=== PATIENT | female | born 1935 | race Caucasian/White ===

== ENCOUNTER 2022-02-20 15:36 | Inpatient (IN) ==
[2022-02-20 16:50] LABS: Basophils # (auto) 0.04 K/uL (0-0.2); Basophils % (auto) 0.3 %; Eosinophils # (auto) 0.01 K/uL (0-0.50); Eosinophils % (auto) 0.1 %; Hematocrit (blood only) 43.5 % (34.1-44.9); Hemoglobin 14.9 g/dl (12.0-16.0); Immature Granulocytes # (auto) 0.04 K/uL (0.00-0.02); Immature Granulocytes % (auto) 0.3 %; Lymphocytes # (auto) 1.48 K/uL (1.2-3.4); Lymphocytes % (auto) 11.4 %; Mean Corpuscular Hemoglobin 31.2 pg (25.0-34.0); Mean Corpuscular Hgb Conc 34.3 g/dL (32.0-36.0); Mean Corpuscular Volume 91.2 fL (80.0-100.0); Mean Platelet Volume 8.9 fL (9.4-12.3); Monocytes # (auto) 0.75 K/uL (0.24-0.82); Monocytes % (auto) 5.8 %; Neutrophils # (auto) 10.61 K/uL (1.4-6.5); Neutrophils % (auto) 82.1 %; Platelet Count 468 K/uL (130-400); RDW Coefficient of Variation 13.5 % (11.5-14.5); RDW Standard Deviation 45.8 fL (36.4-46.3); Red Blood Count 4.77 M/uL (3.93-5.22); White Blood Count 12.93 K/ul (4.8-10.8)
[2022-02-20] MEDS ORDERED: CEFEPIME 2,000 MG/20 ML VIAL IV STA (16:51)
[2022-02-20] MEDS ORDERED: VANCOMYCIN HCL 750 MG in SODIUM CHLORIDE 0.9% 500 ML IV ONE (16:51)
[2022-02-20] MEDS ORDERED: VANCOMYCIN CONSULT ACTIVE PRN (16:51)
--- NOTE | 2022-02-20 16:54 | XRay Report ---
XR chest 1V portable CLINICAL HISTORY: Dyspnea. COMPARISON STUDY: Chest radiograph February 18, 2018. FINDINGS: Patient is rotated. There is no pneumothorax. No evidence for pulmonary edema. A small left pleural effusion is present. Left basilar airspace opacity is noted with volume loss. Linear right b asilar opacity favors atelectasis. IMPRESSION: 1. Left lower lung airspace opacity with volume loss. This could reflect pneumonia or left lower lobe atelectasis. Radiographic follow-up is recommended. 2. Small left pleural effusion. ACT 112: Negative or not required by law. Electronically signed by: Peterson Davis M.D. 02/20/2022 4:52 PM
[2022-02-20 17:15] LABS: Troponin I High Sensitivity 23.2 pg/ml (0-14)
[2022-02-20 17:20] LABS: Albumin Globulin Ratio 1.1 (0.9-2); Albumin Level 4.2 gm/dl (3.4-5.0); BUN Creatinine Ratio 22.7 (10-20); Bilirubin,Total 0.6 mg/dl (0.2-1.0); Creatinine Clr Calc Pharmacy 37.1 ml/min; Est GFR (African American) 84.2 ml/min; Est GFR (Non-African American) 72.7 ml/min; Globulin 3.9 gm/dl (2.5-4.0); Magnesium 1.9 mg/dl (1.7-2.4); Potassium 3.7 mmol/L (3.5-5.1); Total Protein 8.1 gm/dl (6.0-8.3)
[2022-02-20] MEDS ORDERED: SODIUM CHLORIDE 0.9% 1000ML 500 ML IV ONE (17:27)
[2022-02-20] MEDS ORDERED: SODIUM CHLORIDE 0.9% 1000ML 1,000 ML IV STA (17:27)
--- NOTE | 2022-02-20 17:46 | History & Physical Report ---
Date of Service February 20, 2022 Assessment & Plan (1) Acute and chronic respiratory failure with hypoxia: Plan: - Patient has pneumonia with a left pleural effusion on CXR, given recent COVID infection, suspicion for possible PE contributing. Also likely component of COPD exacerbation. Patient says she has been tested twice for COPD and does not have it, last test several years ago, however has a longstanding tobacco history and presents like a COPD exacerbation, would presume she has some degree of it. Did have PFTs in 2018, with evidence of some mild obstruction. - Chest CTA ordered, pending. Also obtain ABG. - For now, treat empirically as community-acquired pneumonia with ceftriaxone and azithromycin. - Sputum, blood cultures ordered and pending. - DuoNebs scheduled every 6 hours and every 2 hours as needed. - Defer Mucinex as patient has an allergy to this. - We will hold off on steroids given this would inhibit healing from bacterial infection. - Continue home inhalers. - Lasix 20 IV twice daily for pleural effusion. - BMP up at 442, obtaining echo as below for elevated troponin. - Has an anion gap 15, normal lactate, suspect due to very poor p.o. intake over the past 2 weeks. Will look for ketones in urine when it is collected. (2) Elevated troponin: Plan: - Elevated at 23, EKG without any concerning ST segment or T wave changes. - Patient has complained of intermittent chest pressure over the past several days alleviated with rest, with oxygen in ED. - Suspect is elevated due to infection/hypoxia/pleural effusion, but will trend overnight and obtain echo. (3) Hypertension: Plan: - Continue amlodipine and losartan. (4) Hyperlipidemia: Plan: - Continue atorvastatin. (5) Osteoporosis: Plan: - Continue calcium and vitamin D supplementation. (6) Pneumonia: Plan: - See #1 (7) Pleural effusion: Plan: - See #1 Plan - admit to med w/ telemetry. - SCDs, Lovenox for VTE ppx. - Full Code. History of Present Illness Chief Complaint: Worsening shortness of breath and cough over 2 weeks Primary Care Provider: Rosalio York MD Emelia Sood is an 86 y/o female with past medical history significant for COVID infection 2 weeks ago, longstanding tobacco use disorder suspected COPD, hypertension, and hyperlipidemia is presenting today with acute worsening of her shortness of breath. 2 weeks ago she and her are not feeling well, therefore they tested for COVID-19 and were both positive for it. Patient's symptoms included shortness of breath, productive cough, and she is generalized weakness due to lack of appetite. Has been using her inhalers as prescribed without alleviation over the past 2 weeks that is gradually become worse until today when she felt like she could not catch her breath and presented to the ED for evaluation. She has had intermittent chest pressure that comes and goes at rest or with activity and notes that her being on oxygen here, it is completely subsided. She has not had any fever or chills, chest tightness, palpitations, abdominal pain, nausea, vomiting. Although she feels lightheaded, she has not passed out and denies any falls. She is a longtime smoker, smoking half pack to 1 pack/day for many years, however has not been smoking much the past 2 weeks as she has been too short of breath to do so. On presentation, patient was hypoxic on room air to the 80s, mildly hypertensive 146/62, tachypneic with RR of 27, tachycardic, HR 100 110. Labs significant for WBC 12 with left shift, on BMP she has an AG 15, otherwise renal function is at baseline, no transaminitis, no electrolyte abnormalities. Troponin mildly bumped at 23.2, BNP 442. COVID-negative today. Blood cultures pending. CXR shows left lower lung opacity and small left pleural effusion. Allergies Allergy/AdvReac Type Severity Reaction Status Date / Time guaifenesin [From Mucinex] Allergy Intermediate Hives Verified 02/20/22 17:42 amoxicillin Allergy Unknown Unknown Verified 02/20/22 17:42 prednisone AdvReac Severe swelling Verified 02/20/22 17:42 legs clindamycin AdvReac Intermediate Diarrhea Verified 02/20/22 17:42 lisinopril AdvReac Intermediate Cough Verified 02/20/22 17:42 Home Medications Medication Instructions Recorded Confirmed Type alendronate 70 mg tablet 70 mg PO WK 02/18/18 02/20/22 History amlodipine 10 mg tablet 10 mg PO DAILY 02/18/18 02/20/22 History aspirin 81 mg tablet,delayed 81 mg PO 3XWK 02/18/18 02/20/22 History release (Kaitlin Low Dose Aspirin) calcium carbonate 600 mg calcium 1,200 mg PO DAILY 02/18/18 02/20/22 History (1,500 mg) tablet (Calcium) cholecalciferol (vitamin D3) 50 2,000 unit PO DAILY 02/18/18 02/20/22 History mcg (2,000 unit) capsule (Vitamin D3) fexofenadine 180 mg tablet 180 mg PO DAILY 02/18/18 02/20/22 History triamcinolone acetonide 0.1 % 1 applic topical DAILY PRN Dry Skin 02/18/18 02/20/22 History topical ointment albuterol sulfate 90 mcg/actuation 2 puff inhalation Q6H PRN 02/19/18 02/20/22 History aerosol inhaler (ProAir HFA) SOB/Wheezing atorvastatin 40 mg tablet 40 mg PO DAILY 11/07/20 02/20/22 History losartan 100 mg tablet 100 mg PO DAILY 11/07/20 02/20/22 History oxycodone 5 mg tablet (Roxicodone) 2.5 mg PO Q8H PRN pain #5 tabs 11/07/20 02/20/22 Rx triamcinolone acetonide 55 mcg 2 spray intranasal DAILY 11/07/20 02/20/22 History nasal spray aerosol (Nasacort) sodium chloride 0.65 % nasal spray 2 spray intranasal BID 02/20/22 02/20/22 History aerosol (Saline Mist) Past Med/Surg History Medical History COVID-09 february 2022 Hyperlipidemia Hypertension Family History Other No significant family history Social History Smoking Status: Current every day smoker Tobacco Type: Cigarettes Cigarettes Per Day: 20; Hx Alcohol Use: No Hx Substance Use: No Preferred Language: Urdu Communication Ability: Effective Dough Catcher Required: No Beliefs That Will Affect Care: None Current Living Situation: Family Feels Safe at Home: Yes Assistive Devices: Walker Review of Systems Review of Systems: Constitutional: Progressive weakness, fatigue, myalgias, anorexia x2 weeks; no fever/chills, night sweats Eyes: No diplopia, no worsening or blurred vision ENT: normal hearing, no trouble swallowing Respiratory: Shortness of breath with minimal exertion associated with cough productive of green/yellow phlegm Cardiovascular: Chest pressure with activity, alleviated with oxygen in ED Abdomen: No pain, nausea, vomiting, diarrhea or constipation : Denies dysuria, hematuria, increased urgency/frequency, urinary retention Musculoskeletal: No joint pain, calf pain, swelling Neurologic: No weakness, numbness/tingling, or balance problems Psychiatric: No anxiety or depression Skin: No rash or itch Physical Exam Physical Exam: General: awake, alert, appears frail, patient on oxygen mask, visibly short of breath with conversation, with accessory respiratory muscle use Head: Normocephalic, atraumatic ENT: PERRL, EOMI, no pharyngeal exudate, mucous membranes moist Chest: Decreased breath sounds and posterior lung dee without wheezing appreciated Cardiac: Regular rate and rhythm, no murmur, no JVD, normal peripheral pulses, good capillary refill Abdominal: NABS x 4 quadrants, soft, nontender to palpation, no rebound, guarding or tenderness Extremities: Normal inspection, no peripheral edema or erythema, calfs nontender to palpation Psych: Normal mood and affect Neuro: AAO x 3, strength intact bilaterally and rated 5/5, no motor deficits, speech is clear, no peripheral sensory deficits Skin: no rash or erythema Results & Data Results & Data ([facility]) Vital Signs (Past 12 Hours) Vital Signs Temp Pulse Resp BP Pulse Ox O2 Del Method O2 Flow Rate 02/20/22 16:16 92 Nasal Cannula 3 02/20/22 15:45 91 Nasal Cannula 0 02/20/22 15:45 36.8 C 118 H 22 159/70 H 91 Room Air Laboratory Results Lab Results 02/20/22 02/20/22 02/20/22 Range/Units 16:30 16:30 16:30 WBC 12.93 H (4.8-10.8) K/ul RBC 4.77 (3.93-5.22) M/uL Hgb 14.9 (12.0-16.0) g/dl Hct 43.5 (34.1-44.9) % MCV 91.2 (80.0-100.0) fL MCH 31.2 (25.0-34.0) pg MCHC 34.3 (32.0-36.0) g/dL RDW Std Deviation 45.8 (36.4-46.3) fL RDW Coeff of Blas 13.5 (11.5-14.5) % Plt Count 468 H (130-400) K/uL MPV 8.9 L (9.4-12.3) fL Immature Gran % (Auto) 0.3 % Neut % (Auto) 82.1 % Lymph % (Auto) 11.4 % Aiken % (Auto) 5.8 % Eos % (Auto) 0.1 % Baso % (Auto) 0.3 % Neut # (Auto) 10.61 H (1.4-6.5) K/uL Lymph # (Auto) 1.48 (1.2-3.4) K/uL Aiken # (Auto) 0.75 (0.24-0.82) K/uL Eos # (Auto) 0.01 (0-0.50) K/uL Baso # (Auto) 0.04 (0-0.2) K/uL Immature Gran # (Auto) 0.04 H (0.00-0.02) K/uL Sodium 138 (136-145) mmol/L Potassium 3.7 (3.5-5.1) mmol/L Chloride 101 (98-107) mmol/L Carbon Dioxide 22 (21-32) mmol/L Anion Gap 15 H (3-11) BUN 17 (6-23) mg/dl Creatinine 0.75 (0.6-1.2) mg/dl Est Cr Clr Drug Dosing 37.1 ml/min Est GFR ( Amer) 84.2 ml/min Est GFR (Non-Af Amer) 72.7 ml/min BUN/Creatinine Ratio 22.7 H (10-20) Glucose 103 H (70-99(Fasting)) mg/dl Lactate (0.4-2.0) mmol/L Calcium 10.0 (8.5-10.1) mg/dl Magnesium 1.9 (1.7-2.4) mg/dl Total Bilirubin 0.6 (0.2-1.0) mg/dl AST 22 (13-39) U/L ALT 12 (7-52) U/L Alkaline Phosphatase 129 H (34-104) U/L Troponin I High Sens 23.2 H (0-14) pg/ml B-Natriuretic Peptide 442 H (0-100) pg/ml Total Protein 8.1 (6.0-8.3) gm/dl Albumin 4.2 (3.4-5.0) gm/dl Globulin 3.9 (2.5-4.0) gm/dl Albumin/Globulin Ratio 1.1 (0.9-2) SARS-CoV-2, RNA, NAAT (NEGATIVE) 02/20/22 02/20/22 Range/Units 16:30 16:35 WBC (4.8-10.8) K/ul RBC (3.93-5.22) M/uL Hgb (12.0-16.0) g/dl Hct (34.1-44.9) % MCV (80.0-100.0) fL MCH (25.0-34.0) pg MCHC (32.0-36.0) g/dL RDW Std Deviation (36.4-46.3) fL RDW Coeff of Blas (11.5-14.5) % Plt Count (130-400) K/uL MPV (9.4-12.3) fL Immature Gran % (Auto) % Neut % (Auto) % Lymph % (Auto) % Aiken % (Auto) % Eos % (Auto) % Baso % (Auto) % Neut # (Auto) (1.4-6.5) K/uL Lymph # (Auto) (1.2-3.4) K/uL Aiken # (Auto) (0.24-0.82) K/uL Eos # (Auto) (0-0.50) K/uL Baso # (Auto) (0-0.2) K/uL Immature Gran # (Auto) (0.00-0.02) K/uL Sodium (136-145) mmol/L Potassium (3.5-5.1) mmol/L Chloride (98-107) mmol/L Carbon Dioxide (21-32) mmol/L Anion Gap (3-11) BUN (6-23) mg/dl Creatinine (0.6-1.2) mg/dl Est Cr Clr Drug Dosing ml/min Est GFR ( Amer) ml/min Est GFR (Non-Af Amer) ml/min BUN/Creatinine Ratio (10-20) Glucose (70-99(Fasting)) mg/dl Lactate 1.1 (0.4-2.0) mmol/L Calcium (8.5-10.1) mg/dl Magnesium (1.7-2.4) mg/dl Total Bilirubin (0.2-1.0) mg/dl AST (13-39) U/L ALT (7-52) U/L Alkaline Phosphatase (34-104) U/L Troponin I High Sens (0-14) pg/ml B-Natriuretic Peptide (0-100) pg/ml Total Protein (6.0-8.3) gm/dl Albumin (3.4-5.0) gm/dl Globulin (2.5-4.0) gm/dl Albumin/Globulin Ratio (0.9-2) SARS-CoV-2, RNA, NAAT NEGATIVE (NEGATIVE) Diagnostic Findings Chest X-Ray 02/20/22 16:08 XR chest 1V portable CLINICAL HISTORY: Dyspnea. COMPARISON STUDY: Chest radiograph February 18, 2018. FINDINGS: Patient is rotated. There is no pneumothorax. No evidence for pulmonary edema. A small left pleural effusion is present. Left basilar airspace opacity is noted with volume loss. Linear right basilar opacity favors atelectasis. IMPRESSION: 1. Left lower lung airspace opacity with volume loss. This could reflect pneumonia or left lower lobe atelectasis. Radiographic follow-up is recommended. 2. Small left pleural effusion. ACT 112: Negative or not required by law. Electronically signed by: Peterson Davis M.D. 02/20/2022 4:52 PM ECG Additional Comments: Poor data quality, interpretation may be adversely affected Sinus tachycardia with occasional , and consecutive Premature ventricular complexes Left axis deviation Inferior infarct , age undetermined Anterolateral infarct , age undetermined Abnormal ECG When compared with ECG of 18-FEB-2018 17:06, Significant changes have occurred Supervising Physician Co-Signing Physician Notes Patient seen and examined, chart reviewed, case discussed with Radha Daily PA-C and I agree with the assessment and plan as above except as otherwise noted Labs and images reviewed Emelia is a 86-year-old female recently diagnosed with COVID who presents with worsening shortness of breath and breathing and purulent sputum production. She has a leukocytosis, left lower lung airspace opacity suspicious for pneumonia, and frankly purulent sputum production. At time of bedside visit she is not short of breath but is on supplemental oxygen and is having no chest pain. Lungs diminished in the left base, some expiratory wheezing. Heart rate is regular but slightly tachycardic at bedside. Agree with antibiotics for coverage of secondary pneumonia above, MRSA nares added for de-escalation, sputum culture is pending. Agree with management above. Troponin trended, repeat COVID is negative. PG Care Time/CCT Total # of Minutes Spent Total Time Spent with Patient: Total time spent is greater than 50% in coordination of care (as documented) at patient's floor/unit and/or counseling patient: Coding Level of Care Code 92205 Initial Inpt Care Lvl 3 Diagnoses Acute and chronic respiratory failure with hypoxia J96.21 Elevated troponin R77.8 Hypertension I10 Hyperlipidemia E78.5 Osteoporosis M81.0 Pneumonia J18.1 Laterality: right Lung location: lower lobe of lung Pneumonia type: due to unspecified organism Pleural effusion J90 (1) Pneumonia Laterality: right Lung location: lower lobe of lung Pneumonia type: due to unspecified organism Qualified Code(s): J18.1 - Lobar pneumonia, unspecified organism
[2022-02-20] MEDS ORDERED: VANCOMYCIN HCL 750 MG in SODIUM CHLORIDE 0.9% 250 ML IV STA (17:50)
--- NOTE | 2022-02-20 18:39 | Emergency Department Note ---
Impression & Plan Left lower lobe pneumonia, Elevated troponin, Hypoxia ED Provider Note INFORMANT: Patient and daughter ED PROVIDER(S): Erich Ortiz MD CHIEF COMPLAINT: Shortness of breath productive cough PLAN: Disposition: Admitted Condition: Guarded Outpatient prescription management: none Referral: None MEDICAL DECISION MAKING: Patient presented because of productive cough and shortness of breath. She was hypoxic. She had increased work of breathing. Chest x-ray was performed and revealed left lower lobe infiltrate. Her CBC showed a leukocytosis. Patient has a mild elevation of BNP and troponin. Chemistry panel was unremarkable. She was treated with broad-spectrum antibiotics after cultures. She was given cefepime and vancomycin. She was doing relatively well with a oxi mask. She will need further management in the hospital. Patient and daughter were in agreement. Consultation was made with the [facility]. Patient was evaluated in the ER for further management. Triage Nursing notes reviewed and agree them. Vital Signs: reviewed and remarkable for hypoxia Differential diagnosis: Reactive airway disease, pneumonia, pneumothorax, COPD, CHF, infections, cardiac ischemia, pulmonary embolism, musculoskeletal, gastrointestinal, as well as other pathologies. Diagnostics interpreted by me: ECG: Twelve-lead ECG reveals sinus tachycardia 125 bpm. There is left axis deviation. Inferior and anterolateral Q waves are present. No ST elevation. Cardiac Monitoring: Cardiac monitoring ordered by me: The patient was placed on continuous cardiac monitoring and observed. It revealed a sinus tachycardic rhythm at 106 Imaging studies: Chest x-ray as noted above. Left lower lobe infiltrate. HPI: The patient is a 86year old female who presents to the Emergency Room with complaints of shortness of breath. This started over the last week and is getting worse. The patient also notes the following associated symptoms, productive cough, weakness. The patient has found no relieving factors. Current pain is rated as 0/10. Patient states she was diagnosed with COVID 2 weeks ago. Over the last week she has progressively gotten worse. Pt denies LOC, headache, fevers, chills, diaphoresis, visual changes, neck pain, chest pain, nausea, vomiting, abdominal pain, back pain, melena, hematochezia, urinary symptoms, numbness, lymphadenopathy, rash, or other complaints. ROS: See above HPI for pertinent positives & negatives. A total of 10 systems reviewed and were otherwise negative. PAST MEDICAL HISTORY:See Below , hypertension PAST SURGICAL HISTORY:See Below, FAMILY HISTORY:See Below SOCIAL HISTORY:See Below, HOME MEDICATIONS:See Below ALLERGIES:See Below VITALS:See Below PHYSICAL EXAMINATION: GENERAL: Awake, alert, dyspneic-appearing, in no distress HENT: Normocephalic, atraumatic. Oropharynx unremarkable. EYES: Normal conjunctiva. Sclera non-icteric. NECK: Inspection normal. Non-tender. Supple. No nuchal rigidity. FROM. No masses. RESPIRATORY: Rhonchi noted in the left based. No wheezes. No rales. Increased respiratory effort. CARDIAC: Borderline tachycardic rate. Normal rhythm. No murmurs. No rubs. Extremities warm and well perfused. Pulses equal. No JVD. GI: Soft, non-distended. No tenderness to palpation. No rebound or guarding. No masses. RECTAL: Deferred. MUSCULOSKELETAL: Atraumatic. Chest examination reveals no tenderness. The back is symmetrical on inspection without obvious abnormality. There is no CVA tenderness to palpation. No joint edema. LOWER EXTREMITIES: Calves are equal size bilaterally and non-tender. No edema. No discoloration. NEURO: Normal sensorium. No sensory or motor deficits noted. SKIN: No rash or jaundice noted. CRITICAL CARE: I have personally spent greater than 33 minutes of critical care time in the direct management of this patient. This includes bedside care, interpretation of diagnostic studies, and testing, discussion with consultants, patient, and family members, and other required patient management activities. These minutes are in excess of all separately billable procedures. 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 Required: No Beliefs That Will Affect Care: None Current Living Situation: Family Feels Safe at Home: Yes Assistive Devices: Walker Allergies Allergies Allergy/AdvReac Type Severity Reaction Status Date / Time guaifenesin [From Mucinex] Allergy Intermediate Hives Verified 02/20/22 17:42 amoxicillin Allergy Unknown Unknown Verified 02/20/22 17:42 prednisone AdvReac Severe swelling Verified 02/20/22 17:42 legs clindamycin AdvReac Intermediate Diarrhea Verified 02/20/22 17:42 lisinopril AdvReac Intermediate Cough Verified 02/20/22 17:42 Home Meds Home Medications Medication Instructions Recorded Confirmed alendronate 70 mg tablet 70 mg PO WK 02/18/18 02/20/22 amlodipine 10 mg tablet 10 mg PO DAILY 02/18/18 02/20/22 aspirin 81 mg tablet,delayed 81 mg PO 3XWK 02/18/18 02/20/22 release (Kaitlin Low Dose Aspirin) calcium carbonate 600 mg calcium 1,200 mg PO DAILY 02/18/18 02/20/22 (1,500 mg) tablet (Calcium) cholecalciferol (vitamin D3) 50 2,000 unit PO DAILY 02/18/18 02/20/22 mcg (2,000 unit) capsule (Vitamin D3) fexofenadine 180 mg tablet 180 mg PO DAILY 02/18/18 02/20/22 triamcinolone acetonide 0.1 % 1 applic topical DAILY PRN Dry Skin 02/18/18 02/20/22 topical ointment albuterol sulfate 90 mcg/actuation 2 puff inhalation Q6H PRN 02/19/18 02/20/22 aerosol inhaler (ProAir HFA) SOB/Wheezing atorvastatin 40 mg tablet 40 mg PO DAILY 11/07/20 02/20/22 losartan 100 mg tablet 100 mg PO DAILY 11/07/20 02/20/22 triamcinolone acetonide 55 mcg 2 spray intranasal DAILY 11/07/20 02/20/22 nasal spray aerosol (Nasacort) sodium chloride 0.65 % nasal spray 2 spray intranasal BID 02/20/22 02/20/22 aerosol (Saline Mist) Previous Rx's Medication Instructions Recorded oxycodone 5 mg tablet (Roxicodone) 2.5 mg PO Q8H PRN pain #5 tabs 11/07/20 Results & Data (ED) Vital Signs Vital Signs - 24 hr 02/20/22 15:45 02/20/22 15:45 02/20/22 16:16 Temperature 36.8 C Temperature Source Oral Pulse Rate 118 H Pulse Rate [Apical] Respiratory Rate 22 Blood Pressure 159/70 H Blood Pressure [Left Arm] Blood Pressure Mean 99 Blood Pressure Mean [Left Arm] Pulse Oximetry 91 91 92 Oxygen Delivery Method Room Air Nasal Cannula Nasal Cannula Oxygen Flow Rate 0 3 Sepsis Recent Fever Within 48 Hours No Sepsis New/Unexplained Change in Mental Status No Sepsis Action Taken by Nursing No Action Required Oxygen Flow Rate - Titration 3 Pulse Oximetry Post Tiitration 93 02/20/22 17:45 Temperature Temperature Source Pulse Rate Pulse Rate [Apical] 102 H Respiratory Rate 18 Blood Pressure Blood Pressure [Left Arm] 143/85 H Blood Pressure Mean Blood Pressure Mean [Left Arm] 104 Pulse Oximetry 93 Oxygen Delivery Method Oxymask Oxygen Flow Rate 6 Sepsis Recent Fever Within 48 Hours Sepsis New/Unexplained Change in Mental Status Sepsis Action Taken by Nursing Oxygen Flow Rate - Titration Pulse Oximetry Post Tiitration Laboratory Data Result diagrams: 02/20/22 16:30 02/20/22 16:30 Lab Results 02/20/22 02/20/22 02/20/22 Range/Units 16:30 16:30 16:30 WBC 12.93 H (4.8-10.8) K/ul RBC 4.77 (3.93-5.22) M/uL Hgb 14.9 (12.0-16.0) g/dl Hct 43.5 (34.1-44.9) % MCV 91.2 (80.0-100.0) fL MCH 31.2 (25.0-34.0) pg MCHC 34.3 (32.0-36.0) g/dL RDW Std Deviation 45.8 (36.4-46.3) fL RDW Coeff of Blas 13.5 (11.5-14.5) % Plt Count 468 H (130-400) K/uL MPV 8.9 L (9.4-12.3) fL Immature Gran % (Auto) 0.3 % Neut % (Auto) 82.1 % Lymph % (Auto) 11.4 % Beckham % (Auto) 5.8 % Eos % (Auto) 0.1 % Baso % (Auto) 0.3 % Neut # (Auto) 10.61 H (1.4-6.5) K/uL Lymph # (Auto) 1.48 (1.2-3.4) K/uL Beckham # (Auto) 0.75 (0.24-0.82) K/uL Eos # (Auto) 0.01 (0-0.50) K/uL Baso # (Auto) 0.04 (0-0.2) K/uL Immature Gran # (Auto) 0.04 H (0.00-0.02) K/uL Sodium 138 (136-145) mmol/L Potassium 3.7 (3.5-5.1) mmol/L Chloride 101 (98-107) mmol/L Carbon Dioxide 22 (21-32) mmol/L Anion Gap 15 H (3-11) BUN 17 (6-23) mg/dl Creatinine 0.75 (0.6-1.2) mg/dl Est Cr Clr Drug Dosing 37.1 ml/min Est GFR ( Amer) 84.2 ml/min Est GFR (Non-Af Amer) 72.7 ml/min BUN/Creatinine Ratio 22.7 H (10-20) Glucose 103 H (70-99(Fasting)) mg/dl Lactate (0.4-2.0) mmol/L Calcium 10.0 (8.5-10.1) mg/dl Magnesium 1.9 (1.7-2.4) mg/dl Total Bilirubin 0.6 (0.2-1.0) mg/dl AST 22 (13-39) U/L ALT 12 (7-52) U/L Alkaline Phosphatase 129 H (34-104) U/L Troponin I High Sens 23.2 H (0-14) pg/ml B-Natriuretic Peptide 442 H (0-100) pg/ml Total Protein 8.1 (6.0-8.3) gm/dl Albumin 4.2 (3.4-5.0) gm/dl Globulin 3.9 (2.5-4.0) gm/dl Albumin/Globulin Ratio 1.1 (0.9-2) SARS-CoV-2, RNA, NAAT (NEGATIVE) 02/20/22 02/20/22 Range/Units 16:30 16:35 WBC (4.8-10.8) K/ul RBC (3.93-5.22) M/uL Hgb (12.0-16.0) g/dl Hct (34.1-44.9) % MCV (80.0-100.0) fL MCH (25.0-34.0) pg MCHC (32.0-36.0) g/dL RDW Std Deviation (36.4-46.3) fL RDW Coeff of Blas (11.5-14.5) % Plt Count (130-400) K/uL MPV (9.4-12.3) fL Immature Gran % (Auto) % Neut % (Auto) % Lymph % (Auto) % Beckham % (Auto) % Eos % (Auto) % Baso % (Auto) % Neut # (Auto) (1.4-6.5) K/uL Lymph # (Auto) (1.2-3.4) K/uL Beckham # (Auto) (0.24-0.82) K/uL Eos # (Auto) (0-0.50) K/uL Baso # (Auto) (0-0.2) K/uL Immature Gran # (Auto) (0.00-0.02) K/uL Sodium (136-145) mmol/L Potassium (3.5-5.1) mmol/L Chloride (98-107) mmol/L Carbon Dioxide (21-32) mmol/L Anion Gap (3-11) BUN (6-23) mg/dl Creatinine (0.6-1.2) mg/dl Est Cr Clr Drug Dosing ml/min Est GFR ( Amer) ml/min Est GFR (Non-Af Amer) ml/min BUN/Creatinine Ratio (10-20) Glucose (70-99(Fasting)) mg/dl Lactate 1.1 (0.4-2.0) mmol/L Calcium (8.5-10.1) mg/dl Magnesium (1.7-2.4) mg/dl Total Bilirubin (0.2-1.0) mg/dl AST (13-39) U/L ALT (7-52) U/L Alkaline Phosphatase (34-104) U/L Troponin I High Sens (0-14) pg/ml B-Natriuretic Peptide (0-100) pg/ml Total Protein (6.0-8.3) gm/dl Albumin (3.4-5.0) gm/dl Globulin (2.5-4.0) gm/dl Albumin/Globulin Ratio (0.9-2) SARS-CoV-2, RNA, NAAT NEGATIVE (NEGATIVE) Administered Medications Albuterol (Albut/Ipratrop 3mg/0.5mg Neb 3 Ml Vial) 3 ml INH Q6R JARROD Stop: 03/22/22 20:49 Last Admin: 02/20/22 21:52 Dose: 3 ml Documented By: STS Enoxaparin Sodium (Enoxaparin Inj 40 Mg/0.4 Ml Syr) 40 mg SQ HS JARROD Stop: 03/22/22 21:59 Last Admin: 02/20/22 21:57 Dose: 40 mg Documented By: CLARITA Azithromycin 500 mg/ Dextrose 255 mls @ 125 mls/hr IV Q24H JARROD; Protocol Stop: 02/25/22 21:59 Last Admin: 02/20/22 22:00 Dose: 125 mls/hr Documented By: CLARITA Ceftriaxone Sodium 2,000 mg/ (Dextrose) 70 mls @ 100 mls/hr IV Q24H JARROD; Protocol Stop: 02/26/22 22:11 Last Admin: 02/20/22 21:57 Dose: 100 mls/hr Documented By: CLARITA Discontinued Medications Furosemide (Furosemide Inj 20 Mg/2 Ml Vial) 20 mg IV ONE ONE Stop: 02/20/22 18:46 Last Admin: 02/20/22 20:19 Dose: 20 mg Documented By: CLARITA Cefepime HCl (Maxipime) 2,000 mg in 20 mls @ 5 mls/min IV NOW STA; Protocol Stop: 02/20/22 16:54 Last Admin: 02/20/22 16:57 Dose: 5 mls/min Documented By: OL Sodium Chloride (Nss 1000ml) 500 mls @ 999 mls/hr IV .Q31M ONE Stop: 02/20/22 17:57 Last Admin: 02/20/22 18:22 Dose: 999 mls/hr Documented By: OL Sodium Chloride (Nss 1000ml) 1,000 mls @ 125 mls/hr IV .Q8H STA Stop: 02/21/22 01:26 Last Admin: 02/20/22 18:31 Dose: Not Given Documented By: OL Vancomycin HCl 750 mg/ Sodium (Chloride) 265 mls @ 200 mls/hr IV NOW STA; Protocol Stop: 02/20/22 19:09 Last Admin: 02/20/22 18:22 Dose: 200 mls/hr Documented By: OL Imaging Data Radiologist's Impression: Chest X-Ray 02/20/22 16:08 XR chest 1V portable CLINICAL HISTORY: Dyspnea. COMPARISON STUDY: Chest radiograph February 18, 2018. FINDINGS: Patient is rotated. There is no pneumothorax. No evidence for pulmonary edema. A small left pleural effusion is present. Left basilar airspace opacity is noted with volume loss. Linear right basilar opacity favors atelectasis. IMPRESSION: 1. Left lower lung airspace opacity with volume loss. This could reflect pneumonia or left lower lobe atelectasis. Radiographic follow-up is recommended. 2. Small left pleural effusion. ACT 112: Negative or not required by law. Electronically signed by: Peterson Davis M.D. 02/20/2022 4:52 PM Discharge Plan Visit Data Chief Complaint: Shortness of Breath/Dyspnea Stated Complaint: SOB ED Provider: Erich Ortiz Discharge Problem: Left lower lobe pneumonia, Elevated troponin, Hypoxia Discharge Instructions Interventions: ED Discharge Assessment Last Done: 02/20/22 20:51
[2022-02-20] MEDS ORDERED: FUROSEMIDE INJ 20 MG/2 ML VIAL IV ONE (18:45)
[2022-02-20 19:07] LABS: Allen Test Pos (Pos); Base Excess ABG 0.4 mEq/L (-9-1.8); HCO3 ABG 22 mmol/L (19-24); Oxygen Saturation ABG 95.3 % (90-95); PCO2 ABG 28 mmHg (35-46); PO2 ABG 63 mmHg (80-95)
[2022-02-20 19:09] LABS: pH ABG 7.51 (7.35-7.45)
[2022-02-20] MEDS ORDERED: POLYETHYLENE (MIRALAX) 17 GM PACK PO PRN (20:50)
[2022-02-20] MEDS ORDERED: ALBUT/IPRATROP 3MG/0.5MG NEB 3 ML VIAL NEB PRN (20:50)
[2022-02-20] MEDS ORDERED: TRIAMCINOLONE ACET 0.1% OINT 15 GM TUBE TOP PRN (20:50)
[2022-02-20] MEDS ORDERED: ALUMINUM/MAGNESIUM SUSP 30 ML UDC PO PRN (20:50)
[2022-02-20] MEDS ORDERED: ONDANSETRON INJ 2 MG/ML 2 ML VIAL IV PRN (20:50)
[2022-02-20] MEDS ORDERED: oxyCODONE HCL IR 5 MG TAB (IMMEDIATE RELEASE) PO PRN (20:50)
[2022-02-20] MEDS ORDERED: ALBUTEROL HFA 8 GM INHALER INH PRN (20:50)
[2022-02-20] MEDS ORDERED: ACETAMINOPHEN 325 MG TAB PO PRN (20:50)
[2022-02-20] MEDS ORDERED: cefTRIAXone SODIUM 2,000 MG in DEXTROSE 5% 50 ML IV SCH (21:30)
[2022-02-20] MEDS: ALBUT/IPRATROP 3MG/0.5MG NEB 3 ML VIAL INH SCH (21:52)
[2022-02-20] MEDS ORDERED: ENOXAPARIN INJ 40 MG/0.4 ML SYR SQ SCH (22:00)
[2022-02-20] MEDS: AZITHROMYCIN 500 MG in DEXTROSE 5% 250 ML IV SCH (22:00)
[2022-02-20 22:34] LABS: Appearance Urine Cloudy (Clear); Bacteria Urine Automated Negative (Negative); Bilirubin Urine Negative (Negative); Blood Urine Negative (Negative); Color Urine Yellow; Epithelial Cell Urine Auto >30 /lpf (0-5); Glucose Urine UA Negative (Negative); Ketones Urine 1+ (Negative); Leukocyte Esterase Urine 3+ (Negative); Nitrite Urine Negative (Negative); Protein Urine 1+ (Negative); Specific Gravity Urine 1.013 (1.000-1.030); Urobilinogen Urine Negative (Negative); WBC Urine Automated >30 /hpf (0-5); pH Urine 6.5 (4.5-7.5)
[2022-02-21] MEDS: ALBUT/IPRATROP 3MG/0.5MG NEB 3 ML VIAL INH SCH ×2 (01:42→09:32)
[2022-02-21] MEDS: SODIUM CHLORIDE 0.65% NA SOLN 45 ML (OCEAN) NAE SCH ×3 (05:32→20:59)
[2022-02-21 08:14] LABS: Basophils # (auto) 0.03 K/uL (0-0.2); Basophils % (auto) 0.2 %; Hematocrit (blood only) 38.1 % (34.1-44.9); Hemoglobin 13.4 g/dl (12.0-16.0); Immature Granulocytes # (auto) 0.09 K/uL (0.00-0.02); Immature Granulocytes % (auto) 0.6 %; Lymphocytes # (auto) 1.23 K/uL (1.2-3.4); Lymphocytes % (auto) 7.9 %; Mean Corpuscular Hemoglobin 31.6 pg (25.0-34.0); Mean Corpuscular Hgb Conc 35.2 g/dL (32.0-36.0); Mean Corpuscular Volume 89.9 fL (80.0-100.0); Mean Platelet Volume 9.1 fL (9.4-12.3); Monocytes # (auto) 1.17 K/uL (0.24-0.82); Monocytes % (auto) 7.5 %; Neutrophils # (auto) 13.03 K/uL (1.4-6.5); Neutrophils % (auto) 83.8 %; Platelet Count 428 K/uL (130-400); RDW Coefficient of Variation 13.4 % (11.5-14.5); RDW Standard Deviation 44.2 fL (36.4-46.3); Red Blood Count 4.24 M/uL (3.93-5.22); White Blood Count 15.55 K/ul (4.8-10.8)
[2022-02-21 08:41] LABS: Troponin I High Sensitivity 24.8 pg/ml (0-14)
[2022-02-21 08:45] LABS: BUN Creatinine Ratio 22.9 (10-20); Calcium 8.8 mg/dl (8.5-10.1); Creatinine Clr Calc Pharmacy 33.8 ml/min; Est GFR (African American) 74.5 ml/min; Est GFR (Non-African American) 64.3 ml/min; Magnesium 1.6 mg/dl (1.7-2.4); Potassium 3.4 mmol/L (3.5-5.1)
[2022-02-21] MEDS ORDERED: FUROSEMIDE INJ 20 MG/2 ML VIAL IV SCH (09:00)
[2022-02-21] MEDS ORDERED: LOSARTAN POTASSIUM 50 MG TAB PO SCH (09:00)
[2022-02-21] MEDS ORDERED: amLODIPine BESYLATE 5 MG TAB PO SCH (09:00)
[2022-02-21] MEDS: CHOLECALCIFEROL 1,000 UNITS 25 MCG TAB PO SCH (09:53)
[2022-02-21] MEDS: CALCIUM 600MG + VIT D 400 IU TAB PO SCH (09:53)
[2022-02-21] MEDS: FEXOFENADINE HCL 180 MG TAB PO SCH (09:53)
[2022-02-21] MEDS: ATORVASTATIN 40 MG TAB PO SCH (09:53)
[2022-02-21] MEDS: ASPIRIN 81 MG ECTAB PO SCH (09:53)
[2022-02-21] MEDS: TRIAMCINOLONE ACET NASAL SPRAY 10.8ML BTL SCH (09:54)
[2022-02-21] MEDS ORDERED: dilTIAZem HCL 30 MG TAB PO ONE (10:45)
--- NOTE | 2022-02-21 10:47 | Electrocardiogram Report ---
Test Reason : Blood Pressure : / mmHG Vent. Rate : 125 BPM Atrial Rate : 138 BPM P-R Int : 136 ms QRS Dur : 070 ms QT Int : 298 ms P-R-T Axes : 000 -31 103 degrees QTc Int : 430 ms Poor data quality, interpretation may be adversely affected Sinus tachycardia with occasional , and consecutive PACs, some conducted aberrantly Left axis deviation possible Inferior infarct , age undetermined Anterolateral infarct , age undetermined Nonspecific ST abnormality Abnormal ECG Confirmed by Jesus Cohn ([id number]) on 02/21/2022 10:47:02 AM Referred By: REFERRED SELF Confirmed By:Everardo Cohn
--- NOTE | 2022-02-21 11:02 | Electrocardiogram Report ---
Test Reason : Blood Pressure : / mmHG Vent. Rate : 111 BPM Atrial Rate : 086 BPM P-R Int : 000 ms QRS Dur : 072 ms QT Int : 324 ms P-R-T Axes : 000 -28 072 degrees QTc Int : 440 ms Multifocal atrial tachycardia Poor R wave progression, consider anterior WA vs. lead placement vs. LVH Abnormal ECG Confirmed by Jesus Cohn ([id number]) on 02/21/2022 11:02:18 AM Referred By: REFERRED SELF Confirmed By:Everardo Cohn
[2022-02-21] MEDS ORDERED: POTASSIUM CHLORIDE CRTAB 20 MEQ TABCR PO STA ×2 (11:21→17:15)
--- NOTE | 2022-02-21 11:22 | Hospitalist Progress Note ---
Date of Service February 21, 2022 Assessment & Plan (1) Pneumonia due to COVID-19 virus: Plan: Patient with a diagnosis of COVID-19 infection sometime within the last 2-3 weeks based on home testing as well as the fact that her was hospitalized with COVID-19. She tested negative here upon admission but [id number] has been struggling with COVID. The infiltrates seen on cxr could be due to COVID itself or bacterial superinfection. She has significant hypoxia (some of which could be due to obstructive lung disease or pulmonary HTN itself) - thus will add dexamethasone 6mg IV daily. She is out of the window for use of Remdesivir. For possible bacterial component - rocephin 1gm IV daily; change zithromax to IV doxy 100mg q12h. Sputum culture has been sent. Cont pulmonary toilet, O2 to keep sats ~90-92%, other supportive care. I am very concerned about her overall clinical picture, her advanced age, fraility, likely advanced COPD, and failure to thrive. Strongly consider palliative care consultation to address goals of care. Check a baseline CRP now. Procal noted. (2) Acute respiratory failure with hypoxia: Plan: 2nd to COVID-19 infection, possible bacterial superinfection, and likely advanced underlying COPD (has had PFTs in the past showing obstruction and she continues to smoke). Also with severe pulmonary HTN contributing to hypoxia. Cont O2 support - keep sats 90-92%. Avoid over-oxygenating. Pulmonary toilet. (3) Multifocal atrial tachycardia: Plan: Innumerable runs of MAT and other atrial arrhythmia seen throughout the day. Poor response to low-dose cardizem. Hold amlodipine and losartan to allow more room with blood pressure in the event we need additional titration of AV brenda agents. (4) Atrial arrhythmia: Plan: In addition to MAT and sinus tach she has frequent ectopy and ?runs of a.fib/flutter. Her rates have ranged 100-180 throughout the day. Fortunately she doesn't seem symptomatic at rest from this. I discussed her case with on-call [facility] Cardiology. Rate-control with AV brenda agents likely to be very difficult. Will institute amiodarone infusion and re-eval in am. Formal cardiology consult requested. Echo findings noted. Will defer on any systemic anticoagulation at this time as I am uncertain if she is having a.fib/flutter or simply MAT/PAT with copious ectopy. Finally, will stop duonebs as the albuterol could theoretically be making some of her tachycardia worse. Replace low K. Replace low mag. Check TSH/FT4 in am. (5) Hypokalemia: Plan: replace repeat level in am replete low mag (6) Hypomagnesemia: Plan: replete with IV mag sulfate repeat level in am (7) Failure to thrive: Plan: 2nd to recent COVID-19 infection. Suspected COPD also could be playing a role. Cannot exclude other underlying pathology. Liberalize diet to regular. Dexamethasone for #1 may help appetite some. (8) Tobacco dependence: Plan: allow nicoderm patch 21mg/24 hrs (smokes up to 1ppd) (9) Obstructive lung disease: Plan: Prior PFTs years ago showed obstruction. She most likely now has advanced COPD. She would benefit from daily maintenance inhalers and evidence-based therapy but I am uncertain if she would take them. Due to severe tachycardia will stop duonebs. Change to xopenex HFA - 2 puffs q6h scheduled. (10) DVT prophylaxis: Plan: given her very low body weight change lovenox to 30mg SC daily (11) Pulmonary HTN: Plan: severe based on today's echo likely due to severe obstructive lung disease cannot rule out thromboembolic disease (she is refusing both CTA chest and LE dopplers) (12) Hypertension: Plan: Hold amlodipine Hold losartan see above (13) Hyperlipidemia: Plan: Cont statin for now Plan stop lasix patient does not examine volume overloaded; if anything she is volume contracted due to very little intake last few weeks with her COVID illness called and spoke with pt's daughter by phone daughter states that Mr Sood was hospitalized at [facility] with a fall and COVID ultimately went to [facility] and now he is on hospice at home I discussed all of the issues her mother is experiencing relayed my concerns that it could be a lengthy hospital stay and that she is quite sick and not doing well discussed the atrial dysrhythmia, oxygen requirement for pneumonia, treatment plan total care time activities today 80 minutes - patient very ill with complex medical problems; multiple discussions with cardiology, updating daughter, etc Admission and Anticipated Discharge Date Admission Date: February 20, 2022 Subjective events of overnight, chart reviewed tele - innumerable amount of runs of MAT/PAT, ectopy, ?a.fib/flutter, sinus tach during the visit patient was resting comfortably in bed she was requiring 4-6 l NC O2 she did not have palpitations from the tachycardia she states she has been sick for well over 2 weeks both she & tested + for COVID at home and he was hospitalized with COVID recently her main complaint is dyspnea - both here and when she was at home she has no energy no appetite she refused CTA Chest overnight stating she could not lay on the CT table she ultimately refused dopplers of the legs that I had ordered, telling staff she "had enough tests" for the day when I asked her what her goal was she stated she wanted to get well enough to return home with her family Review of Systems Review of Systems: gen - fatigue, very little oral intake/appetite cv - no chest pain; no orthopnea pulm - dyspnea, cough, wheezing GI - no abd pain, nausea/emesis social - patient states she continues to use tobacco at home Physical Exam Physical Exam: gen - very thin, cachectic, kyphotic, tachypneic but able to answer questions/speak in sentences neck - JVD present mouth - MM dry heart - tachy, irregular, s1 s2, 2/6 systolic murmur LSB lungs - fine crackles bases, mild end-exp wheezes, tachypnea, no retractions abd - soft NT ND BS+ ext - no edema, pulses 2+ b/l psych - awake/alert Results & Data Results & Data ([facility]) Vital Signs (Past 12 Hours) Vital Signs Temp Pulse Pulse Pulse Resp BP BP 02/21/22 08:49 36.5 C 134 H 24 145/67 H 02/21/22 07:56 101 H 02/21/22 07:52 02/21/22 02:00 100 H 02/21/22 02:00 02/21/22 02:00 02/21/22 02:34 37.0 C 161 H 18 110/71 02/21/22 01:23 37.0 C 101 H 20 133/60 02/21/22 01:42 101 H 24 02/21/22 00:00 100 H 34 H 133/56 L Pulse Ox O2 Del Method O2 Flow Rate 02/21/22 08:49 92 Oxymask 6 02/21/22 07:56 02/21/22 07:52 Oxymask 6 02/21/22 02:00 02/21/22 02:00 Oxymask 6 02/21/22 02:00 Oxymask 6 02/21/22 02:34 87 L Oxymask 6 02/21/22 01:23 89 L Oxymask 6 02/21/22 01:42 93 Oxymask 6 02/21/22 00:00 89 L Oxymask 6 Laboratory Results Laboratory Results - last 24 hr 02/20/22 02/20/22 02/20/22 16:30 16:30 16:30 WBC 12.93 H RBC 4.77 Hgb 14.9 Hct 43.5 MCV 91.2 MCH 31.2 MCHC 34.3 RDW Std Deviation 45.8 RDW Coeff of Blas 13.5 Plt Count 468 H MPV 8.9 L Immature Gran % (Auto) 0.3 Neut % (Auto) 82.1 Lymph % (Auto) 11.4 [place] % (Auto) 5.8 Eos % (Auto) 0.1 Baso % (Auto) 0.3 Neut # (Auto) 10.61 H Lymph # (Auto) 1.48 [place] # (Auto) 0.75 Eos # (Auto) 0.01 Baso # (Auto) 0.04 Immature Gran # (Auto) 0.04 H ABG pH ABG pCO2 ABG pO2 ABG HCO3 ABG O2 Saturation ABG Base Excess Josafat Test Oxygen Given Sodium 138 Potassium 3.7 Chloride 101 Carbon Dioxide 22 Anion Gap 15 H BUN 17 Creatinine 0.75 Est Cr Clr Drug Dosing 37.1 Est GFR ( Amer) 84.2 Est GFR (Non-Af Amer) 72.7 BUN/Creatinine Ratio 22.7 H Glucose 103 H Lactate Calcium 10.0 Magnesium 1.9 Total Bilirubin 0.6 AST 22 ALT 12 Alkaline Phosphatase 129 H Troponin I High Sens 23.2 H B-Natriuretic Peptide 442 H Total Protein 8.1 Albumin 4.2 Globulin 3.9 Albumin/Globulin Ratio 1.1 Procalcitonin Urine Color Urine Appearance Urine pH Ur Specific [place] Urine Protein Urine Glucose (UA) Urine Ketones Urine Blood Urine Nitrite Urine Bilirubin Urine Urobilinogen Ur Leukocyte Esterase Urine WBC (Auto) Urine RBC (Auto) U Hyaline Cast (Auto) U Epithel Cells (Auto) Urine Bacteria (Auto) Nasal Screen MRSA (PCR) SARS-CoV-2, RNA, NAAT 02/20/22 02/20/22 02/20/22 16:30 16:35 18:00 WBC RBC Hgb Hct MCV MCH MCHC RDW Std Deviation RDW Coeff of Blas Plt Count MPV Immature Gran % (Auto) Neut % (Auto) Lymph % (Auto) [place] % (Auto) Eos % (Auto) Baso % (Auto) Neut # (Auto) Lymph # (Auto) [place] # (Auto) Eos # (Auto) Baso # (Auto) Immature Gran # (Auto) ABG pH ABG pCO2 ABG pO2 ABG HCO3 ABG O2 Saturation ABG Base Excess Josafat Test Oxygen Given Sodium Potassium Chloride Carbon Dioxide Anion Gap BUN Creatinine Est Cr Clr Drug Dosing Est GFR ( Amer) Est GFR (Non-Af Amer) BUN/Creatinine Ratio Glucose Lactate 1.1 Calcium Magnesium Total Bilirubin AST ALT Alkaline Phosphatase Troponin I High Sens B-Natriuretic Peptide Total Protein Albumin Globulin Albumin/Globulin Ratio Procalcitonin Urine Color Urine Appearance Urine pH Ur Specific [place] Urine Protein Urine Glucose (UA) Urine Ketones Urine Blood Urine Nitrite Urine Bilirubin Urine Urobilinogen Ur Leukocyte Esterase Urine WBC (Auto) Urine RBC (Auto) U Hyaline Cast (Auto) U Epithel Cells (Auto) Urine Bacteria (Auto) Nasal Screen MRSA (PCR) Negative SARS-CoV-2, RNA, NAAT NEGATIVE 02/20/22 02/20/22 02/20/22 18:55 18:55 18:55 WBC RBC Hgb Hct MCV MCH MCHC RDW Std Deviation RDW Coeff of Blas Plt Count MPV Immature Gran % (Auto) Neut % (Auto) Lymph % (Auto) [place] % (Auto) Eos % (Auto) Baso % (Auto) Neut # (Auto) Lymph # (Auto) [place] # (Auto) Eos # (Auto) Baso # (Auto) Immature Gran # (Auto) ABG pH 7.51 H* ABG pCO2 28 L ABG pO2 63 L ABG HCO3 22 ABG O2 Saturation 95.3 H ABG Base Excess 0.4 Jos[place]at Test Pos Oxygen Given 6L Sodium Potassium Chloride Carbon Dioxide Anion Gap BUN Creatinine Est Cr Clr Drug Dosing Est GFR ( Amer) Est GFR (Non-Af Amer) BUN/Creatinine Ratio Glucose Lactate Calcium Magnesium Total Bilirubin AST ALT Alkaline Phosphatase Troponin I High Sens 19.4 H B-Natriuretic Peptide Total Protein Albumin Globulin Albumin/Globulin Ratio Procalcitonin 0.07 Urine Color Urine Appearance Urine pH Ur Specific [place] Urine Protein Urine Glucose (UA) Urine Ketones Urine Blood Urine Nitrite Urine Bilirubin Urine Urobilinogen Ur Leukocyte Esterase Urine WBC (Auto) Urine RBC (Auto) U Hyaline Cast (Auto) U Epithel Cells (Auto) Urine Bacteria (Auto) Nasal Screen MRSA (PCR) SARS-CoV-2, RNA, NAAT 02/20/22 02/21/22 02/21/22 22:20 07:43 07:43 WBC 15.55 H RBC 4.24 Hgb 13.4 Hct 38.1 MCV 89.9 MCH 31.6 MCHC 35.2 RDW Std Deviation 44.2 RDW Coeff of Blas 13.4 Plt Count 428 H MPV 9.1 L Immature Gran % (Auto) 0.6 Neut % (Auto) 83.8 Lymph % (Auto) 7.9 [place] % (Auto) 7.5 Eos % (Auto) 0.0 Baso % (Auto) 0.2 Neut # (Auto) 13.03 H Lymph # (Auto) 1.23 [place] # (Auto) 1.17 H Eos # (Auto) 0.00 Baso # (Auto) 0.03 Immature Gran # (Auto) 0.09 H ABG pH ABG pCO2 ABG pO2 ABG HCO3 ABG O2 Saturation ABG Base Excess Josafat Test Oxygen Given Sodium 137 Potassium 3.4 L Chloride 102 Carbon Dioxide 24 Anion Gap 11 BUN 19 Creatinine 0.83 Est Cr Clr Drug Dosing 33.8 Est GFR ( Amer) 74.5 Est GFR (Non-Af Amer) 64.3 BUN/Creatinine Ratio 22.9 H Glucose 131 H Lactate Calcium 8.8 Magnesium 1.6 L Total Bilirubin AST ALT Alkaline Phosphatase Troponin I High Sens 24.8 H B-Natriuretic Peptide Total Protein Albumin Globulin Albumin/Globulin Ratio Procalcitonin Urine Color Yellow Urine Appearance Cloudy A Urine pH 6.5 Ur Specific [place] 1.013 Urine Protein 1+ H Urine Glucose (UA) Negative Urine Ketones 1+ H Urine Blood Negative Urine Nitrite Negative Urine Bilirubin Negative Urine Urobilinogen Negative Ur Leukocyte Esterase 3+ H Urine WBC (Auto) >30 H Urine RBC (Auto) 5-10 H U Hyaline Cast (Auto) 1-5 U Epithel Cells (Auto) >30 H Urine Bacteria (Auto) Negative Nasal Screen MRSA (PCR) SARS-CoV-2, RNA, NAAT 02/21/22 07:43 WBC RBC Hgb Hct MCV MCH MCHC RDW Std Deviation RDW Coeff of Blas Plt Count MPV Immature Gran % (Auto) Neut % (Auto) Lymph % (Auto) [place] % (Auto) Eos % (Auto) Baso % (Auto) Neut # (Auto) Lymph # (Auto) [place] # (Auto) Eos # (Auto) Baso # (Auto) Immature Gran # (Auto) ABG pH ABG pCO2 ABG pO2 ABG HCO3 ABG O2 Saturation ABG Base Excess Jos[place]at Test Oxygen Given Sodium Potassium Chloride Carbon Dioxide Anion Gap BUN Creatinine Est Cr Clr Drug Dosing Est GFR ( Amer) Est GFR (Non-Af Amer) BUN/Creatinine Ratio Glucose Lactate Calcium Magnesium Total Bilirubin AST ALT Alkaline Phosphatase Troponin I High Sens B-Natriuretic Peptide Total Protein Albumin Globulin Albumin/Globulin Ratio Procalcitonin 0.12 Urine Color Urine Appearance Urine pH Ur Specific [place] Urine Protein Urine Glucose (UA) Urine Ketones Urine Blood Urine Nitrite Urine Bilirubin Urine Urobilinogen Ur Leukocyte Esterase Urine WBC (Auto) Urine RBC (Auto) U Hyaline Cast (Auto) U Epithel Cells (Auto) Urine Bacteria (Auto) Nasal Screen MRSA (PCR) SARS-CoV-2, RNA, NAAT PG Care Time/CCT Total # of Minutes Spent Total Time Spent with Patient: Total time spent is greater than 50% in coordination of care (as documented) at patient's floor/unit and/or counseling patient: Prolonged Care Time Prolonged Care Time: Yes Total Prolonged Care Time: 80 Coding Level of Care Code 55444 Subseq Hosp Care Lvl 3 (25 - SIGNIFICANT, SEPARATELY IDENTIFIABLE ) Diagnoses Pneumonia due to COVID-19 virus U07.1; J12.82 Acute respiratory failure with hypoxia J96.01 Multifocal atrial tachycardia I47.1 Atrial arrhythmia I49.8 Hypokalemia E87.6 Hypomagnesemia E83.42 Failure to thrive Tobacco dependence F17.200 Obstructive lung disease J44.9 DVT prophylaxis Z29.9 Pulmonary HTN I27.20 Hypertension I10 Hyperlipidemia E78.5 Additional Codes Prolonged Care Time - Prolonged Care Time: Yes ([id number])
[2022-02-21] MEDS ORDERED: MAGNESIUM SULFATE / D5W 1 GM/100 ML BAG IV ONE (11:30)
[2022-02-21] MEDS: dexAMETHasone 6 MG in SYRINGE 0 ML IV SCH (11:55)
--- NOTE | 2022-02-21 12:49 | XCELERA ---
[id number] \\[id number]
[2022-02-21] MEDS ORDERED: LEVALBUTEROL TARTRATE 15 GM HFA.AER.AD INH SCH (13:00)
[2022-02-21] MEDS: dilTIAZem HCL 30 MG TAB PO SCH ×2 (16:05→22:25)
[2022-02-21] MEDS: LEVALBUTEROL TARTRATE 15 GM HFA.AER.AD INH SCH (19:31)
--- NOTE | 2022-02-21 21:08 | Communication Note ---
Date of Service: February 21, 2022 Per dayshift signout, patient is 86y/o F w/ failure to thrive, recent covid 2 wks ago, here for dyspnea 2/2 pneumonia (bacterial vs residual covid). Comp licated by multiple runs of atrial tachycardia, rates up to 140s-150s, intermittently sinus 90s. Messaged by nursing that patient wants to be treated, but does not want transfer to PCU nor IV amiodarone drip. She is flustered by the amount of workup/treatment (e.b. venous doppler) that she has had today. She wants to be treated well enough to go home and be given what she needs at home (rate con trol, abx, supplemental O2). She hopes to go home . Patient reiterates that she still wants full code. She does not want deescalation of care. I told patient that I will defer disposition plans to dayshift. I told patient that w/ her current medical needs, she still requires medical management in the hospital and she is agreeable. I will be ordering PO amiodarone instead of amio drip. Stay on med tele. Continue abx. Replete electrolyses. Discussed w/ pharmacy; lowest dosing recommended for atrial arrhythmia 200mg PO BID x 15 days followed by 100mg daily. Given patients low body weight of 43kg, I will be ordering a one-time dose of 200mg PO and deferring to cardiology regarding what dose to continue.
[2022-02-21] MEDS: ENOXAPARIN INJ 30 MG/0.3 ML SYR SQ SCH (21:22)
[2022-02-21] MEDS: cefTRIAXone SODIUM 1,000 MG in DEXTROSE 5% 50 ML IV SCH (21:28)
[2022-02-21] MEDS ORDERED: AMIODARONE 200 MG TAB PO ONE (22:08)
[2022-02-21] MEDS: AZITHROMYCIN 500 MG in DEXTROSE 5% 250 ML IV SCH (22:24)
[2022-02-21] MEDS: MAGNESIUM SULFATE / D5W 1 GM/100 ML BAG IV SCH (22:24)
[2022-02-21] MEDS: DOXYCYCLINE HYCLATE 100 MG CAP PO SCH (22:25)
[2022-02-22] MEDS: MAGNESIUM SULFATE / D5W 1 GM/100 ML BAG IV SCH (00:24)
[2022-02-22] MEDS: dilTIAZem HCL 30 MG TAB PO SCH ×2 (04:16→10:19)
[2022-02-22] MEDS ORDERED: ALENDRONATE SODIUM 70 MG TAB PO SCH (06:00)
[2022-02-22] MEDS: LEVALBUTEROL TARTRATE 15 GM HFA.AER.AD INH SCH ×4 (07:27→19:22)
[2022-02-22] MEDS: NICOTINE 21 MG/24 HR TDSY TD SCH (07:58)
[2022-02-22] MEDS: CALCIUM 600MG + VIT D 400 IU TAB PO SCH (07:59)
[2022-02-22] MEDS: CHOLECALCIFEROL 1,000 UNITS 25 MCG TAB PO SCH (07:59)
[2022-02-22] MEDS: SODIUM CHLORIDE 0.65% NA SOLN 45 ML (OCEAN) NAE SCH ×2 (08:00→19:34)
[2022-02-22] MEDS: TRIAMCINOLONE ACET NASAL SPRAY 10.8ML BTL SCH (08:00)
[2022-02-22] MEDS: ATORVASTATIN 40 MG TAB PO SCH (08:00)
[2022-02-22] MEDS: FEXOFENADINE HCL 180 MG TAB PO SCH (08:00)
[2022-02-22 08:44] LABS: Basophils # (auto) 0.01 K/uL (0-0.2); Basophils % (auto) 0.1 %; Hematocrit (blood only) 35.4 % (34.1-44.9); Hemoglobin 12.2 g/dl (12.0-16.0); Immature Granulocytes # (auto) 0.06 K/uL (0.00-0.02); Immature Granulocytes % (auto) 0.6 %; Mean Corpuscular Hemoglobin 31.2 pg (25.0-34.0); Mean Corpuscular Hgb Conc 34.5 g/dL (32.0-36.0); Mean Corpuscular Volume 90.5 fL (80.0-100.0); Mean Platelet Volume 9.3 fL (9.4-12.3); Monocytes # (auto) 0.86 K/uL (0.24-0.82); Neutrophils # (auto) 8.26 K/uL (1.4-6.5); Neutrophils % (auto) 77.3 %; Platelet Count 423 K/uL (130-400); RDW Coefficient of Variation 13.6 % (11.5-14.5); RDW Standard Deviation 44.4 fL (36.4-46.3); Red Blood Count 3.91 M/uL (3.93-5.22); White Blood Count 10.69 K/ul (4.8-10.8)
[2022-02-22 10:01] LABS: BUN Creatinine Ratio 24.7 (10-20); Calcium 8.4 mg/dl (8.5-10.1); Creatinine Clr Calc Pharmacy 34.5 ml/min; Est GFR (African American) 76.8 ml/min; Est GFR (Non-African American) 66.2 ml/min; Magnesium 2.4 mg/dl (1.7-2.4)
[2022-02-22] MEDS: DOXYCYCLINE HYCLATE 100 MG CAP PO SCH ×2 (10:19→19:19)
[2022-02-22] MEDS: dexAMETHasone 6 MG in SYRINGE 0 ML IV SCH (10:26)
--- NOTE | 2022-02-22 14:54 | Cardiology Consultation ---
Date of Consultation February 22, 2022 Assessment & Plan (1) Atrial arrhythmia: Plan 1. Atrial tachycardia: I do believe multifocal atrial tachycardia is a correct diagnosis for her arrhythmia. She is not appear to have symptoms associated with the elevated heart rates or arrhythmia. Is of unclear duration. Certainly could be associated with intrinsic lung disease or her current pulmonary process. Telemetry would suggest that this is an adrenergically- mediated process as during sleeping hours or inactivity she has very little atrial arrhythmia. She has preserved LV systolic function. Attempts at rate control diltiazem were not very effective. It did seem reasonable to initiate amiodarone will see if this controls her arrhythmia. Given her advanced age and other comorbidities it seems like a reasonable strategy at least in the short term. Hopefully as her clinical condition improves will see less of the arrhythmia. This does not represent a condition which requires anticoagulation. History of Present Illness Reason for Consultation: Atrial arrhythmia Requesting Physician: Carol Attending Physician: Carole Patel MD History of Present Illness The patient is an 86-year-old woman without a known history of cardiac disease who was brought to the hospital with symptoms of worsening dyspnea. Patient apparently tested positive for COVID-19 recently. She began to experience worsening symptoms of breathing difficulty and presented to the hospital for evaluation. She is felt to have a pneumonia as well as some failure to thrive. During her hospitalization she was noted to have elevated heart rates and an EKG suggested atrial arrhythmia. Attempts at rate control with diltiazem or ineffectual. Patient was started on amiodarone infusion last evening. The patient states she has been unaware of any elevated heart rates. She is generally not aware of palpitations. Into recently she has had a perform her usual home activities such as house cleaning house work without significant limitation. She denies any exertional chest discomfort. She has not been aware of any palpitations at home. She denies significant dizziness or lightheadedness and did not report any recent episodes of syncope. Currently she claims to be feeling better. She states she still has an element of dyspnea but is frustrated that she has not been very ambulatory are active. She is interested in going home on . Allergies Allergy/AdvReac Type Severity Reaction Status Date / Time guaifenesin [From Mucinex] Allergy Intermediate Hives Verified 02/20/22 17:42 amoxicillin Allergy Unknown Unknown Verified 02/20/22 17:42 prednisone AdvReac Severe swelling Verified 02/20/22 17:42 legs clindamycin AdvReac Intermediate Diarrhea Verified 02/20/22 17:42 lisinopril AdvReac Intermediate Cough Verified 02/20/22 17:42 Home Medications Medication Instructions Recorded Confirmed Type alendronate 70 mg tablet 70 mg PO WK 02/18/18 02/20/22 History calcium carbonate 600 mg calcium 1,200 mg PO DAILY 02/18/18 02/20/22 History (1,500 mg) tablet (Calcium) cholecalciferol (vitamin D3) 50 2,000 unit PO DAILY 02/18/18 02/20/22 History mcg (2,000 unit) capsule (Vitamin D3) fexofenadine 180 mg tablet 180 mg PO DAILY 02/18/18 02/20/22 History triamcinolone acetonide 0.1 % 1 applic topical DAILY PRN Dry Skin 02/18/18 02/20/22 History topical ointment albuterol sulfate 90 mcg/actuation 2 puff inhalation Q6H PRN 02/19/18 02/20/22 History aerosol inhaler (ProAir HFA) SOB/Wheezing atorvastatin 40 mg tablet 40 mg PO DAILY 11/07/20 02/20/22 History losartan 100 mg tablet 100 mg PO DAILY 11/07/20 02/20/22 History oxycodone 5 mg tablet (Roxicodone) 2.5 mg PO Q8H PRN pain #5 tabs 11/07/20 02/20/22 Rx triamcinolone acetonide 55 mcg 2 spray intranasal DAILY 11/07/20 02/20/22 History nasal spray aerosol (Nasacort) sodium chloride 0.65 % nasal spray 2 spray intranasal BID 02/20/22 02/20/22 History aerosol (Saline Mist) amiodarone 200 mg tablet 400 mg PO BIDM #49 tabs 02/24/22 Rx apixaban 2.5 mg tablet (Eliquis) 2.5 mg PO BID #60 tabs 02/24/22 Rx cefdinir 300 mg capsule 300 mg PO BID #4 caps 02/24/22 Rx dexamethasone 6 mg tablet 6 mg PO DAILY #5 tabs 02/24/22 Rx diltiazem HCl 120 mg 120 mg PO DAILY #30 caps 02/24/22 Rx capsule,extended release 24 hr doxycycline hyclate 100 mg capsule 100 mg PO BID@1000,2200 #4 caps 02/24/22 Rx Patient History Medical History COVID-09 february 2022 Hyperlipidemia Hypertension Family History Other No significant family history Social History Smoking Status: Current every day smoker Tobacco Type: Cigarettes Cigarettes Per Day: 20; Second Hand Exposure: Yes; Hx Alcohol Use: No Hx Substance Use: No Preferred Language: Italian Communication Ability: Effective Hose Sprayer Required: No Beliefs That Will Affect Care: Oriental Orthodox Oriental Orthodox Beliefs: quaker marital status: Current Living Situation: Family Feels Safe at Home: Yes Assistive Devices: Walker Review of Systems Review of Systems: Per HPI. Poor appetite recently. Physical Exam Physical Exam: She is alert and oriented x3. Mood affect appear normal. She answered all questions appropriately. HEENT: Sclerae are anicteric. Pupils are equal and reactive to light and accommodation. Extraocular movements were intact. Neuro: Cranial nerves intact Lungs: Reduced breath sounds primarily in the left mid lung.. There are no rales wheezes or rhonchi. She has normal respiratory effort without use of accessory muscles. There is normal pulmonary excursion. Cardiac: The rhythm was regular. S1 and S2 were normal. There are no murmurs on examination. The PMI was not markedly displaced on palpation. Extremities: Patient has bilateral radial pulses that are equal in intensity. There is no evidence cyanosis or clubbing. There was no evidence of significant peripheral edema bilaterally. Skin: There are no rashes noted on examination today. Results & Data ([facility]) Vital Signs (Past 12 Hours) Vital Signs Temp Pulse Pulse Resp BP BP Pulse Ox 02/22/22 12:02 36.8 C 83 18 123/49 L 91 02/22/22 11:01 85 20 92 02/22/22 07:30 69 02/22/22 07:29 36.5 C 80 20 134/73 92 02/22/22 07:29 81 18 92 02/22/22 07:19 02/22/22 04:01 36.6 C 86 20 120/78 93 O2 Del Method O2 Flow Rate 02/22/22 12:02 Nasal Cannula 5 02/22/22 11:01 Nasal Cannula 5 02/22/22 07:30 02/22/22 07:29 Oxymask 5 02/22/22 07:29 Oxymask 5 02/22/22 07:19 Oxymask 5 02/22/22 04:01 Oxymask 11 Laboratory Results Abnormal Lab Results 02/21/22 02/22/22 02/22/22 19:52 07:51 07:51 WBC 10.69 RBC 3.91 L Hgb 12.2 Hct 35.4 MCV 90.5 MCH 31.2 MCHC 34.5 RDW Std Deviation 44.4 RDW Coeff of Blas 13.6 Plt Count 423 H MPV 9.3 L Immature Gran % (Auto) 0.6 Neut % (Auto) 77.3 Lymph % (Auto) 14.0 [place] % (Auto) 8.0 Eos % (Auto) 0.0 Baso % (Auto) 0.1 Neut # (Auto) 8.26 H Lymph # (Auto) 1.50 [place] # (Auto) 0.86 H Eos # (Auto) 0.00 Baso # (Auto) 0.01 Immature Gran # (Auto) 0.06 H Sodium Cancelled 132 L Potassium Cancelled 5.0 D Chloride Cancelled 101 Carbon Dioxide Cancelled 24 Anion Gap Cancelled 7 BUN Cancelled 20 Creatinine Cancelled 0.81 Est Cr Clr Drug Dosing Cancelled 34.5 Est GFR ( Amer) Cancelled 76.8 Est GFR (Non-Af Amer) Cancelled 66.2 BUN/Creatinine Ratio Cancelled 24.7 H Glucose Cancelled 102 H Calcium Cancelled 8.4 L Magnesium Cancelled 2.4 TSH 02/22/22 07:51 WBC RBC Hgb Hct MCV MCH MCHC RDW Std Deviation RDW Coeff of Blas Plt Count MPV Immature Gran % (Auto) Neut % (Auto) Lymph % (Auto) [place] % (Auto) Eos % (Auto) Baso % (Auto) Neut # (Auto) Lymph # (Auto) [place] # (Auto) Eos # (Auto) Baso # (Auto) Immature Gran # (Auto) Sodium Potassium Chloride Carbon Dioxide Anion Gap BUN Creatinine Est Cr Clr Drug Dosing Est GFR ( Amer) Est GFR (Non-Af Amer) BUN/Creatinine Ratio Glucose Calcium Magnesium TSH 0.411 Diagnostic Findings Echocardiogram performed 02/21/2022: Normal left ventricular systolic function with a hyperdynamic ventricle. Ejection fraction greater than 70%. Mild left atrial dilation. Mild to moderate mitral annular calcification. Elevated pulmonary pressures estimated greater than 60 mm of mercury. PG Care Time/CCT Total # of Minutes Spent Total Time Spent with Patient: Total time spent is greater than 50% in coordination of care (as documented) at patient's floor/unit and/or counseling patient: Coding Level of Care Code 03512 Initial Inpt Care Lvl 3 Diagnoses Atrial arrhythmia I49.8
[2022-02-22] MEDS: AMIODARONE 200 MG TAB PO SCH (16:50)
--- NOTE | 2022-02-22 18:49 | Hospitalist Progress Note ---
Date of Service February 22, 2022 Assessment & Plan (1) Pneumonia due to COVID-19 virus: Plan: Patient with a diagnosis of COVID-19 infection sometime within the last 2-3 weeks based on home testing as well as the fact that her was hospitalized with COVID-19. She tested negative here upon admission but gggi-[id number]-[id number] has been struggling with COVID. The infiltrates seen on cxr could be due to COVID itself or bacterial superinfection. She has significant hypoxia (some of which could be due to obstructive lung disease or pulmonary HTN itself) - thus added dexamethasone 6mg IV daily. She is out of the window for use of Remdesivir. For possible bacterial component - continue rocephin 1gm IV daily, IV doxy 100mg q12h. Sputum culture has been sent and growing Haemophilus influenzae . Cont pulmonary toilet, flutter valve, O2 to keep sats ~90-92%, other supportive care. Weaning down from 11L O2 mask to 5L today (2) Acute respiratory failure with hypoxia: Plan: 2nd to COVID-19 infection, possible bacterial superinfection, and likely advanced underlying COPD (has had PFTs in the past showing obstruction and she continues to smoke). Also with severe pulmonary HTN contributing to hypoxia. Cont O2 support - keep sats 90-92%. Avoid over-oxygenating. Pulmonary toilet. (3) Multifocal atrial tachycardia: Plan: Innumerable runs of MAT and other atrial arrhythmia seen throughout the day. Poor response to low-dose cardizem-discontinue now as per my d/w Cardiology Hold amlodipine and losartan to allow more room with blood pressure -started po amiodarone as pt refused IV -appreciate Cardiology consult (4) Atrial arrhythmia: Plan: as above, this is NOT Afib as per Cardio Finally, stopped duonebs as the albuterol could theoretically be making some of her tachycardia worse. TSH normal follow on tele -started amiodarone (5) Hypokalemia: Plan: replaced and normal (6) Hypomagnesemia: Plan: replaced and better/normal (7) Failure to thrive: Plan: 2nd to recent COVID-19 infection. Suspected COPD also could be playing a role. Cannot exclude other underlying pathology. Liberalize diet to regular. Dexamethasone for #1 may help appetite some. (8) Tobacco dependence: Plan: allow nicoderm patch 21mg/24 hrs (smokes up to 1ppd) (9) Obstructive lung disease: Plan: Prior PFTs years ago showed obstruction. She most likely now has advanced COPD. She would benefit from daily maintenance inhalers and evidence-based therapy but I am uncertain if she would take them. Due to severe tachycardia -stopped duonebs. Change to xopenex HFA - 2 puffs q6h scheduled. (10) DVT prophylaxis: Plan: Lovenox SQ (11) Pulmonary HTN: Plan: severe based on echo likely due to severe obstructive lung disease cannot rule out thromboembolic disease (she is refusing both CTA chest and LE dopplers) (12) Hypertension: Plan: Hold amlodipine Hold losartan see above (13) Hyperlipidemia: Plan: Cont statin for now Plan Dispo- pt adamant about returning to home on . Explained her O2 requirement ideally should be 6LNC or less. Unfortunately, her on hospice at home on 02/22 and she is grieving. Support given Admission and Anticipated Discharge Date Admission Date: February 20, 2022 Subjective Pt found out her today and is very upset. Was down to 5L O2 and now back up to 7L. Still coughing up a lot of mucus and is using flutter valve. Is adamant about getting home on of this week. Refusing Doppler LEs earlier and this test was cancelled Tele with NSR, MAT rates 60s-140 Discussed her care with Cardiology Review of Systems Review of Systems: All systems reviewed & are unremarkable except as noted in HPI & below Physical Exam Constitutional: + thin Eyes: + anicteric sclerae Neck: trachea midline, no thyromegaly Respiratory: + cough; no labored breathing and not tachypneic Auscultation: + rhonchi (bilateral) and + wheezes (diffuse); no rales Cardiovascular: RRR, no murmur, no edema Chest (Breasts): Chest: normal inspection of chest Gastrointestinal (Abdomen): normal bowel sounds, soft, nontender, no hepat osplenomegaly Musculoskeletal: Extremities: extremities normal to inspection; no cyanosis and no clubbing Skin: no rashes, warm and dry Neurologic: moves all extremities and awake; no focal motor deficits Psychiatric: A+Ox3, euthymic affect Lymphatic: no lymphedema Results & Data Results & Data ([facility]) Vital Signs (Past 12 Hours) Vital Signs Temp Pulse Pulse Resp BP Pulse Ox O2 Del Method 02/22/22 16:58 114 H 02/22/22 16:14 36.8 C 104 H 20 156/74 H 91 Oxymask 02/22/22 15:33 94 H 18 91 Oxymask 02/22/22 12:02 36.8 C 83 18 123/49 L 91 Nasal Cannula 02/22/22 11:01 85 20 92 Nasal Cannula 02/22/22 07:30 69 02/22/22 07:29 36.5 C 80 20 134/73 92 Oxymask 02/22/22 07:29 81 18 92 Oxymask 02/22/22 07:19 Oxymask O2 Flow Rate 02/22/22 16:58 02/22/22 16:14 7 02/22/22 15:33 7 02/22/22 12:02 5 02/22/22 11:01 5 02/22/22 07:30 02/22/22 07:29 5 02/22/22 07:29 5 02/22/22 07:19 5 Laboratory Results 02/22/22 02/22/22 02/22/22 Range/Units 07:51 07:51 07:51 WBC 10.69 (4.8-10.8) K/ul RBC 3.91 L (3.93-5.22) M/uL Hgb 12.2 (12.0-16.0) g/dl Hct 35.4 (34.1-44.9) % MCV 90.5 (80.0-100.0) fL MCH 31.2 (25.0-34.0) pg MCHC 34.5 (32.0-36.0) g/dL RDW Std Deviation 44.4 (36.4-46.3) fL RDW Coeff of Blas 13.6 (11.5-14.5) % Plt Count 423 H (130-400) K/uL MPV 9.3 L (9.4-12.3) fL Immature Gran % (Auto) 0.6 % Neut % (Auto) 77.3 % Lymph % (Auto) 14.0 % [place] % (Auto) 8.0 % Eos % (Auto) 0.0 % Baso % (Auto) 0.1 % Neut # (Auto) 8.26 H (1.4-6.5) K/uL Lymph # (Auto) 1.50 (1.2-3.4) K/uL [place] # (Auto) 0.86 H (0.24-0.82) K/uL Eos # (Auto) 0.00 (0-0.50) K/uL Baso # (Auto) 0.01 (0-0.2) K/uL Immature Gran # (Auto) 0.06 H (0.00-0.02) K/uL Sodium 132 L Potassium 5.0 D Chloride 101 Carbon Dioxide 24 Anion Gap 7 BUN 20 Creatinine 0.81 Est Cr Clr Drug Dosing 34.5 Est GFR ( Amer) 76.8 Est GFR (Non-Af Amer) 66.2 BUN/Creatinine Ratio 24.7 H Glucose 102 H Calcium 8.4 L Magnesium 2.4 TSH 0.411 (0.300-4.500) uIu/ml 02/21/22 Range/Units 19:52 WBC (4.8-10.8) K/ul RBC (3.93-5.22) M/uL Hgb (12.0-16.0) g/dl Hct (34.1-44.9) % MCV (80.0-100.0) fL MCH (25.0-34.0) pg MCHC (32.0-36.0) g/dL RDW Std Deviation (36.4-46.3) fL RDW Coeff of Blas (11.5-14.5) % Plt Count (130-400) K/uL MPV (9.4-12.3) fL Immature Gran % (Auto) % Neut % (Auto) % Lymph % (Auto) % [place] % (Auto) % Eos % (Auto) % Baso % (Auto) % Neut # (Auto) (1.4-6.5) K/uL Lymph # (Auto) (1.2-3.4) K/uL [place] # (Auto) (0.24-0.82) K/uL Eos # (Auto) (0-0.50) K/uL Baso # (Auto) (0-0.2) K/uL Immature Gran # (Auto) (0.00-0.02) K/uL Sodium Cancelled Potassium Cancelled Chloride Cancelled Carbon Dioxide Cancelled Anion Gap Cancelled BUN Cancelled Creatinine Cancelled Est Cr Clr Drug Dosing Cancelled Est GFR ( Amer) Cancelled Est GFR (Non-Af Amer) Cancelled BUN/Creatinine Ratio Cancelled Glucose Cancelled Calcium Cancelled Magnesium Cancelled TSH (0.300-4.500) uIu/ml PG Care Time/CCT Total # of Minutes Spent Total Time Spent with Patient: Total time spent is greater than 50% in coordination of care (as documented) at patient's floor/unit and/or counseling patient: Coding Level of Care Code 66781 Subseq Hosp Care Lvl 2 Diagnoses Pneumonia due to COVID-19 virus U07.1; J12.82 Acute respiratory failure with hypoxia J96.01 Multifocal atrial tachycardia I47.1 Atrial arrhythmia I49.8 Hypokalemia E87.6 Hypomagnesemia E83.42 Failure to thrive Tobacco dependence F17.200 Obstructive lung disease J44.9 DVT prophylaxis Z29.9 Pulmonary HTN I27.20 Hypertension I10 Hyperlipidemia E78.5
[2022-02-22] MEDS: ENOXAPARIN INJ 30 MG/0.3 ML SYR SQ SCH (19:20)
[2022-02-22] MEDS: cefTRIAXone SODIUM 1,000 MG in DEXTROSE 5% 50 ML IV SCH (19:20)
[2022-02-23] MEDS ORDERED: METOPROLOL TARTRATE 1 MG/ML VIAL IV STA ×2 (05:06→11:57)
--- NOTE | 2022-02-23 05:08 | Communication Note ---
Date of Service: February 23, 2022 upon getting up to use bathroom, HR 150s-160s atrial tachycardia. on PO amio 200 BID. PO dilt was discontinued checking electrolytes and ecg. Lopressor 2.5mg IV x1. possible aflutter? deferring to dayshift
[2022-02-23] MEDS ORDERED: METOPROLOL TARTRATE 1 MG/ML VIAL IV ONE ×2 (05:13→12:09)
[2022-02-23 06:08] LABS: Basophils # (auto) 0.01 K/uL (0-0.2); Basophils % (auto) 0.1 %; Hematocrit (blood only) 36.3 % (34.1-44.9); Hemoglobin 12.7 g/dl (12.0-16.0); Immature Granulocytes # (auto) 0.06 K/uL (0.00-0.02); Immature Granulocytes % (auto) 0.5 %; Lymphocytes # (auto) 1.41 K/uL (1.2-3.4); Lymphocytes % (auto) 12.8 %; Mean Corpuscular Hemoglobin 31.7 pg (25.0-34.0); Mean Corpuscular Volume 90.5 fL (80.0-100.0); Monocytes % (auto) 7.3 %; Neutrophils # (auto) 8.75 K/uL (1.4-6.5); Neutrophils % (auto) 79.3 %; Platelet Count 432 K/uL (130-400); RDW Coefficient of Variation 13.4 % (11.5-14.5); RDW Standard Deviation 44.3 fL (36.4-46.3); Red Blood Count 4.01 M/uL (3.93-5.22); White Blood Count 11.03 K/ul (4.8-10.8)
[2022-02-23 07:14] LABS: BUN Creatinine Ratio 34.1 (10-20); Calcium 8.3 mg/dl (8.5-10.1); Creatinine Clr Calc Pharmacy 31.3 ml/min; Est GFR (African American) 69.4 ml/min; Est GFR (Non-African American) 59.9 ml/min; Potassium 4.7 mmol/L (3.5-5.1)
[2022-02-23] MEDS: FEXOFENADINE HCL 180 MG TAB PO SCH (07:34)
[2022-02-23] MEDS: CHOLECALCIFEROL 1,000 UNITS 25 MCG TAB PO SCH (07:34)
[2022-02-23] MEDS: AMIODARONE 200 MG TAB PO SCH ×2 (07:35→18:34)
[2022-02-23] MEDS: ASPIRIN 81 MG ECTAB PO SCH (07:35)
[2022-02-23] MEDS: ATORVASTATIN 40 MG TAB PO SCH (07:35)
[2022-02-23] MEDS: CALCIUM 600MG + VIT D 400 IU TAB PO SCH (07:35)
[2022-02-23] MEDS: SODIUM CHLORIDE 0.65% NA SOLN 45 ML (OCEAN) NAE SCH ×2 (07:36→21:40)
[2022-02-23] MEDS: TRIAMCINOLONE ACET NASAL SPRAY 10.8ML BTL SCH (07:36)
[2022-02-23] MEDS: NICOTINE 21 MG/24 HR TDSY TD SCH (07:38)
[2022-02-23] MEDS: LEVALBUTEROL TARTRATE 15 GM HFA.AER.AD INH SCH ×5 (07:43→19:39)
[2022-02-23] MEDS: DOXYCYCLINE HYCLATE 100 MG CAP PO SCH ×2 (11:05→21:40)
[2022-02-23] MEDS: dexAMETHasone 6 MG in SYRINGE 0 ML IV SCH (12:45)
--- NOTE | 2022-02-23 13:50 | Cardiology Progress Note ---
Date of Service February 23, 2022 Assessment & Plan (1) Atrial arrhythmia: Plan 1. Atrial tachycardia: She continues to have episodes of high heart rates associated with her atrial arrhythmia. Not atrial fibrillation. Curiously, when she is not active for sleeping she has very little atrial ectopy. With agitation and activity she has frequent atrial arrhythmia. I think we can increase her dose of amiodarone at least temporarily. She was on amlodipine previously and we could add diltiazem again in the hopes of reducing high ventricular rates. I think her blood pressure will tolerate more medication. Admission and Anticipated Discharge Date Admission Date: February 20, 2022 Subjective This afternoon the patient reported continued breathing difficulty improved with supplemental oxygen. She reported being ambulatory to the bathroom and back with minimal dizziness but some dyspnea. No chest pain or sense of palpitation. Anxious for discharge. Review of Systems Review of Systems: Per HPI Physical Exam Physical Exam: She is alert and oriented x3. Mood affect appear normal. She answered all questions appropriately. Using supplemental oxygen HEENT: Sclerae are anicteric. Pupils are equal and reactive to light and accommodation. Extraocular movements were intact. Neuro: Cranial nerves intact Lungs: Reduced breath sounds primarily in the left mid lung. There are no rales wheezes or rhonchi. She has normal respiratory effort without use of accessory muscles. There is normal pulmonary excursion. Cardiac: The rhythm was irregular. S1 and S2 were normal. There are no murmurs on examination. The PMI was not markedly displaced on palpation. Extremities: Patient has bilateral radial pulses that are equal in intensity. There is no evidence cyanosis or clubbing. There was no evidence of significant peripheral edema bilaterally. Skin: There are no rashes noted on examination today. Results & Data ([facility]) Vital Signs (Past 12 Hours) Vital Signs Temp Pulse Pulse Resp BP BP Pulse Ox 02/23/22 11:17 89 20 92 02/23/22 11:06 34.8 C L 147 H 147/74 H 90 02/23/22 12:12 167 H 147/74 H 02/23/22 07:45 02/23/22 09:02 34.8 C L 141 H 91 02/23/22 07:15 76 02/23/22 07:43 86 18 92 02/23/22 07:21 34.6 C L 110 H 16 147/74 H 91 02/23/22 05:37 116 H 20 147/82 H 100 02/23/22 03:08 36.7 C 83 20 149/68 H 99 O2 Del Method O2 Flow Rate 02/23/22 11:17 Oxymask 10 02/23/22 11:06 Nasal Cannula, Oxymask 5 02/23/22 12:12 02/23/22 07:45 Oxymask 5 02/23/22 09:02 Nasal Cannula 02/23/22 07:15 02/23/22 07:43 Oxymask 5 02/23/22 07:21 Oxymask 6 02/23/22 05:37 Oxymask 5 02/23/22 03:08 Oxymask 5 Laboratory Results Abnormal Lab Results 02/23/22 02/23/22 05:35 05:35 WBC 11.03 H RBC 4.01 Hgb 12.7 Hct 36.3 MCV 90.5 MCH 31.7 MCHC 35.0 RDW Std Deviation 44.3 RDW Coeff of Blas 13.4 Plt Count 432 H MPV 9.0 L Immature Gran % (Auto) 0.5 Neut % (Auto) 79.3 Lymph % (Auto) 12.8 [place] % (Auto) 7.3 Eos % (Auto) 0.0 Baso % (Auto) 0.1 Neut # (Auto) 8.75 H Lymph # (Auto) 1.41 [place] # (Auto) 0.80 Eos # (Auto) 0.00 Baso # (Auto) 0.01 Immature Gran # (Auto) 0.06 H Sodium 130 L Potassium 4.7 Chloride 100 Carbon Dioxide 20 L Anion Gap 10 BUN 30 H Creatinine 0.88 Est Cr Clr Drug Dosing 31.3 Est GFR ( Amer) 69.4 Est GFR (Non-Af Amer) 59.9 BUN/Creatinine Ratio 34.1 H Glucose 91 Calcium 8.3 L Magnesium 2.0 PG Care Time/CCT Total # of Minutes Spent Total Time Spent with Patient: Total time spent is greater than 50% in coordination of care (as documented) at patient's floor/unit and/or counseling patient: Coding Level of Care Code 17727 Subseq Hosp Care Lvl 2 Diagnoses Atrial arrhythmia I49.8
[2022-02-23] MEDS: dilTIAZem HCL 30 MG TAB PO SCH ×2 (14:58→21:39)
--- NOTE | 2022-02-23 16:41 | Hospitalist Progress Note ---
Date of Service February 23, 2022 Assessment & Plan (1) Pneumonia due to COVID-19 virus: Plan: Patient with a diagnosis of COVID-19 infection sometime within the last 2-3 weeks based on home testing as well as the fact that her was hospitalized with COVID-19. She tested negative here upon admission but [id number] has been struggling with COVID. The infiltrates seen on cxr could be due to COVID itself or bacterial superinfection. She has significant hypoxia (some of which could be due to obstructive lung disease or pulmonary HTN itself) - thus added dexamethasone 6mg IV daily. She is out of the window for use of Remdesivir. For bacterial PNA - continue rocephin 1gm IV daily, IV doxy 100mg q12h. Sputum culture has been sent and growing Haemophilus influenzae . Cont pulmonary toilet, flutter valve, O2 to keep sats ~90-92%, other supportive care. Weaning down from 11L O2 mask to 5L today but still requiring 11 L with exertion (2) Acute respiratory failure with hypoxia: Plan: 2nd to COVID-19 infection, possible bacterial superinfection, and likely advanced underlying COPD (has had PFTs in the past showing obstruction and she continues to smoke). Also with severe pulmonary HTN contributing to hypoxia. Cont O2 support - keep sats 88-90%. Avoid over-oxygenating. Pulmonary toilet. -two step walk test in the AM. Pt adamant that she wants to go home tomorrow. May be able to get her a 10 L concentrator for home O2 if needed (3) Multifocal atrial tachycardia: Plan: Innumerable runs of MAT and other atrial arrhythmia seen throughout the day. Possible atrial flutter as well rates worse today with stopping the diltiazem -increase amiodarone to 400mg po bid -add cardizem 30mg po q6h -will discuss possibility of starting Eliquis 2.5mg po bid for stroke prevention Hold amlodipine and losartan to allow more room with blood pressure -appreciate Cardiology consult (4) Atrial arrhythmia: Plan: as above -stopped duonebs as the albuterol could theoretically be making some of her tachycardia worse. Is now on Xopenex TSH normal follow on tele -started amiodarone (5) Failure to thrive: Plan: 2nd to recent COVID-19 infection. Suspected COPD also could be playing a role. Cannot exclude other underlying pathology. Liberalize diet to regular. Improving Dexamethasone for #1 may help appetite some. (6) Tobacco dependence: Plan: allow nicoderm patch 21mg/24 hrs but she declines (smokes up to 1ppd) counseled on cessation and avoidance of lighting cigarettes with oxygen in place (7) Obstructive lung disease: Plan: Prior PFTs years ago showed obstruction. She most likely now has advanced COPD. She would benefit from daily maintenance inhalers and evidence-based therapy but I am uncertain if she would take them. Due to severe tachycardia -stopped duonebs. Changed to xopenex HFA - 2 puffs q6h scheduled. (8) Pulmonary HTN: Plan: severe based on echo likely due to severe obstructive lung disease cannot rule out thromboembolic disease (she is refusing both CTA chest and LE dopplers) (9) Hypertension: Plan: Hold amlodipine Hold losartan see above (10) Hyperlipidemia: Plan: Cont statin (11) DVT prophylaxis: Plan: Lovenox SQ but may add ELiquis if agreeable Plan Dispo- pt adamant about returning to home on . Explained her O2 requirement ideally should be 6LNC or less, but may be able to get her 10L concentrator Unfortunately, her on hospice at home on 02/22 and she is grieving. Support given Admission and Anticipated Discharge Date Admission Date: February 20, 2022 Subjective Continues to be adamant that she will leave the hospital tomorrow and feels fine. Declines nicotine patch. Continues to have runs of MAT and possibly A flutter on tele with rates as high as 160s Discussed her care with Cardiology Review of Systems Review of Systems: All systems reviewed & are unremarkable except as noted in HPI & below Physical Exam Constitutional: + thin Eyes: + anicteric sclerae Neck: trachea midline, no thyromegaly Respiratory: + cough; no labored breathing and not tachypneic Auscultation: + rhonchi (bilateral) and + wheezes (diffuse); no rales Cardiovascular: RRR, no murmur, no edema Chest (Breasts): Chest: normal inspection of chest Gastrointestinal (Abdomen): normal bowel sounds, soft, nontender, no hepatosplenomegaly Musculoskeletal: Extremities: extremities normal to inspection; no cyanosis and no clubbing Skin: no rashes, warm and dry Neurologic: moves all extremities and awake; no focal motor deficits Psychiatric: Orientation: alert and oriented x 3 Affect: + anxious affect Lymphatic: no lymphedema Results & Data Results & Data ([facility]) Vital Signs (Past 12 Hours) Vital Signs Temp Pulse Pulse Resp BP BP Pulse Ox 02/23/22 15:13 80 02/23/22 15:05 82 20 93 02/23/22 14:52 36.6 C 86 26 H 146/62 H 92 02/23/22 11:17 89 20 92 02/23/22 11:06 34.8 C L 147 H 147/74 H 90 02/23/22 12:12 167 H 147/74 H 02/23/22 07:45 02/23/22 09:02 34.8 C L 141 H 91 02/23/22 07:15 76 02/23/22 07:43 86 18 92 02/23/22 07:21 34.6 C L 110 H 16 147/74 H 91 02/23/22 05:37 116 H 20 147/82 H 100 O2 Del Method O2 Flow Rate 02/23/22 15:13 02/23/22 15:05 Oxymask 10 02/23/22 14:52 Oxymask 11 02/23/22 11:17 Oxymask 10 02/23/22 11:06 Nasal Cannula, Oxymask 5 02/23/22 12:12 02/23/22 07:45 Oxymask 5 02/23/22 09:02 Nasal Cannula 02/23/22 07:15 02/23/22 07:43 Oxymask 5 02/23/22 07:21 Oxymask 6 02/23/22 05:37 Oxymask 5 Laboratory Results 02/23/22 05:35 02/23/22 05:35 PG Care Time/CCT Total # of Minutes Spent Total Time Spent with Patient: Total time spent is greater than 50% in coordination of care (as documented) at patient's floor/unit and/or counseling patient: Coding Level of Care Code 39584 Subseq Hosp Care Lvl 3 Diagnoses Pneumonia due to COVID-19 virus U07.1; J12.82 Acute respiratory failure with hypoxia J96.01 Multifocal atrial tachycardia I47.1 Atrial arrhythmia I49.8 Failure to thrive Tobacco dependence F17.200 Obstructive lung disease J44.9 Pulmonary HTN I27.20 Hypertension I10 Hyperlipidemia E78.5 DVT prophylaxis Z29.9
--- NOTE | 2022-02-23 17:24 | Electrocardiogram Report ---
Test Reason : Blood Pressure : / mmHG Vent. Rate : 139 BPM Atrial Rate : 322 BPM P-R Int : 000 ms QRS Dur : 072 ms QT Int : 306 ms P-R-T Axes : 000 -27 077 degrees QTc Int : 465 ms Atrial fibrillation Poor R wave progression, consider anterior [place] vs. lead placement vs. LVH Confirmed by Jesus Cohn ([id number]) on 02/23/2022 5:24:06 PM Referred By: REFERRED SELF Confirmed By:Everardo Cohn
[2022-02-23] MEDS: cefTRIAXone SODIUM 1,000 MG in DEXTROSE 5% 50 ML IV SCH (21:38)
[2022-02-23] MEDS: ENOXAPARIN INJ 30 MG/0.3 ML SYR SQ SCH (21:39)
[2022-02-24] MEDS: dilTIAZem HCL 30 MG TAB PO SCH ×3 (01:20→13:49)
[2022-02-24 07:31] LABS: BUN Creatinine Ratio 32.9 (10-20); Calcium 8.2 mg/dl (8.5-10.1); Creatinine Clr Calc Pharmacy 34.7 ml/min; Est GFR (African American) 82.9 ml/min; Est GFR (Non-African American) 71.5 ml/min; Magnesium 1.8 mg/dl (1.7-2.4); Potassium 4.3 mmol/L (3.5-5.1)
[2022-02-24] MEDS: AMIODARONE 200 MG TAB PO SCH ×2 (07:33→16:48)
[2022-02-24] MEDS: ATORVASTATIN 40 MG TAB PO SCH (07:34)
[2022-02-24] MEDS: CHOLECALCIFEROL 1,000 UNITS 25 MCG TAB PO SCH (07:34)
[2022-02-24] MEDS: CALCIUM 600MG + VIT D 400 IU TAB PO SCH (07:35)
[2022-02-24] MEDS: FEXOFENADINE HCL 180 MG TAB PO SCH (07:35)
[2022-02-24] MEDS: NICOTINE 21 MG/24 HR TDSY TD SCH (07:35)
[2022-02-24] MEDS: TRIAMCINOLONE ACET NASAL SPRAY 10.8ML BTL SCH (07:35)
[2022-02-24] MEDS: SODIUM CHLORIDE 0.65% NA SOLN 45 ML (OCEAN) NAE SCH (07:35)
[2022-02-24] MEDS: DOXYCYCLINE HYCLATE 100 MG CAP PO SCH (09:03)
[2022-02-24] MEDS: LEVALBUTEROL TARTRATE 15 GM HFA.AER.AD INH SCH ×3 (09:47→15:01)
[2022-02-24] MEDS: dexAMETHasone 6 MG in SYRINGE 0 ML IV SCH (12:02)
--- NOTE | 2022-02-24 14:26 | Cardiology Progress Note ---
Date of Service February 24, 2022 Assessment & Plan (1) Atrial arrhythmia: Plan 1. Atrial tachycardia: In addition to what appears to be multifocal atrial tachycardia, she did have an EKG yesterday documenting atrial fibrillation. As result she was started on reduced dose Eliquis based primarily on her age and weight. I explained her the importance of this medication. I explained we will also discharge her on amiodarone and diltiazem. I do not believe her rhythm problems are likely to cause any acute decompensation or represent any life-threatening condition. However, her response so far has been suboptimal. My hope is that with time and increased levels of these medications will see some improvement and less tachycardia. Hopefully as her pulmonary process improves we may see less arrhythmia as well. For clinical condition seems tenuous, but she is very adamant about being discharged today in seems to recognize the risks of leaving the hospital in her current condition. Admission and Anticipated Discharge Date Admission Date: February 20, 2022 Subjective This afternoon the patient complained of some dyspnea although this appears to be improved. She was happy simply because she is being discharged at her request. She has done some ambulation with notable dyspnea. No sense of palpitation. Review of Systems Review of Systems: Per HPI Physical Exam Physical Exam: She is alert and oriented x3. Mood affect appear normal. She answered all questions appropriately. Using supplemental oxygen HEENT: Sclerae are anicteric. Pupils are equal and reactive to light and accommodation. Extraocular movements were intact. Neuro: Cranial nerves intact Lungs: Some increased work of breathing. Cardiac: The rhythm was irregular. Results & Data ([facility]) Vital Signs (Past 12 Hours) Vital Signs Temp Pulse Pulse Pulse Pulse Pulse Pulse 02/24/22 12:06 36.9 C 95 H 02/24/22 07:33 02/24/22 09:48 84 91 H 90 90 02/24/22 09:47 90 02/24/22 07:05 36.7 C 71 02/24/22 07:22 76 02/24/22 03:05 36.6 C 71 Pulse Pulse Resp Resp Resp Resp Resp 02/24/22 12:06 22 02/24/22 07:33 02/24/22 09:48 85 80 18 23 20 22 02/24/22 09:47 20 02/24/22 07:05 18 02/24/22 07:22 02/24/22 03:05 16 Resp Resp BP BP Pulse Ox Pulse Ox Pulse Ox 02/24/22 12:06 162/71 H 87 L 02/24/22 07:33 02/24/22 09:48 18 18 91 86 L 02/24/22 09:47 93 02/24/22 07:05 161/67 H 95 02/24/22 07:22 02/24/22 03:05 134/65 96 Pulse Ox Pulse Ox Pulse Ox Pulse Ox O2 Del Method O2 Flow Rate O2 Flow Rate 02/24/22 12:06 Nasal Cannula 2 02/24/22 07:33 Oxymask 2 02/24/22 09:48 90 85 L 93 86 L 2 02/24/22 09:47 Nasal Cannula 2 02/24/22 07:05 Oxymask 5 02/24/22 07:22 02/24/22 03:05 Oxymask 5 O2 Flow Rate O2 Flow Rate O2 Flow Rate O2 Flow Rate 02/24/22 12:06 02/24/22 07:33 02/24/22 09:48 3 4 2 2 02/24/22 09:47 02/24/22 07:05 02/24/22 07:22 02/24/22 03:05 Laboratory Results Abnormal Lab Results 02/24/22 05:52 Sodium 132 L Potassium 4.3 Chloride 102 Carbon Dioxide 25 Anion Gap 5 BUN 25 H Creatinine 0.76 Est Cr Clr Drug Dosing 34.7 Est GFR ( Amer) 82.9 Est GFR (Non-Af Amer) 71.5 BUN/Creatinine Ratio 32.9 H Glucose 86 Calcium 8.2 L Magnesium 1.8 PG Care Time/CCT Total # of Minutes Spent Total Time Spent with Patient: Total time spent is greater than 50% in coordination of care (as documented) at patient's floor/unit and/or counseling patient: Coding Level of Care Code 50726 Subseq Hosp Care Lvl 2 Diagnoses Atrial arrhythmia I49.8
--- NOTE | 2022-02-24 14:34 | Discharge Summary ---
Date of Service February 24, 2022 Admission HPI Per Admitting Provider Emelia Sood is an 86 y/o female with past medical history significant for COVID infection 2 weeks ago, longstanding tobacco use disorder suspected COPD, hypertension, and hyperlipidemia is presenting today with acute worsening of her shortness of breath. 2 weeks ago she and her are not feeling well, therefore they tested for COVID-19 and were both positive for it. Patient's symptoms included shortness of breath, productive cough, and she is generalized weakness due to lack of appetite. Has been using her inhalers as prescribed without alleviation over the past 2 weeks that is gradually become worse until today when she felt like she could not catch her breath and presented to the ED for evaluation. She has had intermittent chest pressure that comes and goes at rest or with activity and notes that her being on oxygen here, it is completely subsided. She has not had any fever or chills, chest tightness, palpitations, abdominal pain, nausea, vomiting. Although she feels lightheaded, she has not passed out and denies any falls. She is a longtime smoker, smoking half pack to 1 pack/day for many years, however has not been smoking much the past 2 weeks as she has been too short of breath to do so. On presentation, patient was hypoxic on room air to the 80s, mildly hypertensive 146/62, tachypneic with RR of 27, tachycardic, HR 100 110. Labs significant for WBC 12 with left shift, on BMP she has an AG 15, otherwise renal function is at baseline, no transaminitis, no electrolyte abnormalities. Troponin mildly bumped at 23.2, BNP 442. COVID-negative today. Blood cultures pending. CXR shows left lower lung opacity and small left pleural effusion. Principal Diagnosis COVID-19, Bacterial pneumonia, acute respiratory failure with hypoxia, atrial fibrillation and MAT Discharge Exam Constitutional + thin Eyes + anicteric sclerae Neck trachea midline, no thyromegaly Respiratory no labored breathing and not tachypneic Auscultation: lungs clear to auscultation bilaterally Cardiovascular RRR, no murmur, no edema Chest (Breasts) Chest: normal inspection of chest Gastrointestinal (Abdomen) normal bowel sounds, soft, nontender, no hepatosplenomegaly Musculoskeletal Extremities: extremities normal to inspection; no cyanosis and no clubbing Skin no rashes, warm and dry Neurologic moves all extremities and awake; no focal motor deficits Psychiatric A+Ox3, euthymic affect Lymphatic no lymphedema Discharge Data Allergies Allergy/AdvReac Type Severity Reaction Status Date / Time guaifenesin [From Mucinex] Allergy Intermediate Hives Verified 02/20/22 17:42 amoxicillin Allergy Unknown Unknown Verified 02/20/22 17:42 prednisone AdvReac Severe swelling Verified 02/20/22 17:42 legs clindamycin AdvReac Intermediate Diarrhea Verified 02/20/22 17:42 lisinopril AdvReac Intermediate Cough Verified 02/20/22 17:42 Consultations 02/20/22 17:43 ED Decision to Admit Stat 02/21/22 18:19 Consult Cardiology Routine Ordered Studies ECHO Hospital Course (1) Pneumonia due to COVID-19 virus: Patient with a diagnosis of COVID-19 infection sometime within the last 2-3 weeks based on home testing as well as the fact that her was hospitalized with COVID-19. She tested negative here upon admission but [id number] has been struggling with COVID. The infiltrates seen on cxr could be due to COVID itself or bacterial superinfection. She has significant hypoxia (some of which could be due to obstructive lung disease or pulmonary HTN itself) - thus added dexamethasone 6mg IV daily. She is out of the window for use of Remdesivir. For bacterial PNA -received rocephin 1gm IV daily, IV doxy 100mg q12h. Convert to po cefdinir and doxy to complete 7 day course after discharge -finsih out 10 day course of dexamethasone 6mg po after discharge Sputum culture has been sent and growing Haemophilus influenzae . Cont pulmonary toilet, flutter valve, O2 at 2L at rest and 4L with exertion (2) Acute respiratory failure with hypoxia: 2nd to COVID-19 infection, possible bacterial superinfection, and likely advanced underlying COPD (has had PFTs in the past showing obstruction and she continues to smoke). Also with severe pulmonary HTN contributing to hypoxia. was requiring 11L O2 at one point, weaned to 2L/4L aas above on discharge continue flutter valve, albuterol (3) Multifocal atrial tachycardia: Innumerable runs of MAT and other atrial arrhythmia seen throughout the day. then developed atrial fibrillation with rates 170s but only a few minutes at a time -increased amiodarone to 400mg po bid x 1 week then go to 200mg po daily -started cardizem 120mg po daily and stop home amlodipine -start Eliquis 2.5mg po bid for stroke prevention-discussed with pt and advised of bleeding risk -appreciate Cardiology consult-f/u in 2 weeks (4) Failure to thrive: 2nd to recent COVID-19 infection. Suspected COPD also could be playing a role. Cannot exclude other underlying pathology. Liberalize diet to regular. Improving Dexamethasone for #1 may help appetite some. Improving (5) Tobacco dependence: allow nicoderm patch 21mg/24 hrs but she declines (smokes up to 1ppd) counseled on cessation and avoidance of lighting cigarettes with oxygen in place (6) Obstructive lung disease: Prior PFTs years ago showed obstruction. She most likely now has advanced COPD. She would benefit from daily maintenance inhalers and evidence-based therapy but I am uncertain if she would take them. continue albuteorl prn (7) Pulmonary HTN: severe based on echo likely due to severe obstructive lung disease cannot rule out thromboembolic disease (she is refusing both CTA chest and LE dopplers) (8) Hypertension: dc amlodipine and started diltiazem as above continue losartan (9) Hyperlipidemia: Cont statin (10) DVT prophylaxis: Lovenox used and then will start Elqiuis on day of discharge Plan Dispo- dc to home Unfortunately, her on hospice at home on 02/22 and she is grieving. Support given Total Time Total Time Spent Total Time Spent (In Minutes): 35 min Discharge Plan Discharge Items Patient Disposition: Home - Home Health Services Reason For Visit: PNEUMONIA Discharge Diagnosis: Acute respiratory failure with hypoxia, COVID-19, Pneumonia Rapid atrial fibrillation Condition on Discharge: Fair Activity: As commented below Bathing: No limitations Exercise/Sports: As tolerated Non-emergency contact: Primary Care Provider and [facility] Call non-emergency contact if: you have any medication questions and your symp toms worsen Follow-up/Referrals: Jesus Cohn MD [Physician] - (Follow up within 2 weeks) Rosalio York MD [Primary Care Provider] - (Follow up within 1-2 weeks) Diet: Regular Addtl Attending Provider Instructions: Please continue using oxygen at 2L at rest and turn it up to 4L with exertion. Continue the steroid called dexamethasone for 5 more days. You will need to take two different antibiotics for your pneumonia for 2 more days-cefdinir and doxycycline. For your rapid irregular heart rhythm, you were started on amiodarone, diltiaz em, and a blood thinner called Eliquis to prevent strokes. Follow up with the [facility] within 2 weeks. Pending Studies at Discharge: No Stand-Alone Forms: [facility], Smoking Cessation Medications and DC Order Prescriptions: New doxycycline hyclate 100 mg Capsule 100 mg PO BID@1000,2200 Qty: 4 0RF amiodarone 200 mg Tablet 400 mg PO BIDM Qty: 49 0RF Rx Instructions: x 1 week, then decrease to 200mg po once daily diltiazem HCl 120 mg capsule,extended release 24hr 120 mg PO DAILY Qty: 30 0RF cefdinir 300 mg capsule 300 mg PO BID Qty: 4 0RF dexamethasone 6 mg tablet 6 mg PO DAILY Qty: 5 0RF Eliquis 2.5 mg tablet 2.5 mg PO BID Qty: 60 0RF Continued alendronate 70 mg Tablet 70 mg PO WK Rx Instructions: TAKES ON MONDAY fexofenadine 180 mg Tablet 180 mg PO DAILY calcium carbonate [Calcium 600] 600 mg calcium (1,500 mg) Tablet 1,200 mg PO DAILY triamcinolone acetonide 0.1 % Ointment 1 applic TOPICAL DAILY PRN (Reason: Dry Skin) cholecalciferol (vitamin D3) [Vitamin D3] 2,000 unit Capsule 2,000 unit PO DAILY albuterol sulfate [ProAir HFA] 90 mcg/actuation Hfa Aerosol Inhaler 2 puff INHALATION Q6H PRN (Reason: SOB/Wheezing) Saline Mist 0.65 % Aerosol,[place] 2 spray INTRANASAL BID atorvastatin 40 mg tablet 40 mg PO DAILY triamcinolone acetonide [Nasacort] 55 mcg Aerosol,[place] 2 spray INTRANASAL DAILY losartan 100 mg tablet 100 mg PO DAILY oxycodone [Roxicodone] 5 mg tablet 2.5 mg PO Q8H PRN (Reason: pain) Qty: 5 0RF Discontinued aspirin [Kaitlin Low Dose Aspirin] 81 mg Tablet,Delayed Release (Dr/Ec) 81 mg PO 3XWK Rx Instructions: TAKES MON, WED, & MON. amlodipine 10 mg Tablet 10 mg PO DAILY Discharge Orders: Discharge Order (Routine); Ordered 02/24/22 Ordered By: Carole Patel Admission Data Admit Date/Time: 02/20/22 17:53 Attending Provider: Carole Patel Admit Provider: Timo Serrano Primary Care Provider: Rosalio York Other Providers: Timo Serrano ; Jesus Cohn Coding Level of Care Code D/C DAY MANAGEMENT >30 MINS Diagnoses Pneumonia due to COVID-19 virus U07.1; J12.82 Acute respiratory failure with hypoxia J96.01 Multifocal atrial tachycardia I47.1 Failure to thrive Tobacco dependence F17.200 Obstructive lung disease J44.9 Pulmonary HTN I27.20 Hypertension I10 Hyperlipidemia E78.5 DVT prophylaxis Z29.9
== END 2022-02-24 17:40 | disposition home health service (06) | DRG 177 ==
LOC: ED 15:36 → SUATTDRO 17:53 → EDINP 17:53 → 2W 02-21 01:37
DX: M81.0 Age-related osteoporosis without current pathological fracture; Z68.1 Body mass index [BMI] 19.9 or less, adult; J44.1 Chronic obstructive pulmonary disease with (acute) exacerbation; E78.5 Hyperlipidemia, unspecified; Z87.891 Personal history of nicotine dependence; J12.82 Pneumonia due to coronavirus disease 2019; Z88.0 Allergy status to penicillin; E87.6 Hypokalemia; J96.21 Acute and chronic respiratory failure with hypoxia; U07.1 COVID-19; J15.9 Unspecified bacterial pneumonia; I49.8 Other specified cardiac arrhythmias; J90 Pleural effusion, not elsewhere classified; F17.210 Nicotine dependence, cigarettes, uncomplicated; E83.42 Hypomagnesemia; I47.1 Supraventricular tachycardia; Z29.9 Encounter for prophylactic measures, unspecified; Z88.1 Allergy status to other antibiotic agents; I10 Essential (primary) hypertension; R64 Cachexia; I27.20 Pulmonary hypertension, unspecified; Z88.8 Allergy status to other drugs, medicaments and biological substances

== ENCOUNTER 2022-11-07 18:36 | Inpatient (IN) ==
--- NOTE | 2022-11-07 18:41 | ED Triage Note ---
Date of Service November 07, 2022 History of Present Illness This patient was briefly evaluated while in triage. An abbreviated physical exam was performed. This patient is a 86-year-old Female who presents to the ED for evaluation of back pain making it hard for her to walk. Family concerned for mini-stroke on left side. TIA symptoms started Julio Cesar, at least 3 days ago. Back pain is new today. Physical Exam Limited Triage Exam: VITALS: Vitals are noted on the nurse's note and reviewed by myself. Vital signs stable. GENERAL: White female in a wheelchair HEART: Regular rate and rhythm LUNGS: Clear to auscultation bilaterally without wheezes, rales or rhonchi. NEURO: Patient was alert Initial orders for labs and / or imaging were placed and patient was placed in the waiting area until a bed is available. Please see further documentation for the full ED course. MDM / Impression Impression Impression: TIA (transient ischemic attack), Back pain
[2022-11-07] MEDS ORDERED: fentaNYL citrate PF 100 MCG/2 ML VIAL IV STA (19:13)
--- NOTE | 2022-11-07 19:17 | Emergency Department Note ---
History of Present Illness General Chief complaint: TIA Symptoms Stated complaint: BACK PAIN,TROUBLE WALKING,MINI STROKE,SLURRY SPEEC Time Seen by Provider: 11/07/22 19:06 History of Present Illness Maximum Pain Intensity: 10 86-year-old female presents emergency department with family at bedside reportedly has a history of compression fractures and chronic back pain was unable to get prescription for oxycodone has been taking Tylenol and Motrin as well as heating pads and patches to her back. Since Monday however she has had slurred speech left-sided facial droop weakness in the left upper extremity and left lower extremity. It actually resolved and then came back according to family at bedside. They were concerned about a stroke or mini stroke. Patient denies headache she states that her speech is slightly off she states that her left face is slightly droopy and she does have some weakness in the left upper extremity. Patient complains of constant chronic midline back pain that extends from her thoracic to her lumbar spine. There are no other mitigating or alleviating factors Home Medications Medication Instructions Recorded Confirmed Type alendronate 70 mg tablet 70 mg PO WK 02/18/18 11/07/22 History calcium carbonate 600 mg calcium 1,200 mg PO DAILY 02/18/18 11/07/22 History (1,500 mg) tablet (Calcium) cholecalciferol (vitamin D3) 50 2,000 unit PO DAILY 02/18/18 11/07/22 History mcg (2,000 unit) capsule (Vitamin D3) fexofenadine 180 mg tablet 180 mg PO DAILY PRN Allergy 02/18/18 11/07/22 History Symptoms triamcinolone acetonide 0.1 % 1 applic topical DAILY PRN Dry Skin 02/18/18 11/07/22 History topical ointment albuterol sulfate 90 mcg/actuation 2 puff inhalation Q6H PRN 02/19/18 11/07/22 History aerosol inhaler (ProAir HFA) SOB/Wheezing atorvastatin 40 mg tablet 40 mg PO DAILY 11/07/20 11/07/22 History losartan 100 mg tablet 100 mg PO DAILY 11/07/20 11/07/22 History triamcinolone acetonide 55 mcg 2 spray intranasal DAILY PRN 11/07/20 11/07/22 History nasal spray aerosol (Nasacort) Allergy Symptoms sodium chloride 0.65 % nasal spray 2 spray intranasal BID PRN DRYNESS 02/20/22 11/07/22 History aerosol (Saline Mist) amiodarone 200 mg tablet 200 mg PO DAILY #90 tabs 03/28/22 11/07/22 Rx apixaban 2.5 mg tablet (Eliquis) 2.5 mg PO BID #180 tabs 03/28/22 11/07/22 Rx acetaminophen 500 mg tablet 500 mg PO Q6H PRN PAIN OR FEVER 11/07/22 11/07/22 History ibuprofen 200 mg tablet (Advil) 200 mg PO Q6H PRN Pain (Scale 11/07/22 11/07/22 History Score 1-3) Allergies Allergy/AdvReac Type Severity Reaction Status Date / Time guaifenesin [From Mucinex] Allergy Intermediate Hives Verified 11/07/22 19:34 amoxicillin Allergy Unknown Unknown Verified 11/07/22 19:34 prednisone AdvReac Severe swelling Verified 11/07/22 19:34 legs clindamycin AdvReac Intermediate Diarrhea Verified 11/07/22 19:34 lisinopril AdvReac Intermediate Cough Verified 11/07/22 19:34 Past Med/Surg History Medical History COVID-09 february 2022 Hyperlipidemia Hypertension Family History Other No significant family history Social History Smoking Status: Never smoker Tobacco Type: Cigarettes Cigarettes Per Day: 20; Second Hand Exposure: Yes; Do You Dip or Chew Tobacco: No; Hx Alcohol Use: No Hx Substance Use: No Preferred Language: Swedish Communication Ability: Effective Cut Off Saw Grader Required: No Beliefs That Will Affect Care: Synagogue Synagogue Beliefs: rastafari marital status: Current Living Situation: Family Feels Safe at Home: Yes Assistive Devices: Walker Review of Systems A total of 10 systems reviewed and were otherwise negative Cardiovascular: no chest pain Gastrointestinal: no abdominal pain Musculoskeletal: + back pain Neurologic: + abnormal speech; no headache(s) Physical Exam Vital Signs Vital Signs - 24 hr 11/07/22 18:40 11/07/22 19:03 11/07/22 19:03 Temperature 36.2 C L Temperature Source Temporal Artery Scan Pulse Rate 88 92 H 91 H Pulse Rate from SpO2 Sensor 89 Respiratory Rate 16 15 Blood Pressure 187/80 H Blood Pressure Mean 115 Pulse Oximetry 95 98 Sepsis Recent Fever Within 48 Hours No Sepsis New/Unexplained Change in Mental Status N/A Sepsis Action Taken by Nursing No Action Required 11/07/22 19:10 11/07/22 19:20 11/07/22 19:30 Temperature Temperature Source Pulse Rate 99 H 88 83 Pulse Rate from SpO2 Sensor 88 87 84 Respiratory Rate 15 28 H 30 H Blood Pressure Blood Pressure Mean Pulse Oximetry 96 96 96 Sepsis Recent Fever Within 48 Hours Sepsis New/Unexplained Change in Mental Status Sepsis Action Taken by Nursing 11/07/22 19:40 11/07/22 19:50 11/07/22 20:00 Temperature Temperature Source Pulse Rate 86 104 H 96 H Pulse Rate from SpO2 Sensor 87 88 Respiratory Rate 24 18 23 Blood Pressure Blood Pressure Mean Pulse Oximetry 97 96 Sepsis Recent Fever Within 48 Hours Sepsis New/Unexplained Change in Mental Status Sepsis Action Taken by Nursing 11/07/22 20:10 11/07/22 20:20 11/07/22 20:30 Temperature Temperature Source Pulse Rate 92 H 84 Pulse Rate from SpO2 Sensor 91 H 87 89 Respiratory Rate 26 H 21 Blood Pressure Blood Pressure Mean Pulse Oximetry 97 97 95 Sepsis Recent Fever Within 48 Hours Sepsis New/Unexplained Change in Mental Status Sepsis Action Taken by Nursing 11/07/22 20:47 11/07/22 20:50 11/07/22 21:00 Temperature Temperature Source Pulse Rate 89 87 88 Pulse Rate from SpO2 Sensor Respiratory Rate 24 26 H 25 H Blood Pressure Blood Pressure Mean Pulse Oximetry Sepsis Recent Fever Within 48 Hours Sepsis New/Unexplained Change in Mental Status Sepsis Action Taken by Nursing 11/07/22 21:10 11/07/22 21:29 11/07/22 21:30 Temperature Temperature Source Pulse Rate 84 75 Pulse Rate from SpO2 Sensor Respiratory Rate 27 H 73 H Blood Pressure 204/97 H Blood Pressure Mean 158 Pulse Oximetry Sepsis Recent Fever Within 48 Hours Sepsis New/Unexplained Change in Mental Status Sepsis Action Taken by Nursing 11/07/22 21:30 11/07/22 21:40 11/07/22 21:50 Temperature Temperature Source Pulse Rate 90 Pulse Rate from SpO2 Sensor 88 95 H 94 H Respiratory Rate 13 Blood Pressure Blood Pressure Mean Pulse Oximetry 96 100 96 Sepsis Recent Fever Within 48 Hours Sepsis New/Unexplained Change in Mental Status Sepsis Action Taken by Nursing 11/07/22 22:00 11/07/22 22:00 11/07/22 22:10 Temperature Temperature Source Pulse Rate 109 H Pulse Rate from SpO2 Sensor 89 Respiratory Rate 13 Blood Pressure 196/87 H Blood Pressure Mean 140 Pulse Oximetry 97 Sepsis Recent Fever Within 48 Hours Sepsis New/Unexplained Change in Mental Status Sepsis Action Taken by Nursing 11/07/22 22:20 11/07/22 22:30 11/07/22 22:30 Temperature Temperature Source Pulse Rate 87 93 H Pulse Rate from SpO2 Sensor Respiratory Rate 20 30 H Blood Pressure 212/82 H Blood Pressure Mean 161 Pulse Oximetry Sepsis Recent Fever Within 48 Hours Sepsis New/Unexplained Change in Mental Status Sepsis Action Taken by Nursing 11/07/22 22:40 11/07/22 22:50 11/07/22 22:51 Temperature Temperature Source Pulse Rate 91 H 97 H Pulse Rate from SpO2 Sensor Respiratory Rate 26 H 26 H Blood Pressure 199/82 H Blood Pressure Mean 121 Pulse Oximetry Sepsis Recent Fever Within 48 Hours Sepsis New/Unexplained Change in Mental Status Sepsis Action Taken by Nursing 11/07/22 22:51 11/07/22 23:00 11/07/22 23:00 Temperature Temperature Source Pulse Rate 91 H 91 H Pulse Rate from SpO2 Sensor Respiratory Rate 27 H 29 H Blood Pressure 208/94 H Blood Pressure Mean 164 Pulse Oximetry Sepsis Recent Fever Within 48 Hours Sepsis New/Unexplained Change in Mental Status Sepsis Action Taken by Nursing 11/07/22 23:10 Temperature Temperature Source Pulse Rate 92 H Pulse Rate from SpO2 Sensor Respiratory Rate 22 Blood Pressure Blood Pressure Mean Pulse Oximetry Sepsis Recent Fever Within 48 Hours Sepsis New/Unexplained Change in Mental Status Sepsis Action Taken by Nursing GENERAL: Patient is awake alert in no acute distress patient is resting comfortably and showing no signs of anxiety EYES: The conjunctivae are clear. The pupils are round and reactive. EARS, NOSE, MOUTH AND THROAT: The nose is without any evidence of any deformity. Mucous membranes are moist. Tongue is midline. NECK: The neck is nontender and supple. RESPIRATORY: Normal respiratory effort is noted there is no evidence of wheezing rhonchi or rales CARDIOVASCULAR: Regular rate and rhythm noted there no murmurs rubs or gallops normal S1 normal S2. GASTROINTESTINAL: The abdomen is soft. Abdomen is nontender. BACK: Patient has midline tenderness the entire thoracic and lumbar spine; there are no step-offs MUSCULOSKELETAL/EXTREMITIES: There is no evidence of gross deformity full range of motion is noted in the hips and shoulders. SKIN: There is no obvious evidence of any rash. There are no petechiae, pallor or cyanosis noted. NEUROLOGIC: Patient is awake alert and oriented x3; patient has a left-sided facial droop she has 4 out of 5 upper extremity strength she has 4 out of 5 bilateral lower extremity strength she has mild dysarthria Course Reevaluation(s) Reevaluation #1: Patient continued to complain of back pain. Was given IV fentanyl and Tylenol Time: 23:39 Consultations Consultation #1: Case was discussed with the [facility] for admission Time: 23:39 Administered Medications Discontinued Medications Acetaminophen (Acetaminophen 500 Mg Tab) 1,000 mg PO NOW STA Stop: 11/07/22 22:04 Last Admin: 11/07/22 22:28 Dose: Not Given Documented By: LOPPER Fentanyl Citrate (Fentanyl Citrate Pf 100 Mcg/2 Ml Vial) 50 mcg IV NOW STA Stop: 11/07/22 19:14 Last Admin: 11/07/22 19:46 Dose: 50 mcg Documented By: LOPPER Acetaminophen (Ofirmev) 1,000 mg in 100 mls @ 400 mls/hr IV NOW STA Stop: 11/07/22 22:43 Last Infusion: 11/07/22 23:00 Dose: 0 mls/hr Documented By: Admin: 11/07/22 22:39 Dose: 400 mls/hr Documented By: LOPPER Potassium Chloride (Potassium Chloride Pwd 20 Meq Pack) 40 meq PO ONE ONE Stop: 11/07/22 20:16 Last Admin: 11/07/22 21:04 Dose: 40 meq Documented By: LOPPER Medical Decision Making Medical Records Attestation: I reviewed the patient's medical records. Home Medications Current Medication List: was personally reviewed by dc Laboratory Data Attestation: I reviewed the patient's lab results. Patient has an elevated white blood cell count as interpreted by me 11/07/22 19:00 11/07/22 19:00 Lab Results 11/07/22 11/07/22 11/07/22 Range/Units 19:00 19:00 19:00 WBC 12.67 H (4.8-10.8) K/ul RBC 3.61 L (4.20-5.40) M/uL Hgb 11.0 L (12.0-16.0) g/dl Hct 32.1 L (37.0-47.0) % MCV 88.9 (80.0-100.0) fL MCH 30.5 (25.0-34.0) pg MCHC 34.3 (32.0-36.0) g/dL RDW Std Deviation 43.6 (36.4-46.3) fL RDW Coeff of Blas 13.4 (11.5-14.5) % Plt Count 467 H (130-400) K/uL MPV 9.0 L (9.4-12.4) fL Immature Gran % (Auto) 0.4 % Neut % (Auto) 79.4 % Lymph % (Auto) 10.3 % [place] % (Auto) 7.0 % Eos % (Auto) 2.6 % Baso % (Auto) 0.3 % Neut # (Auto) 10.05 H (1.40-6.50) K/uL Lymph # (Auto) 1.31 (1.2-3.4) K/uL [place] # (Auto) 0.89 H (0.11-0.59) K/uL Eos # (Auto) 0.33 (0-0.50) K/uL Baso # (Auto) 0.04 (0-0.2) K/uL Immature Gran # (Auto) 0.05 (0.01-0.20) K/uL PT 10.1 (9.0-12.0) Seconds INR 0.9 (0.9-1.1) APTT 26.3 (21.0-31.0) Seconds PTT Ratio 0.9 Sodium 133 L (136-145) mmol/L Potassium 2.8 L (3.5-5.1) mmol/L Chloride 96 L (98-107) mmol/L Carbon Dioxide 25 (21-32) mmol/L Anion Gap 12 H (3-11) BUN 20 (6-23) mg/dl Creatinine 0.88 (0.6-1.2) mg/dl Est Cr Clr Drug Dosing Not Reportable Est GFR ( Amer) 69.4 ml/min Est GFR (Non-Af Amer) 59.9 ml/min BUN/Creatinine Ratio 22.7 H (10-20) Glucose 119 H (70-99(Fasting)) mg/dl Calcium 8.7 (8.6-10.3) mg/dl Magnesium 1.9 (1.7-2.4) mg/dl Total Bilirubin 0.4 (0.2-1.0) mg/dl AST 29 (13-39) U/L ALT 19 (7-52) U/L Alkaline Phosphatase 155 H (34-104) U/L Troponin I High Sens 31.1 H (0-14) pg/ml Total Protein 7.3 (6.0-8.3) gm/dl Albumin 3.8 (3.4-5.0) gm/dl Globulin 3.5 (2.5-4.0) gm/dl Albumin/Globulin Ratio 1.1 (0.9-2) Urine Color Urine Appearance (Clear) Urine pH (4.5-7.5) Ur Specific [place] (1.000-1.030) Urine Protein (Negative) Urine Glucose (UA) (Negative) Urine Ketones (Negative) Urine Blood (Negative) Urine Nitrite (Negative) Urine Bilirubin (Negative) Urine Urobilinogen (Negative) Ur Leukocyte Esterase (Negative) Urine WBC (Auto) (0-5) /hpf Urine RBC (Auto) (0-4) /hpf U Hyaline Cast (Auto) (0-5) /lpf U Epithel Cells (Auto) (0-5) /lpf Urine Bacteria (Auto) (Negative) 11/07/22 Range/Units Unknown WBC (4.8-10.8) K/ul RBC (4.20-5.40) M/uL Hgb (12.0-16.0) g/dl Hct (37.0-47.0) % MCV (80.0-100.0) fL MCH (25.0-34.0) pg MCHC (32.0-36.0) g/dL RDW Std Deviation (36.4-46.3) fL RDW Coeff of Blas (11.5-14.5) % Plt Count (130-400) K/uL MPV (9.4-12.4) fL Immature Gran % (Auto) % Neut % (Auto) % Lymph % (Auto) % [place] % (Auto) % Eos % (Auto) % Baso % (Auto) % Neut # (Auto) (1.40-6.50) K/uL Lymph # (Auto) (1.2-3.4) K/uL [place] # (Auto) (0.11-0.59) K/uL Eos # (Auto) (0-0.50) K/uL Baso # (Auto) (0-0.2) K/uL Immature Gran # (Auto) (0.01-0.20) K/uL PT (9.0-12.0) Seconds INR (0.9-1.1) APTT (21.0-31.0) Seconds PTT Ratio Sodium (136-145) mmol/L Potassium (3.5-5.1) mmol/L Chloride (98-107) mmol/L Carbon Dioxide (21-32) mmol/L Anion Gap (3-11) BUN (6-23) mg/dl Creatinine (0.6-1.2) mg/dl Est Cr Clr Drug Dosing Est GFR ( Amer) ml/min Est GFR (Non-Af Amer) ml/min BUN/Creatinine Ratio (10-20) Glucose (70-99(Fasting)) mg/dl Calcium (8.6-10.3) mg/dl Magnesium (1.7-2.4) mg/dl Total Bilirubin (0.2-1.0) mg/dl AST (13-39) U/L ALT (7-52) U/L Alkaline Phosphatase (34-104) U/L Troponin I High Sens (0-14) pg/ml Total Protein (6.0-8.3) gm/dl Albumin (3.4-5.0) gm/dl Globulin (2.5-4.0) gm/dl Albumin/Globulin Ratio (0.9-2) Urine Color Yellow Urine Appearance Cloudy A (Clear) Urine pH 6.0 (4.5-7.5) Ur Specific [place] 1.013 (1.000-1.030) Urine Protein 1+ H (Negative) Urine Glucose (UA) Negative (Negative) Urine Ketones Trace H (Negative) Urine Blood Negative (Negative) Urine Nitrite Negative (Negative) Urine Bilirubin Negative (Negative) Urine Urobilinogen Negative (Negative) Ur Leukocyte Esterase 2+ H (Negative) Urine WBC (Auto) >30 H (0-5) /hpf Urine RBC (Auto) 0-4 (0-4) /hpf U Hyaline Cast (Auto) 1-5 (0-5) /lpf U Epithel Cells (Auto) >30 H (0-5) /lpf Urine Bacteria (Auto) Negative (Negative) Imaging Data Attestation: I personally reviewed and interpreted this imaging study as follows: My Impression: CT of the brain interpreted by me negative for intracranial hemorrhage Radiologist's Impression: Head CT 11/07/22 18:42 Exam(s): CT HEAD Without Contrast EXAM: CT Head Without Intravenous Contrast CLINICAL HISTORY: Reason for exam: TIA symptoms x3 days. TECHNIQUE: Axial computed tomography images of the head/brain without intravenous contrast. Automated exposure control was utilized for the study. A dose lowering technique was utilized adhering to the principles of ALARA. COMPARISON: 07/31/2018. FINDINGS: Brain: Mild generalized brain atrophy. No hemorrhage. No significant white matter disease. Ventricles: Unremarkable. No ventriculomegaly. Bones/joints: There is post right anterior craniotomy. No acute fracture. Soft tissues: Unremarkable. Vasculature: Mid hardening artifact related to sutures or surgical clips along the midline along the anterior frontal lobes consistent with nonspecific postoperative changes or aneurysmal repair. Nonspecific calcified scar disease of the bilateral vertebral and basilar artery. Sinuses: Unremarkable as visualized. No acute sinusitis. Mastoid air cells: Unremarkable as visualized. No mastoid effusion. IMPRESSION: Subacute and chronic changes as described. No acute intracranial hemorrhage or space-occupying lesion. Electronically signed by: Pebbles Wells MD 11/07/22 23:02 PM ECG Data Attestation: I personally reviewed and interpreted this ECG as follows: Additional Comments: EKG interpreted by me normal sinus rhythm, left axis deviation, left ventricular hypertrophy, no obvious ST segment elevation or depression rate of 88 Telemetry was ordered by me, interpreted as normal sinus rhythm rate of 88 MDM Narrative Medical decision making differential diagnosis includes TIA, CVA, electrolyte abnormality, brain tumor, chronic back pain, compression fractures,, electrolyte abnormality Plan is to check stroke protocol External medical records were reviewed by me Patient's symptoms are greater than 24 hours, patient will be admitted for TIA, intractable back pain Independent history was provided to me by the patient's family at bedside Impression & Plan TIA (transient ischemic attack), Back pain Discharge Plan Visit Data Chief Complaint: TIA Symptoms Stated Complaint: BACK PAIN,TROUBLE WALKING,MINI STROKE,SLURRY SPEEC ED Provider: Kingsley Arenas Discharge Problem: TIA (transient ischemic attack), Back pain Patient Disposition: Admitted As Inpatient Forms Stand Alone Forms: My [facility] Prescriptions Prescriptions: No Action amiodarone 200 mg tablet 200 mg PO DAILY Qty: 90 3RF Eliquis 2.5 mg tablet 2.5 mg PO BID Qty: 180 3RF alendronate 70 mg Tablet 70 mg PO WK Rx Instructions: TAKES ON MONDAY fexofenadine 180 mg Tablet 180 mg PO DAILY PRN (Reason: Allergy Symptoms) calcium carbonate [Calcium 600] 600 mg calcium (1,500 mg) Tablet 1,200 mg PO DAILY triamcinolone acetonide 0.1 % Ointment 1 applic TOPICAL DAILY PRN (Reason: Dry Skin) cholecalciferol (vitamin D3) [Vitamin D3] 2,000 unit Capsule 2,000 unit PO DAILY albuterol sulfate [ProAir HFA] 90 mcg/actuation Hfa Aerosol Inhaler 2 puff INHALATION Q6H PRN (Reason: SOB/Wheezing) Saline Mist 0.65 % Aerosol,[place] 2 spray INTRANASAL BID PRN (Reason: DRYNESS) atorvastatin 40 mg tablet 40 mg PO DAILY triamcinolone acetonide [Nasacort] 55 mcg Aerosol,[place] 2 spray INTRANASAL DAILY PRN (Reason: Allergy Symptoms) losartan 100 mg tablet 100 mg PO DAILY acetaminophen [Tylenol Ex Str Rapid Release] 500 mg Tablet 500 mg PO Q6H PRN (Reason: PAIN OR FEVER) ibuprofen [Advil] 200 mg Tablet 200 mg PO Q6H PRN (Reason: Pain (Scale Score 1-3)) Referrals Referrals: Rosalio York MD [Primary Care Provider] -
[2022-11-07 19:29] LABS: Basophils # (auto) 0.04 K/uL (0-0.2); Basophils % (auto) 0.3 %; Eosinophils # (auto) 0.33 K/uL (0-0.50); Eosinophils % (auto) 2.6 %; Hematocrit (blood only) 32.1 % (37.0-47.0); Immature Granulocytes # (auto) 0.05 K/uL (0.01-0.20); Immature Granulocytes % (auto) 0.4 %; Lymphocytes # (auto) 1.31 K/uL (1.2-3.4); Lymphocytes % (auto) 10.3 %; Mean Corpuscular Hemoglobin 30.5 pg (25.0-34.0); Mean Corpuscular Hgb Conc 34.3 g/dL (32.0-36.0); Mean Corpuscular Volume 88.9 fL (80.0-100.0); Monocytes # (auto) 0.89 K/uL (0.11-0.59); Neutrophils # (auto) 10.05 K/uL (1.40-6.50); Neutrophils % (auto) 79.4 %; Platelet Count 467 K/uL (130-400); RDW Coefficient of Variation 13.4 % (11.5-14.5); RDW Standard Deviation 43.6 fL (36.4-46.3); Red Blood Count 3.61 M/uL (4.20-5.40); White Blood Count 12.67 K/ul (4.8-10.8)
[2022-11-07 19:43] LABS: Alanine Aminotransferase 19 U/L (7-52); Albumin Globulin Ratio 1.1 (0.9-2); Albumin Level 3.8 gm/dl (3.4-5.0); Alkaline Phosphatase 155 U/L (34-104); Anion Gap 12 (3-11); Aspartate Aminotransferase 29 U/L (13-39); BUN Creatinine Ratio 22.7 (10-20); Bilirubin,Total 0.4 mg/dl (0.2-1.0); Blood Urea Nitrogen 20 mg/dl (6-23); Calcium 8.7 mg/dl (8.6-10.3); Carbon Dioxide 25 mmol/L (21-32); Chloride 96 mmol/L (98-107); Est GFR (African American) 69.4 ml/min; Est GFR (Non-African American) 59.9 ml/min; Globulin 3.5 gm/dl (2.5-4.0); Glucose 119 mg/dl (70-99(Fasting)); Magnesium 1.9 mg/dl (1.7-2.4); Potassium 2.8 mmol/L (3.5-5.1); Sodium 133 mmol/L (136-145); Total Protein 7.3 gm/dl (6.0-8.3)
[2022-11-07] MEDS ORDERED: POTASSIUM CHLORIDE 10 MEQ TABCR PO STA (19:45)
[2022-11-07 19:46] LABS: Troponin I High Sensitivity 31.1 pg/ml (0-14)
[2022-11-07 19:52] LABS: INR 0.9 (0.9-1.1); Partial Thromboplastin Ratio 0.9; Partial Thromboplastin Time 26.3 Seconds (21.0-31.0); Prothrombin Time 10.1 Seconds (9.0-12.0)
[2022-11-07] MEDS ORDERED: POTASSIUM CHLORIDE PWD 20 MEQ PACK PO ONE (20:15)
[2022-11-07 20:48] LABS: Appearance Urine Cloudy (Clear); Bacteria Urine Automated Negative (Negative); Bilirubin Urine Negative (Negative); Blood Urine Negative (Negative); Color Urine Yellow; Epithelial Cell Urine Auto >30 /lpf (0-5); Glucose Urine UA Negative (Negative); Ketones Urine Trace (Negative); Leukocyte Esterase Urine 2+ (Negative); Nitrite Urine Negative (Negative); Protein Urine 1+ (Negative); RBC Urine Automated 0-4 /hpf (0-4); Specific Gravity Urine 1.013 (1.000-1.030); Urobilinogen Urine Negative (Negative); WBC Urine Automated >30 /hpf (0-5)
[2022-11-07] MEDS ORDERED: ACETAMINOPHEN 500 MG TAB PO STA (22:03)
[2022-11-07] MEDS ORDERED: ACETAMINOPHEN 1,000 MG/100 ML VIAL IV STA (22:29)
--- NOTE | 2022-11-07 23:04 | CT Scan Report ---
Exam(s): CT HEAD Without Contrast EXAM: CT Head Without Intravenous Contrast CLINICAL HISTORY: Reason for exam: TIA symptoms x3 days. TECHNIQUE: Axial computed tomography images of the head/brain without intravenous contrast. Automated exposure control was utilized for the study. A dose lowering technique was utilized adhering to the principles of ALARA. COMPARISON: 07/31/2018. FINDINGS: Brain: Mild generalized brain atrophy. No hemorrhage. No significant white matter disease. Ventricles: Unremarkable. No ventriculomegaly. Bones/joints: There is post right anterior craniotomy. No acute fracture. Soft tissues: Unremarkable. Vasculature: Mid hardening artifact related to sutures or surgical clips along the midline along the anterior frontal lobes consistent with nonspecific postoperative changes or aneurysmal repair. Nonspecific calcified scar disease of the bilateral vertebral and basilar artery. Sinuses: Unremarkable as visualized. No acute sinusitis. Mastoid air cells: Unremarkable as visualized. No mastoid effusion. IMPRESSION: Subacute and chronic changes as described. No acute intracranial hemorrhage or space-occupying lesion. Electronically signed by: Pebbles Wells MD 11/07/22 23:02 PM
[2022-11-08] MEDS ORDERED: ALBUT/IPRATROP 3MG/0.5MG NEB 3 ML VIAL NEB STA (01:33)
--- NOTE | 2022-11-08 01:57 | History & Physical Report ---
Date of Service November 08, 2022 Assessment & Plan (1) Back pain: Plan: Patient is an 86-year-old female with past medical history of longstanding tobacco use with a current pack per day smoking history, COPD, hypertension, hyperlipidemia, multifocal atrial tachycardia, pulmonary hypertension, and failure to thrive who presented to the ED for the chief complaint of unretractable back pain. Additionally, when family was in the ED, they brought up the fact that the patient has ongoing left sided facial droop and weakness in the upper or lower extremities that has been going on since Monday. -Admit to [facility] with telemetry -Patient is a poor surgical candidate so do not feel orthospine needs to be consulted at this time. -Review of lumbar CT and 2020 shows multiple compression fractures of the lumbar spine. -No new imaging of the lumbar spine done in ED, will order lumbar x-ray for in morning. -Given history of osteoporosis as well as compression fractures, will add intranasal calcitonin for additional pain relief -Tylenol and 0.25 mg of Dilaudid as needed for pain control. Fentanyl given in ED. -PT and OT ordered, appreciate recommendations -Pain management consultation ordered to see if nerve ablation or spinal injection would be beneficial. Appreciate recommendations -Patient lives with daughter who takes care of her. If pain is under control, patient may return back home under supervision. (2) TIA (transient ischemic attack): Plan: - Described symptoms are in line with transient ischemic attack that has been intermittent since Monday -Patient does have a history of carotid stenosis as previously mentioned and given her smoking history and hyperlipidemia, it has likely gotten worse. -Typically would evaluate further with CTA of the head and neck, however, patient has no interest in receiving invasive treatment for TIA -Continue optimal med management. Consider increasing atorvastatin to 80 mg daily. 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 When asked about this she has poor recollection of why she needed to have this procedure done but she does states she has had an MRI of the brain in the past. Proceed with additional imaging with caution and may want to clarify with family prior to moving forward with additional work-up if needed. (3) Hypokalemia: Plan: - Likely secondary to failure to thrive -Received 40 mEq of p.o. supplementation in the ED -BMP in the morning, mag level in the morning -Supplement as needed (4) Obstructive lung disease: Plan: - Patient with longstanding smoking history and what appears to be severe COPD -Patient only on albuterol inhaler at home and would likely benefit from maintenance inhalers -Patient has refused these in the past. -DuoNeb every 4 hours as needed for shortness of breath or wheezing (5) Tobacco dependence: Plan: - Pack per day smoker -Patient refused nicotine patch (6) Failure to thrive: Plan: - Boost supplementation ordered (7) Multifocal atrial tachycardia: Plan: - Finding at previous admission, however, normal sinus rhythm during my examination and on EKG -Continue Eliquis 2.5 mg twice daily for VTE prophylaxis -Apparently during last admission part of the arrhythmia patient was experiencing was paroxysmal atrial fibrillation (8) Hypertension: Plan: - Continue losartan (9) Hyperlipidemia: Plan: - Continue statin (10) Osteoporosis: Plan: - Continue alendronate, last taken on 11/06/2022 -Added salmon calcitonin as above Plan Disposition: Admit to [facility] with telemetry for electrolyte supplementation and pain management Diet: N.p.o. until bedside dysphagia screening, LR at 80 cc/h for maintenance DVT prophylaxis: Eliquis CODE STATUS: DNR/DNI as discussed with the patient History of Present Illness Chief Complaint: Back Pain Primary Care Provider: Rosalio York MD Patient is an 86-year-old female with past medical history of longstanding tobacco use with a current pack per day smoking history, COPD, hypertension, hyperlipidemia, multifocal atrial tachycardia, pulmonary hypertension, and failure to thrive who presented to the ED for the chief complaint of unretractable back pain. Additionally, when family was in the ED, they brought up the fact that the patient has ongoing left sided facial droop and weakness in the upper or lower extremities that has been going on since Monday. Back pain: Patient reports that she has a history of compression fractures and chronic back pain and was recently unable to get a prescription for oxycodone. Because of this, she has been taking Tylenol and Motrin as well as utilization of heating pads and patches on her back but this seems to be insufficient. When she first came to the ED, she reports that her pain was a 10 out of 10 and now she is status post fentanyl and Tylenol, she is still reporting 8.5 out of 10 midline low back pain. Denies any incontinence either fecal or urinary. No numbness in her lower extremities. The only thing that seems to make the pain better is if she lays on her left or right side. If she lays on her back, she has worsening pain. She has never seen a spine surgeon before. No new trauma. Strokelike symptoms: It seems over the past week or so, patient has been having on and off symptoms of left-sided facial droop and left-sided weakness worse in the right. Patient is alone in the room and she states that she has had intermittent left-sided weakness but has not had a today. She does have a history of carotid stenosis as noted in her [facility] health chart. Her right internal carotid was stenosed at 60% back in 2019. She has not had an evaluation since. Patient continues to smoke a pack of cigarettes per day and has done so since she was a teenager giving her a [id number] smoker history. She has never had a heart attack or stroke. Denies any vision changes. No headache at this time. Patient does not feel that she is more weak on one side compared to the other currently. No other complaints this time Allergies Allergy/AdvReac Type Severity Reaction Status Date / Time guaifenesin [From Mucinex] Allergy Intermediate Hives Verified 11/07/22 19:34 lidocaine Allergy Mild Hives Verified 11/08/22 17:37 amoxicillin Allergy Unknown Unknown Verified 11/07/22 19:34 prednisone AdvReac Severe swelling Verified 11/07/22 19:34 legs clindamycin AdvReac Intermediate Diarrhea Verified 11/07/22 19:34 lisinopril AdvReac Intermediate Cough Verified 11/07/22 19:34 Home Medications Medication Instructions Recorded Confirmed Type alendronate 70 mg tablet 70 mg PO WK 02/18/18 11/07/22 History calcium carbonate 600 mg calcium 1,200 mg PO DAILY 02/18/18 11/07/22 History (1,500 mg) tablet (Calcium) cholecalciferol (vitamin D3) 50 2,000 unit PO DAILY 02/18/18 11/07/22 History mcg (2,000 unit) capsule (Vitamin D3) fexofenadine 180 mg tablet 180 mg PO DAILY PRN Allergy 02/18/18 11/07/22 History Symptoms triamcinolone acetonide 0.1 % 1 applic topical DAILY PRN Dry Skin 02/18/18 11/07/22 History topical ointment albuterol sulfate 90 mcg/actuation 2 puff inhalation Q6H PRN 02/19/18 11/07/22 History aerosol inhaler (ProAir HFA) SOB/Wheezing atorvastatin 40 mg tablet 40 mg PO DAILY 11/07/20 11/07/22 History losartan 100 mg tablet 100 mg PO DAILY 11/07/20 11/07/22 History triamcinolone acetonide 55 mcg 2 spray intranasal DAILY PRN 11/07/20 11/07/22 History nasal spray aerosol (Nasacort) Allergy Symptoms sodium chloride 0.65 % nasal spray 2 spray intranasal BID PRN DRYNESS 02/20/22 11/07/22 History aerosol (Saline Mist) amiodarone 200 mg tablet 200 mg PO DAILY #90 tabs 03/28/22 11/07/22 Rx apixaban 2.5 mg tablet (Eliquis) 2.5 mg PO BID #180 tabs 03/28/22 11/07/22 Rx acetaminophen 500 mg tablet 500 mg PO Q6H PRN PAIN OR FEVER 11/07/22 11/07/22 History ibuprofen 200 mg tablet (Advil) 200 mg PO Q6H PRN Pain (Scale 11/07/22 11/07/22 History Score 1-3) Past Med/Surg History Medical History (Updated 11/08/22 @ 15:56 by Tan Lucio PA-C) Compression deformity of vertebra Compression fracture of T12 vertebra COVID-09 february 2022 Hyperlipidemia Hypertension Spondylosis of thoracolumbar spine Thoracic kyphosis Family History Other No significant family history Social History Smoking Status: Current every day smoker Tobacco Type: Cigarettes Cigarettes Per Day: 1/2 pack; Second Hand Exposure: Yes; Do You Dip or Chew Tobacco: No; Hx Alcohol Use: No Hx Substance Use: Yes Preferred Language: Bahraini Communication Ability: Effective Electronic Test Technician Required: No Beliefs That Will Affect Care: Spiritual marital status: Current Living Situation: Family Current Living Situation Comment: lives with daughter Other Information That Helps Us Care for You: No Feels Safe at Home: Yes Safety Concerns: Feels Safe At This Time Assistive Devices: Lift Chair and Walker Review of Systems Review of Systems: All systems reviewed & are unremarkable except as noted in HPI & below Physical Exam Constitutional: WD/WN, vitals as above Eyes: + anicteric sclerae Neck: normal visual inspection Respiratory: + cough, + tachypneic and symmetric chest movement Auscultation: + wheezes and + bronchial breath sounds Cardiovascular: Rate/Rhythm: regular rate and regular rhythm Heart Sounds: + murmur Gastrointestinal (Abdomen): normal bowel sounds, soft, nontender, no hepatosplenomegaly Musculoskeletal: 4/5 strength in all extremities Skin: no rashes Neurologic: moves all extremities and awake; no focal motor deficits Cranial Nerves: PERRL, EOM intact bilaterally, tongue midline and normal hearing Psychiatric: Orientation: alert and oriented x 3 Results & Data Results & Data Vital Signs (Past 12 Hours) Vital Signs Temp Pulse Resp BP Pulse Ox O2 Del Method 11/08/22 01:00 87 25 H 183/74 H 96 Room Air 11/08/22 00:30 87 25 H 184/71 H 96 Room Air 11/08/22 00:00 90 20 161/82 H 96 Room Air 11/07/22 23:58 92 H 11/07/22 23:30 91 H 25 H 11/07/22 23:30 192/75 H 11/07/22 23:20 91 H 21 11/07/22 23:10 92 H 22 11/07/22 23:00 91 H 29 H 11/07/22 23:00 208/94 H 11/07/22 22:51 91 H 27 H 11/07/22 22:51 199/82 H 11/07/22 22:50 97 H 26 H 11/07/22 22:40 91 H 26 H 11/07/22 22:30 93 H 30 H 11/07/22 22:30 212/82 H 11/07/22 22:20 87 20 11/07/22 22:10 109 H 13 11/07/22 22:00 97 11/07/22 22:00 196/87 H 11/07/22 21:50 96 11/07/22 21:40 100 11/07/22 21:30 90 13 96 11/07/22 21:30 204/97 H 11/07/22 21:29 75 73 H 11/07/22 21:10 84 27 H 11/07/22 21:00 88 25 H 11/07/22 20:50 87 26 H 11/07/22 20:47 89 24 11/07/22 20:30 95 11/07/22 20:20 84 21 97 11/07/22 20:10 92 H 26 H 97 11/07/22 20:00 96 H 23 11/07/22 19:50 104 H 18 96 11/07/22 19:40 86 24 97 11/07/22 19:30 83 30 H 96 11/07/22 19:20 88 28 H 96 11/07/22 19:10 99 H 15 96 11/07/22 19:03 91 H 15 98 11/07/22 19:03 92 H 11/07/22 18:40 36.2 C L 88 16 187/80 H 95 Supervising Physician Co-Signing Physician Notes Attending addendum: I have physically seen this patient, have supervised the medical residents activities, and agree with the H&P unless as otherwise noted. Assessment and Plan: TIA/strokelike symptoms- Patient with resolved episode of slurred speech, left facial droop, left upper e xtremity and left lower extremity weakness with intermittent symptoms since Monday CT of head with no acute problems Patient has no desire to have any intervention performed, will therefore not pursue angiographic studies, CTA head and neck, as patient would not want intervention performed Hold on additional studies such as MRI at this time as well Chronic back pain- Multiple compression fractures in lumbar spine noted on CT of 2020 Intranasal calcitonin added as noted Acetaminophen 650 mg by mouth every 6 hours as needed for mild pain or fever Dilaudid 0.25 mg IV every 3 hours as needed moderate to severe pain Consider consult with pain management Consult PT/OT MAT/hypertension- Continue amiodarone, apixaban, losartan Hypokalemia- Potassium 2.8 on admission Received 40 mEq p.o. from the ED reassess with labs in a.m. Remaining orders and notations as noted
[2022-11-08] MEDS ORDERED: ALBUTEROL HFA 8 GM INHALER INH PRN (02:25)
[2022-11-08] MEDS ORDERED: ACETAMINOPHEN 325 MG TAB PO PRN (02:25)
[2022-11-08] MEDS ORDERED: LACTATED RINGER'S 1,000 ML IV SCH (02:45)
[2022-11-08] MEDS: HYDROmorphone INJ 0.5 MG/0.5 ML SYR IV PRN ×4 (02:56→22:35)
[2022-11-08 06:02] LABS: Hematocrit (blood only) 28.2 % (37.0-47.0); Hemoglobin 9.6 g/dl (12.0-16.0); Mean Corpuscular Hemoglobin 30.2 pg (25.0-34.0); Mean Corpuscular Volume 88.7 fL (80.0-100.0); Mean Platelet Volume 8.8 fL (9.4-12.4); Platelet Count 386 K/uL (130-400); RDW Coefficient of Variation 13.4 % (11.5-14.5); RDW Standard Deviation 43.4 fL (36.4-46.3); Red Blood Count 3.18 M/uL (4.20-5.40); White Blood Count 10.43 K/ul (4.8-10.8)
[2022-11-08 06:23] LABS: Calcium 7.9 mg/dl (8.6-10.3); Creatinine Clr Calc Pharmacy 34.9 ml/min; Est GFR (Non-African American) 75.1 ml/min; Magnesium 1.8 mg/dl (1.7-2.4); Potassium 3.1 mmol/L (3.5-5.1)
[2022-11-08] MEDS: LOSARTAN POTASSIUM 50 MG TAB PO SCH (07:41)
--- NOTE | 2022-11-08 08:12 | Hospitalist Progress Note ---
Date of Service November 08, 2022 Assessment & Plan (1) Back pain: (2) TIA (transient ischemic attack): (3) Hypokalemia: (4) Obstructive lung disease: (5) Tobacco dependence: (6) Failure to thrive: (7) Multifocal atrial tachycardia: (8) Hypertension: (9) Hyperlipidemia: (10) Osteoporosis: Plan #Back pain Poor surgical candidate Multiple compression fractures demonstrated on CT in 2020 Lumbar XR shows new compression fractures Will transition tylenol and oxycodone around the clock for pain control Dilaudid 0.5mg for breakthrough pain Pain management recs appreciated PT/OT #TIA Hx carotid stenosis Does not desire invasive intervention Repeated hypertensive urgency events today, responded well to lopressor Will trial metoprolol tartrate 50mg BID beginning this evening Add [id number] qD, increase atorvastatin to 80mg #Hypokalemia replete as needed repete bmp tomorrow #Obstructive Lung Dx severe COPD optimize management with LAMA/LABA/ICS currently on albuterol only #Tobacco dependence PPD smoker nicotine patch refused #Multifocal atrial tachycardia NSR EKG Eliquis 2.5 BID VTE ppx #HTN BPs intermittently 190s-210s systolic lopressor 5mg q5min for systolic >180 losartan #HLD statin #Osteoporosis salmon calcitonin Disposition: Admit to [facility] with telemetry for electrolyte supplementation and pain management Diet: N.p.o. until bedside dysphagia screening, LR at 80 cc/h for maintenance DVT prophylaxis: Eliquis CODE STATUS: DNR/DNI as discussed with the patient Admission and Anticipated Discharge Date Admission Date: November 08, 2022 Supervising Physician Co-Signing Physician Notes I personally examined the patient and verified all couch points of history and exam, discussed case, and agree with decision making with Dr Grey back pain better but after IV dilauded. doesn't really want anything done for stroke/cerebrovascular disease vitals noted nad heent nc at mmm breathing unlabored no accessory muscles good effort skin no rashes no pallor or icterus osteoporotic compression fractures and intractable back pain - build regimen more compatible w home, see how she does w PT/OT once pain under better control stroke like illness - discussed secondary risk reduction - she has zero interest in any interventional approach, and after discussion of medical secondary risk reduction really only loosely even wants tighter BP control - discussed BP meds, asa, possible increase in atorvastatin - she weighed them and only wants maybe BP med if it's easy to take. Subjective 86 yo PMHx tobacco use (current 1PPD), COPD, HTN, HLD, multifocal atrial tachycardia, pulmonary HTN, failure to thrive admitted for unretractable back pain. When pt was in the ED it pts family disclosed that the patient has had intermittent L facial droop and upper and lower extremity weakness present since 11/04/22. Pt has a history of carotid artery stenosis. Does not desire any invasive management. Pt lives with daughter. Pt admits to back pain. Denies headache, chest pain, OSB, N/V/D, difficulty with urination. Review of Systems Review of Systems: reviewed, see HPI Physical Exam Physical Exam: General: patient resting comfortably, NAD, frail, AA&O x 4, answers questions appropriately and follows commands. Skin: warm, dry, intact, no rashes or lesions HEENT: NC/AT, anicteric sclera, conjunctiva without injection, external ear normal to inspection, nares patent, moist mucus membranes, dentition intact, neck supple, trachea midline, no thyromegaly, no JVD Heart: +S1/S2, regular, no m/r/g Lungs: equal air entry bilaterally, no rales/rhonchi/wheezes Abd: +BS, soft, NT/ND, no masses/organomegaly/ascites MSK: TTP along lumbar region of the spine. Ext: warm, no clubbing/cyanosis or edema Neuro: nonfocal, patient AA&O x 4, intermittent facial droop and slurred speech, moving all extremities on command. Results & Data Results & Data Vital Signs (Past 12 Hours) Vital Signs Temp Pulse Pulse Resp BP BP Pulse Ox 11/08/22 07:53 36.7 C 86 20 211/74 H 92 11/08/22 07:22 84 11/08/22 02:24 89 11/08/22 02:25 11/08/22 02:25 36.6 C 91 H 16 208/81 H 94 11/08/22 01:00 87 25 H 183/74 H 96 11/08/22 00:30 87 25 H 184/71 H 96 11/08/22 00:00 90 20 161/82 H 96 11/07/22 23:58 92 H 11/07/22 23:30 91 H 25 H 11/07/22 23:30 192/75 H 11/07/22 23:20 91 H 21 11/07/22 23:10 92 H 22 11/07/22 23:00 91 H 29 H 11/07/22 23:00 208/94 H 11/07/22 22:51 91 H 27 H 11/07/22 22:51 199/82 H 11/07/22 22:50 97 H 26 H 11/07/22 22:40 91 H 26 H 11/07/22 22:30 93 H 30 H 11/07/22 22:30 212/82 H 11/07/22 22:20 87 20 11/07/22 22:10 109 H 13 11/07/22 22:00 97 11/07/22 22:00 196/87 H 11/07/22 21:50 96 11/07/22 21:40 100 11/07/22 21:30 90 13 96 11/07/22 21:30 204/97 H 11/07/22 21:29 75 73 H 11/07/22 21:10 84 27 H 11/07/22 21:00 88 25 H 11/07/22 20:50 87 26 H 11/07/22 20:47 89 24 11/07/22 20:30 95 11/07/22 20:20 84 21 97 11/07/22 20:10 92 H 26 H 97 O2 Del Method 11/08/22 07:53 Room Air 11/08/22 07:22 11/08/22 02:24 11/08/22 02:25 Room Air 11/08/22 02:25 Room Air 11/08/22 01:00 Room Air 11/08/22 00:30 Room Air 11/08/22 00:00 Room Air 11/07/22 23:58 11/07/22 23:30 11/07/22 23:30 11/07/22 23:20 11/07/22 23:10 11/07/22 23:00 11/07/22 23:00 11/07/22 22:51 11/07/22 22:51 11/07/22 22:50 11/07/22 22:40 11/07/22 22:30 11/07/22 22:30 11/07/22 22:20 11/07/22 22:10 11/07/22 22:00 11/07/22 22:00 11/07/22 21:50 11/07/22 21:40 11/07/22 21:30 11/07/22 21:30 11/07/22 21:29 11/07/22 21:10 11/07/22 21:00 11/07/22 20:50 11/07/22 20:47 11/07/22 20:30 11/07/22 20:20 11/07/22 20:10 Laboratory Results Abnormal lab results 11/07/22 11/07/22 11/07/22 Range/Units 19:00 19:00 Unknown WBC 12.67 H (4.8-10.8) K/ul RBC 3.61 L (4.20-5.40) M/uL Hgb 11.0 L (12.0-16.0) g/dl Hct 32.1 L (37.0-47.0) % Plt Count 467 H (130-400) K/uL MPV 9.0 L (9.4-12.4) fL Neut # (Auto) 10.05 H (1.40-6.50) K/uL Miller # (Auto) 0.89 H (0.11-0.59) K/uL Sodium 133 L (136-145) mmol/L Potassium 2.8 L (3.5-5.1) mmol/L Chloride 96 L (98-107) mmol/L Anion Gap 12 H (3-11) BUN/Creatinine Ratio 22.7 H (10-20) Glucose 119 H (70-99(Fasting)) mg/dl Fasting Glucose (70-99) mg/dl Calcium (8.6-10.3) mg/dl Alkaline Phosphatase 155 H (34-104) U/L Troponin I High Sens 31.1 H (0-14) pg/ml Urine Appearance Cloudy A (Clear) Urine Protein 1+ H (Negative) Urine Ketones Trace H (Negative) Ur Leukocyte Esterase 2+ H (Negative) Urine WBC (Auto) >30 H (0-5) /hpf U Epithel Cells (Auto) >30 H (0-5) /lpf 11/08/22 11/08/22 Range/Units 05:26 05:26 WBC (4.8-10.8) K/ul RBC 3.18 L (4.20-5.40) M/uL Hgb 9.6 L (12.0-16.0) g/dl Hct 28.2 L (37.0-47.0) % Plt Count (130-400) K/uL MPV 8.8 L (9.4-12.4) fL Neut # (Auto) (1.40-6.50) K/uL Miller # (Auto) (0.11-0.59) K/uL Sodium 135 L (136-145) mmol/L Potassium 3.1 L (3.5-5.1) mmol/L Chloride (98-107) mmol/L Anion Gap (3-11) BUN/Creatinine Ratio (10-20) Glucose (70-99(Fasting)) mg/dl Fasting Glucose 105 H (70-99) mg/dl Calcium 7.9 L (8.6-10.3) mg/dl Alkaline Phosphatase (34-104) U/L Troponin I High Sens (0-14) pg/ml Urine Appearance (Clear) Urine Protein (Negative) Urine Ketones (Negative) Ur Leukocyte Esterase (Negative) Urine WBC (Auto) (0-5) /hpf U Epithel Cells (Auto) (0-5) /lpf Resident Activity Tracking Resident Involvement: Resident Care Provided Care Provided: Adult Hospital Medicine
[2022-11-08] MEDS ORDERED: POTASSIUM CHLORIDE CRTAB 20 MEQ TABCR PO STA (08:19)
[2022-11-08] MEDS: APIXABAN 2.5 MG TAB PO SCH ×2 (08:21→20:48)
[2022-11-08] MEDS: AMIODARONE 200 MG TAB PO SCH (08:21)
[2022-11-08] MEDS: CALCIUM CARBONATE 1250MG TAB PO SCH (08:22)
[2022-11-08] MEDS: CALCITONIN SALMON NA 200 IU/AC 3.7 ML BTL SCH ×2 (08:24→08:34)
[2022-11-08] MEDS: CHOLECALCIFEROL 1,000 UNITS 25 MCG TAB PO SCH (08:25)
[2022-11-08] MEDS ORDERED: ATORVASTATIN 40 MG TAB PO SCH (09:00)
[2022-11-08] MEDS ORDERED: HYDROmorphone INJ 0.5 MG/0.5 ML SYR IV PRN ×3 (10:36→10:41)
[2022-11-08] MEDS: METOPROLOL TARTRATE 1 MG/ML VIAL IV PRN ×2 (12:01→16:08)
--- NOTE | 2022-11-08 12:40 | Pain Management Consultation ---
Date of Consultation November 08, 2022 Assessment & Plan (1) Spondylosis of thoracolumbar spine: (2) Thoracic kyphosis: (3) Compression deformity of vertebra: (4) Compression fracture of T12 vertebra: Plan 1. No recommendations for changes to current inpatient pain medication regimen. 2. Consideration can be given for a thoracolumbar epidural steroid injection as an outpatient at the pain clinic, but there is nothing to offer for procedural intervention as an inpatient. 3. Agree with PT/OT for conditioning and mobilization. 4. Could consider TLSO brace to attempt to prevent further compression fracture deformities. Thank you for this consultation. Pain management service will sign off at this time. Please reconsult if needed. History of Present Illness Reason for Consultation: low back pain Attending Physician: Tan Erickson DO History of Present Illness Patient is an 86-year-old female that presented to the emergency department last night with her family. She has a history of compression fractures and chronic back pain. Apparently she was unable to get prescription for oxycodone, so has been taking Tylenol and Motrin, as well as using heating pads and applying topical patches to her back. Since last Monday, however, she has had slurred speech and left-sided facial droop. She reports weakness in the left upper extremity and left lower extremity. The facial changes actually resolved and then came back according to the family. They were concerned about a stroke or mini stroke. Patient denied headache at that time and she stated that her speech was slightly off. Patient complains of constant chronic midline back pain that extends from her thoracic to her lumbar spine. She says that the pain is "all the way up". Patient denies any pain in the legs. When asked about any lower extremity symptoms, she first says that she has numbness, but then corrects that and says no it is weakness when she is walking. She says she is able to shuffle her legs along when she walks. Case discussed with Dr. Tg Howe. Allergies Allergy/AdvReac Type Severity Reaction Status Date / Time guaifenesin [From Mucinex] Allergy Intermediate Hives Verified 11/07/22 19:34 amoxicillin Allergy Unknown Unknown Verified 11/07/22 19:34 prednisone AdvReac Severe swelling Verified 11/07/22 19:34 legs clindamycin AdvReac Intermediate Diarrhea Verified 07/17/23 19:34 lisinopril AdvReac Intermediate Cough Verified 11/07/22 19:34 Home Medications Medication Instructions Recorded Confirmed Type alendronate 70 mg tablet 70 mg PO WK 02/18/18 11/07/22 History calcium carbonate 600 mg calcium 1,200 mg PO DAILY 02/18/18 11/07/22 History (1,500 mg) tablet (Calcium) cholecalciferol (vitamin D3) 50 2,000 unit PO DAILY 02/18/18 11/07/22 History mcg (2,000 unit) capsule (Vitamin D3) fexofenadine 180 mg tablet 180 mg PO DAILY PRN Allergy 02/18/18 11/07/22 History Symptoms triamcinolone acetonide 0.1 % 1 applic topical DAILY PRN Dry Skin 02/18/18 11/07/22 History topical ointment albuterol sulfate 90 mcg/actuation 2 puff inhalation Q6H PRN 02/19/18 11/07/22 History aerosol inhaler (ProAir HFA) SOB/Wheezing atorvastatin 40 mg tablet 40 mg PO DAILY 11/07/20 11/07/22 History losartan 100 mg tablet 100 mg PO DAILY 11/07/20 11/07/22 History triamcinolone acetonide 55 mcg 2 spray intranasal DAILY PRN 11/07/20 11/07/22 History nasal spray aerosol (Nasacort) Allergy Symptoms sodium chloride 0.65 % nasal spray 2 spray intranasal BID PRN DRYNESS 02/20/22 11/07/22 History aerosol (Saline Mist) amiodarone 200 mg tablet 200 mg PO DAILY #90 tabs 03/28/22 11/07/22 Rx apixaban 2.5 mg tablet (Eliquis) 2.5 mg PO BID #180 tabs 03/28/22 11/07/22 Rx acetaminophen 500 mg tablet 500 mg PO Q6H PRN PAIN OR FEVER 11/07/22 11/07/22 History ibuprofen 200 mg tablet (Advil) 200 mg PO Q6H PRN Pain (Scale 11/07/22 11/07/22 History Score 1-3) Patient History Medical History (Updated 11/08/22 @ 15:56 by Tan Lucio PA-C) Compression deformity of vertebra Compression fracture of T12 vertebra COVID-09 february 2022 Hyperlipidemia Hypertension Spondylosis of thoracolumbar spine Thoracic kyphosis Family History Other No significant family history Social History Smoking Status: Current every day smoker Tobacco Type: Cigarettes Cigarettes Per Day: 1/2 pack; Second Hand Exposure: Yes; Do You Dip or Chew Tobacco: No; Hx Alcohol Use: No Hx Substance Use: Yes Preferred Language: Salvadorean Communication Ability: Effective Olericulturist Required: No Beliefs That Will Affect Care: None marital status: Current Living Situation: Family Current Living Situation Comment: lives with daughter Other Information That Helps Us Care for You: No Feels Safe at Home: Yes Safety Concerns: Feels Safe At This Time Assistive Devices: Lift Chair and Walker Physical Exam Physical Exam: GENERAL: Speech and cognition is intact. Mood and affect is appropriate. Does not appear in acute distress. HEAD: Normocephalic; atraumatic. Left-sided facial droop that improves with the patient conversing. NECK: Full ROM; trachea is midline. CHEST: Regular chest respiration. EXTREMITIES: No TTP. Distal sensation and pulses intact bilaterally. BACK: Diminished ROM. Thoracic kyphosis noted. + midline tenderness over the low thoracic and upper lumbar regions. NEURO: Awake, alert, and oriented x 3. Distal sensation of lower legs intact and equal bilaterally. SKIN: No lesions, erythema, or rashes noted. LOWER EXTREMITIES: Negative straight leg raise bilaterally. R Hip flexion 5/5; knee extension 5/5; knee flexion 5/5; ankle dorsiflexion 5/5; ankle plantar flexion 5/5; EHL 5/5 L Hip flexion 5/5; knee extension 5/5; knee flexion 5/5; ankle dorsiflexion 5/5; ankle plantar flexion 5/5; EHL 5/5
--- NOTE | 2022-11-08 12:58 | XRay Report ---
XR lumbar spine 2-3V CLINICAL HISTORY: Acute on chronic low back pain. COMPARISON STUDY: Lumbar spine CT November 07, 2020. FINDINGS: Exaggerated kyphosis at the thoracolumbar junction is noted. Severe L1 compression fracture is unchanged since CT of November 07, 2020. There has been increase in vertebral body height loss of T12 since that examination. Mild concavity of the inferior endplate of L3 is unchanged. Moderate loss of height of the superior endplate of L4 has developed since CT of November 07, 2020. A mild L5 compression fracture is unchanged since that examination. L2 vertebral body height is maintained. Moderate multi level facet arthrosis is present. IMPRESSION: 1. Moderate L4 compression fracture. This is new since CT of November 07, 2020. This fracture is likely s ubacute to chronic. 2. Interval increase in T12 vertebral body height loss since CT of November 07, 2020. 3. No change in L1, L3 and L5 compression fractures. ACT 112: Negative or not required by law. Electronically signed by: Peterson Davis M.D. 11/08/2022 12:57 PM
[2022-11-08] MEDS ORDERED: oxyCODONE HCL IR 5 MG TAB (IMMEDIATE RELEASE) PO PRN (14:24)
[2022-11-08] MEDS ORDERED: ACETAMINOPHEN 325 MG TAB PO ONE (14:45)
--- NOTE | 2022-11-08 15:09 | Electrocardiogram Report ---
Test Reason : Blood Pressure : / mmHG Vent. Rate : 088 BPM Atrial Rate : 088 BPM P-R Int : 172 ms QRS Dur : 084 ms QT Int : 356 ms P-R-T Axes : 019 -37 095 degrees QTc Int : 430 ms Normal sinus rhythm Left axis deviation Left ventricular hypertrophy with repolarization abnormality ( R in aVL ) Possible Lateral infarct , age undetermined Abnormal ECG When compared with ECG of 23-FEB-2022 05:16, Significant changes have occurred Confirmed by Edouard Núñez ([id number]) on 11/08/2022 3:08:27 PM Referred By: REFERRED SELF Confirmed By:Edouard Núñez
[2022-11-08] MEDS: LIDOCAINE 5% 1 PATCH TD SCH ×2 (16:29→16:42)
--- NOTE | 2022-11-08 18:57 | Billing Data ---
Date of Service November 08, 2022 Coding Level of Care Code 03926 SUB INP/OBS CARE MIN
[2022-11-08] MEDS: ACETAMINOPHEN 325 MG TAB PO SCH (20:47)
[2022-11-08] MEDS: METOPROLOL TARTRATE 50 MG TAB PO SCH (20:48)
[2022-11-09] MEDS: HYDROmorphone INJ 0.5 MG/0.5 ML SYR IV PRN ×2 (05:45→10:58)
[2022-11-09 07:32] LABS: Albumin Globulin Ratio 0.9 (0.9-2); BUN Creatinine Ratio 25.9 (10-20); Bilirubin,Total 0.3 mg/dl (0.2-1.0); Calcium 8.3 mg/dl (8.6-10.3); Creatinine Clr Calc Pharmacy 31.4 ml/min; Est GFR (African American) 76.8 ml/min; Est GFR (Non-African American) 66.2 ml/min; Globulin 3.2 gm/dl (2.5-4.0); Potassium 4.4 mmol/L (3.5-5.1); Total Protein 6.2 gm/dl (6.0-8.3)
[2022-11-09] MEDS: ATORVASTATIN 40 MG TAB PO SCH (08:49)
[2022-11-09] MEDS: ASPIRIN 81 MG CHEW PO SCH (08:49)
[2022-11-09] MEDS: METOPROLOL TARTRATE 50 MG TAB PO SCH ×2 (08:49→22:30)
[2022-11-09] MEDS: CALCIUM CARBONATE 1250MG TAB PO SCH (08:49)
[2022-11-09] MEDS: LOSARTAN POTASSIUM 50 MG TAB PO SCH (08:49)
[2022-11-09] MEDS: AMIODARONE 200 MG TAB PO SCH (08:49)
[2022-11-09] MEDS: CHOLECALCIFEROL 1,000 UNITS 25 MCG TAB PO SCH (08:49)
[2022-11-09] MEDS: APIXABAN 2.5 MG TAB PO SCH ×2 (08:49→22:30)
[2022-11-09] MEDS: CALCITONIN SALMON NA 200 IU/AC 3.7 ML BTL SCH (08:50)
[2022-11-09] MEDS: ACETAMINOPHEN 325 MG TAB PO SCH ×4 (08:50→22:29)
[2022-11-09] MEDS ORDERED: oxyCODONE HCL IR 5 MG TAB (IMMEDIATE RELEASE) PO SCH (12:00)
[2022-11-09] MEDS: NYSTATIN POWDER 15GM BTL EXT PRN (14:51)
--- NOTE | 2022-11-09 16:20 | Hospitalist Progress Note ---
Date of Service November 09, 2022 Assessment & Plan (1) Back pain: (2) TIA (transient ischemic attack): (3) Hypokalemia: (4) Obstructive lung disease: (5) Tobacco dependence: (6) Failure to thrive: (7) Multifocal atrial tachycardia: (8) Hypertension: (9) Hyperlipidemia: (10) Osteoporosis: Plan #Back pain Poor surgical candidate Multiple compression fractures demonstrated on CT in 2020 Lumbar XR shows new compression fractures Will transition tylenol and oxycodone around the clock for pain control Dilaudid 0.5mg for breakthrough pain Pain management recs appreciated PT/OT #TIA Hx carotid stenosis Does not desire invasive intervention Repeated hypertensive urgency events today, responded well to lopressor Will trial metoprolol tartrate 50mg BID beginning this evening Add [id number] qD, increase atorvastatin to 80mg #Hypokalemia replete as needed repete bmp tomorrow #Obstructive Lung Dx severe COPD optimize management with LAMA/LABA/ICS currently on albuterol only #Tobacco dependence PPD smoker nicotine patch refused #Multifocal atrial tachycardia NSR EKG Eliquis 2.5 BID VTE ppx #HTN BPs intermittently 190s-210s systolic lopressor 5mg q5min for systolic >180 losartan #HLD statin #Osteoporosis salmon calcitonin Disposition: Admit to [facility] with telemetry for electrolyte supplementation and pain management Diet: N.p.o. until bedside dysphagia screening, LR at 80 cc/h for maintenance DVT prophylaxis: Eliquis CODE STATUS: DNR/DNI as discussed with the patient Admission and Anticipated Discharge Date Admission Date: November 09, 2022 Supervising Physician Co-Signing Physician Notes I personally examined the patient and verified all couch points of history and exam, discussed case, and agree with decision making with Dr Grey sleeping comfortably, pain seems to be better controlled. d/w resident physician vitals noted resting comfortably nad heent nc at mmm breathing unlabored no accessory muscles good effort skin no rashes no pallor or icterus osteoporotic compression fractures and intractable back pain - trial regimen more compatible w home, see how she does w PT/OT once pain under better control stroke like illness - on 11/08 discussed secondary risk reduction - she has zero interest in any interventional approach, and after discussion of medical secondary risk reduction really only loosely even wants tighter BP control - discussed BP meds, asa, possible increase in atorvastatin - she weighed them and only wants maybe BP med if it's easy to take. Subjective 86 yo PMHx tobacco use (current 1PPD), COPD, HTN, HLD, multifocal atrial tachycardia, pulmonary HTN, failure to thrive admitted for unretractable back pain. When pt was in the ED it pts family disclosed that the patient has had intermittent L facial droop and upper and lower extremity weakness present since 11/04/22. Pt has a history of carotid artery stenosis. Does not desire any invasive management. Pt lives with daughter. Pt admits to back pain. Pain reasonably well controlled on current regimen. Denies headache, chest pain, SOB, N/V/D, difficulty with urination. Review of Systems Review of Systems: reviewed, see hpi Physical Exam Physical Exam: General: patient resting comfortably, NAD, frail, AA&O x 4, answers questions appropriately and follows commands. Skin: warm, dry, intact, no rashes or lesions HEENT: NC/AT, anicteric sclera, conjunctiva without injection, external ear normal to inspection, nares patent, moist mucus membranes, dentition intact, neck supple, trachea midline, no thyromegaly, no JVD Heart: +S1/S2, regular, no m/r/g Lungs: equal air entry bilaterally, no rales/rhonchi/wheezes Abd: +BS, soft, NT/ND, no masses/organomegaly/ascites MSK: TTP along lumbar region of the spine. Ext: warm, no clubbing/cyanosis or edema Neuro: nonfocal, patient AA&O x 4, intermittent facial droop and slurred speech, moving all extremities on command. Results & Data Results & Data Vital Signs (Past 12 Hours) Vital Signs Temp Pulse Pulse Resp BP BP Pulse Ox 11/09/22 14:05 68 11/09/22 14:45 36.7 C 68 22 124/68 96 11/09/22 11:34 36.8 C 59 L 20 96 11/09/22 08:45 68 170/68 H 11/09/22 08:08 36.7 C 80 20 201/66 H 97 11/09/22 06:02 78 11/09/22 07:48 11/09/22 05:44 37.1 C 87 18 180/84 H 92 O2 Del Method O2 Flow Rate 11/09/22 14:05 11/09/22 14:45 Nasal Cannula 3 11/09/22 11:34 Nasal Cannula 3 11/09/22 08:45 11/09/22 08:08 Nasal Cannula 3 11/09/22 06:02 11/09/22 07:48 Nasal Cannula 3 11/09/22 05:44 Nasal Cannula 3 Resident Activity Tracking Resident Involvement: Resident Care Provided Care Provided: Adult Hospital Medicine
--- NOTE | 2022-11-09 19:11 | Billing Data ---
Date of Service November 09, 2022 Coding Level of Care Code 92172 SUB INP/OBS CARE
[2022-11-09] MEDS: ALBUT/IPRATROP 3MG/0.5MG NEB 3 ML VIAL NEB PRN (22:21)
[2022-11-09] MEDS: oxyCODONE HCL IR 5 MG TAB (IMMEDIATE RELEASE) PO PRN (22:28)
[2022-11-10] MEDS: oxyCODONE HCL IR 5 MG TAB (IMMEDIATE RELEASE) PO PRN ×4 (05:03→21:37)
--- NOTE | 2022-11-10 05:26 | Billing Data ---
Date of Service November 10, 2022 Coding Level of Care Code 71324 INT INP/OBS CARE
--- NOTE | 2022-11-10 06:56 | Hospitalist Progress Note ---
Date of Service November 10, 2022 Assessment & Plan (1) Back pain: (2) TIA (transient ischemic attack): (3) Hypokalemia: (4) Obstructive lung disease: (5) Tobacco dependence: (6) Failure to thrive: (7) Multifocal atrial tachycardia: (8) Hypertension: (9) Hyperlipidemia: (10) Osteoporosis: Plan #Back pain Poor surgical candidate Multiple compression fractures demonstrated on CT in 2020 Lumbar XR shows new compression fractures Will transition tylenol and oxycodone around the clock for pain control Dilaudid 0.5mg for breakthrough pain Pain management recs appreciated PT/OT #TIA Hx carotid stenosis Does not desire invasive intervention Repeated hypertensive urgency events today, responded well to lopressor Will trial metoprolol tartrate 50mg BID beginning this evening Add [id number] qD, increase atorvastatin to 80mg #Hypokalemia replete as needed repete bmp tomorrow #Obstructive Lung Dx severe COPD optimize management with LAMA/LABA/ICS currently on albuterol only #Tobacco dependence PPD smoker nicotine patch refused #Multifocal atrial tachycardia NSR EKG Eliquis 2.5 BID VTE ppx #HTN BPs intermittently 190s-210s systolic lopressor 5mg q5min for systolic >180 losartan #HLD statin #Osteoporosis salmon calcitonin Disposition: Admit to [facility] with telemetry for electrolyte supplementation and pain management Diet: N.p.o. until bedside dysphagia screening, LR at 80 cc/h for maintenance DVT prophylaxis: Eliquis CODE STATUS: DNR/DNI as discussed with the patient Admission and Anticipated Discharge Date Admission Date: November 09, 2022 Supervising Physician Co-Signing Physician Notes I personally examined the patient and verified all couch points of history and exam, discussed case, and agree with decision making with Dr Grey wantzhao to go home, later had to cancel due to hypoxia - seems that she's probably supposed to be on chronic O2 at home. vitals noted resting comfortably nad heent nc at mmm breathing unlabored no accessory muscles good effort skin no rashes no pallor or icterus osteoporotic compression fractures and intractable back pain - pain controlled for home stroke like illness - on 11/08 discussed secondary risk reduction - she has zero interest in any interventional approach, and after discussion of medical secondary risk reduction really only loosely even wants tighter BP control - discussed BP meds, asa, possible increase in atorvastatin - she weighed them and only wants maybe BP med if it's easy to take. hpyoxia - most c/w COPD - relates that she's supposed to have O2 for home. apparently does not. will have to set up Subjective 86 yo PMHx tobacco use (current 1PPD), COPD, HTN, HLD, multifocal atrial tachycardia, pulmonary HTN, failure to thrive admitted for unretractable back pain. When pt was in the ED it pts family disclosed that the patient has had intermittent L facial droop and upper and lower extremity weakness present since 11/04/22. Pt has a history of carotid artery stenosis. Does not desire any invasive management. Pt lives with daughter. Pt admits to back pain. Pain reasonably well controlled on current regimen. Plan is for discharge to home today. Denies headache, chest pain, SOB, N/V/D, difficulty with urination. Review of Systems Review of Systems: reviewed, see hpi Physical Exam Physical Exam: General: patient resting comfortably, NAD, frail, AA&O x 4, answers questions appropriately and follows commands. Skin: warm, dry, intact, no rashes or lesions HEENT: NC/AT, anicteric sclera, conjunctiva without injection, external ear normal to inspection, nares patent, moist mucus membranes, dentition intact, neck supple, trachea midline, no thyromegaly, no JVD Heart: +S1/S2, regular, no m/r/g Lungs: equal air entry bilaterally, no rales/rhonchi/wheezes Abd: +BS, soft, NT/ND, no masses/organomegaly/ascites MSK: TTP along lumbar region of the spine. Ext: warm, no clubbing/cyanosis or edema Neuro: nonfocal, patient AA&O x 4, intermittent facial droop and slurred speech, moving all extremities on command. Results & Data Results & Data Vital Signs (Past 12 Hours) Vital Signs Temp Pulse Pulse Resp BP BP Pulse Ox 11/10/22 00:00 63 11/09/22 20:00 11/10/22 02:48 36.9 C 70 18 158/60 H 97 11/09/22 22:39 36.8 C 84 18 171/76 H 96 11/09/22 22:21 86 20 94 11/09/22 19:09 36.8 C 77 18 161/78 H 94 O2 Del Method O2 Flow Rate 11/10/22 00:00 11/09/22 20:00 Nasal Cannula 3 11/10/22 02:48 Nasal Cannula 3 11/09/22 22:39 Nasal Cannula 3 11/09/22 22:21 Nasal Cannula 3 11/09/22 19:09 Nasal Cannula 3 Resident Activity Tracking Resident Involvement: Resident Care Provided Care Provided: Adult Hospital Medicine
[2022-11-10] MEDS: ASPIRIN 81 MG CHEW PO SCH (08:13)
[2022-11-10] MEDS: APIXABAN 2.5 MG TAB PO SCH ×2 (08:13→21:38)
[2022-11-10] MEDS: LOSARTAN POTASSIUM 50 MG TAB PO SCH (08:13)
[2022-11-10] MEDS: ATORVASTATIN 40 MG TAB PO SCH (08:13)
[2022-11-10] MEDS: CALCITONIN SALMON NA 200 IU/AC 3.7 ML BTL SCH (08:13)
[2022-11-10] MEDS: CHOLECALCIFEROL 1,000 UNITS 25 MCG TAB PO SCH (08:13)
[2022-11-10] MEDS: AMIODARONE 200 MG TAB PO SCH (08:14)
[2022-11-10] MEDS: CALCIUM CARBONATE 1250MG TAB PO SCH (08:14)
[2022-11-10] MEDS: ACETAMINOPHEN 325 MG TAB PO SCH ×4 (08:14→21:37)
[2022-11-10] MEDS: METOPROLOL TARTRATE 50 MG TAB PO SCH ×2 (08:14→21:38)
[2022-11-10] MEDS: NYSTATIN POWDER 15GM BTL EXT PRN (09:12)
--- NOTE | 2022-11-10 18:00 | Discharge Summary ---
Date of Service November 10, 2022 Admission HPI Per Admitting Provider Patient is an 86-year-old female with past medical history of longstanding tobacco use with a current pack per day smoking history, COPD, hypertension, hyperlipidemia, multifocal atrial tachycardia, pulmonary hypertension, and failure to thrive who presented to the ED for the chief complaint of unretractable back pain. Additionally, when family was in the ED, they brought up the fact that the patient has ongoing left sided facial droop and weakness in the upper or lower extremities that has been going on since Monday. Back pain: Patient reports that she has a history of compression fractures and chronic back pain and was recently unable to get a prescription for oxycodone. Because of this, she has been taking Tylenol and Motrin as well as utilization of heating pads and patches on her back but this seems to be insufficient. When she first came to the ED, she reports that her pain was a 10 out of 10 and now she is status post fentanyl and Tylenol, she is still reporting 8.5 out of 10 midline low back pain. Denies any incontinence either fecal or urinary. No numbness in her lower extremities. The only thing that seems to make the pain better is if she lays on her left or right side. If she lays on her back, she has worsening pain. She has never seen a spine surgeon before. No new trauma. Strokelike symptoms: It seems over the past week or so, patient has been having on and off symptoms of left-sided facial droop and left-sided weakness worse in the right. Patient is alone in the room and she states that she has had intermittent left-sided weakness but has not had a today. She does have a history of carotid stenosis as noted in her [facility] health chart. Her right internal carotid was stenosed at 60% back in 2019. She has not had an evaluation since. Patient continues to smoke a pack of cigarettes per day and has done so since she was a teenager giving her a [id number] smoker history. She has never had a heart attack or stroke. Denies any vision changes. No headache at this time. Patient does not feel that she is more weak on one side compared to the other currently. No other complaints this time Admission Exam Per Admitting Provider Constitutional: WD/WN, vitals as above Eyes: + anicteric sclerae Neck: normal visual inspection Respiratory: + cough, + tachypneic and symmetric chest movement Auscultation: + wheezes and + bronchial breath sounds Cardiovascular: Rate/Rhythm: regular rate and regular rhythm Heart Sounds: + murmur Gastrointestinal (Abdomen): normal bowel sounds, soft, nontender, no hepatosplenomegaly Musculoskeletal: 4/5 strength in all extremities Skin: no rashes Neurologic: moves all extremities and awake; no focal motor deficits Cranial Nerves: PERRL, EOM intact bilaterally, tongue midline and normal hearing Psychiatric: Orientation: alert and oriented x 3 Principal Diagnosis Back pain, stroke-like symptoms Discharge Exam General: patient resting comfortably, NAD, frail, AA&O x 4, answers questions appropriately and follows commands. Skin: warm, dry, intact, no rashes or lesions HEENT: NC/AT, anicteric sclera, conjunctiva without injection, external ear normal to inspection, nares patent, moist mucus membranes, dentition intact, neck supple, trachea midline, no thyromegaly, no JVD Heart: +S1/S2, regular, no m/r/g Lungs: equal air entry bilaterally, no rales/rhonchi/wheezes Abd: +BS, soft, NT/ND, no masses/organomegaly/ascites MSK: TTP along lumbar region of the spine. Ext: warm, no clubbing/cyanosis or edema Neuro: nonfocal, patient AA&O x 4, intermittent facial droop and slurred speech, moving all extremities on command. Discharge Data Allergies Allergy/AdvReac Type Severity Reaction Status Date / Time guaifenesin [From Mucinex] Allergy Intermediate Hives Verified 11/07/22 19:34 lidocaine Allergy Mild Hives Verified 11/08/22 17:37 amoxicillin Allergy Unknown Unknown Verified 11/07/22 19:34 prednisone AdvReac Severe swelling Verified 11/07/22 19:34 legs clindamycin AdvReac Intermediate Diarrhea Verified 11/07/22 19:34 lisinopril AdvReac Intermediate Cough Verified 11/07/22 19:34 Consultations 11/07/22 23:37 ED Decision to Admit Stat 11/08/22 01:05 Consult Pain Management Routine Ordered Studies 11/07/22 18:42 CT head/brain wo con Stat Hospital Course (1) Back pain: (2) TIA (transient ischemic attack): (3) Hypokalemia: (4) Obstructive lung disease: (5) Tobacco dependence: (6) Failure to thrive: (7) Multifocal atrial tachycardia: (8) Hypertension: (9) Hyperlipidemia: (10) Osteoporosis: Rose Sood was admitted on 11/08/22 for severy lumbar back pain and stroke like symptoms. Her back pain was demonstrated to be a result of new compression fractures at T12, L4, and L5. During her stay she was optimized on pain management with oxycodone and acetaminophen. She was discharged with reasonable control of her pain. She was also observed to have stroke-like symptoms in the setting of hypertensive urgency and known carotid artery disease. She does not desire any invasive intervention for her carotid artery disease or any potential stroke therefore imaging was not completed. She was optimized with blood pressure control. She responded well to metoprolol tartrate 50mg BID. She was also increased on atorvastatin to 80mg and started on aspirin 81mg daily. Of note, she is mildly hypoxic to the high 80s intermittently. Suspect this is in the setting of chronic hypoxic COPD. Decision was to send patient home with incentive spirometry, instructions to measure O2 with pulse ox, and to return to ED if O2 drops to low-mid 80s. #Back pain Poor surgical candidate Multiple compression fractures demonstrated on CT in 2020 Lumbar XR shows new compression fractures Will transition tylenol and oxycodone around the clock for pain control Dilaudid 0.5mg for breakthrough pain Pain management recs appreciated PT/OT #TIA Hx carotid stenosis Does not desire invasive intervention Repeated hypertensive urgency events today, responded well to lopressor Will trial metoprolol tartrate 50mg BID beginning this evening Add [id number] qD, increase atorvastatin to 80mg #Hypokalemia replete as needed repete bmp tomorrow #Obstructive Lung Dx severe COPD optimize management with LAMA/LABA/ICS currently on albuterol only #Tobacco dependence PPD smoker nicotine patch refused #Multifocal atrial tachycardia NSR EKG Eliquis 2.5 BID VTE ppx #HTN BPs intermittently 190s-210s systolic lopressor 5mg q5min for systolic >180 losartan #HLD statin #Osteoporosis salmon calcitonin Disposition: Admit to [facility] with telemetry for electrolyte supplementation and pain management Diet: N.p.o. until bedside dysphagia screening, LR at 80 cc/h for maintenance DVT prophylaxis: Eliquis CODE STATUS: DNR/DNI as discussed with the patient Total Time Total Time Spent Total Time Spent (In Minutes): <30 Discharge Plan Discharge Items Patient Disposition: Home - Self-Care Reason For Visit: BACK PAIN Discharge Diagnosis: Vertebral compression fractures Activity: As commented below Activity Comment: Resume activity as tolerated Lifting: Gradually increase as tolerated Non-emergency contact: Primary Care Provider Call non-emergency contact if: you have any medication questions, your symptoms worsen, your pain is not controlled and your pain is worsening Follow-up/Referrals: Rosalio York MD [Primary Care Provider] - Diet: Regular Addtl Attending Provider Instructions: You were admitted to the hospital for back pain. You were treated with oxycodone and tylenol. A discharge summary will be sent to your primary care physician to ensure continuity of care. Please bring this discharge summary with you to your next office appointment so that your provider can review it at that time. Medications: Your medication list has been reviewed and reconciled upon discharge to ensure accuracy and continuity of care. An updated list of all your medications is included with your hospital discharge paperwork. Please review this list closely and make note of any changes to your medications. For Pain: Oxycodone 5mg every 4 hours, as needed for pain. Tylenol 625mg every 6 hours. To reduce your risk of stroke: Atorvastatin increased to 80mg daily. Added: Aspirin 81mg daily, Metoprolol tartrate 50mg twice daily. At discharge your oxygen was mildly low. Use the incentive spirometer you were sent home with, measure your oxygen with a pulse oximeter at home, and return to the hospital if your oxygen drops below 85 for more than 20 minutes. Follow up appointments: - Make a follow up appointment with your PCP within the next week. It is very important that you follow up with them shortly after discharge from the hospital. - Keep all of your follow up appointments as already scheduled. If you cannot make an appointment, notify your provider. CONTACT YOUR PRIMARY CARE PROVIDER if you experience any of the following: Difficulty following your treatment plan - Difficulty taking any of your medications CALL 911 OR GO TO THE EMERGENCY DEPARTMENT if you experience any of the following: Dramatically increased back pain. Sudden, severe abdominal pain or nausea/vomiting - Severe chest pain or chest pain that radiates to your jaw or arm - Sudden, severe shortness of breath or difficulty breathing Pending Studies at Discharge: No Stand-Alone Forms: kwiry, Smoking Cessation Medications and DC Order Prescriptions: New acetaminophen 325 mg Tablet 650 mg PO QID Qty: 120 0RF metoprolol tartrate 50 mg Tablet 50 mg PO BID Qty: 60 0RF aspirin [Children's Aspirin] 81 mg Tablet,Chewable 81 mg PO QAM Qty: 30 0RF atorvastatin 40 mg Tablet 80 mg PO DAILY Qty: 30 0RF Continued amiodarone 200 mg tablet 200 mg PO DAILY Qty: 90 3RF Eliquis 2.5 mg tablet 2.5 mg PO BID Qty: 180 3RF alendronate 70 mg Tablet 70 mg PO WK Rx Instructions: TAKES ON MONDAY fexofenadine 180 mg Tablet 180 mg PO DAILY PRN (Reason: Allergy Symptoms) calcium carbonate [Calcium 600] 600 mg calcium (1,500 mg) Tablet 1,200 mg PO DAILY triamcinolone acetonide 0.1 % Ointment 1 applic TOPICAL DAILY PRN (Reason: Dry Skin) cholecalciferol (vitamin D3) [Vitamin D3] 2,000 unit Capsule 2,000 unit PO DAILY albuterol sulfate [ProAir HFA] 90 mcg/actuation Hfa Aerosol Inhaler 2 puff INHALATION Q6H PRN (Reason: SOB/Wheezing) Saline Mist 0.65 % Aerosol,[place] 2 spray INTRANASAL BID PRN (Reason: DRYNESS) triamcinolone acetonide [Nasacort] 55 mcg Aerosol,[place] 2 spray INTRANASAL DAILY PRN (Reason: Allergy Symptoms) losartan 100 mg tablet 100 mg PO DAILY acetaminophen 500 mg Tablet 500 mg PO Q6H PRN (Reason: PAIN OR FEVER) ibuprofen [Advil] 200 mg Tablet 200 mg PO Q6H PRN (Reason: Pain (Scale Score 1-3)) Discontinued atorvastatin 40 mg tablet 40 mg PO DAILY Krames/Other Patient Handouts: Compression Fx, How Bones Heal, Managing Chronic Pain Admission Data Admit Date/Time: 11/09/22 09:56 Attending Provider: Tan Erickson Admit Provider: Joseph Rushing Primary Care Provider: Rosalio York Other Providers: Tg Howe ; Bernard Campbell Other Interventions: Discharge Summary Assessment (RN) Last Done: 11/10/22 15:59
--- NOTE | 2022-11-10 19:09 | Billing Data ---
Date of Service November 10, 2022 Coding Level of Care Code 78652 SUB INP/OBS CARE
[2022-11-10] MEDS: SENNA 8.6 MG TAB PO SCH (21:32)
[2022-11-11] MEDS: oxyCODONE HCL IR 5 MG TAB (IMMEDIATE RELEASE) PO PRN ×2 (01:11→21:29)
[2022-11-11] MEDS: METOPROLOL TARTRATE 1 MG/ML VIAL IV PRN ×4 (01:11→16:56)
--- NOTE | 2022-11-11 07:22 | Hospitalist Progress Note ---
Date of Service November 11, 2022 Assessment & Plan (1) Back pain: (2) TIA (transient ischemic attack): (3) Hypokalemia: (4) Obstructive lung disease: (5) Tobacco dependence: (6) Failure to thrive: (7) Multifocal atrial tachycardia: (8) Hypertension: (9) Hyperlipidemia: (10) Osteoporosis: (11) Hypoxia: Plan #Hypoxia Hypoxic to low 80s on room air. Requiring 2-3L to maintain >88% CXR abnormal f/u CT Consider pulmonary consult #Back pain Poor surgical candidate Multiple compression fractures demonstrated on CT in 2020 Lumbar XR shows new compression fractures Will transition tylenol and oxycodone around the clock for pain control Dilaudid 0.5mg for breakthrough pain Pain management recs appreciated PT/OT #TIA Hx carotid stenosis Does not desire invasive intervention Repeated hypertensive urgency events today, responded well to lopressor Will trial metoprolol tartrate 50mg BID beginning this evening Add [id number] qD, increase atorvastatin to 80mg #Hypokalemia replete as needed repete bmp tomorrow #Obstructive Lung Dx severe COPD optimize management with LAMA/LABA/ICS currently on albuterol only #Tobacco dependence PPD smoker nicotine patch refused #Multifocal atrial tachycardia NSR EKG Eliquis 2.5 BID VTE ppx #HTN BPs intermittently 190s-210s systolic lopressor 5mg q5min for systolic >180 losartan #HLD statin #Osteoporosis salmon calcitonin Disposition: Admit to [facility] with telemetry for electrolyte supplementation and pain management Diet: N.p.o. until bedside dysphagia screening, LR at 80 cc/h for maintenance DVT prophylaxis: Eliquis CODE STATUS: DNR/DNI as discussed with the patient Admission and Anticipated Discharge Date Admission Date: November 09, 2022 Supervising Physician Co-Signing Physician Notes I personally examined the patient and verified all couch points of history and exam, discussed case, and agree with decision making with Dr Grey notes that her breathing feels better today than a normal day. That said, hypoxia persistschest x-ray was abnormal, CT done vitals noted resting comfortably nad heent nc at mmm breathing unlabored no accessory muscles good effort lungs are overall clear diminished air entry no rales rhonchi or wheezes skin no rashes no pallor or icterus osteoporotic compression fractures and intractable back pain - pain controlled for home stroke like illness - on 11/08 discussed secondary risk reduction - she has zero interest in any interventional approach, and after discussion of medical secondary risk reduction really only loosely even wants tighter BP control - discussed BP meds, asa, possible increase in atorvastatin - she weighed them and only wants maybe BP med if it's easy to take. 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 Await further follow-up on chest CT, none of this really seems to be acute Subjective 86 yo PMHx tobacco use (current 1PPD), COPD, HTN, HLD, multifocal atrial tachycardia, pulmonary HTN, failure to thrive admitted for unretractable back pain. When pt was in the ED it pts family disclosed that the patient has had intermittent L facial droop and upper and lower extremity weakness present since 11/04/22. Pt has a history of carotid artery stenosis. Does not desire any invasive management. Pt lives with daughter. Pt admits to back pain. Pain reasonably well controlled on current regimen. Plan was for discharge yesterday. Pt stated that she had home 02 when I saw her in the am. At discharge she informed the nurse that she did not have oxygen at home and, when taken off of 02 in her room, she developed hypoxia to the low 80s without dyspnea. Patient requiring more oxygen today to maintain appropriate saturation. Does not complain of shortness of breath but appears tachypneic and more tired today. Denies headache, chest pain, SOB, N/V/D, difficulty with urination. Review of Systems Review of Systems: reviewed, see hpi Physical Exam Physical Exam: General: patient resting comfortably, NAD, frail, AA&O x 4, answers questions appropriately and follows commands. Skin: warm, dry, intact, no rashes or lesions HEENT: NC/AT, anicteric sclera, conjunctiva without injection, external ear normal to inspection, nares patent, moist mucus membranes, dentition intact, neck supple, trachea midline, no thyromegaly, no JVD Heart: +S1/S2, regular, no m/r/g Lungs: equal air entry bilaterally, no rales/rhonchi/wheezes Abd: +BS, soft, NT/ND, no masses/organomegaly/ascites MSK: TTP along lumbar region of the spine. Ext: warm, no clubbing/cyanosis or edema Neuro: nonfocal, patient AA&O x 4, intermittent facial droop and slurred speech, moving all extremities on command. Results & Data Results & Data Vital Signs (Past 12 Hours) Vital Signs Temp Pulse Pulse Resp BP BP Pulse Ox 11/10/22 20:00 11/11/22 06:06 84 217/77 H 11/11/22 03:28 82 11/11/22 04:51 36.4 C L 84 22 217/77 H 91 11/11/22 03:30 80 221/77 H 11/11/22 02:42 80 221/77 H 11/11/22 02:00 77 203/76 H 11/11/22 01:59 77 203/76 H 11/11/22 01:54 36.5 C 77 22 203/76 H 90 11/11/22 01:11 86 214/71 H 11/10/22 23:46 36.7 C 73 20 202/72 H 88 L O2 Del Method O2 Flow Rate 11/10/22 20:00 Nasal Cannula 3 11/11/22 06:06 11/11/22 03:28 11/11/22 04:51 Nasal Cannula 3 11/11/22 03:30 11/11/22 02:42 11/11/22 02:00 11/11/22 01:59 11/11/22 01:54 Nasal Cannula 2 11/11/22 01:11 11/10/22 23:46 Nasal Cannula 2 Resident Activity Tracking Resident Involvement: Resident Care Provided Care Provided: Adult Hospital Medicine
[2022-11-11] MEDS: ASPIRIN 81 MG CHEW PO SCH (07:55)
[2022-11-11] MEDS: ACETAMINOPHEN 325 MG TAB PO SCH ×4 (07:58→21:20)
[2022-11-11] MEDS: APIXABAN 2.5 MG TAB PO SCH ×2 (07:58→21:20)
[2022-11-11] MEDS: METOPROLOL TARTRATE 50 MG TAB PO SCH ×2 (07:58→21:20)
[2022-11-11] MEDS: CALCITONIN SALMON NA 200 IU/AC 3.7 ML BTL SCH (07:59)
[2022-11-11] MEDS: CHOLECALCIFEROL 1,000 UNITS 25 MCG TAB PO SCH (07:59)
[2022-11-11] MEDS: ATORVASTATIN 40 MG TAB PO SCH (07:59)
[2022-11-11] MEDS: LOSARTAN POTASSIUM 50 MG TAB PO SCH (07:59)
[2022-11-11] MEDS: SENNA 8.6 MG TAB PO SCH (07:59)
[2022-11-11] MEDS: AMIODARONE 200 MG TAB PO SCH (07:59)
[2022-11-11] MEDS: CALCIUM CARBONATE 1250MG TAB PO SCH (07:59)
--- NOTE | 2022-11-11 11:40 | XRay Report ---
XR chest 1V portable CLINICAL HISTORY: cough TECHNIQUE: Single frontal radiograph of the chest was obtained. Comparison: Comparison is made to chest radiograph 02/20/2022 FINDINGS: No lines and tubes are seen. Calcified aortic knob is seen. Right-sided airspace opacity is seen. Sma ll bilateral pleural effusions are seen. IMPRESSION: 1. Right-sided airspace opacity may represent pneumonia and/or aspiration. 2. Bilateral pleural effusions. ACT 112: Negative or not required by law. Electronically signed by: Isaiah Marino M.D. 11/11/2022 11:38 AM
--- NOTE | 2022-11-11 19:27 | CT Scan Report ---
CT chest diagnostic wo con CLINICAL HISTORY: abnormal chest xray TECHNIQUE: Multidetector row helical CT of the chest was performed. Coronal and sagittal reformations were obtained. Automated dose lowering techniques and/or adjustment according to patient size were u tilized for this exam. CT DOSE: 327.92 mGy.cm Comparison: Comparison is made to chest radiograph 11/11/2022 FINDINGS: Lungs and pleura: Ill-defined interstitial and groundglass opacities in the right upper lobe. Bilater al lower lobe atelectasis is seen. There is a small right and trace left pleural effusion. Heart and pericardium: Cardiomegaly is seen with biatrial enlargement. Vessels: Severe atherosclerotic changes in the aorta and coronary arteries. Pulmonary trunk measures 34 mm in diameter. Mediastinum and jani: Subcentimeter lymph nodes are seen. Chest wall and lower neck: Small thyroid nodules are noted which do not require follow-up by ACR pati lebron. Abdomen: Atrophic left kidney is noted. Layering stones are in the right collecting system. Bones: Degenerative changes of the thoracic spine. Old healed rib fractures are seen. There is verteb ral plana of L1 and L3 and multilevel loss of height. IMPRESSION: Small right and trace left pleural effusions. Right upper lung airspace opacity may represent atelect asis, aspiration, and/or pneumonia. ACT 112: Negative or not required by law. Electronically signed by: Isaiah Marino M.D. 11/11/2022 7:25 PM
--- NOTE | 2022-11-11 19:48 | Billing Data ---
Date of Service November 11, 2022 Coding Level of Care Code 75297 SUB INP/OBS CARE MIN
[2022-11-11] MEDS ORDERED: AZITHROMYCIN 500 MG in DEXTROSE 5% 250 ML IV ONE (20:00)
[2022-11-11] MEDS: cefTRIAXone SODIUM 1,000 MG in DEXTROSE 5% AD-VAN 50 ML IV SCH (21:19)
[2022-11-12] MEDS: METOPROLOL TARTRATE 1 MG/ML VIAL IV PRN ×2 (03:14→21:38)
[2022-11-12] MEDS: POLYETHYLENE (MIRALAX) 17 GM PACK PO PRN (06:09)
[2022-11-12] MEDS: oxyCODONE HCL IR 5 MG TAB (IMMEDIATE RELEASE) PO PRN ×2 (06:09→21:39)
--- NOTE | 2022-11-12 06:45 | Hospitalist Progress Note ---
Date of Service November 12, 2022 Assessment & Plan (1) Back pain: (2) TIA (transient ischemic attack): (3) Hypokalemia: (4) Obstructive lung disease: (5) Tobacco dependence: (6) Failure to thrive: (7) Multifocal atrial tachycardia: (8) Hypertension: (9) Hyperlipidemia: (10) Osteoporosis: (11) Hypoxia: Plan Emelia is an 86 year old female with history of COPD, chronic tobacco use (active 1 PPD), pHTN, MAT, and protein-calorie malnutrition who presented for worsening back pain. While in the ED patient's family also reported intermittent episodes of L facial droop and extremity weakness which have been ongoing since 11/04/22, hx indicates that patient has known carotid stenosis for which she does not desire surgical intervention. Patient lives with daughter mangle press catcher. 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 - Labs: WBC 15, CRP 18 - increasing likelihood of bacterial infection -Swallow study concerning for possible silent aspiration, patient declined to proceed with camera study, recommended to continue soft/moist diet - Continue Ceftriaxone IV and Azithromycin IV - Currently supported on 2L NC (encourage O2 Sat > 88-89% in setting of COPD) Mild COPD - No current maintenance therapy outpatient Lumbar Back Pain/Mulitple compression fracture/Osteoporosis - Hx of multiple (L1,3,5) compression fractures (Evidenced on CT in 2020) - Lumbar XR on 11/08 * New - Moderate L4 compression fracture. - Pain Mgmt with PO/IV meds including [place] calcitonin - Osteoporosis Mgmt: Alendronate 70 mg PO weekly, Calcium 1200 mg PO daily, and Vitamin D3 2000 units PO daily Transient Ischemic Attacks - No active neurologic deficits - Likely a/w Carotid Artery Stenosis in setting of tobacco dependence, HTN, and HLD - Recommend risk factor modification: * Aspirin 81 mg PO daily * HTN: Continue Losartan 100 mg PO daily, Metoprolol 50 mg PO BID (goal < 140/90, 120/80 if patient tolerating), Lopressor PRN for SBP > 180 * HLD: Increase to high dose statin therapy with Atorvatatin 80 mg PO daily * Tobacco use: Continue to encourage smoking cessation - currently smoking 1 PPD, declines nicotine patch - No surgical intervention desired by patient for EDY Multifocal Atrial Tachycardia - EKG NSR - Continue Eliquis 2.5 mg BID FEN: Minced/Moist, LR 80 cc/hr Code status: DNR/DNI DVT ppx: Eliquis Isolation: None Dispo:Med/Surg Admission and Anticipated Discharge Date Admission Date: November 09, 2022 Supervising Physician Co-Signing Physician Notes Resident Physician Supervision Note: I independently interviewed and examined the patient and verified the couhc history and physical, reviewed labs and image studies and agree with resident findings and care plan. Subjective 11/12: Patient resting in bed upon arrival, enjoying breakfast. Patient noted disapointment that she is still in the hospital. She notes ongoing back pain, but states that when she gets medication, the back pain is improved. She notes that she was unaware that she had additional pain management available. THis morning she notes that she is increasingly short of breath, but denies any pleuritic pain or chest pain. She is not experiencing fevers or chills. She denies headaches or lightheadedness. Spoke with patient's daughter [id number], daughter notes that she was able to establish oxygen and equipment at home. Updated on diagnosis and treatment thus far, she expressed understanding. Swallow study performed today, indicating possibility of silent aspiration. Patient was not interested in additional camera study for definitive diagnosis, daughter was in support of patient's decision and stated she would continue with soft/moist foods at home. Physical Exam Physical Exam: Gen: NAD, alert, interactive, thin/frail Neuro: AO x 4, no focal neurologic deficit HEENT: NCAT, no LAD, MMM Resp:Mildly labored, right middle/upper rhonchi, bilateral wheezing (R>L) CV:RRR, normal S1/S2, no M/R/G Abd: Soft, non-distended, no TTP, normoactive bowels, no masses MSK: TTP of lumbar spine, 2+ dp bilaterally, no LE edema Skin: No rashes lesions or erythema Results & Data Results & Data Vital Signs (Past 12 Hours) Vital Signs Temp Pulse Pulse Resp BP BP Pulse Ox 11/11/22 20:00 11/12/22 03:51 67 20 162/69 H 96 11/12/22 03:51 67 162/69 H 11/12/22 03:15 95 07/22/23 03:12 36.7 C 69 20 183/66 H 97 11/12/22 03:14 69 183/66 H 11/11/22 22:02 74 11/11/22 22:31 36.9 C 73 16 165/69 H 92 11/11/22 19:58 36.8 C 75 16 159/69 H 98 O2 Del Method O2 Flow Rate 11/11/22 20:00 Nasal Cannula 4 11/12/22 03:51 Nasal Cannula 2 11/12/22 03:51 11/12/22 03:15 Nasal Cannula 2 11/12/22 03:12 Nasal Cannula 4 11/12/22 03:14 11/11/22 22:02 11/11/22 22:31 Nasal Cannula 4 11/11/22 19:58 Nasal Cannula 4 Resident Activity Tracking Resident Involvement: Resident Care Provided Care Provided: Adult Hospital Medicine
[2022-11-12 06:50] LABS: Albumin Globulin Ratio 0.9 (0.9-2); Bilirubin,Total 0.3 mg/dl (0.2-1.0); C Reactive Protein 18.62 mg/dl (0-0.5); Calcium 8.9 mg/dl (8.6-10.3); Creatinine Clr Calc Pharmacy 29.7 ml/min; Est GFR (African American) 70.4 ml/min; Est GFR (Non-African American) 60.7 ml/min; Globulin 3.2 gm/dl (2.5-4.0); Potassium 4.3 mmol/L (3.5-5.1); Total Protein 6.2 gm/dl (6.0-8.3)
[2022-11-12 07:23] LABS: Basophils # (auto) 0.09 K/uL (0-0.2); Basophils % (auto) 0.6 %; Eosinophils # (auto) 0.31 K/uL (0-0.50); Hematocrit (blood only) 27.5 % (37.0-47.0); Hemoglobin 9.2 g/dl (12.0-16.0); Immature Granulocytes # (auto) 0.08 K/uL (0.01-0.20); Immature Granulocytes % (auto) 0.5 %; Lymphocytes # (auto) 1.66 K/uL (1.2-3.4); Lymphocytes % (auto) 10.8 %; Mean Corpuscular Hemoglobin 30.4 pg (25.0-34.0); Mean Corpuscular Hgb Conc 33.5 g/dL (32.0-36.0); Mean Corpuscular Volume 90.8 fL (80.0-100.0); Monocytes # (auto) 1.16 K/uL (0.11-0.59); Monocytes % (auto) 7.5 %; Neutrophils # (auto) 12.13 K/uL (1.40-6.50); Neutrophils % (auto) 78.6 %; Platelet Count 494 K/uL (130-400); RDW Coefficient of Variation 14.2 % (11.5-14.5); Red Blood Count 3.03 M/uL (4.20-5.40); White Blood Count 15.43 K/ul (4.8-10.8)
[2022-11-12] MEDS: AMIODARONE 200 MG TAB PO SCH (09:30)
[2022-11-12] MEDS: APIXABAN 2.5 MG TAB PO SCH ×2 (09:32→21:40)
[2022-11-12] MEDS: SENNA 8.6 MG TAB PO SCH (09:32)
[2022-11-12] MEDS: ACETAMINOPHEN 325 MG TAB PO SCH ×4 (09:32→21:40)
[2022-11-12] MEDS: CALCIUM CARBONATE 1250MG TAB PO SCH (09:33)
[2022-11-12] MEDS: ATORVASTATIN 40 MG TAB PO SCH (09:33)
[2022-11-12] MEDS: CHOLECALCIFEROL 1,000 UNITS 25 MCG TAB PO SCH (09:33)
[2022-11-12] MEDS: METOPROLOL TARTRATE 50 MG TAB PO SCH ×2 (09:33→21:40)
[2022-11-12] MEDS: ASPIRIN 81 MG CHEW PO SCH (09:34)
[2022-11-12] MEDS: LOSARTAN POTASSIUM 50 MG TAB PO SCH (09:34)
[2022-11-12] MEDS: AZITHROMYCIN 250 MG in DEXTROSE 5% 250 ML IV SCH (09:41)
[2022-11-12] MEDS: CALCITONIN SALMON NA 200 IU/AC 3.7 ML BTL SCH (12:17)
[2022-11-12] MEDS: cefTRIAXone SODIUM 1,000 MG in DEXTROSE 5% AD-VAN 50 ML IV SCH (21:39)
[2022-11-13] MEDS: METOPROLOL TARTRATE 1 MG/ML VIAL IV PRN ×2 (03:44→05:51)
[2022-11-13] MEDS ORDERED: ALENDRONATE SODIUM 70 MG TAB PO SCH (07:00)
--- NOTE | 2022-11-13 07:03 | Hospitalist Progress Note ---
Date of Service November 13, 2022 Assessment & Plan (1) Back pain: (2) TIA (transient ischemic attack): (3) Hypokalemia: (4) Obstructive lung disease: (5) Tobacco dependence: (6) Failure to thrive: (7) Multifocal atrial tachycardia: (8) Hypertension: (9) Hyperlipidemia: (10) Osteoporosis: (11) Hypoxia: Plan Emelia is an 86 year old female with history of COPD, chronic tobacco use (active 1 PPD), pHTN, MAT, and protein-calorie malnutrition who presented for worsening back pain. While in the ED patient's family also reported intermittent episodes of L facial droop and extremity weakness which have been ongoing since 11/04/22, hx indicates that patient has known carotid stenosis for which she does not desire surgical intervention. Patient lives with daughter time piece repairer. 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 - now established for home O2 on discharge - Currently supported on 2L NC (encourage O2 Sat > 88-89% in setting of COPD) - Encourage use of spirometry/flutter valve Acute RUL pneumonia - 11/13 Increasing cough/dyspnea - Consideration for CAP vs Aspiration PNA. - Labs: WBC 13, CRP 12 (downtrending) - supports bacterial infection - Swallow study concerning for possible silent aspiration, patient declined to proceed with camera study, recommended to continue soft/moist diet - Continue Ceftriaxone IV and Azithromycin IV Mild COPD - No current maintenance therapy outpatient Lumbar Back Pain/Mulitple compression fracture/Osteoporosis - Hx of multiple (L1,3,5) compression fractures (Evidenced on CT in 2020) - Lumbar XR on 11/08 * New - Moderate L4 compression fracture.- Pain Mgmt with PO/IV meds including [place] calcitonin - Osteoporosis Mgmt: Alendronate 70 mg PO weekly, Calcium 1200 mg PO daily, and Vitamin D3 2000 units PO daily Transient Ischemic Attacks - No active neurologic deficits - Likely a/w Carotid Artery Stenosis in setting of tobacco dependence, HTN, and HLD - Recommend risk factor modification: * Aspirin 81 mg PO daily * HTN: 11/13 Adjusted to Losartan 50 mg PO BID and added Amlodipine 5 mg PO QAM, continue Metoprolol 50 mg PO BID (goal < 140/90, 120/80 if patient tolerating), Lopressor PRN for SBP > 180 * HLD: Increase to high dose statin therapy with Atorvastatin 80 mg PO daily * Tobacco use: Continue to encourage smoking cessation - currently smoking 1 PPD, declines nicotine patch- No surgical intervention desired by patient for EDY Multifocal Atrial Tachycardia - EKG NSR - Continue Eliquis 2.5 mg BID FEN: Minced/Moist, Code status: DNR/DNI DVT ppx: Eliquis Isolation: None Dispo:Med/Surg Admission and Anticipated Discharge Date Admission Date: November 09, 2022 Supervising Physician Co-Signing Physician Notes Resident Physician Supervision Note: I independently interviewed and examined the patient and verified the couch history and physical, reviewed labs and image studies and agree with resident findings and care plan. Subjective 11/13: 0830 Patient resting comfortably in bedside chair upon arrival. Patient notes that she is feeling better. She notes ongoing cough, but denies dyspnea, pleuritic pain, fevers, chills, or headaches. She notes that her back pain is controlled enough that she often doesn't want her pain medication. Patient does note that she wishes to go home with her daughter as soon as possible. 1100 Nursing notes that patient is increasingly short of breath and has a productive cough with increased work of breathing, oxygen saturations remained stable on current supplementation during episode. Physical Exam Physical Exam: Gen: NAD, alert, interactive, thin/frail Neuro: AO x 4, no focal neurologic deficit HEENT: NCAT, no LAD, MMM Resp:Mildly labored, right middle/upper rhonchi (diminished), bilateral scattered wheezing CV:RRR, normal S1/S2, no M/R/G Abd: Soft, non-distended, no TTP, normoactive bowels, no masses MSK: TTP of lumbar spine, 2+ dp bilaterally, no LE edema Skin: No rashes lesions or erythema Results & Data Results & Data Vital Signs (Past 12 Hours) Vital Signs Temp Pulse Pulse Resp BP BP Pulse Ox 11/13/22 06:19 79 205/65 H 11/13/22 05:51 79 216/71 H 11/13/22 05:50 79 216/71 H 07/23/23 03:44 74 206/66 H 11/12/22 22:00 74 209/72 H 11/13/22 03:07 36.5 C 74 18 206/66 H 92 11/12/22 22:22 36.6 C 73 20 209/72 H 90 11/12/22 20:00 11/12/22 22:01 72 11/12/22 21:38 78 199/70 H 11/12/22 19:56 36.7 C 78 20 199/70 H 93 O2 Del Method O2 Flow Rate 11/13/22 06:19 11/13/22 05:51 11/13/22 05:50 11/13/22 03:44 11/12/22 22:00 11/13/22 03:07 Nasal Cannula 2 11/12/22 22:22 Nasal Cannula 2 11/12/22 20:00 Nasal Cannula 2 11/12/22 22:01 11/12/22 21:38 11/12/22 19:56 Nasal Cannula 2 Resident Activity Tracking Resident Involvement: Resident Care Provided Care Provided: Adult Hospital Medicine
[2022-11-13 07:07] LABS: Hematocrit (blood only) 26.7 % (37.0-47.0); Hemoglobin 9.1 g/dl (12.0-16.0); Mean Corpuscular Hemoglobin 30.3 pg (25.0-34.0); Mean Corpuscular Hgb Conc 34.1 g/dL (32.0-36.0); Mean Platelet Volume 8.6 fL (9.4-12.4); Platelet Count 506 K/uL (130-400); RDW Coefficient of Variation 14.4 % (11.5-14.5); White Blood Count 13.48 K/ul (4.8-10.8)
[2022-11-13 07:24] LABS: Albumin Globulin Ratio 0.9 (0.9-2); Albumin Level 2.8 gm/dl (3.4-5.0); BUN Creatinine Ratio 30.4 (10-20); Bilirubin,Total 0.3 mg/dl (0.2-1.0); C Reactive Protein 12.71 mg/dl (0-0.5); Calcium 8.3 mg/dl (8.6-10.3); Creatinine Clr Calc Pharmacy 37.1 ml/min; Est GFR (Non-African American) 79.4 ml/min; Globulin 3.1 gm/dl (2.5-4.0); Potassium 4.1 mmol/L (3.5-5.1); Total Protein 5.9 gm/dl (6.0-8.3)
[2022-11-13] MEDS: ALBUT/IPRATROP 3MG/0.5MG NEB 3 ML VIAL NEB PRN ×2 (07:35→10:56)
[2022-11-13] MEDS ORDERED: LOSARTAN POTASSIUM 50 MG TAB PO SCH (09:00)
[2022-11-13] MEDS: POLYETHYLENE (MIRALAX) 17 GM PACK PO PRN (09:04)
[2022-11-13] MEDS: AZITHROMYCIN 250 MG in DEXTROSE 5% 250 ML IV SCH (09:04)
[2022-11-13] MEDS: AMIODARONE 200 MG TAB PO SCH (09:09)
[2022-11-13] MEDS: CALCITONIN SALMON NA 200 IU/AC 3.7 ML BTL SCH (09:09)
[2022-11-13] MEDS: METOPROLOL TARTRATE 50 MG TAB PO SCH ×2 (09:09→21:38)
[2022-11-13] MEDS: ATORVASTATIN 40 MG TAB PO SCH (09:09)
[2022-11-13] MEDS: SENNA 8.6 MG TAB PO SCH (09:10)
[2022-11-13] MEDS: ACETAMINOPHEN 325 MG TAB PO SCH ×4 (09:10→21:37)
[2022-11-13] MEDS: APIXABAN 2.5 MG TAB PO SCH ×2 (09:10→21:38)
[2022-11-13] MEDS: CALCIUM CARBONATE 1250MG TAB PO SCH (09:11)
[2022-11-13] MEDS: CHOLECALCIFEROL 1,000 UNITS 25 MCG TAB PO SCH (09:11)
[2022-11-13] MEDS: ASPIRIN 81 MG CHEW PO SCH (09:11)
[2022-11-13] MEDS ORDERED: amLODIPine BESYLATE 5 MG TAB PO ONE (10:30)
[2022-11-13] MEDS: cefTRIAXone SODIUM 1,000 MG in DEXTROSE 5% AD-VAN 50 ML IV SCH (21:34)
[2022-11-13] MEDS: LOSARTAN POTASSIUM 50 MG TAB PO SCH (21:38)
[2022-11-13] MEDS: oxyCODONE HCL IR 5 MG TAB (IMMEDIATE RELEASE) PO PRN (22:14)
[2022-11-14] MEDS: METOPROLOL TARTRATE 1 MG/ML VIAL IV PRN ×2 (00:35→03:22)
[2022-11-14] MEDS: ALBUT/IPRATROP 3MG/0.5MG NEB 3 ML VIAL NEB PRN ×2 (03:18→07:06)
--- NOTE | 2022-11-14 06:51 | Hospitalist Progress Note ---
Date of Service November 14, 2022 Assessment & Plan (1) Back pain: (2) TIA (transient ischemic attack): (3) Hypokalemia: (4) Obstructive lung disease: (5) Tobacco dependence: (6) Failure to thrive: (7) Multifocal atrial tachycardia: (8) Hypertension: (9) Hyperlipidemia: (10) Osteoporosis: (11) Hypoxia: Plan Emelia is an 86 year old female with history of COPD, chronic tobacco use (active 1 PPD), pHTN, MAT, and protein-calorie malnutrition who presented for worsening back pain. While in the ED patient's family also reported intermittent episodes of L facial droop and extremity weakness which have been ongoing since 11/04/22, hx indicates that patient has known carotid stenosis for which she does not desire surgical intervention. Patient lives with daughter boom tender. 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 - now established for home O2 on discharge - Currently supported on 2L NC (encourage O2 Sat > 88-89% in setting of COPD) - Encourage use of spirometry/flutter valve Acute RUL pneumonia - 11/13 Increasing cough/dyspnea - Consideration for CAP vs Aspiration PNA. - Labs: WBC 13, CRP 12 (downtrending) - supports bacterial infection - Swallow study concerning for possible silent aspiration, patient declined to proceed with camera study, recommended to continue soft/moist diet - Continue Ceftriaxone IV and Azithromycin IV Mild COPD - No current maintenance therapy outpatient Lumbar Back Pain/Mulitple compression fracture/Osteoporosis - Hx of multiple (L1,3,5) compression fractures (Evidenced on CT in 2020) - Lumbar XR on 11/08 * New - Moderate L4 compression fracture.- Pain Mgmt with PO/IV meds including [place] calcitonin - Osteoporosis Mgmt: Alendronate 70 mg PO weekly, Calcium 1200 mg PO daily, and Vitamin D3 2000 units PO daily Transient Ischemic Attacks - No active neurologic deficits - Likely a/w Carotid Artery Stenosis in setting of tobacco dependence, HTN, and HLD - Recommend risk factor modification: * Aspirin 81 mg PO daily * HTN: 11/13 Adjusted to Losartan 50 mg PO BID and added Amlodipine 5 mg PO QAM, continue Metoprolol 50 mg PO BID (goal < 140/90, 120/80 if patient tolerating), Lopressor PRN for SBP > 180 * HLD: Increase to high dose statin therapy with Atorvastatin 80 mg PO daily * Tobacco use: Continue to encourage smoking cessation - currently smoking 1 PPD, declines nicotine patch- No surgical intervention desired by patient for EDY Multifocal Atrial Tachycardia - EKG NSR - Continue Eliquis 2.5 mg BID FEN: Minced/Moist, Code status: DNR/DNI DVT ppx: Eliquis Isolation: None Dispo:Med/Surg Admission and Anticipated Discharge Date Admission Date: November 09, 2022 Subjective 11/13: 0830 Patient resting comfortably in bedside chair upon arrival. Patient notes that she is feeling better. She notes ongoing cough, but denies dyspnea, pleuritic pain, fevers, chills, or headaches. She notes that her back pain is controlled enough that she often doesn't want her pain medication. Patient does note that she wishes to go home with her daughter as soon as possible. 1100 Nursing notes that patient is increasingly short of breath and has a productive cough with increased work of breathing, oxygen saturations remained stable on current supplementation during episode. 11/14: Physical Exam Physical Exam: Gen: NAD, alert, interactive, thin/frail Neuro: AO x 4, no focal neurologic deficit HEENT: NCAT, no LAD, MMM Resp:Mildly labored, right middle/upper rhonchi (diminished), bilateral scattered wheezing CV:RRR, normal S1/S2, no M/R/G Abd: Soft, non-distended, no TTP, normoactive bowels, no masses MSK: TTP of lumbar spine, 2+ dp bilaterally, no LE edema Skin: No rashes lesions or erythema Results & Data Results & Data Vital Signs (Past 12 Hours) Vital Signs Temp Pulse Pulse Resp BP BP BP 11/14/22 03:37 74 192/82 H 11/14/22 03:22 79 200/79 H 11/14/22 03:19 79 24 11/14/22 03:18 79 200/79 H 11/14/22 03:01 36.6 C 74 20 180/71 H 11/13/22 22:15 87 11/14/22 00:50 69 191/74 H 11/14/22 00:35 71 190/70 H 11/14/22 00:32 71 190/70 H 11/13/22 23:00 36.5 C 76 18 182/71 H 11/13/22 19:32 36.4 C L 80 18 147/67 H 11/14/22 00:16 Pulse Ox O2 Del Method O2 Flow Rate 11/14/22 03:37 11/14/22 03:22 11/14/22 03:19 90 Nasal Cannula 2 11/14/22 03:18 90 Nasal Cannula 2 11/14/22 03:01 94 Nasal Cannula 2 11/13/22 22:15 11/14/22 00:50 11/14/22 00:35 11/14/22 00:32 96 Nasal Cannula 2 11/13/22 23:00 92 Nasal Cannula 2 11/13/22 19:32 95 Room Air 11/14/22 00:16 Nasal Cannula 2 Resident Activity Tracking Resident Involvement: Resident Care Provided Care Provided: Adult Hospital Medicine
[2022-11-14 06:57] LABS: Hematocrit (blood only) 27.6 % (37.0-47.0); Hemoglobin 9.1 g/dl (12.0-16.0); Mean Corpuscular Volume 91.1 fL (80.0-100.0); Mean Platelet Volume 8.6 fL (9.4-12.4); Platelet Count 547 K/uL (130-400); RDW Coefficient of Variation 14.2 % (11.5-14.5); RDW Standard Deviation 46.8 fL (36.4-46.3); Red Blood Count 3.03 M/uL (4.20-5.40); White Blood Count 15.11 K/ul (4.8-10.8)
[2022-11-14 07:02] LABS: Albumin Globulin Ratio 0.9 (0.9-2); Albumin Level 2.9 gm/dl (3.4-5.0); BUN Creatinine Ratio 27.1 (10-20); Bilirubin,Total 0.3 mg/dl (0.2-1.0); C Reactive Protein 8.35 mg/dl (0-0.5); Calcium 8.2 mg/dl (8.6-10.3); Creatinine Clr Calc Pharmacy 27.7 ml/min; Est GFR (African American) 62.5 ml/min; Est GFR (Non-African American) 53.9 ml/min; Globulin 3.1 gm/dl (2.5-4.0); Potassium 4.4 mmol/L (3.5-5.1)
[2022-11-14] MEDS: ACETAMINOPHEN 325 MG TAB PO SCH ×2 (07:53→12:46)
[2022-11-14] MEDS: ATORVASTATIN 40 MG TAB PO SCH (07:55)
[2022-11-14] MEDS: CALCIUM CARBONATE 1250MG TAB PO SCH (07:56)
[2022-11-14] MEDS: ASPIRIN 81 MG CHEW PO SCH (07:56)
[2022-11-14] MEDS: LOSARTAN POTASSIUM 50 MG TAB PO SCH (07:57)
[2022-11-14] MEDS: CHOLECALCIFEROL 1,000 UNITS 25 MCG TAB PO SCH (07:58)
[2022-11-14] MEDS: METOPROLOL TARTRATE 50 MG TAB PO SCH (07:58)
[2022-11-14] MEDS: AMIODARONE 200 MG TAB PO SCH (07:59)
[2022-11-14] MEDS: APIXABAN 2.5 MG TAB PO SCH (07:59)
[2022-11-14] MEDS: SENNA 8.6 MG TAB PO SCH (08:00)
[2022-11-14] MEDS: CALCITONIN SALMON NA 200 IU/AC 3.7 ML BTL SCH (08:01)
[2022-11-14] MEDS ORDERED: amLODIPine BESYLATE 5 MG TAB PO SCH (09:00)
[2022-11-14] MEDS: AZITHROMYCIN 250 MG in DEXTROSE 5% 250 ML IV SCH (09:08)
--- NOTE | 2022-11-14 10:55 | Discharge Summary ---
Date of Service November 14, 2022 Admission HPI Per Admitting Provider Patient is an 86-year-old female with past medical history of longstanding tobacco use with a current pack per day smoking history, COPD, hypertension, hyperlipidemia, multifocal atrial tachycardia, pulmonary hypertension, and failure to thrive who presented to the ED for the chief complaint of unretractable back pain. Additionally, when family was in the ED, they brought up the fact that the patient has ongoing left sided facial droop and weakness in the upper or lower extremities that has been going on since Monday. Back pain: Patient reports that she has a history of compression fractures and chronic back pain and was recently unable to get a prescription for oxycodone. Because of this, she has been taking Tylenol and Motrin as well as utilization of heating pads and patches on her back but this seems to be insufficient. When she first came to the ED, she reports that her pain was a 10 out of 10 and now she is status post fentanyl and Tylenol, she is still reporting 8.5 out of 10 midline low back pain. Denies any incontinence either fecal or urinary. No numbness in her lower extremities. The only thing that seems to make the pain better is if she lays on her left or right side. If she lays on her back, she has worsening pain. She has never seen a spine surgeon before. No new trauma. Strokelike symptoms: It seems over the past week or so, patient has been having on and off symptoms of left-sided facial droop and left-sided weakness worse in the right. Patient is alone in the room and she states that she has had intermittent left-sided weakness but has not had a today. She does have a history of carotid stenosis as noted in her [facility] health chart. Her right internal carotid was stenosed at 60% back in 2019. She has not had an evaluation since. Patient continues to smoke a pack of cigarettes per day and has done so since she was a teenager giving her a [id number] smoker history. She has never had a heart attack or stroke. Denies any vision changes. No headache at this time. Patient does not feel that she is more weak on one side compared to the other currently. No other complaints this time Admission Exam Per Admitting Provider Constitutional: WD/WN, vitals as above Eyes: + anicteric sclerae Neck: normal visual inspection Respiratory: + cough, + tachypneic and symmetric chest movement Auscultation: + wheezes and + bronchial breath sounds Cardiovascular: Rate/Rhythm: regular rate and regular rhythm Heart Sounds: + murmur Gastrointestinal (Abdomen): normal bowel sounds, soft, nontender, no hepatosplenomegaly Musculoskeletal: 4/5 strength in all extremities Skin: no rashes Neurologic: moves all extremities and awake; no focal motor deficits Cranial Nerves: PERRL, EOM intact bilaterally, tongue midline and normal hearing Psychiatric: Orientation: alert and oriented x 3 Principal Diagnosis Intractable Back Pain Hypertensive Urgency Pneumonia/Hypoxia Discharge Exam Gen: NAD, alert, interactive, thin/frail Neuro: AO x 4, no focal neurologic deficit HEENT: NCAT, no LAD, MMM Resp:Mildly labored, right middle/upper rhonchi (interval improvement), bilateral scattered wheezing CV:RRR, normal S1/S2, no M/R/G Abd: Soft, non-distended, no TTP, normoactive bowels, no masses MSK: TTP of lumbar spine, 2+ dp bilaterally, no LE edema Skin: No rashes lesions or erythema Discharge Data Allergies Allergy/AdvReac Type Severity Reaction Status Date / Time guaifenesin [From Mucinex] Allergy Intermediate Hives Verified 11/07/22 19:34 lidocaine Allergy Mild Hives Verified 11/08/22 17:37 amoxicillin Allergy Unknown Unknown Verified 11/07/22 19:34 prednisone AdvReac Severe swelling Verified 11/07/22 19:34 legs clindamycin AdvReac Intermediate Diarrhea Verified 11/07/22 19:34 lisinopril AdvReac Intermediate Cough Verified 11/07/22 19:34 Consultations 11/07/22 23:37 ED Decision to Admit Stat 11/08/22 01:05 Consult Pain Management Routine Ordered Studies 11/07/22 18:42 CT head/brain wo con Stat 11/11/22 14:37 CT chest diagnostic wo con Routine Hospital Course (1) Back pain: (2) TIA (transient ischemic attack): (3) Hypokalemia: (4) Obstructive lung disease: (5) Tobacco dependence: (6) Failure to thrive: (7) Multifocal atrial tachycardia: (8) Hypertension: (9) Hyperlipidemia: (10) Osteoporosis: (11) Hypoxia: Rose Kapoor is an 86 year old female with history of COPD, chronic tobacco use (active 1 PPD), pHTN, MAT, and protein-calorie malnutrition who presented for worsening back pain. While in the ED patient's family also reported intermittent episodes of L facial droop and extremity weakness which have been ongoing since 11/04/22, hx indicates that patient has known carotid stenosis for which she does not desire surgical intervention. Patient lives with daughter time broker. 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 * New oxygen need this hospitalization. 2L NC (encourage O2 Sat > 88-89% in setting of COPD) * Suspect non-compliance with O2 use in past considering the extent of respiratory distress at rest. - Encourage use of spirometry/flutter valve Mild COPD and likely with severe restrictive lung ds - No current maintenance therapy outpatient for copd - Continuing to smoke. COPD possibly has worsened. - With extent of spine ds - concern of significant restrictive lung ds - On multiple occasions - Attempted Goals of care discussion. - Patient wants to be home but uncertain about code status. - To continue GOC discussion as outpatient. RUL pneumonia - 11/11 Episode of hypoxia prompted imaging prior to discharge * CXR and Chest CT indicative of RUL PNA * Started on CTX 11/11 and Azithromycin 11/12 - Consideration for CAP vs Aspiration PNA. - Labs: WBC 15, CRP 8 (downtrending) on discharge - Swallow study concerning for possible silent aspiration, patient declined to proceed with camera study, recommended to continue soft/moist diet - Continue Cefdinir 300 mg PO BID for 4 more days (7 day course), completed course of Azithromycin 11/14 Transient Ischemic Attacks - No active neurologic deficits - Likely a/w Carotid Artery Stenosis in setting of tobacco dependence, HTN, and HLD - Recommend risk factor modification: * Aspirin 81 mg PO daily * HTN: 11/13 Adjusted to Losartan 50 mg PO BID and added Amlodipine 5 mg PO QAM, continue Metoprolol 50 mg PO BID (goal < 140/90, 120/80 if patient tolerating), Lopressor PRN for SBP > 180 Patient advised to monitor BP at home and bring record to next PCP appointment for further antihypertensive adjustment * HLD: Increase to high dose statin therapy with Atorvastatin 80 mg PO daily * Tobacco use: Continue to encourage smoking cessation - currently smoking 1 PPD, declines nicotine patch - No surgical intervention desired by patient for EDY Multifocal Atrial Tachycardia - EKG NSR - Continue Eliquis 2.5 mg BID Lumbar Back Pain/Mulitple compression fracture/Osteoporosis - Hx of multiple (L1,3,5) compression fractures (Evidenced on CT in 2020) - Lumbar XR on 11/08 * New - Moderate L4 compression fracture. - Osteoporosis Mgmt: Alendronate 70 mg PO weekly, Calcium 1200 mg PO daily, and Vitamin D3 2000 units PO daily FEN: Minced/Moist, Code status: DNR/DNI DVT ppx: Eliquis Isolation: None Dispo:Med/Surg Total Time Total Time Spent Total Time Spent (In Minutes): See attending attestation Discharge Plan Discharge Items Patient Disposition: Home - Home Health Services Reason For Visit: BACK PAIN Discharge Diagnosis: Vertebral compression fractures Activity: As commented below Activity Comment: Resume activity as tolerated Lifting: Gradually increase as tolerated Non-emergency contact: Primary Care Provider Call non-emergency contact if: you have any medication questions, your symptoms worsen, your pain is not controlled and your pain is worsening Follow-up/Referrals: Rosalio York MD [Primary Care Provider] - (*please call to schedule follow up appiontment within 7-10 days upon discharge a nurse may be calling to follow up with you as well after discharge) Diet: Regular Addtl Attending Provider Instructions: You presented to the hospital for concerns of uncontrollable back pain, which was found to be related to compression fractures within your lower back. While inpatient you were treated with scheduled Tylenol and Oxycodone as needed. Your pain ultimately improved, to the point where it was controlled by Tylenol. During your admission, you were found to have an episode of significantly decreased oxygen saturation requiring supplementation. Because of this, additional imaging was performed which indicated that you had pneumonia in your right upper lung. You were started on antibiotics (Ceftriaxone and Azithromycin) for the treatment of community acquired pneumonia. You responded well to these antibiotics inpatient and completed 3 days of each. You will be discharged to home with 4 additional days of Cefdinir, which is the oral equivalent of the IV medication you were taking in the hospital. Regarding your ongoing breathing difficulties, it is noted that you have underlying COPD but are not on any maintenance medications outside of the hospital. You have noted that for the last few years you have had a cough that is productive of white sputum that worsens throughout the evening. I recommend that you follow up with your PCP for further evaluation and exterminator management of your COPD, this could provide you with better symptom relief skilled nursing. Your oxygen saturation has been supported in the hospital with 2L of Nasal Canula, you now have oxygen available at home, please continue to supplement your oxygen with 2 liters throughout the day and night and continue to follow with your PCP regarding increases/decreases of the amount of supplemental oxygen. Your blood pressure was also elevated during your admission. You were continued on your home medications (Metoprolol 50 mg twice daily and Losartan 100 mg daily ) but ultimately this was not successful and your blood pressure was persistently above 200/90 overnight. We adjusted your blood pressure medications: Please take Losartan 50 mg in the morning and evening, Metoprolol 50 mg in the morning and evening, and Amlodipine 5 mg once daily (AM). Over the next week, please monitor your blood pressures at home and bring this log to your hospital follow up appointment. Recommendations: - Follow up with your PCP in 1 week of discharge - Continue Cefdinir 300 mg by mouth twice a day for the next 4 days (total of 7 day antibiotic course) - Take Losartan 50 mg in the morning and evening - Take Metoprolol 50 mg in the morning and evening - Take Amlodipine 5 mg once a day - Take Atorvastatin 80 mg once a day (to reduce your risk of stroke, if you have 40 mg pills at home, you may take two) - Continue using your incentive spirometer and flutter valve that was provided in the hospital - Continue to supplement your oxygen with 2 liters via nasal canula (check your oxygen levels at home with a pulse oximeter, your levels should remain above 89%, if not, please contact your PCP or return to the ER) It was a pleasure to be a part of your care, Dr. Anderson Rivero Pending Studies at Discharge: No Stand-Alone Forms: My JustSpotted, Smoking Cessation Medications and DC Order Prescriptions: New acetaminophen 325 mg Tablet 650 mg PO QID Qty: 120 0RF metoprolol tartrate 50 mg Tablet 50 mg PO BID Qty: 60 0RF aspirin [Children's Aspirin] 81 mg Tablet,Chewable 81 mg PO QAM Qty: 30 0RF atorvastatin 40 mg Tablet 80 mg PO DAILY Qty: 30 0RF losartan 50 mg Tablet 50 mg PO BID 30 Days Qty: 60 0RF amlodipine [Norvasc] 5 mg Tablet 5 mg PO QAM 30 Days Qty: 30 0RF cefdinir 300 mg capsule 300 mg PO BID 4 Days Qty: 8 0RF Continued amiodarone 200 mg tablet 200 mg PO DAILY Qty: 90 3RF Eliquis 2.5 mg tablet 2.5 mg PO BID Qty: 180 3RF alendronate 70 mg Tablet 70 mg PO WK Rx Instructions: TAKES ON MONDAY fexofenadine 180 mg Tablet 180 mg PO DAILY PRN (Reason: Allergy Symptoms) calcium carbonate [Calcium 600] 600 mg calcium (1,500 mg) Tablet 1,200 mg PO DAILY triamcinolone acetonide 0.1 % Ointment 1 applic TOPICAL DAILY PRN (Reason: Dry Skin) cholecalciferol (vitamin D3) [Vitamin D3] 2,000 unit Capsule 2,000 unit PO DAILY albuterol sulfate [ProAir HFA] 90 mcg/actuation Hfa Aerosol Inhaler 2 puff INHALATION Q6H PRN (Reason: SOB/Wheezing) Saline Mist 0.65 % Aerosol,[place] 2 spray INTRANASAL BID PRN (Reason: DRYNESS) triamcinolone acetonide [Nasacort] 55 mcg Aerosol,[place] 2 spray INTRANASAL DAILY PRN (Reason: Allergy Symptoms) acetaminophen 500 mg Tablet 500 mg PO Q6H PRN (Reason: PAIN OR FEVER) ibuprofen [Advil] 200 mg Tablet 200 mg PO Q6H PRN (Reason: Pain (Scale Score 1-3)) Discontinued atorvastatin 40 mg tablet 40 mg PO DAILY losartan 100 mg tablet 100 mg PO DAILY Discharge Orders: Discharge Order (Routine); Ordered 11/14/22 Ordered By: Anderson Mejia/Other Patient Handouts: Compression Fx, How Bones Heal, Managing Chronic Pain Admission Data Admit Date/Time: 11/09/22 09:56 Attending Provider: Jovita Lindquist Admit Provider: Joseph Rushing Primary Care Provider: Rosalio York Other Providers: Tg Howe ; Bernard Campbell ; Tan Erickson Other Interventions: Discharge Summary Assessment (RN) Last Done: 11/10/22 15:59 Supervising Physician Co-Signing Physician Notes Resident Physician Supervision Note: I independently interviewed and examined the patient and verified the couch history and physical, reviewed labs and image studies and agree with resident findings and care plan. Resident Activity Tracking Resident Involvement: Resident Care Provided Care Provided: Adult Hospital Medicine
== END 2022-11-14 14:10 | disposition home health service (06) | DRG 542 ==
LOC: ED 18:36 → 2W 18:36 → SUATTDRO 11-08 01:05 → 2W 11-08 01:31 → SUATTDRO 11-09 09:56

== ENCOUNTER 2022-11-15 01:16 | Inpatient (IN) ==
[~2022-11-15 01:16] MED LIST: RAPID SEQUENCE INDUCTION BAG ONE
[2022-11-15] MEDS ORDERED: methylPREDNISolone 125 MG/2 ML VIAL ONE (01:25)
[2022-11-15] MEDS ORDERED: methylPREDNISolone 125 MG/2 ML VIAL IV STA (01:30)
[2022-11-15] MEDS ORDERED: ALBUT/IPRATROP 3MG/0.5MG NEB 3 ML VIAL INH STA (01:30)
[2022-11-15] MEDS ORDERED: PROPOFOL IV EMULSION 10 MG/ML 100 ML VIAL IV ONE (01:32)
[2022-11-15 01:38] LABS: iSTAT Creatinine 1.1 mg/dl (0.6-1.3); iSTAT Hemoglobin 10.2 g/dl (12.0-16.0); iSTAT Ionized Calcium 1.19 mmol/l (1.12-1.32); iSTAT Potassium 5.3 mmol/L (3.3-5.0)
[2022-11-15] MEDS: fentaNYL citrate PF 100 MCG/2 ML VIAL IV PRN ×2 (01:43→01:59)
[2022-11-15] MEDS: MIDAZOLAM HCL 1 MG/ML 2ML VIAL IV PRN ×2 (01:45→01:59)
[2022-11-15 01:47] LABS: Appearance Urine Clear (Clear); Bacteria Urine Automated Negative (Negative); Bilirubin Urine Negative (Negative); Blood Urine Negative (Negative); Color Urine Yellow; Glucose Urine UA Negative (Negative); Ketones Urine Negative (Negative); Leukocyte Esterase Urine Negative (Negative); Nitrite Urine Negative (Negative); Protein Urine 1+ (Negative); RBC Urine Automated 0-4 /hpf (0-4); Specific Gravity Urine 1.016 (1.000-1.030); Urobilinogen Urine Negative (Negative); WBC Urine Automated 0 /hpf (0-5)
[2022-11-15 01:50] LABS: Basophils # (auto) 0.09 K/uL (0-0.2); Basophils % (auto) 0.5 %; Eosinophils # (auto) 0.38 K/uL (0-0.50); Eosinophils % (auto) 2.1 %; Hematocrit (blood only) 28.9 % (37.0-47.0); Hemoglobin 9.3 g/dl (12.0-16.0); Immature Granulocytes # (auto) 0.18 K/uL (0.01-0.20); Lymphocytes # (auto) 2.19 K/uL (1.2-3.4); Lymphocytes % (auto) 12.3 %; Mean Corpuscular Hemoglobin 29.8 pg (25.0-34.0); Mean Corpuscular Hgb Conc 32.2 g/dL (32.0-36.0); Mean Corpuscular Volume 92.6 fL (80.0-100.0); Mean Platelet Volume 8.6 fL (9.4-12.4); Monocytes # (auto) 1.49 K/uL (0.11-0.59); Monocytes % (auto) 8.4 %; Neutrophils # (auto) 13.46 K/uL (1.40-6.50); Neutrophils % (auto) 75.7 %; Platelet Count 639 K/uL (130-400); RDW Coefficient of Variation 14.4 % (11.5-14.5); RDW Standard Deviation 47.3 fL (36.4-46.3); Red Blood Count 3.12 M/uL (4.20-5.40); White Blood Count 17.79 K/ul (4.8-10.8)
[2022-11-15 01:58] LABS: iSTAT Arterial Blood Gas HCO3 26 meg/L (19-24); iSTAT Arterial Blood Gas pCO2 48 mmHg (35-46); iSTAT Arterial Blood Gas pH 7.35 (7.35-7.45); iSTAT Arterial Blood Gas pO2 148 mmHg (80-95); iSTAT Carbon Dioxide 28 mmol/L (24-31); iSTAT Hematocrit 26 % (37-47); iSTAT Hemoglobin 8.8 g/dl (12.0-16.0); iSTAT Potassium 4.8 mmol/L (3.3-5.0); iSTAT Sodium 128 mmol/L (135-144)
[2022-11-15] MEDS ORDERED: SODIUM CHLORIDE 0.9% 1000ML 500 ML IV ONE (01:59)
[2022-11-15] MEDS ORDERED: CEFEPIME 2,000 MG/20 ML VIAL IV STA (02:01)
[2022-11-15] MEDS ORDERED: VANCOMYCIN CONSULT ACTIVE PRN ×2 (02:01→05:02)
[2022-11-15] MEDS ORDERED: VANCOMYCIN HCL 1,000 MG in SODIUM CHLORIDE 0.9% 500 ML IV ONE (02:01)
[2022-11-15 02:05] LABS: Alanine Aminotransferase 36 U/L (7-52); Albumin Level 3.3 gm/dl (3.4-5.0); Alkaline Phosphatase 182 U/L (34-104); Anion Gap 9 (3-11); Aspartate Aminotransferase 60 U/L (13-39); BUN Creatinine Ratio 27.8 (10-20); Bilirubin,Total 0.3 mg/dl (0.2-1.0); Blood Urea Nitrogen 30 mg/dl (6-23); Calcium 8.7 mg/dl (8.6-10.3); Carbon Dioxide 24 mmol/L (21-32); Chloride 96 mmol/L (98-107); Est GFR (African American) 54.2 ml/min; Est GFR (Non-African American) 46.8 ml/min; Globulin 3.4 gm/dl (2.5-4.0); Glucose 252 mg/dl (70-99(Fasting)); Potassium 5.2 mmol/L (3.5-5.1); Sodium 129 mmol/L (136-145); Total Protein 6.7 gm/dl (6.0-8.3)
[2022-11-15 02:12] LABS: Troponin I High Sensitivity 27.7 pg/ml (0-14)
--- NOTE | 2022-11-15 02:13 | History & Physical Report ---
Date of Service November 15, 2022 Assessment & Plan (1) Acute respiratory failure: Plan: Acute hypoxic respiratory failure, respiratory arrest. Multifactorial, Pneumonia, COPD Intubated in ER. ETT in place - Was initially clinically well after d/c 11/14, in evening ~10:30 with difficulty breathing acute onset which persisted after albuterol inhaler use x3. Subsequently with resp distress/failure. XR improved from prior. Suspected to have mucous plugging. POC AB.35/pCO2 48/pO2 148/HCO3 26 post BVM. On prior admission Rocephin was started 11/11, azithromycin started 11/12. Was discharged on cefdinir/azithromycin Received empiric cefepime, vancomycin on admit. Continued on cefepime/vanco/flagyl. Methylprednisolone 100 mg IV given in ER. Prior admission patient had swallow study concerning for silent aspiration, patient declined further follow-up and is recommended to continue soft/moist diet High-sensitivity troponin 27.7 BNP 1396, prior in the 400s. Last echo 2021 with hyperdynamic EF, normal wall motion, mildly dilated left atriaum and normal right atrium. +lasix for CHF BP permitting. Echo for wm change pending - CTA pending. No obvious saddle PE. +mod-large L effusion, trace R effusion. COPD Last PFTs 03/2018: FVC 2.17 (120% predicted), FEV1 1.61 (99% predicted), FEV1/FVC 61 (75% predicted). Consistent with obstructive lung disease. 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 ASA held. 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 SCDs CODE: OK with temporary intubation. No CPR/resuscitation for cardiac arrest. Does not want prolonged intubation. Diet: NPO Dispo: ICU (2) Bilateral pleural effusion: (3) Pulmonary HTN: (4) Obstructive lung disease: (5) Multifocal atrial tachycardia: (6) Acute and chronic respiratory failure with hypoxia: History of Present Illness Primary Care Provider: Rosalio York MD Emelia is an 86-year-old female with a past medical history of COPD with ongoing tobacco use, hyperlipidemia, hypertension, pulmonary hypertension, TIA who presented to the ER as a respiratory arrest. Reportedly was originally versus from the field but hypoxic and then became unresponsive with respiratory arrest. She was discharged after a hospital admission 11/08 - 11/14 for acute hypoxic respiratory failure due to right upper lobe pneumonia on a background of COPD/restrictive lung disease. History limited by ETT. Collateral collected from family. Patient returned home after discharge yesterday in a good state of health, was actually. Around 10:30 in the evening used her albuterol inhaler twice, and then 1 additional time shortly thereafter. Did have a feeling of dread and unwellness time. Shortly thereafter began around 11:30 PM difficulty breathing and was hypoxic, EMS was called. Patient was answering questions but with labored respiration and difficulty breathing, subsequently had respiratory arrest per family patient has pression fractures in her back with pain was afraid to cough and suppressing her cough. Did have thick mucus which she was having difficulty clearing without cough. Medical History: Reviewed in EMR Medications: Reviewed in EMR Surgical History: Reviewed in EMR Family history: Reviewed in EMR Allergies: Reviewed in EMR Social History: Reviewed in EMR CODE STATUS: DNR, okay with temporary intubation and is if mucous plugging may have reversible cause but should she undergo a cardiac arrest does not want CPR. This was discussd with family who note she has an advance directive/living will. Allergies Allergy/AdvReac Type Severity Reaction Status Date / Time guaifenesin [From Mucinex] Allergy Intermediate Hives Verified 11/07/22 19:34 lidocaine Allergy Mild Hives Verified 11/08/22 17:37 amoxicillin Allergy Unknown Unknown Verified 11/07/22 19:34 prednisone AdvReac Severe swelling Verified 11/07/22 19:34 legs clindamycin AdvReac Intermediate Diarrhea Verified 11/07/22 19:34 lisinopril AdvReac Intermediate Cough Verified 11/07/22 19:34 Home Medications Medication Instructions Recorded Confirmed Type alendronate 70 mg tablet 70 mg PO WK 02/18/18 11/15/22 History calcium carbonate 600 mg calcium 1,200 mg PO DAILY 02/18/18 11/15/22 History (1,500 mg) tablet (Calcium) cholecalciferol (vitamin D3) 50 2,000 unit PO DAILY 02/18/18 11/15/22 History mcg (2,000 unit) capsule (Vitamin D3) fexofenadine 180 mg tablet 180 mg PO DAILY PRN Allergy 02/18/18 11/15/22 History Symptoms triamcinolone acetonide 0.1 % 1 applic topical DAILY PRN Dry Skin 02/18/18 11/15/22 History topical ointment albuterol sulfate 90 mcg/actuation 2 puff inhalation Q6H PRN 02/19/18 11/15/22 History aerosol inhaler (ProAir HFA) SOB/Wheezing triamcinolone acetonide 55 mcg 2 spray intranasal DAILY PRN 11/07/20 11/15/22 History nasal spray aerosol (Nasacort) Allergy Symptoms sodium chloride 0.65 % nasal spray 2 spray intranasal BID PRN DRYNESS 02/20/22 11/15/22 History aerosol (Saline Mist) amiodarone 200 mg tablet 200 mg PO DAILY #90 tabs 03/28/22 11/15/22 Rx apixaban 2.5 mg tablet (Eliquis) 2.5 mg PO BID #180 tabs 03/28/22 11/15/22 Rx acetaminophen 500 mg tablet 500 mg PO Q6H PRN PAIN OR FEVER 11/07/22 11/15/22 History ibuprofen 200 mg tablet (Advil) 200 mg PO Q6H PRN Pain (Scale 11/07/22 11/15/22 History Score 1-3) acetaminophen 325 mg tablet 650 mg PO QID #120 tabs 11/10/22 11/15/22 Rx aspirin 81 mg chewable tablet 81 mg PO QAM #30 tabs 11/10/22 11/15/22 Rx (Children's Aspirin) atorvastatin 40 mg tablet 80 mg PO DAILY #30 tabs 11/10/22 11/15/22 Rx metoprolol tartrate 50 mg tablet 50 mg PO BID #60 tabs 11/10/22 11/15/22 Rx amlodipine 5 mg tablet (Norvasc) 5 mg PO QAM 30 days #30 tabs 11/14/22 11/15/22 Rx cefdinir 300 mg capsule 300 mg PO BID 4 days #8 caps 11/14/22 11/15/22 Rx losartan 50 mg tablet 50 mg PO BID 30 days #60 tabs 11/14/22 11/15/22 Rx Past Med/Surg History Medical History Compression deformity of vertebra Compression fracture of T12 vertebra COVID-09 february 2022 Hyperlipidemia Hypertension Spondylosis of thoracolumbar spine Thoracic kyphosis Family History (Updated 11/15/22 @ 03:14 by TOYIN Montalvo) Other COPD (chronic obstructive pulmonary disease) Heart disease Hypertension No significant family history Social History Smoking Status: Unknown if ever smoked Tobacco Type: Cigarettes Cigarettes Per Day: 1/2 pack; Second Hand Exposure: Yes; Do You Dip or Chew Tobacco: No; Hx Alcohol Use: No Hx Substance Use: Yes Preferred Language: Guyanese Communication Ability: Effective Dance Director Required: No Beliefs That Will Affect Care: Spiritual marital status: Current Living Situation: Family Current Living Situation Comment: lives with daughter Feels Safe at Home: Yes Assistive Devices: Lift Chair and Walker Review of Systems Review of Systems: Unobtainable due to endotracheal tube Physical Exam Physical Exam: General:ETT in place. HEENT: Atraumatic, normocephalic. Pulm: Grossly clear bilaterally. ETT suction with thick white/martin mucous. On mechanical vent Cardiac: RRR, -mrg. Radial pulses intact and symmetrical. Abdominal: Nontender, nondistended, soft. BS present. Ext: cool, dry. Strength/sensation exam limited by sedation. Results & Data Results & Data Vital Signs (Past 12 Hours) Vital Signs Pulse Pulse Resp BP BP Pulse Ox O2 Del Method 11/15/22 02:04 58 L 16 87/42 L 100 Mechanical Vent 11/15/22 01:22 73 11/15/22 01:58 61 16 124/64 100 Mechanical Vent 11/15/22 01:39 Mechanical Vent 11/15/22 01:38 99 Mechanical Vent 11/15/22 01:36 64 16 174/68 H 99 Ambu-Bag 11/15/22 01:35 99 11/15/22 01:19 70 27 H 212/75 H 100 Ambu-Bag O2 Flow Rate 11/15/22 02:04 11/15/22 01:22 11/15/22 01:58 11/15/22 01:39 11/15/22 01:38 11/15/22 01:36 11/15/22 01:35 11/15/22 01:19 15 PG Care Time/CCT Total # of Minutes Spent Total Time Spent with Patient: Total time spent is greater than 50% in coordination of care (as documented) at patient's floor/unit and/or counseling patient: Coding Level of Care Code 46592 INT INP/OBS CARE 3/75MIN Diagnoses Acute respiratory failure J96.00 Bilateral pleural effusion J90 Pulmonary HTN I27.20 Obstructive lung disease J44.9 Multifocal atrial tachycardia I47.1 Acute and chronic respiratory failure with hypoxia J96.21
[2022-11-15 02:20] LABS: INR 0.9 (0.9-1.1); Prothrombin Time 10.2 Seconds (9.0-12.0)
[2022-11-15 02:32] LABS: Adenovirus PCR Not Detected (NotDetected); Bordetella parapertussis PCR Not Detected (NotDetected); Bordetella pertussis PCR Not Detected (NotDetected); Chlamydia pneumoniae PCR Not Detected (NotDetected); Coronavirus 229E PCR Not Detected (NotDetected); Coronavirus CoV-2 (COVID19)PCR Not Detected (NotDetected); Coronavirus HKU1 PCR Not Detected (NotDetected); Coronavirus NL63 PCR Not Detected (NotDetected); Coronavirus OC43PCR Not Detected (NotDetected); Human Metapneumovirus PCR Not Detected (NotDetected); Influenza A PCR Not Detected (NotDetected); Influenza B PCR Not Detected (NotDetected); Mycoplasma pneumoniae PCR Not Detected (NotDetected); Parainfluenza Virus 1 PCR Not Detected (NotDetected); Parainfluenza Virus 2 PCR Not Detected (NotDetected); Parainfluenza Virus 3 PCR Not Detected (NotDetected); Parainfluenza Virus 4 PCR Not Detected (NotDetected); Respiratory Syncytial VirusPCR Not Detected (NotDetected); Rhinovirus/Enterovirus PCR Not Detected (NotDetected)
[2022-11-15] MEDS ORDERED: STAT IV Infusion **Titration per Protocol STA ×2 (02:36→05:02)
[2022-11-15] MEDS ORDERED: fentaNYL BOLUS from BAG IV PRN (02:36)
[2022-11-15] MEDS ORDERED: fentaNYL citrate 2,500 MCG/250 ML BAG IV ONE (02:37)
--- NOTE | 2022-11-15 02:38 | Emergency Department Note ---
Impression & Plan Acute respiratory failure, Bilateral pleural effusion ED Provider Note INFORMANT: EMS and family ED PROVIDER(S): Erich Ortiz MD CHIEF COMPLAINT: Respiratory distress PLAN: Disposition: Admitted to ICU Condition: Critical Outpatient prescription management: none Referral: None MEDICAL DECISION MAKING: Patient presented with severe respiratory distress. Prior hospitalization records reviewed[facility]. Patient recently discharged after TIA, compression fracture, and pneumonia. Patient was given Solu-Medrol and prepped for intubation. Record indicated that she was unsure of her CODE STATUS on discharge per Dr. serrano. I did attempt to reach the patient's daughter but was unsuccessful. At that point patient needed to secure airway and she was intubated with etomidate and succinylcholine. Her i-STAT showed some mild hyponatremia which was slightly worse than prior. Intubation went well with a 7.5 tube to 22 cm. Patient's daughter arrived and we discussed the situation. She was comfortable with the intubation and treatment in order to elucidate the cause of the respiratory failure. At this point the patient is a full code. Patient was found to have an elevated BNP and troponin. BNP was higher than prior but the troponin was within similar range. Patient was cultured and she also had a lactate performed. She was empirically given cefepime and vancomycin. The patient had an episode where her saturations dropped slightly. Her postintubation chest x-ray revealed that her ET tube was in the right mainstem. I did reassess the tube and it was taped in a 24 cm. This was pulled back to 22 cm. She had a short BVM. While reassessing the situation. Auscultation noted some moderate congestion but this seemed to open up nicely with [id number] ventilation and her O2 saturations jumped to 100%. Patient was placed back on the ventilator. She was sedated using fentanyl and Versed pushes. Her blood pressure decreased slightly and she was given a fluid bolus. CT imaging of the head and chest was ordered. CT imaging of the head did not reveal any obvious findings. CT PE study was done and per my interpretation the pneumonia appears to be improved compared to prior. She does have significant pleural effusions and there is no obvious large clot burden. Radiologist read is still pending at this time discussed the situation further with Dr. Timo Serrano of the [facility] service and nurse practitioner Tommy from the ICU. They were both in the ED and did meet with the patient's daughter and evaluate the patient for admission to the ICU. Discussed with business operations manager and EMS at length After review of the information above and other included data, I feel the patient requires admission. Triage Nursing notes reviewed and agree them. Vital Signs: reviewed and remarkable for mild hypotension after intubation. Prior /Outside records reviewed: Prior hospitalization and discharge record reviewed. Differential diagnosis: Reactive airway disease, pneumonia, pneumothorax, mucous plugging, COPD, CHF, infections, cardiac ischemia, pulmonary embolism, musculoskeletal, gastrointestinal, as well as other pathologies. Diagnostics, as interpreted by me: ECG: Twelve-lead ECG reveals a sinus rhythm with a prolonged first-degree AV block at 78 bpm. Mild lateral nonspecific ST changes and LVH present. No ST elevation. When compared to prior ECG on 11/07/2022 lateral appearance is s imilar. Cardiac Monitoring: Cardiac monitoring ordered by me: The patient was placed on continuous cardiac monitoring and observed. It revealed a sinus rhythm at 62 beats per minute without evidence of dysrhythmia. Medical decision rules: none Imaging studies: Chest x-rays, head CT and CT of the chest as noted above. HPI: The patient is a 86year old female who presents to the Emergency Room with acute respiratory distress. Additional history obtained from EMS as well as the patient's daughter. Just before midnight the patient had a 5-minute episode of difficulty breathing. Daughter thought it may be related to her recent pneumonia diagnosis but also some anxiety. That seemed to calm down. Patient was having a moderate amount of mucus and was having difficulty clearing the mucus. Short time later the patient then had more significant difficulty breathing. Patient called out for the daughter and asked for 911 to be summoned. Daughter called 911. When EMS arrived they noted the patient was having some difficulty moving air but was still alert. They did do a nebulizer treatment and the patient began to have more difficulty moving air and was less responsive. They began assisting breathing with bag valve mask ventilation. Patient arrived awake but not responding to verbal direction. Patient was not speaking. Currently being assisted with [id number] ventilation. History is limited secondary to the patient's medical acuity. PAST MEDICAL HISTORY: See Below, COPD, pneumonia, pleural effusions, TIA, compression fracture PAST SURGICAL HISTORY: See Below, SOCIAL HISTORY: See Below, lives with daughter HOME MEDICATIONS: See Below ALLERGIES: See Below VITALS: See Below PHYSICAL EXAMINATION: GENERAL: Awake, dyspneic-appearing, in severe distress HENT: Normocephalic, atraumatic. Oropharynx unremarkable. EYES: Normal conjunctiva. Sclera non-icteric. NECK: Inspection normal. Trachea midline. Minimal JVD. Non-tender. Supple. No nuchal rigidity. FROM. No masses. RESPIRATORY: Coarse breath sounds and rhonchi bilaterally. Poor air movement no ethel. Diminished lung sounds in the bilateral bases. Normal respiratory effort. CARDIAC: Normal rate. Normal rhythm. No murmurs. No rubs. Extremities warm and well perfused. Pulses equal. GI: Soft, non-distended. No tenderness to palpation. No rebound or guarding. No masses. RECTAL: Deferred. MUSCULOSKELETAL: Atraumatic. Chest examination reveals no tenderness. The back is symmetrical on inspection without obvious abnormality. There is no CVA tenderness to palpation. No joint edema. LOWER EXTREMITIES: Calves are equal size bilaterally with trace edema. No discoloration. NEURO: Normal sensorium. No sensory or motor deficits noted. SKIN: No rash or jaundice noted. CRITICAL CARE: I have personally spent greater than 78 minutes of critical care time in the dir ect management of this patient. This includes bedside care, interpretation of diagnostic studies, and testing, discussion with consultants, patient, and family members, and other required patient management activities. These minutes are in excess of all separately billable procedures. INTUBATION: Indication: Respiratory failure. The patient was on 100% via NRB prior to the procedure. Suction, airway equipment, RSI drugs, respiratory equipment, and appropriate personnel were prepared prior to the initiation of the procedure. Induction was performed with etomidate and succinylcholine. See nursing notes for dosages and times. After observing the clinical benefit of the medications, the airway was easily visualized utilizing the glide scope. 7.5 ETT tube was placed atraumatically using standard technique to 22 cm. The cuff inflated without signs of malfunction. There were bilateral breath sounds, positive colormetric change, no gastric sounds, and post procedure pulse oximetry was 100%. Post intubation sedation was achieved using Versed and fentanyl. There were no complications. Past Med/Surg History Medical History (Updated 11/15/22 @ 02:38 by Erich Ortiz MD) Compression deformity of vertebra Compression fracture of T12 vertebra COVID-09 february 2022 Hyperlipidemia Hypertension Spondylosis of thoracolumbar spine Thoracic kyphosis Family History Other No significant family history Social History Smoking Status: Unknown if ever smoked Tobacco Type: Cigarettes Cigarettes Per Day: 1/2 pack; Second Hand Exposure: Yes; Do You Dip or Chew Tobacco: No; Hx Alcohol Use: No Hx Substance Use: Yes Preferred Language: Chilean Communication Ability: Effective Video Intern Required: No Beliefs That Will Affect Care: Spiritual marital status: Current Living Situation: Family Current Living Situation Comment: lives with daughter Feels Safe at Home: Yes Assistive Devices: Lift Chair and Walker Allergies Allergies Allergy/AdvReac Type Severity Reaction Status Date / Time guaifenesin [From Mucinex] Allergy Intermediate Hives Verified 11/07/22 19:34 lidocaine Allergy Mild Hives Verified 11/08/22 17:37 amoxicillin Allergy Unknown Unknown Verified 11/07/22 19:34 prednisone AdvReac Severe swelling Verified 11/07/22 19:34 legs clindamycin AdvReac Intermediate Diarrhea Verified 11/07/22 19:34 lisinopril AdvReac Intermediate Cough Verified 11/07/22 19:34 Home Meds Home Medications Medication Instructions Recorded Confirmed alendronate 70 mg tablet 70 mg PO WK 02/18/18 11/15/22 calcium carbonate 600 mg calcium 1,200 mg PO DAILY 02/18/18 11/15/22 (1,500 mg) tablet (Calcium) cholecalciferol (vitamin D3) 50 2,000 unit PO DAILY 02/18/18 11/15/22 mcg (2,000 unit) capsule (Vitamin D3) fexofenadine 180 mg tablet 180 mg PO DAILY PRN Allergy 02/18/18 11/15/22 Symptoms triamcinolone acetonide 0.1 % 1 applic topical DAILY PRN Dry Skin 02/18/18 11/15/22 topical ointment albuterol sulfate 90 mcg/actuation 2 puff inhalation Q6H PRN 02/19/18 11/15/22 aerosol inhaler (ProAir HFA) SOB/Wheezing triamcinolone acetonide 55 mcg 2 spray intranasal DAILY PRN 11/07/20 11/15/22 nasal spray aerosol (Nasacort) Allergy Symptoms sodium chloride 0.65 % nasal spray 2 spray intranasal BID PRN DRYNESS 02/20/22 11/15/22 aerosol (Saline Mist) acetaminophen 500 mg tablet 500 mg PO Q6H PRN PAIN OR FEVER 11/07/22 11/15/22 ibuprofen 200 mg tablet (Advil) 200 mg PO Q6H PRN Pain (Scale 11/07/22 11/15/22 Score 1-3) Previous Rx's Medication Instructions Recorded amiodarone 200 mg tablet 200 mg PO DAILY #90 tabs 03/28/22 apixaban 2.5 mg tablet (Eliquis) 2.5 mg PO BID #180 tabs 03/28/22 acetaminophen 325 mg tablet 650 mg PO QID #120 tabs 11/10/22 aspirin 81 mg chewable tablet 81 mg PO QAM #30 tabs 11/10/22 (Children's Aspirin) atorvastatin 40 mg tablet 80 mg PO DAILY #30 tabs 11/10/22 metoprolol tartrate 50 mg tablet 50 mg PO BID #60 tabs 11/10/22 amlodipine 5 mg tablet (Norvasc) 5 mg PO QAM 30 days #30 tabs 11/14/22 cefdinir 300 mg capsule 300 mg PO BID 4 days #8 caps 11/14/22 losartan 50 mg tablet 50 mg PO BID 30 days #60 tabs 11/14/22 Results & Data (ED) Vital Signs Vital Signs - 24 hr 11/15/22 01:19 11/15/22 01:35 11/15/22 01:36 Pulse Rate 70 Pulse Rate [Right] 64 Respiratory Rate 27 H 16 Respiratory Effort / Characteristics Labored Non-Labored Spontaneous Respiratory Depth Shallow Normal Respiratory Pattern Grunting Blood Pressure 212/75 H Blood Pressure [Right Arm] 174/68 H Blood Pressure Mean 120 Blood Pressure Mean [Right Arm] 103 Blood Pressure Position [Right Arm] Pulse Oximetry 100 99 99 Oxygen Delivery Method Ambu-Bag Ambu-Bag Oxygen Flow Rate 15 Sepsis Recent Fever Within 48 Hours No Sepsis New/Unexplained Change in Mental Status N/A Sepsis Action Taken by Nursing No Action Required End Tidal CO2 (18-54mmHg) 11/15/22 01:38 11/15/22 01:39 11/15/22 01:58 Pulse Rate Pulse Rate [Right] 61 Respiratory Rate 16 Respiratory Effort / Characteristics Mechanically Ventilated Respiratory Depth Respiratory Pattern Blood Pressure Blood Pressure [Right Arm] 124/64 Blood Pressure Mean Blood Pressure Mean [Right Arm] 84 Blood Pressure Position [Right Arm] Pulse Oximetry 99 100 Oxygen Delivery Method Mechanical Vent Mechanical Vent Mechanical Vent Oxygen Flow Rate Sepsis Recent Fever Within 48 Hours Sepsis New/Unexplained Change in Mental Status Sepsis Action Taken by Nursing End Tidal CO2 (18-54mmHg) 11/15/22 01:22 11/15/22 02:04 11/15/22 02:36 Pulse Rate 73 Pulse Rate [Right] 58 L 59 L Respiratory Rate 16 16 Respiratory Effort / Characteristics Mechanically Ventilated Mechanically Ventilated Respiratory Depth Normal Respiratory Pattern Blood Pressure Blood Pressure [Right Arm] 87/42 L 96/41 L Blood Pressure Mean Blood Pressure Mean [Right Arm] 57 59 Blood Pressure Position [Right Arm] Lying Pulse Oximetry 100 99 Oxygen Delivery Method Mechanical Vent Mechanical Vent Oxygen Flow Rate Sepsis Recent Fever Within 48 Hours Sepsis New/Unexplained Change in Mental Status Sepsis Action Taken by Nursing End Tidal CO2 (18-54mmHg) 11/15/22 02:46 Pulse Rate Pulse Rate [Right] 62 Respiratory Rate 16 Respiratory Effort / Characteristics Mechanically Ventilated Respiratory Depth Respiratory Pattern Blood Pressure Blood Pressure [Right Arm] 97/42 L Blood Pressure Mean Blood Pressure Mean [Right Arm] 60 Blood Pressure Position [Right Arm] Pulse Oximetry 100 Oxygen Delivery Method Mechanical Vent Oxygen Flow Rate Sepsis Recent Fever Within 48 Hours Sepsis New/Unexplained Change in Mental Status Sepsis Action Taken by Nursing End Tidal CO2 (18-54mmHg) 36 Laboratory Data 11/15/22 01:25 11/15/22 01:25 Lab Results 11/15/22 11/15/22 11/15/22 Range/Units 01:25 01:25 01:25 WBC 17.79 H (4.8-10.8) K/ul RBC 3.12 L (4.20-5.40) M/uL Hgb 9.3 L (12.0-16.0) g/dl POC Hgb (12.0-16.0) g/dl Hct 28.9 L (37.0-47.0) % POC Hct (37-47) % MCV 92.6 (80.0-100.0) fL MCH 29.8 (25.0-34.0) pg MCHC 32.2 (32.0-36.0) g/dL RDW Std Deviation 47.3 H (36.4-46.3) fL RDW Coeff of Blas 14.4 (11.5-14.5) % Plt Count 639 H (130-400) K/uL MPV 8.6 L (9.4-12.4) fL Immature Gran % (Auto) 1.0 % Neut % (Auto) 75.7 % Lymph % (Auto) 12.3 % [place] % (Auto) 8.4 % Eos % (Auto) 2.1 % Baso % (Auto) 0.5 % Neut # (Auto) 13.46 H (1.40-6.50) K/uL Lymph # (Auto) 2.19 (1.2-3.4) K/uL [place] # (Auto) 1.49 H (0.11-0.59) K/uL Eos # (Auto) 0.38 (0-0.50) K/uL Baso # (Auto) 0.09 (0-0.2) K/uL Immature Gran # (Auto) 0.18 (0.01-0.20) K/uL PT 10.2 (9.0-12.0) Seconds INR 0.9 (0.9-1.1) POC pH (7.35-7.45) POC pCO2 (35-46) mmHg POC pO2 (80-95) mmHg POC HCO3 (19-24) nikolai/L POC Base Excess (-9-1.8) nikolai/L POC ABG O2 Sat (90-95) % POC Sodium (135-144) mmol/L Sodium 129 L (136-145) mmol/L POC Potassium (3.3-5.0) mmol/L Potassium 5.2 H (3.5-5.1) mmol/L POC Chloride (101-112) mmol/L Chloride 96 L (98-107) mmol/L Carbon Dioxide 24 (21-32) mmol/L POC Total CO2 (24-31) mmol/L Anion Gap 9 (3-11) POC Anion Gap (16-25) mmol/L POC BUN (7-18) mg/dl BUN 30 H (6-23) mg/dl Creatinine 1.08 (0.6-1.2) mg/dl POC Creatinine (0.6-1.3) mg/dl Est Cr Clr Drug Dosing Not Reportable Est GFR ( Amer) 54.2 ml/min Est GFR (Non-Af Amer) 46.8 ml/min BUN/Creatinine Ratio 27.8 H (10-20) Glucose 252 H (70-99(Fasting)) mg/dl POC Glucose (other) (70-99) mg/dl Lactate (0.4-2.0) mmol/L Calcium 8.7 (8.6-10.3) mg/dl POC Ioniz Calcium Sanjuana (1.12-1.32) mmol/l Magnesium 2.0 (1.7-2.4) mg/dl Total Bilirubin 0.3 (0.2-1.0) mg/dl AST 60 H (13-39) U/L ALT 36 (7-52) U/L Alkaline Phosphatase 182 H (34-104) U/L Troponin I High Sens 27.7 H (0-14) pg/ml B-Natriuretic Peptide (0-100) pg/ml Total Protein 6.7 (6.0-8.3) gm/dl Albumin 3.3 L (3.4-5.0) gm/dl Globulin 3.4 (2.5-4.0) gm/dl Albumin/Globulin Ratio 1.0 (0.9-2) Procalcitonin (0-0.5) ng/ml Urine Color Urine Appearance (Clear) Urine pH (4.5-7.5) Ur Specific [place] (1.000-1.030) Urine Protein (Negative) Urine Glucose (UA) (Negative) Urine Ketones (Negative) Urine Blood (Negative) Urine Nitrite (Negative) Urine Bilirubin (Negative) Urine Urobilinogen (Negative) Ur Leukocyte Esterase (Negative) Urine WBC (Auto) (0-5) /hpf Urine RBC (Auto) (0-4) /hpf U Hyaline Cast (Auto) (0-5) /lpf U Epithel Cells (Auto) (0-5) /lpf Urine Bacteria (Auto) (Negative) Adenovirus (PCR) (NotDetected) B. pertussis DNA (PCR) (NotDetected) B.parapertussis DNA PCR (NotDetected) C. pneumoniae DNA (PCR) (NotDetected) Coronavirus OC43 (PCR) (NotDetected) Coronavirus HKU1 (PCR) (NotDetected) Coronavirus 229E (PCR) (NotDetected) SARS-CoV-2 (PCR) (NotDetected) Coronavirus NL63 (PCR) (NotDetected) Human Metapneumovir PCR (NotDetected) Influenza Type A (PCR) (NotDetected) Influenza Type B (PCR) (NotDetected) M. pneumoniae (PCR) (NotDetected) Parainfluenza 1 (PCR) (NotDetected) Parainfluenza 2 (PCR) (NotDetected) Parainfluenza 3 (PCR) (NotDetected) Parainfluenza 4 (PCR) (NotDetected) RSV (PCR) (NotDetected) Entero/Rhino (PCR) (NotDetected) 11/15/22 11/15/22 11/15/22 Range/Units 01:25 01:25 01:25 WBC (4.8-10.8) K/ul RBC (4.20-5.40) M/uL Hgb (12.0-16.0) g/dl POC Hgb 10.2 L (12.0-16.0) g/dl Hct (37.0-47.0) % POC Hct 30 L (37-47) % MCV (80.0-100.0) fL MCH (25.0-34.0) pg MCHC (32.0-36.0) g/dL RDW Std Deviation (36.4-46.3) fL RDW Coeff of Blas (11.5-14.5) % Plt Count (130-400) K/uL MPV (9.4-12.4) fL Immature Gran % (Auto) % Neut % (Auto) % Lymph % (Auto) % [place] % (Auto) % Eos % (Auto) % Baso % (Auto) % Neut # (Auto) (1.40-6.50) K/uL Lymph # (Auto) (1.2-3.4) K/uL [place] # (Auto) (0.11-0.59) K/uL Eos # (Auto) (0-0.50) K/uL Baso # (Auto) (0-0.2) K/uL Immature Gran # (Auto) (0.01-0.20) K/uL PT (9.0-12.0) Seconds INR (0.9-1.1) POC pH (7.35-7.45) POC pCO2 (35-46) mmHg POC pO2 (80-95) mmHg POC HCO3 (19-24) nikolai/L POC Base Excess (-9-1.8) nikolai/L POC ABG O2 Sat (90-95) % POC Sodium 129 L (135-144) mmol/L Sodium (136-145) mmol/L POC Potassium 5.3 H (3.3-5.0) mmol/L Potassium (3.5-5.1) mmol/L POC Chloride 96 L (101-112) mmol/L Chloride (98-107) mmol/L Carbon Dioxide (21-32) mmol/L POC Total CO2 26 (24-31) mmol/L Anion Gap (3-11) POC Anion Gap 14.0 L (16-25) mmol/L POC BUN 33 H (7-18) mg/dl BUN (6-23) mg/dl Creatinine (0.6-1.2) mg/dl POC Creatinine 1.1 (0.6-1.3) mg/dl Est Cr Clr Drug Dosing Est GFR ( Amer) ml/min Est GFR (Non-Af Amer) ml/min BUN/Creatinine Ratio (10-20) Glucose (70-99(Fasting)) mg/dl POC Glucose (other) 270 H (70-99) mg/dl Lactate (0.4-2.0) mmol/L Calcium (8.6-10.3) mg/dl POC Ioniz Calcium [place] 1.19 (1.12-1.32) mmol/l Magnesium (1.7-2.4) mg/dl Total Bilirubin (0.2-1.0) mg/dl AST (13-39) U/L ALT (7-52) U/L Alkaline Phosphatase (34-104) U/L Troponin I High Sens (0-14) pg/ml B-Natriuretic Peptide 1396 H (0-100) pg/ml Total Protein (6.0-8.3) gm/dl Albumin (3.4-5.0) gm/dl Globulin (2.5-4.0) gm/dl Albumin/Globulin Ratio (0.9-2) Procalcitonin 0.08 (0-0.5) ng/ml Urine Color Urine Appearance (Clear) Urine pH (4.5-7.5) Ur Specific [place] (1.000-1.030) Urine Protein (Negative) Urine Glucose (UA) (Negative) Urine Ketones (Negative) Urine Blood (Negative) Urine Nitrite (Negative) Urine Bilirubin (Negative) Urine Urobilinogen (Negative) Ur Leukocyte Esterase (Negative) Urine WBC (Auto) (0-5) /hpf Urine RBC (Auto) (0-4) /hpf U Hyaline Cast (Auto) (0-5) /lpf U Epithel Cells (Auto) (0-5) /lpf Urine Bacteria (Auto) (Negative) Adenovirus (PCR) (NotDetected) B. pertussis DNA (PCR) (NotDetected) B.parapertussis DNA PCR (NotDetected) C. pneumoniae DNA (PCR) (NotDetected) Coronavirus OC43 (PCR) (NotDetected) Coronavirus HKU1 (PCR) (NotDetected) Coronavirus 229E (PCR) (NotDetected) SARS-CoV-2 (PCR) (NotDetected) Coronavirus NL63 (PCR) (NotDetected) Human Metapneumovir PCR (NotDetected) Influenza Type A (PCR) (NotDetected) Influenza Type B (PCR) (NotDetected) M. pneumoniae (PCR) (NotDetected) Parainfluenza 1 (PCR) (NotDetected) Parainfluenza 2 (PCR) (NotDetected) Parainfluenza 3 (PCR) (NotDetected) Parainfluenza 4 (PCR) (NotDetected) RSV (PCR) (NotDetected) Entero/Rhino (PCR) (NotDetected) 11/15/22 11/15/22 11/15/22 Range/Units 01:34 01:38 01:44 WBC (4.8-10.8) K/ul RBC (4.20-5.40) M/uL Hgb (12.0-16.0) g/dl POC Hgb 8.8 L (12.0-16.0) g/dl Hct (37.0-47.0) % POC Hct 26 L (37-47) % MCV (80.0-100.0) fL MCH (25.0-34.0) pg MCHC (32.0-36.0) g/dL RDW Std Deviation (36.4-46.3) fL RDW Coeff of Blas (11.5-14.5) % Plt Count (130-400) K/uL MPV (9.4-12.4) fL Immature Gran % (Auto) % Neut % (Auto) % Lymph % (Auto) % [place] % (Auto) % Eos % (Auto) % Baso % (Auto) % Neut # (Auto) (1.40-6.50) K/uL Lymph # (Auto) (1.2-3.4) K/uL [place] # (Auto) (0.11-0.59) K/uL Eos # (Auto) (0-0.50) K/uL Baso # (Auto) (0-0.2) K/uL Immature Gran # (Auto) (0.01-0.20) K/uL PT (9.0-12.0) Seconds INR (0.9-1.1) POC pH 7.35 (7.35-7.45) POC pCO2 48 H (35-46) mmHg POC pO2 148 H (80-95) mmHg POC HCO3 26 H (19-24) nikolai/L POC Base Excess 1.0 (-9-1.8) nikolai/L POC ABG O2 Sat 99.0 H (90-95) % POC Sodium 128 L (135-144) mmol/L Sodium (136-145) mmol/L POC Potassium 4.8 (3.3-5.0) mmol/L Potassium (3.5-5.1) mmol/L POC Chloride (101-112) mmol/L Chloride (98-107) mmol/L Carbon Dioxide (21-32) mmol/L POC Total CO2 28 (24-31) mmol/L Anion Gap (3-11) POC Anion Gap (16-25) mmol/L POC BUN (7-18) mg/dl BUN (6-23) mg/dl Creatinine (0.6-1.2) mg/dl POC Creatinine (0.6-1.3) mg/dl Est Cr Clr Drug Dosing Est GFR ( Amer) ml/min Est GFR (Non-Af Amer) ml/min BUN/Creatinine Ratio (10-20) Glucose (70-99(Fasting)) mg/dl POC Glucose (other) (70-99) mg/dl Lactate (0.4-2.0) mmol/L Calcium (8.6-10.3) mg/dl POC Ioniz Calcium [place]juana (1.12-1.32) mmol/l Magnesium (1.7-2.4) mg/dl Total Bilirubin (0.2-1.0) mg/dl AST (13-39) U/L ALT (7-52) U/L Alkaline Phosphatase (34-104) U/L Troponin I High Sens (0-14) pg/ml B-Natriuretic Peptide (0-100) pg/ml Total Protein (6.0-8.3) gm/dl Albumin (3.4-5.0) gm/dl Globulin (2.5-4.0) gm/dl Albumin/Globulin Ratio (0.9-2) Procalcitonin (0-0.5) ng/ml Urine Color Yellow Urine Appearance Clear (Clear) Urine pH 6.0 (4.5-7.5) Ur Specific [place] 1.016 (1.000-1.030) Urine Protein 1+ H (Negative) Urine Glucose (UA) Negative (Negative) Urine Ketones Negative (Negative) Urine Blood Negative (Negative) Urine Nitrite Negative (Negative) Urine Bilirubin Negative (Negative) Urine Urobilinogen Negative (Negative) Ur Leukocyte Esterase Negative (Negative) Urine WBC (Auto) 0 (0-5) /hpf Urine RBC (Auto) 0-4 (0-4) /hpf U Hyaline Cast (Auto) 1-5 (0-5) /lpf U Epithel Cells (Auto) 5-10 H (0-5) /lpf Urine Bacteria (Auto) Negative (Negative) Adenovirus (PCR) Not Detected (NotDetected) B. pertussis DNA (PCR) Not Detected (NotDetected) B.parapertussis DNA PCR Not Detected (NotDetected) C. pneumoniae DNA (PCR) Not Detected (NotDetected) Coronavirus OC43 (PCR) Not Detected (NotDetected) Coronavirus HKU1 (PCR) Not Detected (NotDetected) Coronavirus 229E (PCR) Not Detected (NotDetected) SARS-CoV-2 (PCR) Not Detected (NotDetected) Coronavirus NL63 (PCR) Not Detected (NotDetected) Human Metapneumovir PCR Not Detected (NotDetected) Influenza Type A (PCR) Not Detected (NotDetected) Influenza Type B (PCR) Not Detected (NotDetected) M. pneumoniae (PCR) Not Detected (NotDetected) Parainfluenza 1 (PCR) Not Detected (NotDetected) Parainfluenza 2 (PCR) Not Detected (NotDetected) Parainfluenza 3 (PCR) Not Detected (NotDetected) Parainfluenza 4 (PCR) Not Detected (NotDetected) RSV (PCR) Not Detected (NotDetected) Entero/Rhino (PCR) Not Detected (NotDetected) 11/15/22 Range/Units 02:10 WBC (4.8-10.8) K/ul RBC (4.20-5.40) M/uL Hgb (12.0-16.0) g/dl POC Hgb (12.0-16.0) g/dl Hct (37.0-47.0) % POC Hct (37-47) % MCV (80.0-100.0) fL MCH (25.0-34.0) pg MCHC (32.0-36.0) g/dL RDW Std Deviation (36.4-46.3) fL RDW Coeff of Blas (11.5-14.5) % Plt Count (130-400) K/uL MPV (9.4-12.4) fL Immature Gran % (Auto) % Neut % (Auto) % Lymph % (Auto) % [place] % (Auto) % Eos % (Auto) % Baso % (Auto) % Neut # (Auto) (1.40-6.50) K/uL Lymph # (Auto) (1.2-3.4) K/uL [place] # (Auto) (0.11-0.59) K/uL Eos # (Auto) (0-0.50) K/uL Baso # (Auto) (0-0.2) K/uL Immature Gran # (Auto) (0.01-0.20) K/uL PT (9.0-12.0) Seconds INR (0.9-1.1) POC pH (7.35-7.45) POC pCO2 (35-46) mmHg POC pO2 (80-95) mmHg POC HCO3 (19-24) nikolai/L POC Base Excess (-9-1.8) nikolai/L POC ABG O2 Sat (90-95) % POC Sodium (135-144) mmol/L Sodium (136-145) mmol/L POC Potassium (3.3-5.0) mmol/L Potassium (3.5-5.1) mmol/L POC Chloride (101-112) mmol/L Chloride (98-107) mmol/L Carbon Dioxide (21-32) mmol/L POC Total CO2 (24-31) mmol/L Anion Gap (3-11) POC Anion Gap (16-25) mmol/L POC BUN (7-18) mg/dl BUN (6-23) mg/dl Creatinine (0.6-1.2) mg/dl POC Creatinine (0.6-1.3) mg/dl Est Cr Clr Drug Dosing Est GFR ( Amer) ml/min Est GFR (Non-Af Amer) ml/min BUN/Creatinine Ratio (10-20) Glucose (70-99(Fasting)) mg/dl POC Glucose (other) (70-99) mg/dl Lactate 1.5 (0.4-2.0) mmol/L Calcium (8.6-10.3) mg/dl POC Ioniz Calcium [place] (1.12-1.32) mmol/l Magnesium (1.7-2.4) mg/dl Total Bilirubin (0.2-1.0) mg/dl AST (13-39) U/L ALT (7-52) U/L Alkaline Phosphatase (34-104) U/L Troponin I High Sens (0-14) pg/ml B-Natriuretic Peptide (0-100) pg/ml Total Protein (6.0-8.3) gm/dl Albumin (3.4-5.0) gm/dl Globulin (2.5-4.0) gm/dl Albumin/Globulin Ratio (0.9-2) Procalcitonin (0-0.5) ng/ml Urine Color Urine Appearance (Clear) Urine pH (4.5-7.5) Ur Specific [place] (1.000-1.030) Urine Protein (Negative) Urine Glucose (UA) (Negative) Urine Ketones (Negative) Urine Blood (Negative) Urine Nitrite (Negative) Urine Bilirubin (Negative) Urine Urobilinogen (Negative) Ur Leukocyte Esterase (Negative) Urine WBC (Auto) (0-5) /hpf Urine RBC (Auto) (0-4) /hpf U Hyaline Cast (Auto) (0-5) /lpf U Epithel Cells (Auto) (0-5) /lpf Urine Bacteria (Auto) (Negative) Adenovirus (PCR) (NotDetected) B. pertussis DNA (PCR) (NotDetected) B.parapertussis DNA PCR (NotDetected) C. pneumoniae DNA (PCR) (NotDetected) Coronavirus OC43 (PCR) (NotDetected) Coronavirus HKU1 (PCR) (NotDetected) Coronavirus 229E (PCR) (NotDetected) SARS-CoV-2 (PCR) (NotDetected) Coronavirus NL63 (PCR) (NotDetected) Human Metapneumovir PCR (NotDetected) Influenza Type A (PCR) (NotDetected) Influenza Type B (PCR) (NotDetected) M. pneumoniae (PCR) (NotDetected) Parainfluenza 1 (PCR) (NotDetected) Parainfluenza 2 (PCR) (NotDetected) Parainfluenza 3 (PCR) (NotDetected) Parainfluenza 4 (PCR) (NotDetected) RSV (PCR) (NotDetected) Entero/Rhino (PCR) (NotDetected) Administered Medications Fentanyl Citrate (Fentanyl Citrate Pf 100 Mcg/2 Ml Vial) 50 mcg IV Q10M PRN PRN Reason: Pain Stop: 11/29/22 01:38 Last Admin: 11/15/22 01:59 Dose: 50 mcg Documented By: Admin: 11/15/22 01:43 Dose: 50 mcg Documented By: ALEJANDRA Fentanyl Citrate (Fentanyl Bolus From Bag) 50 mcg IV Q60M PRN PRN Reason: Pain or Agitation Stop: 11/29/22 02:35 Last Admin: 11/15/22 02:52 Dose: 50 mcg Documented By: ALEJANDRA Co-signed By: SANTINO Vancomycin HCl 1,000 mg/ (Sodium Chloride) 520 mls @ 200 mls/hr IV NOW ONE Stop: 11/15/22 04:36 Last Admin: 11/15/22 02:34 Dose: 200 mls/hr Documented By: ALEJANDRA Fentanyl Citrate (Fentanyl Citrate) 2,500 mcg in 250 mls @ 5 mls/hr IV .Q50H [facility]; Protocol Stop: 11/29/22 02:44 Last Admin: 11/15/22 02:38 Dose: 50 mcg/hr, 5 mls/hr Documented By: ALEJANDRA Co-signed By: SANTINO Midazolam HCl (Midazolam Hcl 1 Mg/Ml 2ml Vial) 2 mg IV Q10M PRN PRN Reason: Agitation Stop: 12/15/22 01:44 Last Admin: 11/15/22 01:59 Dose: 2 mg Documented By: Admin: 11/15/22 01:45 Dose: 2 mg Documented By: ALEJANDRA Discontinued Medications Fentanyl Citrate (Fentanyl Citrate 2,500 Mcg/250 Ml Bag) Confirm Administered Dose 2,500 mcg IV .STK-MED ONE Stop: 11/15/22 02:38 Last Admin: 11/15/22 02:40 Dose: Not Given Documented By: ALEJANDRA Sodium Chloride (Nss 1000ml) 500 mls @ 999 mls/hr IV .Q31M ONE Stop: 11/15/22 02:29 Last Infusion: 11/15/22 02:37 Dose: 0 mls/hr Documented By: Admin: 11/15/22 02:00 Dose: 999 mls/hr Documented By: ALEJANDRA Cefepime HCl (Maxipime) 2,000 mg in 20 mls @ 5 mls/min IV NOW STA; Protocol Stop: 11/15/22 02:04 Last Admin: 11/15/22 02:11 Dose: 5 mls/min Documented By: ALEJANDRA Ioversol (Ioversol 350 Mg 125ml Prefilled Syringe) 125 ml IV ONCE ONE Stop: 11/15/22 02:47 Last Admin: 11/15/22 02:46 Dose: 116 ml Documented By: VLADISLAV Methylprednisolone (Methylprednisolone 125 Mg/2 Ml Vial) Confirm Administered Dose 125 mg .ROUTE .STK-MED ONE Stop: 11/15/22 01:26 Last Admin: 11/15/22 01:28 Dose: 100 mg Documented By: KASIA Methylprednisolone (Methylprednisolone 125 Mg/2 Ml Vial) 100 mg IV NOW STA Stop: 11/15/22 01:31 Last Admin: 11/15/22 01:36 Dose: Not Given Documented By: KASIA Miscellaneous (Rapid Sequence Induction Bag) Confirm Administered Dose 1 each N/A .STK-MED ONE Stop: 11/15/22 01:15 Last Admin: 11/15/22 01:41 Dose: 1 each Documented By: ALEJANDRA Propofol (Propofol Iv Emulsion 10 Mg/Ml 100 Ml Vial) Confirm Administered Dose 1,000 mg IV .STK-MED ONE Stop: 11/15/22 01:33 Last Admin: 11/15/22 02:41 Dose: Not Given Documented By: ALEJANDRA Discharge Plan Visit Data Chief Complaint: Respiratory Arrest Stated Complaint: RESP ARREST ED Provider: Erich Ortiz Discharge Problem: Acute respiratory failure, Bilateral pleural effusion Forms Stand Alone Forms: [facility] Prescriptions Prescriptions: No Action amiodarone 200 mg tablet 200 mg PO DAILY Qty: 90 3RF Eliquis 2.5 mg tablet 2.5 mg PO BID Qty: 180 3RF alendronate 70 mg Tablet 70 mg PO WK Rx Instructions: TAKES ON MONDAY fexofenadine 180 mg Tablet 180 mg PO DAILY PRN (Reason: Allergy Symptoms) calcium carbonate [Calcium 600] 600 mg calcium (1,500 mg) Tablet 1,200 mg PO DAILY triamcinolone acetonide 0.1 % Ointment 1 applic TOPICAL DAILY PRN (Reason: Dry Skin) cholecalciferol (vitamin D3) [Vitamin D3] 2,000 unit Capsule 2,000 unit PO DAILY albuterol sulfate [ProAir HFA] 90 mcg/actuation Hfa Aerosol Inhaler 2 puff INHALATION Q6H PRN (Reason: SOB/Wheezing) Saline Mist 0.65 % Aerosol,Murray 2 spray INTRANASAL BID PRN (Reason: DRYNESS) triamcinolone acetonide [Nasacort] 55 mcg Aerosol,Murray 2 spray INTRANASAL DAILY PRN (Reason: Allergy Symptoms) acetaminophen 500 mg Tablet 500 mg PO Q6H PRN (Reason: PAIN OR FEVER) ibuprofen [Advil] 200 mg Tablet 200 mg PO Q6H PRN (Reason: Pain (Scale Score 1-3)) acetaminophen 325 mg Tablet 650 mg PO QID Qty: 120 0RF metoprolol tartrate 50 mg Tablet 50 mg PO BID Qty: 60 0RF aspirin [Children's Aspirin] 81 mg Tablet,Chewable 81 mg PO QAM Qty: 30 0RF atorvastatin 40 mg Tablet 80 mg PO DAILY Qty: 30 0RF losartan 50 mg Tablet 50 mg PO BID 30 Days Qty: 60 0RF amlodipine [Norvasc] 5 mg Tablet 5 mg PO QAM 30 Days Qty: 30 0RF cefdinir 300 mg capsule 300 mg PO BID 4 Days Qty: 8 0RF Referrals Referrals: Rosalio York MD [Primary Care Provider] -
[2022-11-15] MEDS ORDERED: fentaNYL citrate 2,500 MCG/250 ML BAG IV SCH (02:45)
[2022-11-15] MEDS ORDERED: IOVERSOL 350 MG 125mL Prefilled Syringe IV ONE (02:46)
--- NOTE | 2022-11-15 03:18 | Critical Care Consultation ---
Date of Consultation November 15, 2022 Assessment & Plan (1) Acute respiratory failure: (2) Pleural effusion: (3) Acute and chronic respiratory failure with hypoxia: (4) Pneumonia: (5) Back pain: (6) Tobacco dependence: (7) Atrial arrhythmia: Plan Reason Critically Ill: 86 YOF presents to EMD in respiratory failure with reported agonal breathing requiring BVM ventilation and subsequently intubated and placed on mechanical ventilation Neuro - Sedation for mechanical ventilation, acute on chronic back pain CAM ICU: [facility]ITA - Sedation with Fentanyl for mechanical ventilation - Consider multimodal pain approach for her back if able to extubate - Sedation Holiday in morning and SBT when appropriate Cardiac - Afib, on DOAC, HTN, HLD, Hypotension - NSR currently - Hold Apixaban until need for procedure determined - Hold antihypertensives until hemodynamics proven stable - BNP 1396- Diurese as hemodynamics allow - Does not appear to be septic at this time, hypotension likely related to sedation and mechanical ventilation- lactate 1.5, PCT negative - Last ECHO 02/12- with EF >70% limited study and RVSP >60 Respiratory - Acute on chronic respiratory failure requiring intubation and mechanical ventilation, COPD, Pleural Effusion, PNA - Recently admitted and treated for presumed Pneumonia - Unilateral Pleural Effusion on RIGHT- evaluate with ultrasound for possible thoracentesis - Previous opacification on right side improved from previous CT scan - Sputum gram stain pending- continue abx at this time de-escleate as able - Her ABG is not with hypercarbia or hypoxia- however this is following being supported with BVM for ~ 15 minutes prior- no trend availabe in EMR for review - Respiratory failure at this time multifactorial but likely most consistent with mucous plugging that cleared following PPV- likely complicated by increase in pleural effusion as well - SBT in morning GI - No acute needs - OGT to LIWS - Enteral Feedings if unable to extubate RENAL/LYTES - Hyponatremia, HyperKalemia - WIll need to review previous stay for volume review - DDX- SIADh secondary to pain vs. decrease solute intake - Making good urine- follow potassium - Continue Diaz catheter ENDO - Hyperglycemia - Does not appear to carry diagnosis of DM - ICU hyperglycemia protocol while on steroids HEME - No acute needs ID - PNA, - PNA improved compared to previous imaging, but remiains with large amount of thick brown sputum- Continue Broad Spectrum ABX - de-esclate as able - Await blood and sputum cultures - Hold Elqiuis - consider Thora LINES/IV ACCESS - PIV, ETT, Diaz, OGT Continue use of these lines DVT PROPHYLAXIS - SCDS DISPO - ICU while intubated and sedated- daily weaning/liberation trials I have personally spent 50 minutes of critical care time in the direct management of this patient. This is a life/limb threatening event. This includes time spent evaluating patient, direct bedside care, chart review, placing orders, interpretation of diagnostic studies, discussion with consultants, patient, and family members, as well as other required patient management activities. This time is exclusive of all separately billable procedures, and separate from and in addition to any other critical care service time. Thank you for allowing us to participate in the care of this patient. Please refer to my attending physician's documentation for any further recommendations. History of Present Illness Reason for Consultation: Respiratory failure requiring intubation and mechanical ventilation Requesting Physician: Timo Serrano MD Attending Physician: Timo Serrano MD History of Present Illness 86 YOF with medical history of: COPD, continued smoker, Afib (on Eliquis), chronic back pain secondary to compression fracture, osteopenia, HTN, HLD, Aortic Murmur, Pulmonary HTN. Patient arrives to the EMD today via EMS in respiratory distress. She was initially managed with BVM and subsequently intubated once family was reached. Patient was discharged from [facility] [id number] following admission for pneumonia and back pain. Upon discussing with her daughter she was discharged feeling well except for her back pain, she went home after finishing her dinner here yesterday and as the evening went on she noted her mom have rattling in her chest when she would breathe and she reports not wanting to cough because of pain. Upon getting ready for bed in the evening she noted anxiey and dyspnea for which she took her inhaler with minimal effect and around midnight she called her daughter for help and asked her to call 911. In the EMD the patient had routine labs performed to include blood cultures, ABG following her being BVM, chest Xray and CTA PE protocol, she was given steroids and antibiotics. CT PE was negative for PE but notable for Pleural effusion. She was noted with elevated BNP as well. Sputum and Gram stain was requested with note of thick borden brown secretions. Overall appears to be respiratory failure secondary to likely mucous plugging from her secretions complicated with pleural effusion. She will be admitted to ICU follow hemodynamics, attempt SBT and extubation this morning pending further developments. Broad spectrum coverage with abx therapy. CODE: DNR Allergies Allergy/AdvReac Type Severity Reaction Status Date / Time guaifenesin [From Mucinex] Allergy Intermediate Hives Verified 11/07/22 19:34 lidocaine Allergy Mild Hives Verified 11/08/22 17:37 amoxicillin Allergy Unknown Unknown Verified 11/07/22 19:34 prednisone AdvReac Severe swelling Verified 11/07/22 19:34 legs clindamycin AdvReac Intermediate Diarrhea Verified 11/07/22 19:34 lisinopril AdvReac Intermediate Cough Verified 11/07/22 19:34 Home Medications Medication Instructions Recorded Confirmed Type alendronate 70 mg tablet 70 mg PO WK 02/18/18 11/15/22 History calcium carbonate 600 mg calcium 1,200 mg PO DAILY 02/18/18 11/15/22 History (1,500 mg) tablet (Calcium) cholecalciferol (vitamin D3) 50 2,000 unit PO DAILY 02/18/18 11/15/22 History mcg (2,000 unit) capsule (Vitamin D3) fexofenadine 180 mg tablet 180 mg PO DAILY PRN Allergy 02/18/18 11/15/22 History Symptoms triamcinolone acetonide 0.1 % 1 applic topical DAILY PRN Dry Skin 02/18/18 11/15/22 History topical ointment albuterol sulfate 90 mcg/actuation 2 puff inhalation Q6H PRN 02/19/18 11/15/22 History aerosol inhaler (ProAir HFA) SOB/Wheezing triamcinolone acetonide 55 mcg 2 spray intranasal DAILY PRN 11/07/20 11/15/22 History nasal spray aerosol (Nasacort) Allergy Symptoms sodium chloride 0.65 % nasal spray 2 spray intranasal BID PRN DRYNESS 02/20/22 11/15/22 History aerosol (Saline Mist) amiodarone 200 mg tablet 200 mg PO DAILY #90 tabs 03/28/22 11/15/22 Rx apixaban 2.5 mg tablet (Eliquis) 2.5 mg PO BID #180 tabs 03/28/22 11/15/22 Rx acetaminophen 500 mg tablet 500 mg PO Q6H PRN PAIN OR FEVER 11/07/22 11/15/22 History ibuprofen 200 mg tablet (Advil) 200 mg PO Q6H PRN Pain (Scale 11/07/22 11/15/22 History Score 1-3) acetaminophen 325 mg tablet 650 mg PO QID #120 tabs 11/10/22 11/15/22 Rx aspirin 81 mg chewable tablet 81 mg PO QAM #30 tabs 11/10/22 11/15/22 Rx (Children's Aspirin) atorvastatin 40 mg tablet 80 mg PO DAILY #30 tabs 11/10/22 11/15/22 Rx metoprolol tartrate 50 mg tablet 50 mg PO BID #60 tabs 11/10/22 11/15/22 Rx amlodipine 5 mg tablet (Norvasc) 5 mg PO QAM 30 days #30 tabs 11/14/22 11/15/22 Rx cefdinir 300 mg capsule 300 mg PO BID 4 days #8 caps 11/14/22 11/15/22 Rx losartan 50 mg tablet 50 mg PO BID 30 days #60 tabs 11/14/22 11/15/22 Rx Patient History Medical History Compression deformity of vertebra Compression fracture of T12 vertebra COVID-09 february 2022 Hyperlipidemia Hypertension Spondylosis of thoracolumbar spine Thoracic kyphosis Family History (Updated 11/15/22 @ 03:14 by TOYIN Montalvo) Other COPD (chronic obstructive pulmonary disease) Heart disease Hypertension No significant family history Social History Smoking Status: Current every day smoker Tobacco Type: Cigarettes Cigarettes Per Day: 10; Second Hand Exposure: Yes; Do You Dip or Chew Tobacco: No; Hx Alcohol Use: No Hx Substance Use: No Preferred Language: Armenian Communication Ability: Impaired Communication Ability Comment: patient intubated currently Crystalizer Required: No Beliefs That Will Affect Care: None marital status: Current Living Situation: Family Current Living Situation Comment: lives with daughter Other Information That Helps Us Care for You: No Feels Safe at Home: Yes Safety Concerns: Feels Safe At This Time Assistive Devices: Glasses and Walker Review of Systems Review of Systems: REVIEW OF SYSTEMS: Unable to be completed secondary to intubation and mechanical ventilation Physical Exam Physical Exam: PHYSICAL EXAM: General: Intubated and sedated Head: Normocephalic, atraumatic ENT: PERRLA, mucous membranes moist Neuro: Intubated, coughing against ventilator, does not open eyes or follow commands, Chest: equal rise and fall of the chest, no accessory muscle use, decreased left lower base, scattered rhonchi Cardiac: Regular rate and rhythm, telemetry reviewed- NSR, skin warm dry, cap refill <3 seconds, peripheral pulses +2 no JVD, + systolic murmur with radiation to carotids, no JVD, no edema GI: NABS x 4 quadrants, soft, OGT to suction : Diaz placed to gravity Results & Data Results & Data Vital Signs (Past 12 Hours) Vital Signs Pulse Pulse Resp BP BP Pulse Ox O2 Del Method 11/15/22 02:46 62 16 97/42 L 100 Mechanical Vent 11/15/22 02:36 59 L 16 96/41 L 99 Mechanical Vent 11/15/22 02:04 58 L 16 87/42 L 100 Mechanical Vent 11/15/22 01:22 73 11/15/22 01:58 61 16 124/64 100 Mechanical Vent 11/15/22 01:39 Mechanical Vent 11/15/22 01:38 99 Mechanical Vent 11/15/22 01:36 64 16 174/68 H 99 Ambu-Bag 11/15/22 01:35 99 11/15/22 01:19 70 27 H 212/75 H 100 Ambu-Bag O2 Flow Rate 11/15/22 02:46 11/15/22 02:36 11/15/22 02:04 11/15/22 01:22 11/15/22 01:58 11/15/22 01:39 11/15/22 01:38 11/15/22 01:36 11/15/22 01:35 11/15/22 01:19 15 Laboratory Results Abnormal lab results 11/15/22 11/15/22 11/15/22 Range/Units 01:25 01:25 01:25 WBC 17.79 H (4.8-10.8) K/ul RBC 3.12 L (4.20-5.40) M/uL Hgb 9.3 L (12.0-16.0) g/dl POC Hgb (12.0-16.0) g/dl Hct 28.9 L (37.0-47.0) % POC Hct (37-47) % RDW Std Deviation 47.3 H (36.4-46.3) fL Plt Count 639 H (130-400) K/uL MPV 8.6 L (9.4-12.4) fL Neut # (Auto) 13.46 H (1.40-6.50) K/uL [place] # (Auto) 1.49 H (0.11-0.59) K/uL POC pCO2 (35-46) mmHg POC pO2 (80-95) mmHg POC HCO3 (19-24) nikolai/L POC ABG O2 Sat (90-95) % POC Sodium (135-144) mmol/L Sodium 129 L (136-145) mmol/L POC Potassium (3.3-5.0) mmol/L Potassium 5.2 H (3.5-5.1) mmol/L POC Chloride (101-112) mmol/L Chloride 96 L (98-107) mmol/L POC Anion Gap (16-25) mmol/L POC BUN (7-18) mg/dl BUN 30 H (6-23) mg/dl BUN/Creatinine Ratio 27.8 H (10-20) Glucose 252 H (70-99(Fasting)) mg/dl POC Glucose (other) (70-99) mg/dl AST 60 H (13-39) U/L Alkaline Phosphatase 182 H (34-104) U/L Troponin I High Sens 27.7 H (0-14) pg/ml B-Natriuretic Peptide 1396 H (0-100) pg/ml Albumin 3.3 L (3.4-5.0) gm/dl Urine Protein (Negative) U Epithel Cells (Auto) (0-5) /lpf 11/15/22 11/15/22 11/15/22 Range/Units 01:25 01:34 01:44 WBC (4.8-10.8) K/ul RBC (4.20-5.40) M/uL Hgb (12.0-16.0) g/dl POC Hgb 10.2 L 8.8 L (12.0-16.0) g/dl Hct (37.0-47.0) % POC Hct 30 L 26 L (37-47) % RDW Std Deviation (36.4-46.3) fL Plt Count (130-400) K/uL MPV (9.4-12.4) fL Neut # (Auto) (1.40-6.50) K/uL [place] # (Auto) (0.11-0.59) K/uL POC pCO2 48 H (35-46) mmHg POC pO2 148 H (80-95) mmHg POC HCO3 26 H (19-24) nikolai/L POC ABG O2 Sat 99.0 H (90-95) % POC Sodium 129 L 128 L (135-144) mmol/L Sodium (136-145) mmol/L POC Potassium 5.3 H (3.3-5.0) mmol/L Potassium (3.5-5.1) mmol/L POC Chloride 96 L (101-112) mmol/L Chloride (98-107) mmol/L POC Anion Gap 14.0 L (16-25) mmol/L POC BUN 33 H (7-18) mg/dl BUN (6-23) mg/dl BUN/Creatinine Ratio (10-20) Glucose (70-99(Fasting)) mg/dl POC Glucose (other) 270 H (70-99) mg/dl AST (13-39) U/L Alkaline Phosphatase (34-104) U/L Troponin I High Sens (0-14) pg/ml B-Natriuretic Peptide (0-100) pg/ml Albumin (3.4-5.0) gm/dl Urine Protein 1+ H (Negative) U Epithel Cells (Auto) 5-10 H (0-5) /lpf Diagnostic Findings Chest CTA 11/15/22 02:02 Exam(s): CTA CHEST IV Amt: 116 ML OPTIRAY 350 EXAM: CT Angiography Chest With Intravenous Contrast CLINICAL HISTORY: Reason for exam: Respiratory arrest, hx of effusions, PNA. TECHNIQUE: Axial computed tomographic angiography images of the chest with intravenous contrast. CTDI is 23.63 mGy and DLP is 296.07 mGy-cm. Automated exposure control was utilized for the study. A dose lowering technique was utilized adhering to the principles of ALARA. 2D MIP reconstructed images were created and reviewed. COMPARISON: No relevant prior studies available. FINDINGS: Pulmonary arteries: Pulmonary artery hypertension. No pulmonary embolus. Aorta: No acute findings. No thoracic aortic aneurysm. Lungs: Left lower lobe infiltrate. Subtle filtrate within the right upper lobe. Diffuse changes COPD. Compressive atelectasis of right lower lobe. No mass. Pleural space: Large right pleural effusion. No pneumothorax. Heart: Cardiomegaly. No significant pericardial effusion. No evidence of RV dysfunction. Bones/joints: No acute fracture. No dislocation. Soft tissues: Unremarkable. Lymph nodes: Unremarkable. No enlarged lymph nodes. Tubes, lines and devices: Endotracheal tube with its tip above the vu. IMPRESSION: 1. No pulmonary embolus 2. Large right pleural effusion with compressive atelectasis right lower lobe. Electronically signed by: Tan Becerril MD 11/15/22 03:[address] 11/15/22 02:02 Exam(s): CT HEAD Without Contrast EXAM: CT Head Without Intravenous Contrast CLINICAL HISTORY: Reason for exam: AMS. TECHNIQUE: Axial computed tomography images of the head/brain without intravenous contrast. CTDI is 38.88 mGy and DLP is 624.41 mGy-cm. Automated exposure control was utilized for the study. A dose lowering technique was utilized adhering to the principles of ALARA. COMPARISON: 11/07/2022 FINDINGS: Brain: Unremarkable. No hemorrhage. No significant white matter disease. No edema. Ventricles: Unremarkable. No ventriculomegaly. Bones/joints: Postoperative changes of right frontal calvarium. No acute fracture. Soft tissues: Unremarkable. Vasculature: stable postoperative changes usually aneurysm clipping. Sinuses: Unremarkable as visualized. No acute sinusitis. Mastoid air cells: Unremarkable as visualized. No mastoid effusion. IMPRESSION: No acute intracranial pathology. No change from prior exam Electronically signed by: Tan Becerril MD 11/15/22 03:34 AM Medications Administered Fentanyl Citrate (Fentanyl Citrate Pf 100 Mcg/2 Ml Vial) 50 mcg IV Q10M PRN PRN Reason: Pain Stop: 11/29/22 01:38 Last Admin: 11/15/22 01:59 Dose: 50 mcg Documented By: Admin: 11/15/22 01:43 Dose: 50 mcg Documented By: ALEJANDRA Fentanyl Citrate (Fentanyl Bolus From Bag) 50 mcg IV Q60M PRN PRN Reason: Pain or Agitation Stop: 11/29/22 02:35 Last Admin: 11/15/22 02:52 Dose: 50 mcg Documented By: ALEJANDRA Co-signed By: SANTINO Vancomycin HCl 1,000 mg/ (Sodium Chloride) 520 mls @ 200 mls/hr IV NOW ONE Stop: 11/15/22 04:36 Last Admin: 11/15/22 02:34 Dose: 200 mls/hr Documented By: ALEJANDRA Fentanyl Citrate (Fentanyl Citrate) 2,500 mcg in 250 mls @ 5 mls/hr IV .Q50H [facility]; Protocol Stop: 11/29/22 02:44 Last Admin: 11/15/22 02:38 Dose: 50 mcg/hr, 5 mls/hr Documented By: ALEJANDRA Co-signed By: SANTINO Midazolam HCl (Midazolam Hcl 1 Mg/Ml 2ml Vial) 2 mg IV Q10M PRN PRN Reason: Agitation Stop: 12/15/22 01:44 Last Admin: 11/15/22 01:59 Dose: 2 mg Documented By: Admin: 11/15/22 01:45 Dose: 2 mg Documented By: ALEJANDRA Discontinued Medications Fentanyl Citrate (Fentanyl Citrate 2,500 Mcg/250 Ml Bag) Confirm Administered Dose 2,500 mcg IV .STK-MED ONE Stop: 11/15/22 02:38 Last Admin: 11/15/22 02:40 Dose: Not Given Documented By: ALEJANDRA Sodium Chloride (Nss 1000ml) 500 mls @ 999 mls/hr IV .Q31M ONE Stop: 11/15/22 02:29 Last Infusion: 11/15/22 02:37 Dose: 0 mls/hr Documented By: Admin: 11/15/22 02:00 Dose: 999 mls/hr Documented By: ALEJANDRA Cefepime HCl (Maxipime) 2,000 mg in 20 mls @ 5 mls/min IV NOW STA; Protocol Stop: 11/15/22 02:04 Last Admin: 11/15/22 02:11 Dose: 5 mls/min Documented By: ALEJANDRA Ioversol (Ioversol 350 Mg 125ml Prefilled Syringe) 125 ml IV ONCE ONE Stop: 11/15/22 02:47 Last Admin: 11/15/22 02:46 Dose: 116 ml Documented By: VLADISLAV Methylprednisolone (Methylprednisolone 125 Mg/2 Ml Vial) Confirm Administered Dose 125 mg .ROUTE .STK-MED ONE Stop: 11/15/22 01:26 Last Admin: 11/15/22 01:28 Dose: 100 mg Documented By: KASIA Methylprednisolone (Methylprednisolone 125 Mg/2 Ml Vial) 100 mg IV NOW STA Stop: 11/15/22 01:31 Last Admin: 11/15/22 01:36 Dose: Not Given Documented By: KASIA Miscellaneous (Rapid Sequence Induction Bag) Confirm Administered Dose 1 each N/A .STK-MED ONE Stop: 11/15/22 01:15 Last Admin: 11/15/22 01:41 Dose: 1 each Documented By: ALEJANDRA Propofol (Propofol Iv Emulsion 10 Mg/Ml 100 Ml Vial) Confirm Administered Dose 1,000 mg IV .STK-MED ONE Stop: 11/15/22 01:33 Last Admin: 11/15/22 02:41 Dose: Not Given Documented By: ALEJANDRA Coding Level of Care Code 96430 CRITICAL CARE 1ST 30-74M Diagnoses Acute respiratory failure J96.00 Pleural effusion J90 Acute and chronic respiratory failure with hypoxia J96.21 Pneumonia J18.1 Laterality: right Lung location: lower lobe of lung Pneumonia type: due to unspecified organism Back pain M54.9 Tobacco dependence F17.200 Atrial arrhythmia I49.8 (4) Pneumonia Laterality: right Lung location: lower lobe of lung Pneumonia type: due to unspecified organism Qualified Code(s): J18.1 - Lobar pneumonia, unspecified organism
--- NOTE | 2022-11-15 03:35 | CT Scan Report ---
Exam(s): CT HEAD Without Contrast EXAM: CT Head Without Intravenous Contrast CLINICAL HISTORY: Reason for exam: AMS. TECHNIQUE: Axial computed tomography images of the head/brain without intravenous contrast. CTDI is 38.88 mGy and DLP is 624.41 mGy-cm. Automated exposure control was utilized for the study. A dose lowering technique was utilized adhering to the principles of ALARA. COMPARISON: 11/07/2022 FINDINGS: Brain: Unremarkable. No hemorrhage. No significant white matter disease. No edema. Ventricles: Unremarkable. No ventriculomegaly. Bones/joints: Postoperative changes of right frontal calvarium. No acute fracture. Soft tissues: Unremarkable. Vasculature: stable postoperative changes usually aneurysm clipping. Sinuses: Unremarkable as visualized. No acute sinusitis. Mastoid air cells: Unremarkable as visualized. No mastoid effusion. IMPRESSION: No acute intracranial pathology. No change from prior exam Electronically signed by: Tan Becerril MD 11/15/22 03:34 AM
--- NOTE | 2022-11-15 03:37 | CT Scan Report ---
Exam(s): CTA CHEST IV Amt: 116 ML OPTIRAY 350 EXAM: CT Angiography Chest With Intravenous Contrast CLINICAL HISTORY: Reason for exam: Respiratory arrest, hx of effusions, PNA. TECHNIQUE: Axial computed tomographic angiography images of the chest with intravenous contrast. CTDI is 23.63 mGy and DLP is 296.07 mGy-cm. Automated exposure control was utilized for the study. A dose lowering technique was utilized adhering to the principles of ALARA. 2D MIP reconstructed images were created and reviewed. COMPARISON: No relevant prior studies available. FINDINGS: Pulmonary arteries: Pulmonary artery hypertension. No pulmonary embolus. Aorta: No acute findings. No thoracic aortic aneurysm. Lungs: Left lower lobe infiltrate. Subtle filtrate within the right upper lobe. Diffuse changes COPD. Compressive atelectasis of right lower lobe. No mass. Pleural space: Large right pleural effusion. No pneumothorax. Heart: Cardiomegaly. No significant pericardial effusion. No evidence of RV dysfunction. Bones/joints: No acute fracture. No dislocation. Soft tissues: Unremarkable. Lymph nodes: Unremarkable. No enlarged lymph nodes. Tubes, lines and devices: Endotracheal tube with its tip above the vu. IMPRESSION: 1. No pulmonary embolus 2. Large right pleural effusion with compressive atelectasis right lower lobe. Electronically signed by: Tan Becerril MD 11/15/22 03:36 AM
[2022-11-15] MEDS ORDERED: FUROSEMIDE INJ 20 MG/2 ML VIAL IV ONE (05:02)
[2022-11-15] MEDS ORDERED: GLUCOSE 40% GEL 15 GM TUBE PO PRN ×2 (05:02→09:15)
[2022-11-15] MEDS ORDERED: GLUCOSE 10 TAB/TUBE PO PRN ×2 (05:02→09:15)
[2022-11-15] MEDS ORDERED: GLUCAGON FOR INJ 1 MG VIAL SQ PRN ×2 (05:02→09:15)
[2022-11-15] MEDS ORDERED: DEXTROSE 50% 50 ML SYRINGE IV PRN ×2 (05:02→09:15)
[2022-11-15] MEDS ORDERED: CARBOHYDRATES FOR HYPOGLYCEMIA PO PRN ×2 (05:02→09:15)
[2022-11-15] MEDS ORDERED: VANCOMYCIN HCL 750 MG in SODIUM CHLORIDE 0.9% 500 ML IV SCH (05:02)
[2022-11-15 05:07] LABS: iSTAT Allen Test Pass; iSTAT Art Bld Gas pCO2 Correct 53 mmHg (35-46); iSTAT Arterial Blood Gas HCO3 27 meg/L (19-24); iSTAT Arterial Blood Gas pCO2 55 mmHg (35-46); iSTAT Arterial Blood Gas pO2 109 mmHg (80-95); iSTAT Arterial Blood Gas pO2 C 104; iSTAT Carbon Dioxide 29 mmol/L (24-31); iSTAT FiO2 60 %; iSTAT Hematocrit 27 % (37-47); iSTAT Hemoglobin 9.2 g/dl (12.0-16.0); iSTAT Potassium 4.9 mmol/L (3.3-5.0); iSTAT Site L Brachial; iSTAT Sodium 130 mmol/L (135-144)
[2022-11-15] MEDS ORDERED: metroNIDAZOLE 500 MG/100 ML BAG IV SCH (06:00)
[2022-11-15] MEDS ORDERED: AZITHROMYCIN 500 MG in DEXTROSE 5% 250 ML IV ONE (06:15)
[2022-11-15] MEDS: ICU ELECTROLYTE REPLACEMENT PROTOCOL SCH ×2 (06:26→19:18)
--- NOTE | 2022-11-15 07:09 | XRay Report ---
XR chest 1V portable CLINICAL HISTORY: ETT adjustment, ventilator management COMPARISON STUDY: Chest CT November 11, 2022. Chest radiograph November 15, 2022 at 1:38 AM. FINDINGS: Tip of endotracheal tube is 2.2 cm above the vu. Tip of nasogastric tube is at least wi thin the body of the stomach. There is no pneumothorax. Cardiomediastinal silhouette is stable. Inter stitial thickening persists. Small to moderate right and trace left pleural effusions are noted. IMPRESSION: 1. Satisfactory positioning of the endotracheal tube. 2. Pulmonary edema with small to moderate right and trace left pleural effusions and associated bibas ilar opacities. ACT 112: Negative or not required by law. Electronically signed by: Peterson Davis M.D. 11/15/2022 7:08 AM
--- NOTE | 2022-11-15 07:24 | Hospitalist Progress Note ---
Date of Service November 15, 2022 Assessment & Plan (1) Acute respiratory failure: (2) Pleural effusion: (3) Acute and chronic respiratory failure with hypoxia: (4) Pneumonia: (5) Back pain: (6) Tobacco dependence: (7) Atrial arrhythmia: Plan Emelia is an 86 year old female with history of COPD, chronic tobacco use (active 1 PPD), pHTN, MAT, and protein-calorie malnutrition who presented for increased respiratory distress. She was subsequently intubated and admitted to the ICU. Acute Hypoxic Respiratory Failure/Respiratory Arrest Multifactorial - 2/2 COPD, PNA, Pleural Effusion - Patient discharged 11/14 after being treated for pneumonia on Cefdinir/Azithromycin. New O2 need last admission. - Evening of 11/14 patient developed acute dyspnea after dinner - CTA 11/14 w/o evidence of PE, but large right pleural effusion with compressive atelectasis right lower lobe (CT from 11/11 with trace Pleural effusion) - Etiology consistent with mucous plugging vs aspiration vs diastolic heart fa ilure * Recent swallow study 11/12 indicating silent aspiration, patient declined further evaluation * In the ED Received Methylprednisone 100 mg, Cefepime and vanc. * Patient intubated in ER, patient now managed in ICU, planned SBT 11/15 AM * 11/14 AB.35/pCO2 48/pO2 148/HCO3 26 post BVM. * HS Troponin 27.7 * BNP 1397 (elevated from prior 400) * 11/15 Echo w/ EF > 70%, Grade 1 DD. RVSP 40-50, Plan - * Planning repeat speech evaluation * Transitioned to Ceftriaxone in ICU 11/15 * Pending culture - sputum/blood * No planned thoracentesis as of 11/15 * S/p Lasix 10 mg IV on admission to ICU, addition Lasix 20 mg IV received AM 11/15 Hypotension - Resolved Anemia - Iron studies sent. Lumbar Back Pain Osteoporosis - Hx of multiple (L1,3,5) compression fractures (Evidenced on CT in 2020) - Lumbar XR on 11/08: New L4 compression fracture - Patient indicated back pain limiting ability to cough on admission * Tylenol prn. Multifocal Atrial Tachycardia Atrial Fibrillation - Amiodarone and Metoprolol PO as outpatient * Converted to IV Metoprolol 5mg q6 PRN on admission, held while hypotensive * Amiodarone on hold Eliquis held on admission for possible thoracentesis - Sinus rhythm on admit Hx of Transient Ischemic Attacks - Would continue aspirin, antihypertensives, and high dose statin when stable * Atorvastatin 80 mg: held on admission - Tobacco use: Continue to encourage smoking cessation - currently smoking 1 PPD outpatient - No surgical intervention desired by patient for SHUN HTN - Metoprolol/Losartan/Amlodipine: held on admission d/t hypotension Failure to thrive - Albumin 3.3 - ICU team recommendation - access information regarding food security and access to food. - Possibly side effect from amiodarone. Will follow Psychosocial issues - - Outlined as per ICU note. - To get healthcare proxy information. DVT PPx: Lovenox 40 mg SQ qAM, Eliquis held, Aspirin resumed CODE: OK with temporary intubation. No CPR/resuscitation for cardiac arrest. Does not want prolonged intubation. Diet: NPO, NG intact Consults: PT/OT Dispo: ICU Admission and Anticipated Discharge Date Admission Date: November 15, 2022 Supervising Physician Co-Signing Physician Notes Resident Physician Supervision Note: I independently interviewed and examined the patient and verified the couch history and physical, reviewed labs and image studies and agree with resident findings and care plan. Subjective 11/15: 0900 Patient intubated, no meaningful HPI. Responsive to verbal cues. Physical Exam Physical Exam: Physical Exam (0900) Gen: NAD, alert, intubated HEENT: NCAT, BELL, MMM Neuro: Responsive to verbal stimuli Resp: Non-labored, ventilated, no accessory muscle use, decreased lung sounds in LLL, scattered rhonchi CV:RRR, normal S1/S2, systolic ejection murmur Abd: Soft, non-distended, no TTP, normoactive bowels, no masses, OGT intact Extr: 2+ dp bilaterally, no edema Skin: No rashes lesions or erythema Results & Data Results & Data Vital Signs (Past 12 Hours) Vital Signs Temp Pulse Pulse Resp BP BP Pulse Ox 11/15/22 07:09 75 24 96 11/15/22 06:30 36.3 C L 74 23 96 11/15/22 06:30 128/53 L 11/15/22 06:00 36.2 C L 75 24 94 11/15/22 06:00 112/49 L 11/15/22 05:40 36.1 C L 80 25 H 149/54 H 99 11/15/22 05:02 36.1 C L 80 25 H 149/54 H 99 11/15/22 05:30 36.2 C L 72 23 95 11/15/22 05:30 117/50 L 11/15/22 05:02 11/15/22 05:15 11/15/22 05:00 36.1 C L 76 27 H 96 11/15/22 05:00 136/54 L 11/15/22 04:30 76 24 100 11/15/22 04:30 149/54 H 11/15/22 04:22 174/61 H 11/15/22 04:22 79 26 H 100 11/15/22 04:00 72 14 100 11/15/22 04:00 115/49 L 11/15/22 03:30 79 13 100 11/15/22 03:30 153/61 H 11/15/22 03:16 141/55 H 11/15/22 03:16 77 19 100 11/15/22 03:16 122/45 L 11/15/22 03:00 60 15 11/15/22 03:00 92/41 L 11/15/22 02:33 96/41 L 11/15/22 02:33 60 14 99 11/15/22 02:32 60 21 98 11/15/22 02:15 60 17 97 11/15/22 02:15 90/38 L 11/15/22 02:10 55 L 12 100 11/15/22 02:10 79/40 L 11/15/22 02:09 73/37 L 11/15/22 02:09 55 L 14 100 11/15/22 02:00 61 16 11/15/22 02:00 87/42 L 11/15/22 01:45 124/64 11/15/22 01:45 64 16 11/15/22 01:30 69 28 H 98 11/15/22 01:30 174/68 H 11/15/22 01:21 75 29 H 97 11/15/22 01:21 212/75 H 11/15/22 01:20 77 26 H 98 11/15/22 05:07 74 27 H 96 11/15/22 05:02 75 11/15/22 04:40 79 23 97 11/15/22 04:27 73 18 119/49 L 100 11/15/22 01:36 60 16 97 11/15/22 02:46 62 16 97/42 L 100 11/15/22 02:36 59 L 16 96/41 L 99 11/15/22 02:04 58 L 16 87/42 L 100 11/15/22 01:22 73 11/15/22 01:58 61 16 124/64 100 11/15/22 01:39 11/15/22 01:38 99 11/15/22 01:36 64 16 174/68 H 99 11/15/22 01:35 99 11/15/22 01:19 70 27 H 212/75 H 100 O2 Del Method O2 Flow Rate FiO2 11/15/22 07:09 35 11/15/22 06:30 11/15/22 06:30 11/15/22 06:00 11/15/22 06:00 11/15/22 05:40 Mechanical Vent 60 11/15/22 05:02 Mechanical Vent 60 11/15/22 05:30 11/15/22 05:30 11/15/22 05:02 35 11/15/22 05:15 Mechanical Vent 35 11/15/22 05:00 11/15/22 05:00 11/15/22 04:30 11/15/22 04:30 11/15/22 04:22 11/15/22 04:22 11/15/22 04:00 11/15/22 04:00 11/15/22 03:30 11/15/22 03:30 11/15/22 03:16 11/15/22 03:16 11/15/22 03:16 11/15/22 03:00 11/15/22 03:00 11/15/22 02:33 11/15/22 02:33 11/15/22 02:32 11/15/22 02:15 11/15/22 02:15 11/15/22 02:10 11/15/22 02:10 11/15/22 02:09 11/15/22 02:09 11/15/22 02:00 11/15/22 02:00 11/15/22 01:45 11/15/22 01:45 11/15/22 01:30 11/15/22 01:30 11/15/22 01:21 11/15/22 01:21 11/15/22 01:20 11/15/22 05:07 35 11/15/22 05:02 11/15/22 04:40 60 11/15/22 04:27 Mechanical Vent 60 11/15/22 01:36 60 11/15/22 02:46 Mechanical Vent 11/15/22 02:36 Mechanical Vent 11/15/22 02:04 Mechanical Vent 11/15/22 01:22 11/15/22 01:58 Mechanical Vent 11/15/22 01:39 Mechanical Vent 11/15/22 01:38 Mechanical Vent 11/15/22 01:36 Ambu-Bag 11/15/22 01:35 11/15/22 01:19 Ambu-Bag 15 Resident Activity Tracking Resident Involvement: Resident Care Provided Care Provided: Adult Hospital Medicine (4) Pneumonia Laterality: right Lung location: lower lobe of lung Pneumonia type: due to unspecified organism Qualified Code(s): J18.1 - Lobar pneumonia, unspecified organism
[2022-11-15] MEDS ORDERED: ICU Protocol for HYPERglycemia SCH (07:30)
[2022-11-15] MEDS ORDERED: AZITHROMYCIN 500 MG in DEXTROSE 5% 250 ML IV SCH (08:00)
--- NOTE | 2022-11-15 08:06 | XRay Report ---
XR chest 1V portable HISTORY: Dyspnea COMPARISON: Chest 11/11/2022. FINDINGS: Endotracheal tube terminates 11 mm from the vu. Slightly rotated study. No pneumothorax . The heart remains enlarged. Bilateral pleural effusions and bibasilar densities persist. There is m ild interstitial pulmonary edema. No acute fractures identified. IMPRESSION: 1. Endotracheal tube terminates 11 mm in the vu. 2. Pulmonary edema and bilateral pleural effusions/densities persist. ACT 112: Negative or not required by law. Electronically signed by: Alejandro Jefferson M.D. 11/15/2022 8:04 AM
[2022-11-15] MEDS ORDERED: PNEUMOCOCCAL POLYSACCHARIDES 25 MCG/0.5 ML VIAL/SYR IM ONE (09:00)
[2022-11-15] MEDS: NOREPINEPHRINE/D5W 4 MG/250 ML PLCT IV SCH (09:04)
[2022-11-15] MEDS: ICU Protocol for HYPERglycemia SCH ×3 (09:20→20:00)
[2022-11-15] MEDS ORDERED: INSULIN ASPART PER UNIT CHARGE ONE (09:36)
[2022-11-15 09:57] LABS: Phosphorus 3.2 mg/dl (2.5-4.9)
[2022-11-15 10:04] LABS: Troponin I High Sensitivity 28.5 pg/ml (0-14)
[2022-11-15] MEDS: INSULIN ASPART PER UNIT CHARGE SC SCH ×3 (10:05→19:18)
[2022-11-15] MEDS: PANTOprazole 40 MG in SYRINGE 0 ML IV SCH (10:37)
[2022-11-15] MEDS ORDERED: CEFEPIME 2,000 MG in SYRINGE 0 ML IV SCH (11:00)
--- NOTE | 2022-11-15 11:04 | XCELERA ---
[id number] [id number]
--- NOTE | 2022-11-15 11:41 | XRay Report ---
KUB HISTORY: Switch OGT to NGT COMPARISON: None. FINDINGS: Nasogastric tube terminates in the mid stomach. Small bilateral pleural effusions and bibas ilar densities are noted. The heart is mildly enlarged. Mild pulmonary vascular congestion persists. No dilated loops of bowel to suggest an obstruction. No renal calculi. No ureteral calculi. No pneum operitoneum or pneumatosis. IMPRESSION: Nasogastric tube terminates in the mid stomach. ACT 112: Negative or not required by law. Electronically signed by: Alejandro Jefferson M.D. 11/15/2022 11:39 AM
--- NOTE | 2022-11-15 11:43 | Electrocardiogram Report ---
Test Reason : Blood Pressure : / mmHG Vent. Rate : 078 BPM Atrial Rate : 000 BPM P-R Int : 000 ms QRS Dur : 082 ms QT Int : 366 ms P-R-T Axes : 000 -21 072 degrees QTc Int : 417 ms Accelerated Junctional rhythm Left ventricular hypertrophy with repolarization abnormality Abnormal ECG When compared with ECG of 07-NOV-2022 19:16, Junctional rhythm has replaced Sinus rhythm Confirmed by Cong Chisholm ([id number]) on 11/15/2022 11:43:22 AM Referred By: REFERRED SELF Confirmed By:Cong Chisholm
[2022-11-15] MEDS ORDERED: cefTRIAXone SODIUM 2,000 MG in DEXTROSE 5% 50 ML IV SCH (13:00)
[2022-11-15] MEDS: ENOXAPARIN INJ 40 MG/0.4 ML SYR SQ SCH (13:22)
[2022-11-15] MEDS: ASPIRIN 81 MG CHEW PO SCH (13:22)
[2022-11-15] MEDS ORDERED: PEPTAMEN 1.5 CAL 1,000 ML BAG NG SCH (13:30)
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
[2022-11-15] MEDS ORDERED: SUCCINYLCHOLINE CHLORIDE 20 MG/ML 10 ML VIAL IV ONE (13:53)
[2022-11-15] MEDS ORDERED: ETOMIDATE 2 MG/ML 20 ML VIAL IV ONE (13:53)
[2022-11-15] MEDS ORDERED: MIDAZOLAM HCL 5 MG/ML 2ML VIAL IV ONE (13:53)
[2022-11-15] MEDS ORDERED: fentaNYL citrate 100 MCG/2 ML CARP IV ONE (13:53)
[2022-11-15] MEDS ORDERED: CEFEPIME 1,000 MG in SYRINGE 0 ML IV SCH (14:00)
[2022-11-15] MEDS ORDERED: FUROSEMIDE INJ 20 MG/2 ML VIAL IV SCH (14:00)
[2022-11-15] MEDS: TUBE FEEDING WATER FLUSH NG SCH ×3 (15:52→20:01)
[2022-11-15] MEDS ORDERED: METOPROLOL TARTRATE 50 MG TAB NG STA (21:44)
[2022-11-16] MEDS: INSULIN ASPART PER UNIT CHARGE SC SCH ×5 (00:07→23:26)
[2022-11-16] MEDS: TUBE FEEDING WATER FLUSH NG SCH ×7 (00:12→23:27)
[2022-11-16] MEDS: NOREPINEPHRINE/D5W 4 MG/250 ML PLCT IV SCH (00:18)
[2022-11-16] MEDS: ALBUTEROL 0.083% NEBU SOLN 3 ML VIAL NEB PRN ×2 (02:17→17:05)
[2022-11-16] MEDS: METOPROLOL TARTRATE 1 MG/ML VIAL IV PRN ×2 (03:16→18:15)
[2022-11-16] MEDS: ACETAMINOPHEN 1,000 MG/100 ML VIAL IV PRN ×2 (03:22→21:41)
[2022-11-16] MEDS: MAGNESIUM SULFATE / D5W 1 GM/100 ML BAG IV SCH ×2 (03:44→05:14)
[2022-11-16 04:42] LABS: Basophils # (auto) 0.05 K/uL (0-0.2); Basophils % (auto) 0.3 %; Hemoglobin 8.6 g/dl (12.0-16.0); Immature Granulocytes # (auto) 0.14 K/uL (0.01-0.20); Immature Granulocytes % (auto) 0.7 %; Lymphocytes # (auto) 1.15 K/uL (1.2-3.4); Lymphocytes % (auto) 5.9 %; Mean Corpuscular Hemoglobin 29.7 pg (25.0-34.0); Mean Corpuscular Hgb Conc 33.1 g/dL (32.0-36.0); Mean Corpuscular Volume 89.7 fL (80.0-100.0); Mean Platelet Volume 8.5 fL (9.4-12.4); Monocytes # (auto) 1.34 K/uL (0.11-0.59); Monocytes % (auto) 6.9 %; Neutrophils # (auto) 16.71 K/uL (1.40-6.50); Neutrophils % (auto) 86.2 %; Platelet Count 584 K/uL (130-400); RDW Coefficient of Variation 14.2 % (11.5-14.5); RDW Standard Deviation 46.5 fL (36.4-46.3); White Blood Count 19.39 K/ul (4.8-10.8)
[2022-11-16 04:53] LABS: BUN Creatinine Ratio 26.5 (10-20); Bilirubin,Total 0.2 mg/dl (0.2-1.0); Calcium 8.8 mg/dl (8.6-10.3); Creatinine Clr Calc Pharmacy 32.5 ml/min; Est GFR (African American) 74.5 ml/min; Est GFR (Non-African American) 64.3 ml/min; Magnesium 1.9 mg/dl (1.7-2.4); Phosphorus 3.3 mg/dl (2.5-4.9); Potassium 4.3 mmol/L (3.5-5.1)
[2022-11-16] MEDS: ICU ELECTROLYTE REPLACEMENT PROTOCOL SCH ×2 (05:26→16:43)
--- NOTE | 2022-11-16 06:56 | Hospitalist Progress Note ---
Date of Service November 16, 2022 Assessment & Plan (1) Acute respiratory failure: (2) Pleural effusion: (3) Acute and chronic respiratory failure with hypoxia: (4) Pneumonia: (5) Back pain: (6) Tobacco dependence: (7) Atrial arrhythmia: Plan Emelia is an 86 year old female with history of COPD, chronic tobacco use (active 1 PPD), pHTN, MAT, and protein-calorie malnutrition who presented for increased respiratory distress. She was subsequently intubated and admitted to the ICU. Acute Hypoxic Respiratory Failure/Respiratory Arrest Multifactorial - 2/2 COPD, PNA, Pleural Effusion - Patient discharged 11/14 after being treated for pneumonia on Cefdinir/Azithromycin. New O2 need last admission. - Evening of 11/14 patient developed acute dyspnea after dinner * CTA 11/14 large right pleural effusion with compressive atelectasis right lower lobe (CT from 11/11 with trace Pleural effusion) * Recent swallow study 11/12 indicating silent aspiration, patient declined further evaluation * HS Troponin 27.7 * BNP 1397 (elevated from prior 400) * 11/15 Echo w/ EF > 70%, Grade 1 DD. RVSP 40-50, * Blood Cultures - NGTD @ 24 hours * Sputum Cultures - Corynebacterium - Etiology consistent with mucous plugging vs aspiration vs diastolic heart failure. 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 - In the ED * Patient intubated in ER, extubated 11/15 * Received Methylprednisone 100 mg/ Cefepime/ Vancomycin Plan - * Planning repeat speech evaluation - on hod d/t respiratory distress * Transitioned to Ceftriaxone in ICU 11/15, changed to Cefepime/Flagyl in ICU 11/16 d/t increased WBC count (19) * No planned thoracentesis as of 11/16 * Lasix 10 mg 11/14, Lasix 20 mg IV 11/15, additional Lasix 40 mg IV received AM 11/16 - Neg 2L Sinus Pauses (5-6s) MAT/AFib - Patient with mild confusion post episode - No active chest pain, dyspnea ongoing - STAT Cardiology consult * Suspect conversion pauses from AFib to NSR * No surgical intervention planned * Recommended Amiodarone 150 mg loading dose followed by Amiodarone drip (home PO dose held) * Recommended discontinuation of Metoprolol to decrease pause duration (PRN IV dose available) - Pacemaker pads placed following episode, Atropine available at bedside - Eliquis held on admission, Anemia normocytic - Iron studies sent. Lumbar Back Pain Osteoporosis - Hx of multiple (L1,3,5) compression fractures (Evidenced on CT in 2020) - Lumbar XR on 11/08: New L4 compression fracture - Patient indicated back pain limiting ability to cough on admission * Tylenol prn. Hx of Transient Ischemic Attacks - Would continue aspirin, antihypertensives, and high dose statin when stable * Atorvastatin 80 mg: held on admission - Tobacco use: Continue to encourage smoking cessation - currently smoking 1 PPD outpatient - No surgical intervention desired by patient for SHUN HTN - Metoprolol/Losartan/Amlodipine: held on admission d/t hypotension Failure to thrive - Albumin 3.3 - ICU team recommendation - Access information regarding food security and access to food. - Possibly side effect from amiodarone, will follow - NGT feedings paused 11/16 given increased respiratory distress Psychosocial issues - - Outlined as per ICU note. - To get healthcare proxy information. DVT PPx: Lovenox 40 mg SQ qAM, Eliquis held, Aspirin resumed CODE: OK with temporary intubation. No CPR/resuscitation for cardiac arrest. Does not want prolonged intubation. Diet: NPO, NG intact Consults: PT/OT Dispo: ICU Admission and Anticipated Discharge Date Admission Date: November 15, 2022 Supervising Physician Co-Signing Physician Notes Resident Physician Supervision Note: I independently interviewed and examined the patient and verified the couch history and physical, reviewed labs and image studies and agree with resident findings and care plan. Subjective 11/16: Patient extubated, responsive to questions. She denies back pain or chest pain this morning, but notes worsening dyspnea. She is not experiencing pleuritic pain. Pat notes that when she lays flat she is extremely uncomfortable and is ultimately most comfortable sitting upright. Patient notes desire for full code measures in the event of an emergency (documented). Physical Exam Physical Exam: Gen: NAD, alert, cachectic HEENT: NCAT, BELL, MMM Neuro: AO x 3, no focal deficits Resp: Labored, accessory muscle use (abdominal breaths), diminished breath sounds bilaterally, expiratory wheezing throughout (worse in bases, R>L) CV:irregularly irregular, normal S1/S2, systolic ejection murmur Abd: Soft, non-distended, no TTP, normoactive bowels, no masses, NGT intact Extr: 2+ dp bilaterally, no edema Skin: No rashes lesions or erythema Results & Data Results & Data Vital Signs (Past 12 Hours) Vital Signs Temp Pulse Pulse Resp BP Pulse Ox O2 Del Method 11/16/22 05:30 36.8 C 124 H 16 97 11/16/22 05:00 36.8 C 115 H 36 H 99 11/16/22 05:00 142/76 H 11/16/22 04:30 36.8 C 118 H 16 97 11/16/22 04:00 36.8 C 125 H 23 98 11/16/22 04:00 131/75 11/16/22 03:30 36.8 C 92 H 22 97 11/16/22 03:00 36.8 C 123 H 18 99 11/16/22 03:00 129/95 11/16/22 02:30 36.8 C 82 24 100 11/16/22 02:00 36.8 C 93 H 20 90 11/16/22 02:00 199/77 H 11/16/22 01:30 36.8 C 77 17 95 11/16/22 01:00 36.8 C 76 17 95 11/16/22 01:00 183/69 H 11/16/22 00:30 36.9 C 81 21 95 11/16/22 00:00 36.9 C 77 23 95 11/16/22 00:00 178/77 H 11/15/22 23:30 36.9 C 76 21 95 11/15/22 23:00 36.9 C 75 22 95 11/15/22 23:00 183/76 H 11/15/22 22:30 36.9 C 79 19 95 11/16/22 03:24 123 H 129/95 11/16/22 03:16 115 H 129/95 11/16/22 02:18 76 22 98 Oxymask 11/15/22 22:45 Oxymask 11/15/22 22:00 85 24 94 11/15/22 22:00 183/70 H 11/15/22 21:30 37.0 C 85 17 97 11/15/22 21:00 37.0 C 85 19 95 11/15/22 21:00 182/68 H 11/15/22 20:30 37.1 C 84 17 96 11/15/22 20:00 37.1 C 82 17 97 11/15/22 20:00 167/67 H 11/15/22 19:30 37.1 C 86 23 97 11/15/22 19:00 167/69 H 11/15/22 19:00 37.0 C 88 20 96 11/15/22 19:24 87 O2 Flow Rate 11/16/22 05:30 11/16/22 05:00 11/16/22 05:00 11/16/22 04:30 11/16/22 04:00 11/16/22 04:00 11/16/22 03:30 11/16/22 03:00 11/16/22 03:00 11/16/22 02:30 11/16/22 02:00 11/16/22 02:00 11/16/22 01:30 11/16/22 01:00 11/16/22 01:00 11/16/22 00:30 11/16/22 00:00 11/16/22 00:00 11/15/22 23:30 11/15/22 23:00 11/15/22 23:00 11/15/22 22:30 11/16/22 03:24 11/16/22 03:16 11/16/22 02:18 6 11/15/22 22:45 2 11/15/22 22:00 11/15/22 22:00 11/15/22 21:30 11/15/22 21:00 11/15/22 21:00 11/15/22 20:30 11/15/22 20:00 11/15/22 20:00 11/15/22 19:30 11/15/22 19:00 11/15/22 19:00 11/15/22 19:24 Resident Activity Tracking Resident Involvement: Resident Care Provided Care Provided: Adult Hospital Medicine (4) Pneumonia Laterality: right Lung location: lower lobe of lung Pneumonia type: due to unspecified organism Qualified Code(s): J18.1 - Lobar pneumonia, unspecified organism
[2022-11-16] MEDS ORDERED: FUROSEMIDE 40 MG/4 ML VIAL IV ONE ×4 (07:42→18:16)
[2022-11-16] MEDS: ASPIRIN 81 MG CHEW PO SCH (07:53)
[2022-11-16] MEDS: ENOXAPARIN INJ 40 MG/0.4 ML SYR SQ SCH (07:53)
[2022-11-16] MEDS: MULTI VIT W/MINERALS LIQUID 15 ML UDP NG SCH (07:54)
[2022-11-16] MEDS ORDERED: AZITHROMYCIN 500 MG in DEXTROSE 5% 250 ML IV SCH (08:00)
--- NOTE | 2022-11-16 08:11 | XRay Report ---
XR chest 1V portable HISTORY: 86 years-old Female follow respiratory distress and r pl effusion acute shortness of breath COMPARISON: 11/15/2022 TECHNIQUE: AP view of the chest FINDINGS: Cardiac silhouette is enlarged. Status post extubation. Distal tip of enteric tube projects over the stomach. Emphysema. No pneumothorax. Right vertebral left pleural effusions with bibasilar consolidat ion. Pulmonary vascular congestion with right lung predominant interstitial coarsening again noted. D egenerative changes of the shoulders and spine. IMPRESSION: 1. Status post extubation. 2. Cardiomegaly with pulmonary edema. 3. Layering pleural effusions with persistent bibasilar consolidation. 4. Emphysema. ACT 112: Negative or not required by law. The above report was generated using voice recognition software. It may contain grammatical, syntax o r spelling errors. Electronically signed by: Zbigniew Soto M.D. 11/16/2022 8:10 AM
[2022-11-16] MEDS ORDERED: AMIODARONE 200 MG TAB PO SCH (09:00)
[2022-11-16] MEDS ORDERED: METOPROLOL TARTRATE 50 MG TAB PO SCH (09:00)
[2022-11-16] MEDS ORDERED: ATROPINE SULFATE 0.1 MG/ML 10ML SYR IV ONE (09:29)
[2022-11-16] MEDS ORDERED: ATROPINE SULFATE 0.1 MG/ML 10ML SYR IV PRN (10:27)
[2022-11-16] MEDS ORDERED: AMIODARONE / D5W 150 MG/100 ML BAG IV SCH (10:30)
[2022-11-16] MEDS ORDERED: 0.2 MICRON FILTER SET 1 EACH IV ONE (10:30)
[2022-11-16] MEDS: PANTOprazole 40 MG in SYRINGE 0 ML IV SCH (10:38)
[2022-11-16] MEDS ORDERED: AMIODARONE / D5W 360 MG/200 ML BAG IV SCH (10:45)
[2022-11-16] MEDS: CEFEPIME 2,000 MG in SYRINGE 0 ML IV SCH ×2 (10:53→22:03)
[2022-11-16] MEDS: THIAMINE HCL 100 MG TAB NG SCH (10:53)
--- NOTE | 2022-11-16 10:59 | Critical Care Progress Note ---
Date of Service November 16, 2022 Assessment & Plan (1) Acute respiratory failure: Plan: The patient has a history of atrial fibrillation. She seems to have paroxysmal A-fib. She had been tachycardic and so received her home amiodarone of 200 mg p.o. She is also on 50 mg of metoprolol twice daily. However early this morning she started developing some prolonged sinus pauses between 5 and 6 seconds. She was asymptomatic with most of them though with 1 did get somewhat confused and asked where she was whereas before she was completely oriented. We placed pacer pads on her. There was a previous echo which confirmed again her hyperdynamic LV of 70% with some mild to moderate aortic regurgitation and moderate mitral regurgitation. A chest x-ray again shows the right pleural effusion and evidence of vascular congestion. We appreciate cardiology is quick attention in consultation for her. In review of the strips it was thought that she was trying to have some conversion pauses and try to convert from atrial fibrillation but the sinus node was just taking an additional time recovering. Because then she was quite tachycardic with A-fib conversely we will give her a load of 150 mg of IV amiodarone and place her on An amiodarone drip and discontinue her beta-ana cristina of metoprolol. Cardiology seem to feel that a pacemaker was not indicated at this time. 1. Neuropsych: The patient is a generally awake alert and interactive and able to make her own decisions. She has decided last night to allow intubation and then this morning allowed chest compressions and resuscitation so she is now full code. We will try to clarify with her her healthcare agent and can sign that in her house and ask her who she wants to have as a decision maker. 2. Cardiac: As above A-fib with rapid ventricular response and now with compensatory sinus pauses. Cardiology does not feel that a pacemaker is indicated. We will try to maximize and replete her electrolytes. Pacemaker pads are in place and atropine is at the bedside. Again as above IV amiodarone bolus of 150 mg will be administered and drip maintained in order to try to keep her in sinus rhythm. If she becomes hypotensive then Dagoberto-Synephrine will be initiated rather than the Levophed. No new abnormalities with regards to her echocardiogram. 3. Respiratory: She seems in some distress. Hopefully it will not come down to requiring intubation. BiPAP could be initiated before that. It is possible now with her A-fib and the sinus pauses that she is having some congestive heart failure. Diastolic heart failure is also possible contributing to but she is not overly hypertensive. For now I would defer performing a thoracentesis because it will likely recur. She did receive her Lovenox today and we will try instead diuresis and maintaining sinus rhythm for her. Her kyphosis also is contributing to poor pulmonary mechanics. It is hard for her to even lay back on the upright part of the bed. 4. GI: While she is an extremis and potentially needing resuscitation her tube feeds are on hold. But if they stabilized we can resume tonight or later today. There was a concern of aspiration during her last admission. Certainly now that she is in some extremis would not let her eat p.o. and risk a worsening pneumonia if she aspirates. There is likely a ventral hernia but that should not impact our current course. 5. For renal we will diurese her and give her 40 of Lasix and replete her magnesium. Her sodium is slightly higher than before at 132 but possibly low with congestive heart failure. Her potassium should support the diuresis. 6. ID: Her white count is up now to 19.3 and that might be from stress but will expand her antibiotics to cefepime and Flagyl from ceftriaxone alone. 7. Heme. We will check her iron stores with her anemia. Her platelet count has decreased to 586 from the 600s and is likely a stress response. She remains on Lovenox and did receive a dose today. It should be on hold if we want to perform a thoracentesis. 8. We will check her TSH especially with her A-fib with rapid ventricular response as well as with the amiodarone. (2) Bilateral pleural effusion: (3) Thoracic kyphosis: (4) Hypokalemia: (5) Sinus pause: Admission and Anticipated Discharge Date Admission Date: November 15, 2022 Subjective The patient is awake and alert today. She feels somewhat short of breath. She has no chest pain no cough or phlegm production. The patient was asked about her CODE STATUS and when discussed whether or not she would want to have CPR performed to bring her back if she she said of course. I asked her if came down to requiring a pacemaker and she said that she would take that. Otherwise, there is no abdominal pain nausea or vomiting. No lightheadedness or loss of consciousness. Physical Exam Physical Exam: The patient has severe kyphosis. She seemed to have some labored breathing this morning and some belly breathing. She has profound cachexia. Lungs are diminished bilaterally and decreased breath sounds right base greater than left heart is irregularly irregular with a 2 out of 6 systolic ejection murmur abdomen is protuberant but soft with a ventral hernia. Extremities without clubbing cyanosis or edema again, severe muscle wasting. Results & Data Results & Data Vital Signs (Past 12 Hours) Vital Signs Temp Pulse Pulse Resp BP Pulse Ox O2 Del Method 11/16/22 05:30 36.8 C 124 H 16 97 11/16/22 05:00 36.8 C 115 H 36 H 99 11/16/22 05:00 142/76 H 11/16/22 04:30 36.8 C 118 H 16 97 11/16/22 04:00 36.8 C 125 H 23 98 11/16/22 04:00 131/75 11/16/22 03:30 36.8 C 92 H 22 97 11/16/22 03:00 36.8 C 123 H 18 99 11/16/22 03:00 129/95 11/16/22 02:30 36.8 C 82 24 100 11/16/22 02:00 36.8 C 93 H 20 90 11/16/22 02:00 199/77 H 11/16/22 01:30 36.8 C 77 17 95 11/16/22 01:00 36.8 C 76 17 95 11/16/22 01:00 183/69 H 11/16/22 00:30 36.9 C 81 21 95 11/16/22 00:00 36.9 C 77 23 95 11/16/22 00:00 178/77 H 11/15/22 23:30 36.9 C 76 21 95 11/15/22 23:00 36.9 C 75 22 95 11/15/22 23:00 183/76 H 11/16/22 03:24 123 H 129/95 11/16/22 03:16 115 H 129/95 11/16/22 02:18 76 22 98 Oxymask 11/15/22 22:45 Oxymask O2 Flow Rate 11/16/22 05:30 11/16/22 05:00 11/16/22 05:00 11/16/22 04:30 11/16/22 04:00 11/16/22 04:00 11/16/22 03:30 11/16/22 03:00 11/16/22 03:00 11/16/22 02:30 11/16/22 02:00 11/16/22 02:00 11/16/22 01:30 11/16/22 01:00 11/16/22 01:00 11/16/22 00:30 11/16/22 00:00 11/16/22 00:00 11/15/22 23:30 11/15/22 23:00 11/15/22 23:00 11/16/22 03:24 11/16/22 03:16 11/16/22 02:18 6 11/15/22 22:45 2 Laboratory Results Laboratory Results WBC 19.39 K/ul (4.8-10.8) H 11/16/22 04:01 RBC 2.90 M/uL (4.20-5.40) L 11/16/22 04:01 Hgb 8.6 g/dl (12.0-16.0) L 11/16/22 04:01 POC Hgb 9.2 g/dl (12.0-16.0) L 11/15/22 04:53 Hct 26.0 % (37.0-47.0) L 11/16/22 04:01 POC Hct 27 % (37-47) L 11/15/22 04:53 MCV 89.7 fL (80.0-100.0) 11/16/22 04:01 MCH 29.7 pg (25.0-34.0) 11/16/22 04:01 MCHC 33.1 g/dL (32.0-36.0) 11/16/22 04:01 RDW Std Deviation 46.5 fL (36.4-46.3) H 11/16/22 04:01 RDW Coeff of Blas 14.2 % (11.5-14.5) 11/16/22 04:01 Plt Count 584 K/uL (130-400) H 11/16/22 04:01 MPV 8.5 fL (9.4-12.4) L 11/16/22 04:01 Immature Gran % (Auto) 0.7 % 11/16/22 04:01 Neut % (Auto) 86.2 % 11/16/22 04:01 Lymph % (Auto) 5.9 % 11/16/22 04:01 [place] % (Auto) 6.9 % 11/16/22 04:01 Eos % (Auto) 0.0 % 11/16/22 04:01 Baso % (Auto) 0.3 % 11/16/22 04:01 Neut # (Auto) 16.71 K/uL (1.40-6.50) H 11/16/22 04:01 Lymph # (Auto) 1.15 K/uL (1.2-3.4) L 11/16/22 04:01 [place] # (Auto) 1.34 K/uL (0.11-0.59) H 11/16/22 04:01 Eos # (Auto) 0.00 K/uL (0-0.50) 11/16/22 04:01 Baso # (Auto) 0.05 K/uL (0-0.2) 11/16/22 04:01 Immature Gran # (Auto) 0.14 K/uL (0.01-0.20) 11/16/22 04:01 PT 10.2 Seconds (9.0-12.0) 11/15/22 01:25 INR 0.9 (0.9-1.1) 11/15/22 01:25 Sample Site L Brachial 11/15/22 04:53 POC pH 7.30 (7.35-7.45) L 11/15/22 04:53 POC pCO2 55 mmHg (35-46) H 11/15/22 04:53 POC pO2 109 mmHg (80-95) H 11/15/22 04:53 POC HCO3 27 nikolai/L (19-24) H 11/15/22 04:53 POC Total CO2 29 mmol/L (24-31) 11/15/22 04:53 POC Base Excess 0.0 nikolai/L (-9-1.8) 11/15/22 04:53 ABG pH (Temp Correct) 7.310 (7.35-7.45) L 11/15/22 04:53 ABG pCO2 (Temp Corrct 53 mmHg (35-46) H 11/15/22 04:53 POC ABG pO2 at Pt Temp 104 11/15/22 04:53 POC ABG O2 Sat 98.0 % (90-95) H 11/15/22 04:53 Josafat Test Pass 11/15/22 04:53 O2 Delivery Device Ventilator 11/15/22 04:53 POC O2 Rate 18 11/15/22 04:53 POC FiO2 60 % 11/15/22 04:53 Tidal Volume 255 11/15/22 04:53 PEEP 8 11/15/22 04:53 POC Sodium 130 mmol/L (135-144) L 11/15/22 04:53 Sodium 132 mmol/L (136-145) L 11/16/22 04:01 POC Potassium 4.9 mmol/L (3.3-5.0) 11/15/22 04:53 Potassium 4.3 mmol/L (3.5-5.1) 11/16/22 04:01 POC Chloride 96 mmol/L (101-112) L 11/15/22 01:25 Chloride 97 mmol/L (98-107) L 11/16/22 04:01 Carbon Dioxide 29 mmol/L (21-32) 11/16/22 04:01 POC Total CO2 26 mmol/L (24-31) 11/15/22 01:25 Anion Gap 6 (3-11) 11/16/22 04:01 POC Anion Gap 14.0 mmol/L (16-25) L 11/15/22 01:25 POC BUN 33 mg/dl (7-18) H 11/15/22 01:25 BUN 22 mg/dl (6-23) 11/16/22 04:01 Creatinine 0.83 mg/dl (0.6-1.2) 11/16/22 04:01 POC Creatinine 1.1 mg/dl (0.6-1.3) 11/15/22 01:25 Est Cr Clr Drug Dosing 32.5 ml/min 11/16/22 04:01 Est GFR ( Amer) 74.5 ml/min 11/16/22 04:01 Est GFR (Non-Af Amer) 64.3 ml/min 11/16/22 04:01 BUN/Creatinine Ratio 26.5 (10-20) H 11/16/22 04:01 Glucose 130 mg/dl (70-99(Fasting)) H 11/16/22 04:01 POC Glucose 158 mg/dl (70-99) H 11/16/22 02:30 POC Glucose (other) 270 mg/dl (70-99) H 11/15/22 01:25 Lactate 1.5 mmol/L (0.4-2.0) 11/15/22 02:10 Calcium 8.8 mg/dl (8.6-10.3) 11/16/22 04:01 POC Ioniz Calcium [place] 1.19 mmol/l (1.12-1.32) 11/15/22 01:25 Phosphorus 3.3 mg/dl (2.5-4.9) 11/16/22 04:01 Magnesium 1.9 mg/dl (1.7-2.4) 11/16/22 04:01 Iron 13 mcg/dl (35-150) L 11/15/22 09:21 Unsaturated IBC 352 mcg/dl (155-355) 11/16/22 04:01 Total Bilirubin 0.2 mg/dl (0.2-1.0) 11/16/22 04:01 AST 43 U/L (13-39) H 11/16/22 04:01 ALT 42 U/L (7-52) 11/16/22 04:01 Alkaline Phosphatase 151 U/L (34-104) H 11/16/22 04:01 Troponin I High Sens 28.5 pg/ml (0-14) H 11/15/22 09:21 B-Natriuretic Peptide 1396 pg/ml (0-100) H 11/15/22 01:25 Total Protein 6.0 gm/dl (6.0-8.3) 11/16/22 04:01 Albumin 3.0 gm/dl (3.4-5.0) L 11/16/22 04:01 Globulin 3.0 gm/dl (2.5-4.0) 11/16/22 04:01 Albumin/Globulin Ratio 1.0 (0.9-2) 11/16/22 04:01 Procalcitonin 0.11 ng/ml (0-0.5) 11/15/22 15:22 Urine Color Yellow 11/15/22 01:34 Urine Appearance Clear (Clear) 11/15/22 01:34 Urine pH 6.0 (4.5-7.5) 11/15/22 01:34 Ur Specific [place] 1.016 (1.000-1.030) 11/15/22 01:34 Urine Protein 1+ (Negative) H 11/15/22 01:34 Urine Glucose (UA) Negative (Negative) 11/15/22 01:34 Urine Ketones Negative (Negative) 11/15/22 01:34 Urine Blood Negative (Negative) 11/15/22 01:34 Urine Nitrite Negative (Negative) 11/15/22 01:34 Urine Bilirubin Negative (Negative) 11/15/22 01:34 Urine Urobilinogen Negative (Negative) 11/15/22 01:34 Ur Leukocyte Esterase Negative (Negative) 11/15/22 01:34 Urine WBC (Auto) 0 /hpf (0-5) 11/15/22 01:34 Urine RBC (Auto) 0-4 /hpf (0-4) 11/15/22 01:34 U Hyaline Cast (Auto) 1-5 /lpf (0-5) 11/15/22 01:34 U Epithel Cells (Auto) 5-10 /lpf (0-5) H 11/15/22 01:34 Urine Bacteria (Auto) Negative (Negative) 11/15/22 01:34 Nasal Screen MRSA (PCR) Negative (Negative) 11/15/22 04:30 Adenovirus (PCR) Not Detected (NotDetected) 11/15/22 01:38 B. pertussis DNA (PCR) Not Detected (NotDetected) 11/15/22 01:38 B.parapertussis DNA PCR Not Detected (NotDetected) 11/15/22 01:38 C. pneumoniae DNA (PCR) Not Detected (NotDetected) 11/15/22 01:38 Coronavirus OC43 (PCR) Not Detected (NotDetected) 11/15/22 01:38 Coronavirus HKU1 (PCR) Not Detected (NotDetected) 11/15/22 01:38 Coronavirus 229E (PCR) Not Detected (NotDetected) 11/15/22 01:38 SARS-CoV-2 (PCR) Not Detected (NotDetected) 11/15/22 01:38 Coronavirus NL63 (PCR) Not Detected (NotDetected) 11/15/22 01:38 Human Metapneumovir PCR Not Detected (NotDetected) 11/15/22 01:38 Influenza Type A (PCR) Not Detected (NotDetected) 11/15/22 01:38 Influenza Type B (PCR) Not Detected (NotDetected) 11/15/22 01:38 M. pneumoniae (PCR) Not Detected (NotDetected) 11/15/22 01:38 Parainfluenza 1 (PCR) Not Detected (NotDetected) 11/15/22 01:38 Parainfluenza 2 (PCR) Not Detected (NotDetected) 11/15/22 01:38 Parainfluenza 3 (PCR) Not Detected (NotDetected) 11/15/22 01:38 Parainfluenza 4 (PCR) Not Detected (NotDetected) 11/15/22 01:38 RSV (PCR) Not Detected (NotDetected) 11/15/22 01:38 Entero/Rhino (PCR) Not Detected (NotDetected) 11/15/22 01:38 Impressions Chest CTA 11/15/22 02:02 Exam(s): CTA CHEST IV Amt: 116 ML OPTIRAY 350 EXAM: CT Angiography Chest With Intravenous Contrast CLINICAL HISTORY: Reason for exam: Respiratory arrest, hx of effusions, PNA. TECHNIQUE: Axial computed tomographic angiography images of the chest with intravenous contrast. CTDI is 23.63 mGy and DLP is 296.07 mGy-cm. Automated exposure control was utilized for the study. A dose lowering technique was utilized adhering to the principles of ALARA. 2D MIP reconstructed images were created and reviewed. COMPARISON: No relevant prior studies available. FINDINGS: Pulmonary arteries: Pulmonary artery hypertension. No pulmonary embolus. Aorta: No acute findings. No thoracic aortic aneurysm. Lungs: Left lower lobe infiltrate. Subtle filtrate within the right upper lobe. Diffuse changes COPD. Compressive atelectasis of right lower lobe. No mass. Pleural space: Large right pleural effusion. No pneumothorax. Heart: Cardiomegaly. No significant pericardial effusion. No evidence of RV dysfunction. Bones/joints: No acute fracture. No dislocation. Soft tissues: Unremarkable. Lymph nodes: Unremarkable. No enlarged lymph nodes. Tubes, lines and devices: Endotracheal tube with its tip above the vu. IMPRESSION: 1. No pulmonary embolus 2. Large right pleural effusion with compressive atelectasis right lower lobe. Electronically signed by: Tan Becerril MD 11/15/22 03:[address] 11/15/22 02:02 Exam(s): CT HEAD Without Contrast EXAM: CT Head Without Intravenous Contrast CLINICAL HISTORY: Reason for exam: AMS. TECHNIQUE: Axial computed tomography images of the head/brain without intravenous contrast. CTDI is 38.88 mGy and DLP is 624.41 mGy-cm. Automated exposure control was utilized for the study. A dose lowering technique was utilized adhering to the principles of ALARA. COMPARISON: 11/07/2022 FINDINGS: Brain: Unremarkable. No hemorrhage. No significant white matter disease. No edema. Ventricles: Unremarkable. No ventriculomegaly. Bones/joints: Postoperative changes of right frontal calvarium. No acute fracture. Soft tissues: Unremarkable. Vasculature: stable postoperative changes usually aneurysm clipping. Sinuses: Unremarkable as visualized. No acute sinusitis. Mastoid air cells: Unremarkable as visualized. No mastoid effusion. IMPRESSION: No acute intracranial pathology. No change from prior exam Electronically signed by: Tan Becerril MD 11/15/22 03:34 AM KUB X-Ray 11/15/22 10:58 KUB HISTORY: Switch OGT to NGT COMPARISON: None. FINDINGS: Nasogastric tube terminates in the mid stomach. Small bilateral pleural effusions and bibasilar densities are noted. The heart is mildly enlarged. Mild pulmonary vascular congestion persists. No dilated loops of bowel to suggest an obstruction. No renal calculi. No ureteral calculi. No pneumoperitoneum or pneumatosis. IMPRESSION: Nasogastric tube terminates in the mid stomach. ACT 112: Negative or not required by law. Electronically signed by: Alejandro Jefferson M.D. 11/15/2022 11:39 AM Chest X-Ray 11/16/22 07:38 XR chest 1V portable HISTORY: 86 years-old Female follow respiratory distress and r pl effusion acute shortness of breath COMPARISON: 11/15/2022 TECHNIQUE: AP view of the chest FINDINGS: Cardiac silhouette is enlarged. Status post extubation. Distal tip of enteric tube projects over the stomach. Emphysema. No pneumothorax. Right vertebral left pleural effusions with bibasilar consolidation. Pulmonary vascular congestion with right lung predominant interstitial coarsening again noted. Degenerative changes of the shoulders and spine. IMPRESSION: 1. Status post extubation. 2. Cardiomegaly with pulmonary edema. 3. Layering pleural effusions with persistent bibasilar consolidation. 4. Emphysema. ACT 112: Negative or not required by law. The above report was generated using voice recognition software. It may contain grammatical, syntax or spelling errors. Electronically signed by: Zbigniew Soto M.D. 11/16/2022 8:10 AM Medications Administered Current Inpatient Medications Albuterol (Albuterol 0.083% Nebu Soln 3 Ml Vial) 2.5 mg NEB Q6R PRN; Protocol PRN Reason: wheeze, cough Stop: 12/15/22 05:01 Last Admin: 11/16/22 02:17 Dose: 2.5 mg Aspirin (Aspirin 81 Mg Chew) 81 mg PO QAM JARROD Stop: 12/15/22 11:29 Last Admin: 11/16/22 07:53 Dose: 81 mg Atropine Sulfate (Atropine Sulfate 0.1 Mg/Ml 10ml Syr) 0.5 mg IV PRN PRN PRN Reason: at bedside per MD Stop: 11/17/22 10:26 Dextrose (Dextrose 50% 50 Ml Syringe) 25 - 50 ml IV UD PRN; Protocol PRN Reason: Hypoglycemia Protocol Stop: 12/15/22 05:01 Enoxaparin Sodium (Enoxaparin Inj 40 Mg/0.4 Ml Syr) 40 mg SQ QAM JARROD Stop: 12/15/22 11:14 Last Admin: 11/16/22 07:53 Dose: 40 mg Enteral Nutritional Formula (Peptamen 1.5 Blaze 1,000 Ml Bag) 1,000 ml NG UD JARROD; Protocol Stop: 12/15/22 13:29 Glucagon (Glucagon For Inj 1 Mg Vial) 1 mg SQ UD PRN; Protocol PRN Reason: Hypoglycemia Protocol Stop: 12/15/22 05:01 Glucose (Glucose 10 Tab/Tube) 4 - 8 tab PO UD PRN; Protocol PRN Reason: Hypoglycemia Treatment Stop: 12/15/22 05:01 Glucose (Glucose 40% Gel 15 Gm Tube) 15 - 30 gm PO UD PRN; Protocol PRN Reason: Hypoglycemia Protocol Stop: 12/15/22 05:01 Acetaminophen (Ofirmev) 1,000 mg in 100 mls @ 400 mls/hr IV Q8H PRN PRN Reason: pain/fever Stop: 11/18/22 05:01 Last Infusion: 11/16/22 03:38 Dose: Infused Pantoprazole Sodium 40 mg/ (Syringe) 10 mls @ 5 mls/min IV DAILY@1100 [facility] Stop: 12/15/22 10:59 Last Admin: 11/16/22 10:38 Dose: 5 mls/min Cefepime HCl 2,000 mg/ Syringe 20 mls @ 5 mls/min IV Q12H [facility] Stop: 11/23/22 10:29 Amiodarone HCl/Dextrose (Nexterone / D5w) 360 mg in 200 mls @ 33.333 mls/hr IV .Q6H [facility] Stop: 11/16/22 16:44 Last Admin: 11/16/22 10:40 Dose: 1 mg/min, 33.3 mls/hr Amiodarone HCl/Dextrose (Nexterone / D5w) 360 mg in 200 mls @ 16.667 mls/hr IV .Q12H [facility] Stop: 12/16/22 16:44 Insulin Aspart (Insulin Aspart Per Unit Charge) 0 units SC Q6 [facility] Stop: 12/15/22 11:59 Last Admin: 11/16/22 05:15 Dose: Not Given Metoprolol Tartrate (Metoprolol Tartrate 1 Mg/Ml Vial) 5 mg IV Q6H PRN PRN Reason: BP >180, HR > 130 Stop: 12/15/22 05:01 Last Admin: 11/16/22 03:16 Dose: 5 mg Metronidazole (Metronidazole 500 Mg Tab) 500 mg PO Q8 [facility] Stop: 11/23/22 13:59 Miscellaneous (Carbohydrates For Hypoglycemia ) 15 - 30 gm PO UD PRN PRN Reason: Hypoglycemia Protocol Stop: 12/15/22 05:01 Miscellaneous (Icu Electrolyte Replacement Protocol) 1 each N/A BID@06,18 [facility]; Protocol Stop: 11/22/22 05:59 Last Admin: 11/16/22 05:26 Dose: Not Given Multivitamins/Minerals (Multi Vit W/Minerals Liquid 15 Ml Udp) 15 ml NG QAM [facility] Stop: 12/16/22 08:59 Last Admin: 11/16/22 07:54 Dose: 15 ml Sterile Water (Tube Feeding Water Flush) 30 ml NG Q4H [facility] Stop: 12/15/22 13:29 Last Admin: 11/16/22 08:35 Dose: 30 ml Thiamine HCl (Thiamine Hcl 100 Mg Tab) 100 mg NG QAM JARROD Stop: 12/16/22 10:59 Coding Level of Care Code 66182 CRITICAL CARE 1ST 30-74M History Detailed Exam Detailed Medical Decision Making High Complexity Diagnoses Acute respiratory failure J96.00 Bilateral pleural effusion J90 Thoracic kyphosis M40.204 Hypokalemia E87.6 Sinus pause I45.5 Time Spent (min) 60
--- NOTE | 2022-11-16 12:36 | Cardiology Consultation ---
Date of Consultation November 16, 2022 Assessment & Plan (1) Sinus pause: Conversion pauses are fairly long but to this point not obviously symptomatic, occurring when she transitions from atrial fibrillation with rapid ventricular rate back to sinus. Would discontinue metoprolol to avoid excess negative chronotropic impact on sinus function while continuing amiodarone (with additional intravenous dosing) to attempt to maintain sinus rhythm, since giving her comorbidities she is unlikely to tolerate atrial fibrillation with rapid ventricular rate. If she has prolonged/symptomatic pauses, may need temporary transvenous pacer, but if she can be returned to sinus rhythm this would be less likely. Of note, she did have an accelerated junctional rhythm on admission, which does suggest some degree of underlying sinus node dysfunction. [id number] score > 4, was on reduced dose (age greater than 80, weight less than 60 kg) apixaban as outpatient, currently on enoxaparin, if atrial fibrillation lasts greater than 48 hours may need to intensify inpatient anticoagulation, resume apixaban upon discharge. We will continue to follow along. (2) Atrial fibrillation with RVR: As above, IV amiodarone will help with rate control and hopefully return her to sinus rhythm and maintained this. (3) Bilateral pleural effusion: She has bilateral effusions and does appear mildly hypervolemic, but given her hyperdynamic LV function she could be prone to volume depletion, would recommend using diuretics only to keep slightly negative and avoid overly aggressive diuresis. (4) Acute respiratory failure: Per critical care team. (5) Obstructive lung disease: History of Present Illness Reason for Consultation: sinus pause, CHF, Afib, SSS Requesting Physician: Xenia Childers MD Attending Physician: Jovita Lindquist MD History of Present Illness 86-year-old woman with severe COPD and atrial tachycardia/paroxysmal atrial fibrillation (amiodarone/metoprolol/reduced dose apixaban as outpatient) who was admitted yesterday with pneumonia and acute hypoxic respiratory failure/respiratory arrest, overnight developed atrial fibrillation with rapid ventricular response and this morning demonstrated several episodes of conversion pause (up to 6-second pause when converting from atrial fibrillation to sinus rhythm). Despite the duration of the pauses, she does not note any lightheadedness and had no apparent syncope. She notes feeling fatigued at rest and breathless with any attempts at exertion, denies chest pain at any time and has not noted tachypalpitations. She was on her usual regimen of amiodarone 200 mg daily and metoprolol tartrate 50 mg twice daily as outpatient, these were continued in hospital. Her atrial fibrillation was being treated with IV and oral (NG tube) metoprolol for rate control. Currently, her rhythm remains atrial fibrillation with suboptimally controlled ventricular rate (120 bpm). At the time of my evaluation this morning, she noted marked fatigue but had no specific somatic complaints. Allergies Allergy/AdvReac Type Severity Reaction Status Date / Time guaifenesin [From Mucinex] Allergy Intermediate Hives Verified 11/07/22 19:34 lidocaine Allergy Mild Hives Verified 11/08/22 17:37 amoxicillin Allergy Unknown Unknown Verified 11/07/22 19:34 prednisone AdvReac Severe swelling Verified 11/07/22 19:34 legs clindamycin AdvReac Intermediate Diarrhea Verified 11/07/22 19:34 lisinopril AdvReac Intermediate Cough Verified 11/07/22 19:34 Home Medications Medication Instructions Recorded Confirmed Type alendronate 70 mg tablet 70 mg PO WK 02/18/18 11/15/22 History calcium carbonate 600 mg calcium 1,200 mg PO DAILY 02/18/18 11/15/22 History (1,500 mg) tablet (Calcium) cholecalciferol (vitamin D3) 50 2,000 unit PO DAILY 02/18/18 11/15/22 History mcg (2,000 unit) capsule (Vitamin D3) fexofenadine 180 mg tablet 180 mg PO DAILY PRN Allergy 02/18/18 11/15/22 History Symptoms triamcinolone acetonide 0.1 % 1 applic topical DAILY PRN Dry Skin 02/18/18 11/15/22 History topical ointment albuterol sulfate 90 mcg/actuation 2 puff inhalation Q6H PRN 02/19/18 11/15/22 History aerosol inhaler (ProAir HFA) SOB/Wheezing triamcinolone acetonide 55 mcg 2 spray intranasal DAILY PRN 11/07/20 11/15/22 History nasal spray aerosol (Nasacort) Allergy Symptoms sodium chloride 0.65 % nasal spray 2 spray intranasal BID PRN DRYNESS 02/20/22 11/15/22 History aerosol (Saline Mist) amiodarone 200 mg tablet 200 mg PO DAILY #90 tabs 03/28/22 11/15/22 Rx apixaban 2.5 mg tablet (Eliquis) 2.5 mg PO BID #180 tabs 03/28/22 11/15/22 Rx acetaminophen 500 mg tablet 500 mg PO Q6H PRN PAIN OR FEVER 11/07/22 11/15/22 History ibuprofen 200 mg tablet (Advil) 200 mg PO Q6H PRN Pain (Scale 11/07/22 11/15/22 History Score 1-3) acetaminophen 325 mg tablet 650 mg PO QID #120 tabs 11/10/22 11/15/22 Rx aspirin 81 mg chewable tablet 81 mg PO QAM #30 tabs 11/10/22 11/15/22 Rx (Children's Aspirin) atorvastatin 40 mg tablet 80 mg PO DAILY #30 tabs 11/10/22 11/15/22 Rx metoprolol tartrate 50 mg tablet 50 mg PO BID #60 tabs 11/10/22 11/15/22 Rx amlodipine 5 mg tablet (Norvasc) 5 mg PO QAM 30 days #30 tabs 11/14/22 11/15/22 Rx cefdinir 300 mg capsule 300 mg PO BID 4 days #8 caps 11/14/22 11/15/22 Rx losartan 50 mg tablet 50 mg PO BID 30 days #60 tabs 11/14/22 11/15/22 Rx Patient History Medical History Compression deformity of vertebra Compression fracture of T12 vertebra COVID-09 february 2022 Hyperlipidemia Hypertension Spondylosis of thoracolumbar spine Thoracic kyphosis Family History Other COPD (chronic obstructive pulmonary disease) Heart disease Hypertension No significant family history Social History Smoking Status: Current every day smoker Tobacco Type: Cigarettes Cigarettes Per Day: 10; Second Hand Exposure: Yes; Do You Dip or Chew Tobacco: No; Hx Alcohol Use: No Hx Substance Use: No Preferred Language: Nigerian Communication Ability: Unable Communication Ability Comment: patient intubated currently Hourly Shift Manager Required: No Beliefs That Will Affect Care: Spiritual marital status: Current Living Situation: Family Current Living Situation Comment: lives with daughter Other Information That Helps Us Care for You: No Feels Safe at Home: Yes Safety Concerns: Feels Safe At This Time Assistive Devices: Walker and Other Physical Exam Physical Exam: Frail appearing elderly white female who appears chronically ill but not acutely distressed. BP high normal. Pulse 120 bpm and irregular. Skin: no ecchymoses or generalized lesions. HEENT: unremarkable. Neck: Jugular venous pulse one third of the way to the angle of the jaw at 90 degrees with increased respiratory variation, no carotid bruits. Lungs: Dullness and decreased breath sounds at the bases, reasonable airflow, no obvious wheezing or crackles. Cardiac: Irregular/tachycardic rhythm, normal S1-2, no obvious murmur on difficult exam (tachycardia). Abdomen: Mildly protuberant but nontender. Extremities: no edema, pulses intact. Neurologic: normal affect and conversation, nonfocal. Results & Data Laboratory Results Sodium 132, potassium 4.3, BUN 22, creatinine 0.83. BNP 1396. Troponin 2831 range with flat curve. Diagnostic Findings ECG yesterday showed an apparent accelerated junctional rhythm at 78 bpm, LVH with repolarization abnormalities. Compared with 11/07/2022 ECG, junctional rhythm replaced sinus rhythm. Echocardiogram yesterday showed hyperdynamic LV with EF greater than 70%, mild to moderate valvular heart disease (MS/MR/AI/PI) with moderate to severe tricuspid regurgitation and moderate pulmonary hypertension. Compared with 2021 study, LV systolic function was still hyperdynamic, mild increase in valvular disease, right ventricular systolic pressure less elevated. Chest x-ray today showed cardiomegaly with bilateral pleural effusions, emphysema, and "pulmonary vascular congestion". PG Care Time/CCT Total # of Minutes Spent Total Time Spent with Patient: Total time spent is greater than 50% in coordination of care (as documented) at patient's floor/unit and/or counseling patient: Coding Level of Care Code 21707 INT INP/OBS CARE 3/75MIN Diagnoses Sinus pause I45.5 Atrial fibrillation with RVR I48.91 Bilateral pleural effusion J90 Acute respiratory failure J96.00 Obstructive lung disease J44.9
[2022-11-16] MEDS: metroNIDAZOLE 500 MG TAB PO SCH ×2 (13:07→21:29)
[2022-11-16] MEDS: AMIODARONE / D5W 360 MG/200 ML BAG IV SCH (16:42)
[2022-11-16] MEDS ORDERED: RAPID SEQUENCE INDUCTION BAG ONE (17:52)
[2022-11-16] MEDS ORDERED: hydrALAZINE HCL 20 MG/ML VIAL IV STA (18:08)
[2022-11-16] MEDS ORDERED: MoRPHine SULFATE 2 MG/ML CARP IV STA (18:16)
--- NOTE | 2022-11-16 18:22 | XRay Report ---
XR chest 1V portable CLINICAL HISTORY: Acute respiratory distress. COMPARISON STUDY: Chest CT November 15, 2022. Chest radiograph performed earlier today. FINDINGS: Tip of nasogastric tube is below the lower aspect of this image but at least within the mid body of the stomach. Moderate right and small left pleural effusions persist. Pulmonary edema is aga in noted. Cardiomediastinal silhouette is stable. There is no pneumothorax. IMPRESSION: No significant change in pulmonary edema and moderate right and small left pleural effus ions. ACT 112: Negative or not required by law. Electronically signed by: Peterson Davis M.D. 11/16/2022 6:21 PM
[2022-11-16 18:59] LABS: BUN Creatinine Ratio 31.3 (10-20); Calcium 8.8 mg/dl (8.6-10.3); Creatinine Clr Calc Pharmacy 33.2 ml/min; Est GFR (African American) 74.5 ml/min; Est GFR (Non-African American) 64.3 ml/min; Potassium 3.8 mmol/L (3.5-5.1)
[2022-11-16 19:05] LABS: Troponin I High Sensitivity 34.6 pg/ml (0-14)
[2022-11-16] MEDS ORDERED: POTASSIUM CHLORIDE 20 MEQ/15 ML UDC NG STA (21:12)
[2022-11-17] MEDS: ALBUTEROL 0.083% NEBU SOLN 3 ML VIAL NEB PRN ×3 (01:23→15:02)
[2022-11-17] MEDS: AMIODARONE / D5W 360 MG/200 ML BAG IV SCH ×2 (03:10→15:15)
[2022-11-17] MEDS: TUBE FEEDING WATER FLUSH NG SCH ×5 (03:13→21:46)
[2022-11-17 05:03] LABS: Basophils # (auto) 0.07 K/uL (0-0.2); Basophils % (auto) 0.4 %; Hematocrit (blood only) 25.6 % (37.0-47.0); Hemoglobin 8.4 g/dl (12.0-16.0); Immature Granulocytes # (auto) 0.11 K/uL (0.01-0.20); Immature Granulocytes % (auto) 0.7 %; Lymphocytes # (auto) 1.11 K/uL (1.2-3.4); Lymphocytes % (auto) 6.7 %; Mean Corpuscular Hemoglobin 29.6 pg (25.0-34.0); Mean Corpuscular Hgb Conc 32.8 g/dL (32.0-36.0); Mean Corpuscular Volume 90.1 fL (80.0-100.0); Mean Platelet Volume 8.3 fL (9.4-12.4); Monocytes # (auto) 1.09 K/uL (0.11-0.59); Monocytes % (auto) 6.6 %; Neutrophils # (auto) 14.19 K/uL (1.40-6.50); Neutrophils % (auto) 85.6 %; Platelet Count 561 K/uL (130-400); RDW Coefficient of Variation 14.4 % (11.5-14.5); RDW Standard Deviation 46.5 fL (36.4-46.3); Red Blood Count 2.84 M/uL (4.20-5.40); White Blood Count 16.57 K/ul (4.8-10.8)
[2022-11-17 05:19] LABS: Albumin Level 3.1 gm/dl (3.4-5.0); BUN Creatinine Ratio 29.1 (10-20); Bilirubin,Total 0.3 mg/dl (0.2-1.0); Calcium 8.7 mg/dl (8.6-10.3); Creatinine Clr Calc Pharmacy 32.1 ml/min; Est GFR (African American) 71.4 ml/min; Est GFR (Non-African American) 61.6 ml/min; Globulin 3.1 gm/dl (2.5-4.0); Magnesium 1.9 mg/dl (1.7-2.4); Phosphorus 3.2 mg/dl (2.5-4.9); Potassium 3.9 mmol/L (3.5-5.1); Total Protein 6.2 gm/dl (6.0-8.3)
[2022-11-17] MEDS: ICU ELECTROLYTE REPLACEMENT PROTOCOL SCH ×2 (05:28→18:33)
[2022-11-17] MEDS: INSULIN ASPART PER UNIT CHARGE SC SCH ×3 (05:28→18:54)
[2022-11-17] MEDS: metroNIDAZOLE 500 MG TAB PO SCH ×3 (05:32→21:46)
[2022-11-17] MEDS: MAGNESIUM SULFATE / D5W 1 GM/100 ML BAG IV SCH ×2 (05:48→07:47)
[2022-11-17] MEDS: POTASSIUM CHLORIDE / WTR 10 MEQ/100 ML PLCT IV SCH ×3 (05:48→09:11)
[2022-11-17] MEDS ORDERED: hydrALAZINE HCL 20 MG/ML VIAL IM STA (06:21)
--- NOTE | 2022-11-17 06:43 | Hospitalist Progress Note ---
Date of Service November 17, 2022 Assessment & Plan (1) Acute respiratory failure: (2) Pleural effusion: (3) Acute and chronic respiratory failure with hypoxia: (4) Pneumonia: (5) Back pain: (6) Tobacco dependence: (7) Atrial arrhythmia: Rose Kapoor is an 86 year old female with history of COPD, chronic tobacco use (active 1 PPD), pHTN, MAT, and protein-calorie malnutrition who presented for increased respiratory distress. She was subsequently intubated and admitted to the ICU. Acute Hypoxic Respiratory Failure/Respiratory Arrest Multifactorial - 2/2 Acute diastolic chf/Pleural Effusion/ aspiration/mucous plugging/restrictive lung ds - Patient discharged 11/14 after being treated for pneumonia on Cefdinir/Azithromycin. New O2 need last admission. - Evening of 11/14 patient developed acute dyspnea after dinner * CTA 11/14 large right pleural effusion with compressive atelectasis right lower lobe (CT from 11/11 with trace Pleural effusion) * Recent swallow study 11/12 indicating silent aspiration, patient declined furth er evaluation * HS Troponin 27.7 * BNP 1397 (elevated from prior 400) * 11/15 Echo w/ EF > 70%, Grade 1 DD. RVSP 40-50, * Blood Cultures - NGTD @ 48 hours * Sputum Cultures - Corynebacterium - In the ED * Patient intubated in ER, extubated 11/15 * Received Methylprednisone 100 mg/ Cefepime/ Vancomycin Plan - * Planning repeat speech evaluation - on hold d/t respiratory distress * Increasing dyspnea with escalation of tube feedings, possible aspiration vs reflux component * Transitioned to Ceftriaxone in ICU 11/15, changed to Cefepime/Flagyl in ICU 11/16 d/t increased WBC count (19) - WBC now downtrending (16), continue Abx * No planned thoracentesis as of 11/17 * Diuresis: s/p multiple lasix doses. - 11/17 started Lasix drip at 5 mg/hr. - Follow renal function - Neg 3330 mL since admission Sinus Pauses (5-6s) MAT/AFib - On Amiodarone and metoprolol at home - Went in A fib with RVR 11/15. Started having conversion pauses 11/16. - Cardiology consult * Suspect conversion pauses from AFib to NSR * Recommended ongoing Amiodarone - S/p Amiodarone 150 mg loading dose followed by Amiodarone drip (home PO dose held) 11/17 * Recommended discontinuation of Metoprolol to decrease pause duration (PRN IV dose available) - Could use small doses (2.5 mg) of IV metoprolol tartrate to keep heart rate less than 120 bpm - Pacemaker pads placed following episode, Atropine available at bedside - Eliquis held on admission, Lumbar Back Pain Osteoporosis - Hx of multiple (L1,3,5) compression fractures (Evidenced on CT in 2020) - Lumbar XR on 11/08: New L4 compression fracture - Patient indicated back pain limiting ability to cough on admission * Tylenol prn. Hx of Transient Ischemic Attacks - Would continue aspirin, antihypertensives, and high dose statin when stable * Atorvastatin 80 mg: held on admission - Tobacco use: Continue to encourage smoking cessation - currently smoking 1 PPD outpatient - No surgical intervention desired by patient for SHUN HTN - Metoprolol/Losartan/Amlodipine: held on admission d/t hypotension Severe malnutrition - Albumin 3.3 - ICU team recommendation - Access information regarding food security and access to food. - Possibly side effect from amiodarone, will follow - NGT feedings paused 11/16 given increased respiratory distress DVT PPx: Lovenox 40 mg SQ qAM, Eliquis held, Aspirin resumed CODE: Full Code Diet: NPO, NG intact Consults: PT/OT, Speech, Cardiology Dispo: ICU Case Mgmt: Health Care Proxy established, paperwork in chart. Patient elected to allow phone contact with all daughters/grand daughters for updates. Admission and Anticipated Discharge Date Admission Date: November 15, 2022 Supervising Physician Co-Signing Physician Notes Resident Physician Supervision Note: I independently interviewed and examined the patient and verified the couch history and physical, reviewed labs and image studies and agree with resident findings and care plan. Subjective 11/17: Patient uncomfortable this AM. She notes that her back pain is controlled, but that she is having increased difficulty breathing. She states that she feels like something is constantly stuck in her throat (namely the NGT). Pat continues to endorse a cough and notes that she is becoming fatigued from her increased respiratory effort. Upon discussion, she re-iterates that she would prefer to be intubated again in the event of respiratory decline. Physical Exam Physical Exam: Gen: uncomfortable, alert, cachectic HEENT: NCAT, BELL, MMM Neuro: AO x 3, no focal deficits Resp: Labored, accessory muscle use (abdominal breaths), diminished breath sounds bilaterally, expiratory wheezing throughout (worse in bases, R>L) CV:RRR, normal S1/S2, systolic ejection murmur Abd: Soft, non-distended, no TTP, normoactive bowels, no masses, NGT intact Extr: 2+ dp bilaterally, no edema Skin: No rashes lesions or erythema Results & Data Results & Data Vital Signs (Past 12 Hours) Vital Signs Temp Pulse Pulse Resp BP Pulse Ox O2 Del Method 11/17/22 06:00 36.6 C 85 21 98 11/17/22 05:37 188/66 H 11/17/22 05:37 36.6 C 81 17 97 11/17/22 05:30 36.6 C 87 28 H 94 11/17/22 05:30 192/76 H 11/17/22 05:00 36.7 C 83 28 H 94 11/17/22 05:00 174/63 H 11/17/22 04:30 36.6 C 85 25 H 96 11/17/22 04:00 36.6 C 84 25 H 95 11/17/22 03:30 36.7 C 83 23 90 11/17/22 03:30 172/69 H 11/17/22 03:00 36.7 C 83 25 H 95 11/17/22 03:00 181/68 H 11/17/22 02:40 148/97 H 11/17/22 02:40 36.6 C 80 20 11/17/22 02:30 36.7 C 85 27 H 96 11/17/22 02:30 177/66 H 11/17/22 02:20 36.7 C 84 27 H 11/17/22 02:20 162/66 H 11/17/22 02:11 36.7 C 87 29 H 97 11/17/22 02:11 89 11/17/22 02:06 36.7 C 84 31 H 99 11/17/22 01:50 178/64 H 11/17/22 01:50 36.7 C 79 19 96 11/17/22 01:40 188/68 H 11/17/22 01:40 36.7 C 86 26 H 95 11/17/22 01:30 36.7 C 79 21 99 11/17/22 01:30 164/92 H 11/17/22 01:20 178/68 H 11/17/22 01:20 36.7 C 82 25 H 95 11/17/22 01:10 36.7 C 82 28 H 94 11/17/22 01:10 167/64 H 11/17/22 01:00 36.6 C 75 25 H 100 11/17/22 00:40 177/72 H 11/17/22 00:40 36.6 C 83 26 H 94 11/17/22 00:30 36.6 C 76 15 99 11/17/22 00:30 168/65 H 11/17/22 00:10 36.6 C 83 31 H 91 11/17/22 00:10 170/66 H 11/17/22 00:01 170/63 H 11/17/22 00:01 36.6 C 83 26 H 96 11/17/22 00:00 36.6 C 84 23 91 11/16/22 23:40 169/65 H 11/16/22 23:40 36.5 C 78 23 98 11/16/22 23:30 36.6 C 88 30 H 94 11/16/22 23:21 146/90 H 11/16/22 23:21 36.6 C 83 25 H 97 11/16/22 23:10 151/60 H 11/16/22 23:10 36.6 C 73 17 96 11/17/22 01:23 82 24 98 Nasal Cannula 11/16/22 23:12 Nasal Cannula 11/16/22 23:00 36.6 C 74 18 98 11/16/22 23:00 156/55 H 11/16/22 22:50 36.6 C 78 27 H 96 11/16/22 22:50 166/60 H 11/16/22 22:40 36.6 C 75 22 11/16/22 22:40 161/60 H 11/16/22 22:30 36.6 C 79 27 H 11/16/22 22:30 174/65 H 11/16/22 22:21 184/68 H 11/16/22 22:21 36.7 C 78 30 H 89 L 11/16/22 22:00 36.7 C 134 H 20 90 11/16/22 22:00 110/59 L 11/16/22 21:40 95/62 L 11/16/22 21:40 36.7 C 123 H 24 92 11/16/22 21:30 36.7 C 123 H 37 H 94 11/16/22 21:30 131/81 11/16/22 21:20 122/62 11/16/22 21:20 36.7 C 126 H 29 H 95 11/16/22 21:10 36.7 C 126 H 31 H 96 11/16/22 21:10 115/83 11/16/22 21:00 36.7 C 132 H 19 11/16/22 21:00 104/74 11/16/22 20:30 36.6 C 116 H 25 H 92 11/16/22 20:30 122/63 11/16/22 20:20 117/70 11/16/22 20:20 36.6 C 128 H 22 91 11/16/22 20:10 130/58 L 11/16/22 20:10 36.6 C 123 H 28 H 98 11/16/22 20:00 36.6 C 120 H 23 99 11/16/22 20:00 98/67 L 11/16/22 19:50 137/67 11/16/22 19:50 36.6 C 121 H 27 H 98 11/16/22 19:40 36.7 C 122 H 24 95 11/16/22 19:40 112/68 11/16/22 19:30 36.7 C 118 H 24 94 11/16/22 19:30 101/79 07/26/23 19:10 36.9 C 115 H 30 H 96 11/16/22 19:10 103/74 11/16/22 19:00 37.0 C 116 H 26 H 95 11/16/22 19:00 116/54 L 11/16/22 22:55 78 22 97 Nasal Cannula 11/16/22 19:43 129 H 30 H 97 Nasal Cannula O2 Flow Rate 11/17/22 06:00 11/17/22 05:37 11/17/22 05:37 11/17/22 05:30 11/17/22 05:30 11/17/22 05:00 11/17/22 05:00 11/17/22 04:30 11/17/22 04:00 11/17/22 03:30 11/17/22 03:30 11/17/22 03:00 11/17/22 03:00 11/17/22 02:40 11/17/22 02:40 11/17/22 02:30 11/17/22 02:30 11/17/22 02:20 11/17/22 02:20 11/17/22 02:11 11/17/22 02:11 11/17/22 02:06 11/17/22 01:50 11/17/22 01:50 11/17/22 01:40 11/17/22 01:40 11/17/22 01:30 11/17/22 01:30 11/17/22 01:20 11/17/22 01:20 11/17/22 01:10 11/17/22 01:10 11/17/22 01:00 11/17/22 00:40 11/17/22 00:40 11/17/22 00:30 11/17/22 00:30 11/17/22 00:10 11/17/22 00:10 11/17/22 00:01 11/17/22 00:01 11/17/22 00:00 11/16/22 23:40 11/16/22 23:40 11/16/22 23:30 11/16/22 23:21 11/16/22 23:21 11/16/22 23:10 11/16/22 23:10 11/17/22 01:23 6 11/16/22 23:12 6 11/16/22 23:00 11/16/22 23:00 11/16/22 22:50 11/16/22 22:50 11/16/22 22:40 11/16/22 22:40 11/16/22 22:30 11/16/22 22:30 11/16/22 22:21 11/16/22 22:21 11/16/22 22:00 11/16/22 22:00 11/16/22 21:40 11/16/22 21:40 11/16/22 21:30 11/16/22 21:30 11/16/22 21:20 11/16/22 21:20 11/16/22 21:10 11/16/22 21:10 11/16/22 21:00 11/16/22 21:00 11/16/22 20:30 11/16/22 20:30 11/16/22 20:20 11/16/22 20:20 11/16/22 20:10 11/16/22 20:10 11/16/22 20:00 11/16/22 20:00 11/16/22 19:50 11/16/22 19:50 11/16/22 19:40 11/16/22 19:40 11/16/22 19:30 11/16/22 19:30 11/16/22 19:10 11/16/22 19:10 11/16/22 19:00 11/16/22 19:00 11/16/22 22:55 6 11/16/22 19:43 12 Resident Activity Tracking Resident Involvement: Resident Care Provided Care Provided: Adult Hospital Medicine (4) Pneumonia Laterality: right Lung location: lower lobe of lung Pneumonia type: due to unspecified organism Qualified Code(s): J18.1 - Lobar pneumonia, unspecified organism
--- NOTE | 2022-11-17 07:09 | XRay Report ---
XR chest 1V portable HISTORY: 86 years-old Female evaluate pulmonary edema/effusion COMPARISON: 11/16/2002 TECHNIQUE: AP view of the chest FINDINGS: Distal tip of enteric tube projects over the gastric body. Moderate cardiomegaly. Atherosclerosis of the aorta. Pulmonary edema. Moderate right and small left pleural effusions with bibasilar consolidat ion, right greater than left. No pneumothorax. Degenerative changes of the shoulders and spine. IMPRESSION: 1. Cardiomegaly with unchanged pulmonary edema. 2. Stable moderate right and small left pleural effusions with bibasilar consolidation. ACT 112: Negative or not required by law. The above report was generated using voice recognition software. It may contain grammatical, syntax o r spelling errors. Electronically signed by: Zbigniew Soto M.D. 11/17/2022 7:07 AM
[2022-11-17] MEDS: THIAMINE HCL 100 MG TAB NG SCH (07:49)
[2022-11-17] MEDS: MULTI VIT W/MINERALS LIQUID 15 ML UDP NG SCH (07:49)
[2022-11-17] MEDS: ASPIRIN 81 MG CHEW PO SCH (07:49)
[2022-11-17] MEDS ORDERED: POTASSIUM CHLORIDE 20 MEQ/15 ML UDC PO STA (08:08)
[2022-11-17] MEDS ORDERED: FUROSEMIDE 40 MG/4 ML VIAL IV ONE (08:08)
[2022-11-17] MEDS ORDERED: hydrALAZINE HCL 20 MG/ML VIAL IV STA (08:09)
[2022-11-17] MEDS ORDERED: Nursing to Pharmacy Communication SCH (08:45)
[2022-11-17] MEDS ORDERED: LOSARTAN POTASSIUM 50 MG TAB PO SCH (09:00)
[2022-11-17] MEDS ORDERED: amLODIPine BESYLATE 5 MG TAB PO ONE (09:45)
--- NOTE | 2022-11-17 09:52 | Cardiology Progress Note ---
Date of Service November 17, 2022 Assessment & Plan (1) Sinus pause: Plan: Given the length of conversion pause yesterday, would keep patient off metoprolol. If she has recurrent atrial fibrillation with rapid rate, could use small doses (2.5 mg) of IV metoprolol tartrate to keep heart rate less than 120 bpm. Continue IV amiodarone for rhythm/rate control as well as ease of administration (currently has NG tube and not taking oral well), when she is able to take medications orally would increase her maintenance dose of amiodarone to 200 mg twice daily. Anticoagulation less of an immediate issue now that she is back in sinus rhythm, resume reduced dose apixaban upon discharge. We will continue to follow along. (2) Atrial fibrillation with RVR: Plan: As per #1. (3) Bilateral pleural effusion: Plan: Does appear hypervolemic today, regular doses of IV diuretic may be necessary. (4) Acute respiratory failure: Plan: Per critical care team. (5) Obstructive lung disease: Admission and Anticipated Discharge Date Admission Date: November 15, 2022 Subjective Major conversion pauses (6 second range) yesterday morning, subsequently had only brief pauses, the longest was 1.7 seconds at 3:15 PM. Last evening, rhythm converted from atrial fibrillation to sinus, currently at a rate of 87 bpm. No bradycardia or further pauses overnight. Patient's respiratory status remains tenuous. Input/output -1600. Chest x-ray with unchanged pulmonary edema and pleural effusions. Physical Exam Physical Exam: Patient appears ill but not acutely distressed. BP hypertensive (188/66 mmHg) Pulse 88 bpm and regular. Skin: no ecchymoses or generalized lesions. HEENT: unremarkable. Neck: Jugular venous pulse near the angle of the jaw at 90 degrees with increased respiratory variation, no carotid bruits. Lungs: Dullness and decreased breath sounds at the bases, mildly decreased breath sounds, transmitted upper airway sounds without obvious wheezing. Cardiac: Regular rhythm, 2/6 holosystolic murmur left sternal border and apex, no diastolic murmur. Abdomen: Mildly protuberant but nontender. Extremities: no edema, pulses intact. Neurologic: normal affect, answers simple questions with head nod, nonfocal. Results & Data Laboratory Results Hemoglobin 8.4. Sodium 131, potassium 3.9, BUN 25, creatinine 0.86 (0.83 yesterday) Diagnostic Findings Chest x-ray with unchanged pulmonary edema and bibasilar pleural effusions. PG Care Time/CCT Total # of Minutes Spent Total Time Spent with Patient: Total time spent is greater than 50% in coordination of care (as documented) at patient's floor/unit and/or counseling patient: Coding Level of Care Code 22814 SUB INP/OBS CARE 3/50MIN Diagnoses Sinus pause I45.5 Atrial fibrillation with RVR I48.91 Bilateral pleural effusion J90 Acute respiratory failure J96.00 Obstructive lung disease J44.9
[2022-11-17] MEDS ORDERED: METOPROLOL TARTRATE 50 MG TAB PO SCH (10:00)
[2022-11-17] MEDS: METOCLOPRAMIDE HCL 5 MG TABLET PO SCH ×2 (11:20→21:46)
[2022-11-17] MEDS: CEFEPIME 2,000 MG in SYRINGE 0 ML IV SCH ×2 (11:21→21:48)
[2022-11-17] MEDS: PANTOprazole 40 MG in SYRINGE 0 ML IV SCH (11:21)
[2022-11-17] MEDS ORDERED: STAT IV Infusion **Titration per Protocol STA (13:11)
[2022-11-17] MEDS: FUROSEMIDE 100 MG in DEXTROSE 5% 90 ML IV SCH (13:48)
[2022-11-17] MEDS: dexMEDEtomidine 200 MCG/50 ML BAG IV SCH ×2 (13:50→19:52)
[2022-11-17] MEDS: NUTREN LIQD 2.0 1,000 ML BAG NG SCH (15:36)
--- NOTE | 2022-11-17 17:27 | Critical Care Progress Note ---
Date of Service November 17, 2022 Assessment & Plan (1) Sinus pause: Plan: The patient had a difficult morning with shortness of breath. She was on and off BiPAP all morning so her tube feeds needed to be held. They are resumed now at 10 mL an hour. We are going to concentrate her tube feeds and give her more of a renal type and dosing. The history from nursing is that as soon as her tube feed rate went up about 40 she started feeling short of breath. There is no specific history of a hiatal hernia but her kyphosis and body habitus may be such that the rate is too high. We also then put her on high flow nasal cannula with a little PEEP and that was much improved. This morning possibly due to her anxiety her blood pressure was also elevated so she was given some hydralazine. Fortunately she did convert from A-fib to sinus rhythm so that helped with some of her congestive heart failure and allowed for better atrial kick. In general now her heart rate is in the 60s. We will try to stop the amiodarone drip is again that is a lot of fluid and give her enteral amiodarone. We have given her 60 mg of Lasix in the morning and she put out 2 L and now her initiating a Lasix drip. She put out an additional 1650 mL so far. Furthermore, we are trying to manage her blood pressure. We received information from the resident who is taking care of her that amlodipine worked best. We are giving her 5 mg of amlodipine because she received some losartan and tomorrow morning will initiate 10 mg of amlodipine. 1. Neuropsych: The patient is quite anxious and I think that is leading a lot to her anxiety leading to hypertension leading to congestive heart failure and dyspnea and hyperventilation. We have initiated some Precedex and she is much calmer. Despite being on 0.4 of Precedex she is awake alert and interactive and not at all somnolent. 2. Cardiovascular: A PICC line was placed in her right upper extremity today for better access and blood draws. She converted to sinus rhythm and her heart rate is now quite reasonable. We will try to discontinue the amiodarone drip and eliminate more IV fluid intake. With the nasogastric tube we will give her amiodarone 200 mg twice daily. Perhaps a higher dose would even be more reasonable at this time but we do not want to excessively block her with her sinus pauses from yesterday. With that also beta-blockers have been discontinued. Controlling her blood pressure with anxiety medications but also antihypertensives are important. Amlodipine seem to be helpful. We may be able to give her some clonidine and also some antianxiety medications and will consider that for tomorrow. There was a consideration of performing a right thoracentesis. But we think that it is likely from congestive heart failure and is a transudate so it would just come back up. Since we are now not going to be pursuing a thoracentesis we will give her at least 1 injection of Lovenox tonight. 3. Respiratory: Patient is on high flow which will allow for her to talk and communicate with her family. Will also allow for us to continue to give her enteral feeds and medications. We are trying to diurese her and will make further determination tomorrow whether or not to perform a thoracentesis. 4. Gastrointestinal: The patient is now on a concentrated feeding diet. I am not eager to remove the NG tube even though it is irritating the back of her throat. She will really need very careful speech assessment and to be in the best clinical situation possible in order to swallow safely and not exacerbate her respiratory status. I do not see a hiatal hernia on her CT scan. We never really got an abdominal CT scan to look for a ventral hernia. She is on Protonix for GI prophylaxis. 5. Renal: We are repleting her electrolytes as best we can. We are trying to replete her electrolytes mostly through the G-tube so we do not give her excessive IV fluids. She is now on a Lasix drip right now at 5 mg an hour and we can increase to 10 if necessary and she tolerates it with preserved electrol ytes. 6. ID: Her white count is improved with the broadening of her antibiotics to cefepime and Flagyl. She is growing corynebacteria from her sputum so that regimen should be adequate. 7. Hematology: We will give her a dose of Lovenox for DVT prophylaxis and also her A-fib tonight and make another determination of whether or not thoracentesis is necessary tomorrow. I am hoping that with medication we can control her congestive heart failure and thus her pleural effusion. It was more unilateral on the right but there was chest x-ray evidence of vascular congestion. 8. Endocrine: Her TSH was normal. Slight elevation of glucose and will follow with her enteral feeds and place her on a sliding scale of insulin if necessary. (2) Acute respiratory failure: (3) Atrial fibrillation with RVR: (4) Thoracic kyphosis: Admission and Anticipated Discharge Date Admission Date: November 15, 2022 Subjective The patient is very anxious always asking if she is all right. This morning we had a clinical deterioration where she was quite short of breath. There was a vicious cycle where she was getting anxious and then hypertensive and saying that she could not breathe. There was an episode of complaining of chest discomfort. No arm or jaw pain however. No belly pain nausea or vomiting. There was no headache or change in vision. Physical Exam Physical Exam: The patient is chronically ill-appearing and cachectic. She has severe kyphosis. There is bitemporal wasting and general muscle wasting. There is a ventral hernia. Lungs are diminished bilaterally heart is regular rate and rhythm with a 2 out of 6 systolic ejection murmur abdomen is protuberant with a ventral hernia but soft and nontender and not tense. Extremities without clubbing cyanosis or edema though some upper extremity anasarca. She is though quite awake and interactive and is able to communicate and able to give her own consent. Results & Data Results & Data Vital Signs (Past 12 Hours) Vital Signs Temp Pulse Pulse Resp BP Pulse Ox O2 Del Method 11/17/22 16:00 65 18 98 11/17/22 16:00 100/45 L 11/17/22 15:01 68 18 99 11/17/22 15:01 113/46 L 11/17/22 15:00 71 20 99 11/17/22 15:03 69 20 97 High Flow Nasal Cannula 11/17/22 14:30 69 19 99 11/17/22 14:01 75 19 96 11/17/22 14:01 142/53 H 11/17/22 14:00 74 18 97 11/17/22 13:30 71 23 97 11/17/22 13:00 68 23 97 11/17/22 12:30 69 27 H 96 11/17/22 12:00 78 22 96 11/17/22 12:00 126/50 L 11/17/22 11:34 82 20 93 11/17/22 11:34 116/46 L 11/17/22 11:30 84 28 H 89 L 11/17/22 11:01 88 31 H 93 11/17/22 11:01 138/59 L 11/17/22 11:00 88 21 85 L 11/17/22 10:30 86 30 H 96 11/17/22 10:00 78 30 H 95 11/17/22 09:36 83 27 H 97 11/17/22 09:36 127/48 L 11/17/22 09:30 87 32 H 96 11/17/22 09:00 84 20 77 L 11/17/22 09:00 147/57 H 11/17/22 08:30 81 19 100 11/17/22 08:00 87 29 H 96 11/17/22 07:31 168/63 H 11/17/22 07:31 88 30 H 97 11/17/22 07:30 88 25 H 88 L 11/17/22 07:00 36.6 C 89 30 H 96 11/17/22 07:00 160/59 H 11/17/22 08:00 Oxymask, BiPAP, High Flow Nasal Cannula 11/17/22 12:00 36.5 C 11/17/22 08:00 36.5 C 11/17/22 11:39 92 11/17/22 11:03 85 28 H 95 High Flow Nasal Cannula 11/17/22 07:52 87 30 H 98 11/17/22 07:37 86 26 H 96 Oxymask 11/17/22 06:00 36.6 C 85 21 98 11/17/22 05:37 188/66 H 11/17/22 05:37 36.6 C 81 17 97 11/17/22 05:30 36.6 C 87 28 H 94 11/17/22 05:30 192/76 H O2 Flow Rate FiO2 11/17/22 16:00 11/17/22 16:00 11/17/22 15:01 11/17/22 15:01 11/17/22 15:00 11/17/22 15:03 35 50 11/17/22 14:30 11/17/22 14:01 11/17/22 14:01 11/17/22 14:00 11/17/22 13:30 11/17/22 13:00 11/17/22 12:30 11/17/22 12:00 11/17/22 12:00 11/17/22 11:34 11/17/22 11:34 11/17/22 11:30 11/17/22 11:01 11/17/22 11:01 11/17/22 11:00 11/17/22 10:30 11/17/22 10:00 11/17/22 09:36 11/17/22 09:36 11/17/22 09:30 11/17/22 09:00 11/17/22 09:00 11/17/22 08:30 11/17/22 08:00 11/17/22 07:31 11/17/22 07:31 11/17/22 07:30 11/17/22 07:00 11/17/22 07:00 11/17/22 08:00 11/17/22 12:00 11/17/22 08:00 11/17/22 11:39 30 50 11/17/22 11:03 30 30 11/17/22 07:52 40 11/17/22 07:37 6 11/17/22 06:00 11/17/22 05:37 11/17/22 05:37 11/17/22 05:30 11/17/22 05:30 Laboratory Results Laboratory Results WBC 16.57 K/ul (4.8-10.8) H 11/17/22 04:38 RBC 2.84 M/uL (4.20-5.40) L 11/17/22 04:38 Hgb 8.4 g/dl (12.0-16.0) L 11/17/22 04:38 POC Hgb 9.2 g/dl (12.0-16.0) L 11/15/22 04:53 Hct 25.6 % (37.0-47.0) L 11/17/22 04:38 POC Hct 27 % (37-47) L 11/15/22 04:53 MCV 90.1 fL (80.0-100.0) 11/17/22 04:38 MCH 29.6 pg (25.0-34.0) 11/17/22 04:38 MCHC 32.8 g/dL (32.0-36.0) 11/17/22 04:38 RDW Std Deviation 46.5 fL (36.4-46.3) H 11/17/22 04:38 RDW Coeff of Blas 14.4 % (11.5-14.5) 11/17/22 04:38 Plt Count 561 K/uL (130-400) H 11/17/22 04:38 MPV 8.3 fL (9.4-12.4) L 11/17/22 04:38 Immature Gran % (Auto) 0.7 % 11/17/22 04:38 Neut % (Auto) 85.6 % 11/17/22 04:38 Lymph % (Auto) 6.7 % 11/17/22 04:38 Mineral % (Auto) 6.6 % 11/17/22 04:38 Eos % (Auto) 0.0 % 11/17/22 04:38 Baso % (Auto) 0.4 % 11/17/22 04:38 Neut # (Auto) 14.19 K/uL (1.40-6.50) H 11/17/22 04:38 Lymph # (Auto) 1.11 K/uL (1.2-3.4) L 11/17/22 04:38 Mineral # (Auto) 1.09 K/uL (0.11-0.59) H 11/17/22 04:38 Eos # (Auto) 0.00 K/uL (0-0.50) 11/17/22 04:38 Baso # (Auto) 0.07 K/uL (0-0.2) 11/17/22 04:38 Immature Gran # (Auto) 0.11 K/uL (0.01-0.20) 11/17/22 04:38 PT 10.2 Seconds (9.0-12.0) 11/15/22 01:25 INR 0.9 (0.9-1.1) 11/15/22 01:25 Sample Site L Brachial 11/15/22 04:53 POC pH 7.30 (7.35-7.45) L 11/15/22 04:53 POC pCO2 55 mmHg (35-46) H 11/15/22 04:53 POC pO2 109 mmHg (80-95) H 11/15/22 04:53 POC HCO3 27 nikolai/L (19-24) H 11/15/22 04:53 POC Total CO2 29 mmol/L (24-31) 11/15/22 04:53 POC Base Excess 0.0 nikolai/L (-9-1.8) 11/15/22 04:53 ABG pH (Temp Correct) 7.310 (7.35-7.45) L 11/15/22 04:53 ABG pCO2 (Temp Corrct 53 mmHg (35-46) H 11/15/22 04:53 POC ABG pO2 at Pt Temp 104 11/15/22 04:53 POC ABG O2 Sat 98.0 % (90-95) H 11/15/22 04:53 Josafat Test Pass 11/15/22 04:53 O2 Delivery Device Ventilator 11/15/22 04:53 POC O2 Rate 18 11/15/22 04:53 POC FiO2 60 % 11/15/22 04:53 Tidal Volume 255 11/15/22 04:53 PEEP 8 11/15/22 04:53 POC Sodium 130 mmol/L (135-144) L 11/15/22 04:53 Sodium 131 mmol/L (136-145) L 11/17/22 04:38 POC Potassium 4.9 mmol/L (3.3-5.0) 11/15/22 04:53 Potassium 3.9 mmol/L (3.5-5.1) 11/17/22 04:38 POC Chloride 96 mmol/L (101-112) L 11/15/22 01:25 Chloride 94 mmol/L (98-107) L 11/17/22 04:38 Carbon Dioxide 30 mmol/L (21-32) 11/17/22 04:38 POC Total CO2 26 mmol/L (24-31) 11/15/22 01:25 Anion Gap 7 (3-11) 11/17/22 04:38 POC Anion Gap 14.0 mmol/L (16-25) L 11/15/22 01:25 POC BUN 33 mg/dl (7-18) H 11/15/22 01:25 BUN 25 mg/dl (6-23) H 11/17/22 04:38 Creatinine 0.86 mg/dl (0.6-1.2) 11/17/22 04:38 POC Creatinine 1.1 mg/dl (0.6-1.3) 11/15/22 01:25 Est Cr Clr Drug Dosing 32.1 ml/min 11/17/22 04:38 Est GFR ( Amer) 71.4 ml/min 11/17/22 04:38 Est GFR (Non-Af Amer) 61.6 ml/min 11/17/22 04:38 BUN/Creatinine Ratio 29.1 (10-20) H 11/17/22 04:38 Glucose 128 mg/dl (70-99(Fasting)) H 11/17/22 04:38 POC Glucose 155 mg/dl (70-99) H 11/17/22 11:36 POC Glucose (other) 270 mg/dl (70-99) H 11/15/22 01:25 Lactate 1.5 mmol/L (0.4-2.0) 11/15/22 02:10 Calcium 8.7 mg/dl (8.6-10.3) 11/17/22 04:38 POC Ioniz Calcium Sanjuana 1.19 mmol/l (1.12-1.32) 11/15/22 01:25 Phosphorus 3.2 mg/dl (2.5-4.9) 11/17/22 04:38 Magnesium 1.9 mg/dl (1.7-2.4) 11/17/22 04:38 Iron 56 mcg/dl (35-150) 11/16/22 11:33 Unsaturated IBC 352 mcg/dl (155-355) 11/16/22 04:01 Total Bilirubin 0.3 mg/dl (0.2-1.0) 11/17/22 04:38 AST 28 U/L (13-39) 11/17/22 04:38 ALT 31 U/L (7-52) 11/17/22 04:38 Alkaline Phosphatase 140 U/L (34-104) H 11/17/22 04:38 Troponin I High Sens 34.6 pg/ml (0-14) H 11/16/22 18:27 B-Natriuretic Peptide 1396 pg/ml (0-100) H 11/15/22 01:25 Total Protein 6.2 gm/dl (6.0-8.3) 11/17/22 04:38 Albumin 3.1 gm/dl (3.4-5.0) L 11/17/22 04:38 Globulin 3.1 gm/dl (2.5-4.0) 11/17/22 04:38 Albumin/Globulin Ratio 1.0 (0.9-2) 11/17/22 04:38 Procalcitonin 0.11 ng/ml (0-0.5) 11/15/22 15:22 TSH 0.663 uIu/ml (0.300-4.500) 11/16/22 11:33 Urine Color Yellow 11/15/22 01:34 Urine Appearance Clear (Clear) 11/15/22 01:34 Urine pH 6.0 (4.5-7.5) 11/15/22 01:34 Ur Specific [place] 1.016 (1.000-1.030) 11/15/22 01:34 Urine Protein 1+ (Negative) H 11/15/22 01:34 Urine Glucose (UA) Negative (Negative) 11/15/22 01:34 Urine Ketones Negative (Negative) 11/15/22 01:34 Urine Blood Negative (Negative) 11/15/22 01:34 Urine Nitrite Negative (Negative) 11/15/22 01:34 Urine Bilirubin Negative (Negative) 11/15/22 01:34 Urine Urobilinogen Negative (Negative) 11/15/22 01:34 Ur Leukocyte Esterase Negative (Negative) 11/15/22 01:34 Urine WBC (Auto) 0 /hpf (0-5) 11/15/22 01:34 Urine RBC (Auto) 0-4 /hpf (0-4) 11/15/22 01:34 U Hyaline Cast (Auto) 1-5 /lpf (0-5) 11/15/22 01:34 U Epithel Cells (Auto) 5-10 /lpf (0-5) H 11/15/22 01:34 Urine Bacteria (Auto) Negative (Negative) 11/15/22 01:34 Nasal Screen MRSA (PCR) Negative (Negative) 11/15/22 04:30 Adenovirus (PCR) Not Detected (NotDetected) 11/15/22 01:38 B. pertussis DNA (PCR) Not Detected (NotDetected) 11/15/22 01:38 B.parapertussis DNA PCR Not Detected (NotDetected) 11/15/22 01:38 C. pneumoniae DNA (PCR) Not Detected (NotDetected) 11/15/22 01:38 Coronavirus OC43 (PCR) Not Detected (NotDetected) 11/15/22 01:38 Coronavirus HKU1 (PCR) Not Detected (NotDetected) 11/15/22 01:38 Coronavirus 229E (PCR) Not Detected (NotDetected) 11/15/22 01:38 SARS-CoV-2 (PCR) Not Detected (NotDetected) 11/15/22 01:38 Coronavirus NL63 (PCR) Not Detected (NotDetected) 11/15/22 01:38 Human Metapneumovir PCR Not Detected (NotDetected) 11/15/22 01:38 Influenza Type A (PCR) Not Detected (NotDetected) 11/15/22 01:38 Influenza Type B (PCR) Not Detected (NotDetected) 11/15/22 01:38 M. pneumoniae (PCR) Not Detected (NotDetected) 11/15/22 01:38 Parainfluenza 1 (PCR) Not Detected (NotDetected) 11/15/22 01:38 Parainfluenza 2 (PCR) Not Detected (NotDetected) 11/15/22 01:38 Parainfluenza 3 (PCR) Not Detected (NotDetected) 11/15/22 01:38 Parainfluenza 4 (PCR) Not Detected (NotDetected) 11/15/22 01:38 RSV (PCR) Not Detected (NotDetected) 11/15/22 01:38 Entero/Rhino (PCR) Not Detected (NotDetected) 11/15/22 01:38 Impressions Chest CTA 11/15/22 02:02 Exam(s): CTA CHEST IV Amt: 116 ML OPTIRAY 350 EXAM: CT Angiography Chest With Intravenous Contrast CLINICAL HISTORY: Reason for exam: Respiratory arrest, hx of effusions, PNA. TECHNIQUE: Axial computed tomographic angiography images of the chest with intravenous contrast. CTDI is 23.63 mGy and DLP is 296.07 mGy-cm. Automated exposure control was utilized for the study. A dose lowering technique was utilized adhering to the principles of ALARA. 2D MIP reconstructed images were created and reviewed. COMPARISON: No relevant prior studies available. FINDINGS: Pulmonary arteries: Pulmonary artery hypertension. No pulmonary embolus. Aorta: No acute findings. No thoracic aortic aneurysm. Lungs: Left lower lobe infiltrate. Subtle filtrate within the right upper lobe. Diffuse changes COPD. Compressive atelectasis of right lower lobe. No mass. Pleural space: Large right pleural effusion. No pneumothorax. Heart: Cardiomegaly. No significant pericardial effusion. No evidence of RV dysfunction. Bones/joints: No acute fracture. No dislocation. Soft tissues: Unremarkable. Lymph nodes: Unremarkable. No enlarged lymph nodes. Tubes, lines and devices: Endotracheal tube with its tip above the vu. IMPRESSION: 1. No pulmonary embolus 2. Large right pleural effusion with compressive atelectasis right lower lobe. Electronically signed by: Tan Becerril MD 11/15/22 03:[address] 11/15/22 02:02 Exam(s): CT HEAD Without Contrast EXAM: CT Head Without Intravenous Contrast CLINICAL HISTORY: Reason for exam: AMS. TECHNIQUE: Axial computed tomography images of the head/brain without intravenous contrast. CTDI is 38.88 mGy and DLP is 624.41 mGy-cm. Automated exposure control was utilized for the study. A dose lowering technique was utilized adhering to the principles of ALARA. COMPARISON: 11/07/2022 FINDINGS: Brain: Unremarkable. No hemorrhage. No significant white matter disease. No edema. Ventricles: Unremarkable. No ventriculomegaly. Bones/joints: Postoperative changes of right frontal calvarium. No acute fracture. Soft tissues: Unremarkable. Vasculature: stable postoperative changes usually aneurysm clipping. Sinuses: Unremarkable as visualized. No acute sinusitis. Mastoid air cells: Unremarkable as visualized. No mastoid effusion. IMPRESSION: No acute intracranial pathology. No change from prior exam Electronically signed by: Tan Becerril MD 11/15/22 03:34 AM KUB X-Ray 11/15/22 10:58 KUB HISTORY: Switch OGT to NGT COMPARISON: None. FINDINGS: Nasogastric tube terminates in the mid stomach. Small bilateral pleural effusions and bibasilar densities are noted. The heart is mildly enlarged. Mild pulmonary vascular congestion persists. No dilated loops of bowel to suggest an obstruction. No renal calculi. No ureteral calculi. No pneumoperitoneum or pneumatosis. IMPRESSION: Nasogastric tube terminates in the mid stomach. ACT 112: Negative or not required by law. Electronically signed by: Alejandro Jefferson M.D. 11/15/2022 11:39 AM Chest X-Ray 11/17/22 05:00 XR chest 1V portable HISTORY: 86 years-old Female evaluate pulmonary edema/effusion COMPARISON: 11/16/2002 TECHNIQUE: AP view of the chest FINDINGS: Distal tip of enteric tube projects over the gastric body. Moderate cardiomegaly. Atherosclerosis of the aorta. Pulmonary edema. Moderate right and small left pleural effusions with bibasilar consolidation, right greater than left. No pneumothorax. Degenerative changes of the shoulders and spine. IMPRESSION: 1. Cardiomegaly with unchanged pulmonary edema. 2. Stable moderate right and small left pleural effusions with bibasilar consolidation. ACT 112: Negative or not required by law. The above report was generated using voice recognition software. It may contain grammatical, syntax or spelling errors. Electronically signed by: Zbigniew Soto M.D. 11/17/2022 7:07 AM Medications Administered Current Inpatient Medications Albuterol (Albuterol 0.083% Nebu Soln 3 Ml Vial) 2.5 mg NEB Q6R PRN; Protocol PRN Reason: wheeze, cough Stop: 12/15/22 05:01 Last Admin: 11/17/22 15:02 Dose: 2.5 mg Amlodipine Besylate (Amlodipine Besylate 5 Mg Tab) 10 mg PO DAILY [facility] Stop: 12/18/22 08:59 Aspirin (Aspirin 81 Mg Chew) 81 mg PO QAM [facility] Stop: 12/15/22 11:29 Last Admin: 11/17/22 07:49 Dose: 81 mg Dextrose (Dextrose 50% 50 Ml Syringe) 25 - 50 ml IV UD PRN; Protocol PRN Reason: Hypoglycemia Protocol Stop: 12/15/22 05:01 Enoxaparin Sodium (Enoxaparin Inj 40 Mg/0.4 Ml Syr) 40 mg SQ QAM [facility] Stop: 12/15/22 11:14 Last Admin: 11/16/22 07:53 Dose: 40 mg Glucagon (Glucagon For Inj 1 Mg Vial) 1 mg SQ UD PRN; Protocol PRN Reason: Hypoglycemia Protocol Stop: 12/15/22 05:01 Glucose (Glucose 10 Tab/Tube) 4 - 8 tab PO UD PRN; Protocol PRN Reason: Hypoglycemia Treatment Stop: 12/15/22 05:01 Glucose (Glucose 40% Gel 15 Gm Tube) 15 - 30 gm PO UD PRN; Protocol PRN Reason: Hypoglycemia Protocol Stop: 12/15/22 05:01 Acetaminophen (Ofirmev) 1,000 mg in 100 mls @ 400 mls/hr IV Q8H PRN PRN Reason: pain/fever Stop: 11/18/22 05:01 Last Infusion: 11/16/22 22:04 Dose: Infused Pantoprazole Sodium 40 mg/ (Syringe) 10 mls @ 5 mls/min IV DAILY@1100 [facility] Stop: 12/15/22 10:59 Last Admin: 11/17/22 11:21 Dose: 5 mls/min Cefepime HCl 2,000 mg/ Syringe 20 mls @ 5 mls/min IV Q12H [facility] Stop: 11/23/22 10:29 Last Admin: 11/17/22 11:21 Dose: 5 mls/min Amiodarone HCl/Dextrose (Nexterone / D5w) 360 mg in 200 mls @ 16.667 mls/hr IV .Q12H [facility] Stop: 12/16/22 16:44 Last Admin: 11/17/22 15:15 Dose: 0.5 mg/min, 16.7 mls/hr Dexmedetomidine/Sodium Chloride (Precedex) 200 mcg in 50 mls @ 4.56 mls/hr IV .[id number] [facility]; Protocol Stop: 11/21/22 13:14 Last Titration: 11/17/22 14:26 Dose: 0.4 mcg/kg/hr, 4.6 mls/hr Furosemide 100 mg/ Dextrose 100 mls @ 5 mls/hr IV .Q20H [facility] Stop: 12/17/22 13:14 Last Admin: 11/17/22 13:48 Dose: 5 mg/hr, 5 mls/hr Insulin Aspart (Insulin Aspart Per Unit Charge) 0 units SC Q6 [facility] Stop: 12/15/22 11:59 Last Admin: 11/17/22 11:44 Dose: 1 units Metoclopramide HCl (Metoclopramide Hcl 5 Mg Tablet) 5 mg PO BID [facility] Stop: 12/17/22 10:29 Last Admin: 11/17/22 11:20 Dose: 5 mg Metoprolol Tartrate (Metoprolol Tartrate 1 Mg/Ml Vial) 5 mg IV Q6H PRN PRN Reason: BP >180, HR > 130 Stop: 12/15/22 05:01 Last Admin: 11/16/22 18:15 Dose: 5 mg Metronidazole (Metronidazole 500 Mg Tab) 500 mg PO Q8 [facility] Stop: 11/23/22 13:59 Last Admin: 11/17/22 13:48 Dose: 500 mg Miscellaneous (Carbohydrates For Hypoglycemia ) 15 - 30 gm PO UD PRN PRN Reason: Hypoglycemia Protocol Stop: 12/15/22 05:01 Miscellaneous (Icu Electrolyte Replacement Protocol) 1 each N/A BID@18 [facility]; Protocol Stop: 11/22/22 05:59 Last Admin: 11/17/22 05:28 Dose: 1 each Multivitamins/Minerals (Multi Vit W/Minerals Liquid 15 Ml Udp) 15 ml NG QAM [facility] Stop: 12/16/22 08:59 Last Admin: 11/17/22 07:49 Dose: 15 ml Nutritional Formula (Nutren Liqd 2.0 1,000 Ml Bag) 1,000 ml NG UD [facility]; Protocol Stop: 12/17/22 14:44 Last Admin: 11/17/22 15:36 Dose: 1,000 ml Sterile Water (Tube Feeding Water Flush) 30 ml NG Q4H [facility] Stop: 12/15/22 13:29 Last Admin: 11/17/22 13:48 Dose: 30 ml Thiamine HCl (Thiamine Hcl 100 Mg Tab) 100 mg NG QAM [facility] Stop: 12/16/22 10:59 Last Admin: 11/17/22 07:49 Dose: 100 mg Coding Level of Care Code 79057 CRITICAL CARE 1ST 30-74M History Expanded Problem Focused Exam Expanded Problem Focused Medical Decision Making High Complexity Diagnoses Sinus pause I45.5 Acute respiratory failure J96.00 Atrial fibrillation with RVR I48.91 Thoracic kyphosis M40.204
[2022-11-17] MEDS ORDERED: ENOXAPARIN INJ 40 MG/0.4 ML SYR SQ ONE (17:45)
--- NOTE | 2022-11-17 19:04 | XRay Report ---
XR chest 1V portable HISTORY: Shortness of breath. follow up r pleural effusion, chf and right PICC COMPARISON: Chest 11/17/2022. FINDINGS: Interval placement of a right PICC which terminates at the expected location of the distal SVC. Nasogastric tube terminates below the diaphragm. The tip is not included on this study. Rotated study. The heart remains enlarged. No definite pneumothorax. The left lung apex is obscured by the pa tient's overlapping head. Small bilateral pleural effusions and bibasilar densities persist. Mild int erstitial pulmonary edema has slightly improved. IMPRESSION: 1. A right PICC terminates at the distal SVC. 2. Nasogastric tube terminates below the diaphragm. The tip is not included on this study. 3. Bilateral pleural effusions and bibasilar densities persist. 4. Slight improvement in the pulmonary edema ACT 112: Negative or not required by law. Electronically signed by: Alejandro Jefferson M.D. 11/17/2022 7:02 PM
[2022-11-18] MEDS: INSULIN ASPART PER UNIT CHARGE SC SCH ×5 (00:08→23:31)
[2022-11-18] MEDS: TUBE FEEDING WATER FLUSH NG SCH ×7 (00:09→23:31)
[2022-11-18] MEDS ORDERED: ALBUMIN 5% 250 ML IV ONE (03:21)
[2022-11-18] MEDS: dexMEDEtomidine 200 MCG/50 ML BAG IV SCH ×3 (05:30→23:30)
[2022-11-18] MEDS: metroNIDAZOLE 500 MG TAB PO SCH ×3 (05:35→21:02)
[2022-11-18 05:48] LABS: Albumin Globulin Ratio 1.1 (0.9-2); Albumin Level 3.2 gm/dl (3.4-5.0); BUN Creatinine Ratio 27.4 (10-20); Bilirubin,Total 0.3 mg/dl (0.2-1.0); Calcium 8.8 mg/dl (8.6-10.3); Creatinine Clr Calc Pharmacy 22.2 ml/min; Est GFR (African American) 55.4 ml/min; Est GFR (Non-African American) 47.8 ml/min; Globulin 2.9 gm/dl (2.5-4.0); Magnesium 2.2 mg/dl (1.7-2.4); Phosphorus 3.7 mg/dl (2.5-4.9); Potassium 3.5 mmol/L (3.5-5.1); Total Protein 6.1 gm/dl (6.0-8.3)
[2022-11-18] MEDS: ICU ELECTROLYTE REPLACEMENT PROTOCOL SCH ×2 (05:55→18:13)
[2022-11-18] MEDS ORDERED: POTASSIUM CHLORIDE 20 MEQ/15 ML UDC NG ONE (05:57)
[2022-11-18] MEDS: FUROSEMIDE 100 MG in DEXTROSE 5% 90 ML IV SCH (06:17)
[2022-11-18] MEDS ORDERED: POTASSIUM CHLORIDE / WTR 10 MEQ/100 ML PLCT IV SCH (06:30)
--- NOTE | 2022-11-18 07:29 | Hospitalist Progress Note ---
Date of Service November 18, 2022 Assessment & Plan (1) Acute respiratory failure: (2) Pleural effusion: (3) Acute and chronic respiratory failure with hypoxia: (4) Pneumonia: (5) Back pain: (6) Tobacco dependence: (7) Atrial arrhythmia: Plan Emelia is an 86 year old female with history of COPD, chronic tobacco use (active 1 PPD), pHTN, MAT, and protein-calorie malnutrition who presented for increased respiratory distress. She was subsequently intubated and admitted to the ICU. Acute Hypoxic Respiratory Failure/Respiratory Arrest Multifactorial - 2/2 Acute diastolic chf/Pleural Effusion/ aspiration/mucous plugging/restrictive lung ds - Patient discharged 11/14 after being treated for pneumonia on Cefdinir/Azithromycin. New O2 need last admission. - Evening of 11/14 patient developed acute dyspnea after dinner * CTA 11/14 large right pleural effusion with compressive atelectasis right lower lobe (CT from 11/11 with trace Pleural effusion) * Recent swallow study 11/12 indicating silent aspiration, patient declined furth er evaluation * HS Troponin 27.7 * BNP 1397 (elevated from prior 400) * 11/15 Echo w/ EF > 70%, Grade 1 DD. RVSP 40-50, * Blood Cultures - NGTD @ 48 hours * Sputum Cultures - Corynebacterium, repeat ordered - In the ED * Patient intubated in ER, extubated 11/15 * Received Methylprednisone 100 mg/ Cefepime/ Vancomycin Plan - * Speech eval attempted today, patient declined full evaluation, re-attempting tomorrow 11/19 * Ongoing dyspnea with feeds, possible aspiration vs reflux component * Transitioned to Ceftriaxone in ICU 11/15, changed to Cefepime/Flagyl in ICU 11/16 d/t increased WBC count (19) - WBC coming down, continue Abx * No planned thoracentesis as of 11/18 * Diuresis: s/p multiple lasix doses. - 11/17 started Lasix drip at 5 mg/hr, planned transition back to IV Lasix 80 mg 11/19 - Renal function stable, continue to follow - Neg ~ 4L since admission Sinus Pauses (5-6s) MAT/AFib - On Amiodarone and metoprolol at home - Went in A fib with RVR 11/15. Started having conversion pauses 11/16. - Cardiology consult * Suspect conversion pauses from AFib to NSR, currently having 2s pauses * Recommended ongoing Amiodarone - Amiodarone increased to 400 mg PO (via NGT) BID * Cardiology recommending ongoing discontinuation of Metoprolol - Could use small doses (2.5 mg) of IV metoprolol tartrate to keep heart rate less than 120 bpm if she returns to AFib w/ RVR - Pacemaker pads placed following episode, Atropine available at bedside - Digoxin doses ordered - Eliquis held on admission. On lovenox 40mgs daily - should provide appropriate anticoagulation considering age, Severe malnutrition - Albumin 3.3 - ICU team recommendation - Access information regarding food security and access to food. - Possibly side effect from amiodarone, will follow - NGT feedings ongoing 11/18 * Tolerating 30ml/hr of concentrated formula. * Tolerating reglan 5mgs bid for dysmotility and reflux. * Speech path following - for re-eval 11/19 * Follow for respiratory distress in setting of presumed aspiration Lumbar Back Pain Osteoporosis - Hx of multiple (L1,3,5) compression fractures (Evidenced on CT in 2020) - Lumbar XR on 11/08: New L4 compression fracture - Patient indicated back pain limiting ability to cough on admission * Tylenol prn. Hx of Transient Ischemic Attacks - Would continue aspirin, antihypertensives, and high dose statin when stable * Atorvastatin 80 mg: held on admission - Tobacco use: Continue to encourage smoking cessation - currently smoking 1 PPD outpatient - No surgical intervention desired by patient for SHUN HTN - Metoprolol/Losartan/Amlodipine: held on admission d/t hypotension - Patient alternating between hypotension and hypertension * Received Amlodipine 5 mg PO (via NGT) in AM * Clonidine 0.1 mg added 11/18 to aid in anxiolysis and hypertension Anxiety - With high BP readings - added clonidine 0.1mgs bid. - considering venlafaxin. DVT PPx: Lovenox 40 mg SQ qAM, Eliquis held, Aspirin resumed CODE: Full Code Diet: NPO, NG intact Consults: PT/OT, Speech, Cardiology Dispo: ICU Case Mgmt: Health Care Proxy established (Kathy Ramos), paperwork in chart. * Patient elected to allow phone contact with all daughters/grand daughters for updates. Admission and Anticipated Discharge Date Admission Date: November 15, 2022 Supervising Physician Co-Signing Physician Notes Resident Physician Supervision Note: I independently interviewed and examined the patient and verified the couch history and physical, reviewed labs and image studies and agree with resident findings and care plan. Subjective 11/18: Patient continues to endorse discomfort, but today, primarily from her back. Discussed additional pain medication, but patient declined. She notes she continues to have throat discomfort 2/2 NGT. Pat's cough is ongoing and this morning has become more dark in color. She denies fevers or chills, but notes that it remains difficult for her to breathe despite ongoing respiratory support. Physical Exam Physical Exam: Gen: comfortable, alert, cachectic HEENT: NCAT, BELL, MMM Neuro: AO x 3, no focal deficits Resp: Mildly labored, few abdominal breaths, diminished breath sounds bilaterally, expiratory wheezing throughout (improved, but worse in bases, R>L) CV:RRR, normal S1/S2, systolic ejection murmur Abd: Soft, non-distended, no TTP, normoactive bowels, no masses, NGT intact Extr: 2+ dp bilaterally, no edema Skin: No rashes lesions or erythema Results & Data Results & Data Vital Signs (Past 12 Hours) Vital Signs Temp Pulse Pulse Resp BP Pulse Ox O2 Del Method 11/18/22 07:06 73 18 95 Nasal Cannula 11/18/22 06:30 75 18 96 11/18/22 06:30 127/49 L 11/18/22 06:00 76 18 97 11/18/22 06:00 128/51 L 11/18/22 05:30 76 26 H 98 High Flow Nasal Cannula 11/18/22 05:30 126/49 L 11/18/22 05:15 113/45 L 11/18/22 05:15 118 H 20 97 11/18/22 05:01 85/49 L 11/18/22 05:01 110 H 18 97 11/18/22 05:00 117 H 19 97 11/18/22 05:00 67/48 L 11/18/22 04:30 76 21 98 11/18/22 04:30 138/51 L 11/18/22 04:26 71 20 98 High Flow Nasal Cannula 11/17/22 23:25 68 20 96 High Flow Nasal Cannula 11/18/22 04:17 118 H 19 99 11/18/22 04:17 84/50 L 11/18/22 04:16 114 H 18 97 11/18/22 04:15 107 H 15 97 11/18/22 04:15 77/45 L 11/18/22 04:00 118 H 18 96 11/18/22 04:00 87/51 L 11/18/22 03:45 119 H 20 96 11/18/22 03:36 116 H 22 95 11/18/22 03:36 79/51 L 11/18/22 03:30 115 H 33 H 97 11/18/22 03:28 120 H 20 94 11/18/22 03:28 83/55 L 11/18/22 03:14 79/58 L 11/18/22 03:14 125 H 25 H 93 11/18/22 03:11 112 H 23 96 11/18/22 03:11 82/50 L 11/18/22 03:08 71/49 L 11/18/22 03:06 80/46 L 11/18/22 03:06 123 H 23 96 11/18/22 03:05 112 H 25 H 89 L 11/18/22 03:05 75/46 L 11/18/22 03:02 114 H 24 92 11/18/22 03:02 71/44 L 11/18/22 03:00 100 H 22 93 11/18/22 02:30 66 18 96 11/18/22 02:00 64 15 97 11/18/22 02:00 91/41 L 11/18/22 01:30 65 20 96 11/18/22 01:00 73 29 H 97 11/18/22 01:00 99/45 L 11/18/22 00:30 70 21 99 11/18/22 00:01 68 19 99 11/18/22 00:01 98/45 L 11/18/22 00:00 64 15 98 11/17/22 23:30 64 18 99 11/17/22 23:00 65 24 98 11/17/22 23:00 99/45 L 11/17/22 23:29 64 11/17/22 22:30 65 21 98 11/17/22 22:00 65 22 98 11/17/22 22:00 118/48 L 11/17/22 21:30 64 17 99 11/17/22 22:19 High Flow Nasal Cannula 11/17/22 21:00 65 18 98 11/17/22 21:00 99/46 L 11/17/22 20:30 65 16 98 11/17/22 20:00 66 22 98 11/17/22 20:00 36.6 C 105/46 L High Flow Nasal Cannula 11/17/22 19:30 69 15 97 11/17/22 19:50 73 22 99 Nasal Cannula O2 Flow Rate FiO2 11/18/22 07:06 6 11/18/22 06:30 11/18/22 06:30 11/18/22 06:00 11/18/22 06:00 11/18/22 05:30 30 40 11/18/22 05:30 11/18/22 05:15 11/18/22 05:15 11/18/22 05:01 11/18/22 05:01 11/18/22 05:00 11/18/22 05:00 11/18/22 04:30 11/18/22 04:30 11/18/22 04:26 30 40 11/17/22 23:25 30 40 11/18/22 04:17 11/18/22 04:17 11/18/22 04:16 11/18/22 04:15 11/18/22 04:15 11/18/22 04:00 11/18/22 04:00 11/18/22 03:45 11/18/22 03:36 11/18/22 03:36 11/18/22 03:30 11/18/22 03:28 11/18/22 03:28 11/18/22 03:14 11/18/22 03:14 11/18/22 03:11 11/18/22 03:11 11/18/22 03:08 11/18/22 03:06 11/18/22 03:06 11/18/22 03:05 11/18/22 03:05 11/18/22 03:02 11/18/22 03:02 11/18/22 03:00 11/18/22 02:30 11/18/22 02:00 11/18/22 02:00 11/18/22 01:30 11/18/22 01:00 11/18/22 01:00 11/18/22 00:30 11/18/22 00:01 11/18/22 00:01 11/18/22 00:00 11/17/22 23:30 11/17/22 23:00 11/17/22 23:00 11/17/22 23:29 11/17/22 22:30 11/17/22 22:00 11/17/22 22:00 11/17/22 21:30 11/17/22 22:19 30 40 11/17/22 21:00 11/17/22 21:00 11/17/22 20:30 11/17/22 20:00 11/17/22 20:00 30 40 11/17/22 19:30 11/17/22 19:50 35 40 Resident Activity Tracking Resident Involvement: Resident Care Provided Care Provided: Adult Hospital Medicine (4) Pneumonia Laterality: right Lung location: lower lobe of lung Pneumonia type: due to unspecified organism Qualified Code(s): J18.1 - Lobar pneumonia, unspecified organism
--- NOTE | 2022-11-18 07:35 | Electrocardiogram Report ---
Test Reason : Blood Pressure : / mmHG Vent. Rate : 086 BPM Atrial Rate : 086 BPM P-R Int : 156 ms QRS Dur : 078 ms QT Int : 380 ms P-R-T Axes : -16 -29 073 degrees QTc Int : 454 ms Normal sinus rhythm Left ventricular hypertrophy with repolarization abnormality Abnormal ECG When compared with ECG of 15-NOV-2022 01:20, Sinus rhythm has replaced Junctional rhythm Confirmed by Cong Chisholm ([id number]) on 11/18/2022 7:35:13 AM Referred By: REFERRED SELF Confirmed By:Cong Chisholm
[2022-11-18] MEDS ORDERED: AMIODARONE 200 MG TAB PO SCH (08:00)
[2022-11-18] MEDS: ASPIRIN 81 MG CHEW PO SCH (08:47)
[2022-11-18] MEDS: METOCLOPRAMIDE HCL 5 MG TABLET PO SCH ×2 (08:47→21:02)
[2022-11-18] MEDS: MULTI VIT W/MINERALS LIQUID 15 ML UDP NG SCH (08:48)
[2022-11-18] MEDS: THIAMINE HCL 100 MG TAB NG SCH (08:48)
[2022-11-18] MEDS ORDERED: amLODIPine BESYLATE 5 MG TAB PO SCH ×2 (09:00→10:30)
[2022-11-18 09:09] LABS: Basophils # (auto) 0.07 K/uL (0-0.2); Basophils % (auto) 0.4 %; Eosinophils # (auto) 0.03 K/uL (0-0.50); Eosinophils % (auto) 0.2 %; Hematocrit (blood only) 24.2 % (37.0-47.0); Immature Granulocytes % (auto) 0.6 %; Lymphocytes # (auto) 1.16 K/uL (1.2-3.4); Lymphocytes % (auto) 6.9 %; Mean Corpuscular Hemoglobin 29.6 pg (25.0-34.0); Mean Corpuscular Hgb Conc 33.1 g/dL (32.0-36.0); Mean Corpuscular Volume 89.6 fL (80.0-100.0); Mean Platelet Volume 8.8 fL (9.4-12.4); Monocytes % (auto) 5.3 %; Neutrophils # (auto) 14.64 K/uL (1.40-6.50); Neutrophils % (auto) 86.6 %; Platelet Count 600 K/uL (130-400); RDW Coefficient of Variation 14.6 % (11.5-14.5); RDW Standard Deviation 47.1 fL (36.4-46.3)
[2022-11-18] MEDS: POTASSIUM CHLORIDE 20 MEQ/15 ML UDC PO SCH ×2 (10:18→20:59)
[2022-11-18] MEDS: CEFEPIME 2,000 MG in SYRINGE 0 ML IV SCH (10:18)
[2022-11-18] MEDS: PANTOprazole 40 MG in SYRINGE 0 ML IV SCH (10:19)
[2022-11-18] MEDS ORDERED: AMIODARONE 200 MG TAB PO ONE (10:30)
--- NOTE | 2022-11-18 10:47 | Cardiology Progress Note ---
Date of Service November 18, 2022 Assessment & Plan (1) Sinus pause: Plan: Amiodarone increased to 400 mg twice daily. Since she is fully amiodarone loaded, would hope to taper this back gradually to a maintenance dose of 200 mg twice daily if she remains in sinus rhythm over the next few days. Remain off metoprolol given conversion pauses. If she has recurrent atrial fibrillation with rapid rate, could use small doses (2.5 mg) of IV metoprolol tartrate to keep heart rate less than 120 bpm. Anticoagulation less of an immediate issue now that she is back in sinus rhythm, resume reduced dose apixaban upon discharge. We will continue to follow along. (2) Atrial fibrillation with RVR: Plan: As per #1. (3) Bilateral pleural effusion: Plan: Still mildly hypervolemic, but improved over yesterday. Currently on furosemide drip. Good urine output overnight. (4) Acute respiratory failure: Plan: Per critical care team. (5) Obstructive lung disease: Admission and Anticipated Discharge Date Admission Date: November 15, 2022 Subjective Feeling a bit better. Intermittent paroxysmal cough. Minimal dyspnea at rest. No chest pain, palpitations, or lightheadedness. Amiodarone switch from IV to oral. Telemetry showed sinus rhythm with recurrent atrial fibrillation with rapid ventricular response for about 3 hours overnight, then again briefly for a minute or so this morning. Conversion pauses again noted, but less prolonged than the initial conversion pauses (longest pause overnight 2.2 seconds). Physical Exam Physical Exam: Patient appears ill but not acutely distressed. BP mildly hypertensive (163/62 mmHg). Pulse 84 bpm and regular. Skin: no ecchymoses or generalized lesions. HEENT: unremarkable. Neck: Jugular venous pulse shelter to the angle of the jaw at 90 degrees with increased respiratory variation, no carotid bruits. Lungs: Dullness and decreased breath sounds at the bases, mildly decreased breath sounds, no obvious wheezing. No abdominal paradox. Cardiac: Regular rhythm, 2/6 holosystolic murmur left sternal border and apex, no diastolic murmur. Abdomen: Mildly protuberant but nontender. Extremities: no edema, pulses intact. Neurologic: normal affect, answers simple questions with head nod, nonfocal. Results & Data Laboratory Results Sodium 133, chloride 95, potassium 3.5, BUN 29, creatinine 1.06. Hemoglobin 8.0. Diagnostic Findings Chest x-ray yesterday afternoon showed slight improvement in pulmonary edema. PG Care Time/CCT Total # of Minutes Spent Total Time Spent with Patient: Total time spent is greater than 50% in coordination of care (as documented) at patient's floor/unit and/or counseling patient: Coding Level of Care Code 59107 SUB INP/OBS CARE 2/35MIN Diagnoses Sinus pause I45.5 Atrial fibrillation with RVR I48.91 Bilateral pleural effusion J90 Acute respiratory failure J96.00 Obstructive lung disease J44.9
[2022-11-18] MEDS: cloNIDine HCL 0.1 MG TAB PO SCH ×2 (11:32→21:02)
--- NOTE | 2022-11-18 13:05 | Critical Care Progress Note ---
Date of Service November 18, 2022 Assessment & Plan (1) Atrial fibrillation with RVR: Plan: The patient had an episode of hypotension when she went into A-fib with rapid ventricular response early this morning. Fortunately she did convert to sinus rhythm. We would like to increase her amiodarone dose to 400 mg twice daily. I would also add low-dose beta-ana cristina as well in order to again try to keep her in sinus rhythm. Her blood pressure is still high. We did give her dose amlodipine but only 5 mg because of the hypotension earlier this morning. She remains on the Lasix drip and though she is starting to have some evidence of volume depletion she is still putting out quite a bit of urine and is still hypertensive. Tomorrow we will probably try to get her off of the Lasix drip onto some standing dosing because she is only on 5 mg/h which equals to 120 mg a day which would not be excessive. We could first start with just 80 mg in the morning and see if she requires any additional dosing. Adding Zaroxolyn or diarrheal will also be potentially helpful. 1. Neuropsych: The patient seems a lot less anxious. She tolerated the Precedex yesterday but is not requiring as much today. We are giving her some clonidine 0.1 mg twice daily to help with some of that anxiety but also for her blood pressure. I am reluctant to give her benzodiazepine. But perhaps something like Effexor may also be helpful. The issue of her right healthcare agent and being able to contact her family has been resolved and we have received permission to speak to any of her daughters or grandchildren. In fact her granddaughter resumed into her call yesterday which I know is appreciated by the patient. 2. Cardiovascular: The patient continues to go in and out of atrial fibrillation and when she does it significantly impacts on her atrial kick and her blood pressure. Therefore we are increasing amiodarone to 400 mg twice daily. I would likely also add some low-dose beta-ana cristina to keep her in sinus rhythm and decrease her heart rate. There have been no further evidences of compensatory pauses. 3. Respiratory: Chest x-ray still shows particularly right pleural effusion greater than left though the interpretation of her chest x-ray is improved pulmonary edema slightly. We will be initiating a Mucomyst to in order to help her cough and expectorate her phlegm. Even with nasotracheal suction and do some bleeding but she was not able to cough up that much. We will also try some flutter valve. Again, I am reluctant to perform a thoracentesis for risk of complications. We are allowing her to diurese quite a bit with the Lasix drip. Slowly she is decreasing her FiO2 requirements and has come off of the high flow nasal cannula and is now only on 5 L nasal cannula even down from this morning which was 6 L per nasal cannula. 4. Gastrointestinal: The patient is now tolerating her tube feeds 30 mL an hour which is concentrated 2.0 formula. She is also tolerating Reglan 5 twice daily to help with any dysmotility and reflux. She was seen by speech-language pathology and given minimal ice chips and then felt like she had enough. But it is important to maintain her nutritional support at this time until she is a less short of breath. 5. Renal: We will continue to replete her potassium for hypokalemia. She is on a Lasix drip but tomorrow will likely transition to 80 of IV Lasix. She continues to have a Diaz catheter in place and will inquire about an external female catheter. 6. ID: Patient is coughing up some brown phlegm and her white count is coming down from 19.4 down to 16.5. She continues on cefepime which is being renally dosed. We will try to get a sputum sample if she is able to cough up her phlegm. We will try to help with expectoration with Mucomyst. 7. Heme: For her intermittent A-fib she will be on Lovenox but given her renal insufficiency and age will only be on 40 mg daily which for her would actually be treatment doses. Her hematocrit is low but her iron stores were normal. 8. Endocrine: We will follow her finger blood sugars and no active issues at this time. The patient was offered occupational and physical therapy but declined much intervention. She did sit at the edge of the bed and her kyphosis was very limiting. Then she decided to stay back in bed. Total critical care time 45 minutes. 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 Her shortness of breath is still present especially this morning when she developed A-fib with rapid ventricular response. But now she is feeling better. She has no chest discomfort arm or jaw pain. No nausea or vomiting or diarrhea. She denies any swelling in her ankles. She is having some cough with phlegm production and it is challenging for her to expectorate it. Physical Exam Physical Exam: She is still very awake alert interactive and able to make her own decisions and retains capacity. She seems in much less distress today. Looks she still is having trouble expectorating her phlegm. The kyphosis is chronic and unchanging heart is regular rate and rhythm abdomen is soft nontender without hepatosplenomegaly though protuberant extremities are without clubbing cyanosis or edema. She seems in general little less anxious today. Lungs remain rhonchorous and decreased breath sounds particularly on the right. Results & Data Results & Data Vital Signs (Past 12 Hours) Vital Signs Temp Pulse Pulse Resp BP Pulse Ox O2 Del Method 11/18/22 12:00 92 H 25 H 163/53 H 96 High Flow Nasal Cannula 11/18/22 12:00 36.7 C 11/18/22 08:00 36.6 C 11/18/22 11:01 92 H 24 149/65 H 92 High Flow Nasal Cannula 11/18/22 10:30 86 25 H 131/54 L 99 High Flow Nasal Cannula 11/18/22 10:01 81 23 148/51 H 98 High Flow Nasal Cannula 11/18/22 09:30 87 24 131/51 L 96 High Flow Nasal Cannula 11/18/22 08:00 High Flow Nasal Cannula 11/18/22 08:30 81 25 H 163/62 H 95 Nasal Cannula 11/18/22 08:00 78 28 H 161/51 H 95 Nasal Cannula 11/18/22 07:30 80 20 129/51 L 97 Nasal Cannula 11/18/22 07:00 81 28 H 134/53 L 98 Nasal Cannula 11/18/22 07:06 73 18 95 Nasal Cannula 11/18/22 06:30 75 18 96 11/18/22 06:30 127/49 L 11/18/22 06:00 76 18 97 11/18/22 06:00 128/51 L 11/18/22 05:30 76 26 H 98 High Flow Nasal Cannula 11/18/22 05:30 126/49 L 11/18/22 05:15 113/45 L 11/18/22 05:15 118 H 20 97 11/18/22 05:01 85/49 L 11/18/22 05:01 110 H 18 97 11/18/22 05:00 117 H 19 97 11/18/22 05:00 67/48 L 11/18/22 04:30 76 21 98 11/18/22 04:30 138/51 L 11/18/22 04:26 71 20 98 High Flow Nasal Cannula 11/18/22 04:17 118 H 19 99 11/18/22 04:17 84/50 L 11/18/22 04:16 114 H 18 97 11/18/22 04:15 107 H 15 97 11/18/22 04:15 77/45 L 11/18/22 04:00 118 H 18 96 11/18/22 04:00 87/51 L 11/18/22 03:45 119 H 20 96 11/18/22 03:36 116 H 22 95 11/18/22 03:36 79/51 L 11/18/22 03:30 115 H 33 H 97 11/18/22 03:28 120 H 20 94 11/18/22 03:28 83/55 L 11/18/22 03:14 79/58 L 11/18/22 03:14 125 H 25 H 93 11/18/22 03:11 112 H 23 96 11/18/22 03:11 82/50 L 11/18/22 03:08 71/49 L 11/18/22 03:06 80/46 L 11/18/22 03:06 123 H 23 96 11/18/22 03:05 112 H 25 H 89 L 11/18/22 03:05 75/46 L 11/18/22 03:02 114 H 24 92 11/18/22 03:02 71/44 L 11/18/22 03:00 100 H 22 93 11/18/22 02:30 66 18 96 11/18/22 02:00 64 15 97 11/18/22 02:00 91/41 L 11/18/22 01:30 65 20 96 11/18/22 01:00 73 29 H 97 11/18/22 01:00 99/45 L O2 Flow Rate FiO2 11/18/22 12:00 5 11/18/22 12:00 11/18/22 08:00 11/18/22 11:01 6 11/18/22 10:30 6 11/18/22 10:01 6 11/18/22 09:30 6 11/18/22 08:00 6 11/18/22 08:30 6 11/18/22 08:00 6 11/18/22 07:30 6 11/18/22 07:00 6 11/18/22 07:06 6 11/18/22 06:30 11/18/22 06:30 11/18/22 06:00 11/18/22 06:00 11/18/22 05:30 30 40 11/18/22 05:30 11/18/22 05:15 11/18/22 05:15 11/18/22 05:01 11/18/22 05:01 11/18/22 05:00 11/18/22 05:00 11/18/22 04:30 11/18/22 04:30 11/18/22 04:26 30 40 11/18/22 04:17 11/18/22 04:17 11/18/22 04:16 11/18/22 04:15 11/18/22 04:15 11/18/22 04:00 11/18/22 04:00 11/18/22 03:45 11/18/22 03:36 11/18/22 03:36 11/18/22 03:30 11/18/22 03:28 11/18/22 03:28 11/18/22 03:14 11/18/22 03:14 11/18/22 03:11 11/18/22 03:11 11/18/22 03:08 11/18/22 03:06 11/18/22 03:06 11/18/22 03:05 11/18/22 03:05 11/18/22 03:02 11/18/22 03:02 11/18/22 03:00 11/18/22 02:30 11/18/22 02:00 11/18/22 02:00 11/18/22 01:30 11/18/22 01:00 11/18/22 01:00 Laboratory Results Laboratory Results WBC 16.90 K/ul (4.8-10.8) H 11/18/22 05:18 RBC 2.70 M/uL (4.20-5.40) L 11/18/22 05:18 Hgb 8.0 g/dl (12.0-16.0) L 11/18/22 05:18 POC Hgb 9.2 g/dl (12.0-16.0) L 11/15/22 04:53 Hct 24.2 % (37.0-47.0) L 11/18/22 05:18 POC Hct 27 % (37-47) L 11/15/22 04:53 MCV 89.6 fL (80.0-100.0) 11/18/22 05:18 MCH 29.6 pg (25.0-34.0) 11/18/22 05:18 MCHC 33.1 g/dL (32.0-36.0) 11/18/22 05:18 RDW Std Deviation 47.1 fL (36.4-46.3) H 11/18/22 05:18 RDW Coeff of Blas 14.6 % (11.5-14.5) H 11/18/22 05:18 Plt Count 600 K/uL (130-400) H 11/18/22 05:18 MPV 8.8 fL (9.4-12.4) L 11/18/22 05:18 Immature Gran % (Auto) 0.6 % 11/18/22 05:18 Neut % (Auto) 86.6 % 11/18/22 05:18 Lymph % (Auto) 6.9 % 11/18/22 05:18 Stokes % (Auto) 5.3 % 11/18/22 05:18 Eos % (Auto) 0.2 % 11/18/22 05:18 Baso % (Auto) 0.4 % 11/18/22 05:18 Neut # (Auto) 14.64 K/uL (1.40-6.50) H 11/18/22 05:18 Lymph # (Auto) 1.16 K/uL (1.2-3.4) L 11/18/22 05:18 Stokes # (Auto) 0.90 K/uL (0.11-0.59) H 11/18/22 05:18 Eos # (Auto) 0.03 K/uL (0-0.50) 11/18/22 05:18 Baso # (Auto) 0.07 K/uL (0-0.2) 11/18/22 05:18 Immature Gran # (Auto) 0.10 K/uL (0.01-0.20) 11/18/22 05:18 PT 10.2 Seconds (9.0-12.0) 11/15/22 01:25 INR 0.9 (0.9-1.1) 11/15/22 01:25 Sample Site L Brachial 11/15/22 04:53 POC pH 7.30 (7.35-7.45) L 11/15/22 04:53 POC pCO2 55 mmHg (35-46) H 11/15/22 04:53 POC pO2 109 mmHg (80-95) H 11/15/22 04:53 POC HCO3 27 nikolai/L (19-24) H 11/15/22 04:53 POC Total CO2 29 mmol/L (24-31) 11/15/22 04:53 POC Base Excess 0.0 nikolai/L (-9-1.8) 11/15/22 04:53 ABG pH (Temp Correct) 7.310 (7.35-7.45) L 11/15/22 04:53 ABG pCO2 (Temp Corrct 53 mmHg (35-46) H 11/15/22 04:53 POC ABG pO2 at Pt Temp 104 11/15/22 04:53 POC ABG O2 Sat 98.0 % (90-95) H 11/15/22 04:53 Josafat Test Pass 11/15/22 04:53 O2 Delivery Device Ventilator 11/15/22 04:53 POC O2 Rate 18 11/15/22 04:53 POC FiO2 60 % 11/15/22 04:53 Tidal Volume 255 11/15/22 04:53 PEEP 8 11/15/22 04:53 POC Sodium 130 mmol/L (135-144) L 11/15/22 04:53 Sodium 133 mmol/L (136-145) L 11/18/22 05:18 POC Potassium 4.9 mmol/L (3.3-5.0) 11/15/22 04:53 Potassium 3.5 mmol/L (3.5-5.1) 11/18/22 05:18 POC Chloride 96 mmol/L (101-112) L 11/15/22 01:25 Chloride 95 mmol/L (98-107) L 11/18/22 05:18 Carbon Dioxide 30 mmol/L (21-32) 11/18/22 05:18 POC Total CO2 26 mmol/L (24-31) 11/15/22 01:25 Anion Gap 8 (3-11) 11/18/22 05:18 POC Anion Gap 14.0 mmol/L (16-25) L 11/15/22 01:25 POC BUN 33 mg/dl (7-18) H 11/15/22 01:25 BUN 29 mg/dl (6-23) H 11/18/22 05:18 Creatinine 1.06 mg/dl (0.6-1.2) 11/18/22 05:18 POC Creatinine 1.1 mg/dl (0.6-1.3) 11/15/22 01:25 Est Cr Clr Drug Dosing 22.2 ml/min 11/18/22 05:18 Est GFR ( Amer) 55.4 ml/min 11/18/22 05:18 Est GFR (Non-Af Amer) 47.8 ml/min 11/18/22 05:18 BUN/Creatinine Ratio 27.4 (10-20) H 11/18/22 05:18 Glucose 143 mg/dl (70-99(Fasting)) H 11/18/22 05:18 POC Glucose 141 mg/dl (70-99) H 11/18/22 11:57 POC Glucose (other) 270 mg/dl (70-99) H 11/15/22 01:25 Lactate 1.5 mmol/L (0.4-2.0) 11/15/22 02:10 Calcium 8.8 mg/dl (8.6-10.3) 11/18/22 05:18 POC Ioniz Calcium Sanjuana 1.19 mmol/l (1.12-1.32) 11/15/22 01:25 Phosphorus 3.7 mg/dl (2.5-4.9) 11/18/22 05:18 Magnesium 2.2 mg/dl (1.7-2.4) 11/18/22 05:18 Iron 56 mcg/dl (35-150) 11/16/22 11:33 Unsaturated IBC 352 mcg/dl (155-355) 11/16/22 04:01 Total Bilirubin 0.3 mg/dl (0.2-1.0) 11/18/22 05:18 AST 20 U/L (13-39) 11/18/22 05:18 ALT 21 U/L (7-52) 11/18/22 05:18 Alkaline Phosphatase 113 U/L (34-104) H 11/18/22 05:18 Troponin I High Sens 34.6 pg/ml (0-14) H 11/16/22 18:27 B-Natriuretic Peptide 1396 pg/ml (0-100) H 11/15/22 01:25 Total Protein 6.1 gm/dl (6.0-8.3) 11/18/22 05:18 Albumin 3.2 gm/dl (3.4-5.0) L 11/18/22 05:18 Globulin 2.9 gm/dl (2.5-4.0) 11/18/22 05:18 Albumin/Globulin Ratio 1.1 (0.9-2) 11/18/22 05:18 Procalcitonin 0.11 ng/ml (0-0.5) 11/15/22 15:22 TSH 0.663 uIu/ml (0.300-4.500) 11/16/22 11:33 Urine Color Yellow 11/15/22 01:34 Urine Appearance Clear (Clear) 11/15/22 01:34 Urine pH 6.0 (4.5-7.5) 11/15/22 01:34 Ur Specific Jeremiah 1.016 (1.000-1.030) 11/15/22 01:34 Urine Protein 1+ (Negative) H 11/15/22 01:34 Urine Glucose (UA) Negative (Negative) 11/15/22 01:34 Urine Ketones Negative (Negative) 11/15/22 01:34 Urine Blood Negative (Negative) 11/15/22 01:34 Urine Nitrite Negative (Negative) 11/15/22 01:34 Urine Bilirubin Negative (Negative) 11/15/22 01:34 Urine Urobilinogen Negative (Negative) 11/15/22 01:34 Ur Leukocyte Esterase Negative (Negative) 11/15/22 01:34 Urine WBC (Auto) 0 /hpf (0-5) 11/15/22 01:34 Urine RBC (Auto) 0-4 /hpf (0-4) 11/15/22 01:34 U Hyaline Cast (Auto) 1-5 /lpf (0-5) 11/15/22 01:34 U Epithel Cells (Auto) 5-10 /lpf (0-5) H 11/15/22 01:34 Urine Bacteria (Auto) Negative (Negative) 11/15/22 01:34 Nasal Screen MRSA (PCR) Negative (Negative) 11/15/22 04:30 Adenovirus (PCR) Not Detected (NotDetected) 11/15/22 01:38 B. pertussis DNA (PCR) Not Detected (NotDetected) 11/15/22 01:38 B.parapertussis DNA PCR Not Detected (NotDetected) 11/15/22 01:38 C. pneumoniae DNA (PCR) Not Detected (NotDetected) 11/15/22 01:38 Coronavirus OC43 (PCR) Not Detected (NotDetected) 11/15/22 01:38 Coronavirus HKU1 (PCR) Not Detected (NotDetected) 11/15/22 01:38 Coronavirus 229E (PCR) Not Detected (NotDetected) 11/15/22 01:38 SARS-CoV-2 (PCR) Not Detected (NotDetected) 11/15/22 01:38 Coronavirus NL63 (PCR) Not Detected (NotDetected) 11/15/22 01:38 Human Metapneumovir PCR Not Detected (NotDetected) 11/15/22 01:38 Influenza Type A (PCR) Not Detected (NotDetected) 11/15/22 01:38 Influenza Type B (PCR) Not Detected (NotDetected) 11/15/22 01:38 M. pneumoniae (PCR) Not Detected (NotDetected) 11/15/22 01:38 Parainfluenza 1 (PCR) Not Detected (NotDetected) 11/15/22 01:38 Parainfluenza 2 (PCR) Not Detected (NotDetected) 11/15/22 01:38 Parainfluenza 3 (PCR) Not Detected (NotDetected) 11/15/22 01:38 Parainfluenza 4 (PCR) Not Detected (NotDetected) 11/15/22 01:38 RSV (PCR) Not Detected (NotDetected) 11/15/22 01:38 Entero/Rhino (PCR) Not Detected (NotDetected) 11/15/22 01:38 Impressions Chest CTA 11/15/22 02:02 Exam(s): CTA CHEST IV Amt: 116 ML OPTIRAY 350 EXAM: CT Angiography Chest With Intravenous Contrast CLINICAL HISTORY: Reason for exam: Respiratory arrest, hx of effusions, PNA. TECHNIQUE: Axial computed tomographic angiography images of the chest with intravenous contrast. CTDI is 23.63 mGy and DLP is 296.07 mGy-cm. Automated exposure control was utilized for the study. A dose lowering technique was utilized adhering to the principles of ALARA. 2D MIP reconstructed images were created and reviewed. COMPARISON: No relevant prior studies available. FINDINGS: Pulmonary arteries: Pulmonary artery hypertension. No pulmonary embolus. Aorta: No acute findings. No thoracic aortic aneurysm. Lungs: Left lower lobe infiltrate. Subtle filtrate within the right upper lobe. Diffuse changes COPD. Compressive atelectasis of right lower lobe. No mass. Pleural space: Large right pleural effusion. No pneumothorax. Heart: Cardiomegaly. No significant pericardial effusion. No evidence of RV dysfunction. Bones/joints: No acute fracture. No dislocation. Soft tissues: Unremarkable. Lymph nodes: Unremarkable. No enlarged lymph nodes. Tubes, lines and devices: Endotracheal tube with its tip above the vu. IMPRESSION: 1. No pulmonary embolus 2. Large right pleural effusion with compressive atelectasis right lower lobe. Electronically signed by: Tan Becerril MD 11/15/22 03:[address] 11/15/22 02:02 Exam(s): CT HEAD Without Contrast EXAM: CT Head Without Intravenous Contrast CLINICAL HISTORY: Reason for exam: AMS. TECHNIQUE: Axial computed tomography images of the head/brain without intravenous contrast. CTDI is 38.88 mGy and DLP is 624.41 mGy-cm. Automated exposure control was utilized for the study. A dose lowering technique was utilized adhering to the principles of ALARA. COMPARISON: 11/07/2022 FINDINGS: Brain: Unremarkable. No hemorrhage. No significant white matter disease. No edema. Ventricles: Unremarkable. No ventriculomegaly. Bones/joints: Postoperative changes of right frontal calvarium. No acute fracture. Soft tissues: Unremarkable. Vasculature: stable postoperative changes usually aneurysm clipping. Sinuses: Unremarkable as visualized. No acute sinusitis. Mastoid air cells: Unremarkable as visualized. No mastoid effusion. IMPRESSION: No acute intracranial pathology. No change from prior exam Electronically signed by: Tan Becerril MD 11/15/22 03:34 AM KUB X-Ray 11/15/22 10:58 KUB HISTORY: Switch OGT to NGT COMPARISON: None. FINDINGS: Nasogastric tube terminates in the mid stomach. Small bilateral pleural effusions and bibasilar densities are noted. The heart is mildly enlarged. Mild pulmonary vascular congestion persists. No dilated loops of bowel to suggest an obstruction. No renal calculi. No ureteral calculi. No pneumoperitoneum or pneumatosis. IMPRESSION: Nasogastric tube terminates in the mid stomach. ACT 112: Negative or not required by law. Electronically signed by: Alejandro Jefferson M.D. 11/15/2022 11:39 AM Chest X-Ray 11/17/22 17:26 XR chest 1V portable HISTORY: Shortness of breath. follow up r pleural effusion, chf and right PICC COMPARISON: Chest 11/17/2022. FINDINGS: Interval placement of a right PICC which terminates at the expected location of the distal SVC. Nasogastric tube terminates below the diaphragm. The tip is not included on this study. Rotated study. The heart remains enlarged. No definite pneumothorax. The left lung apex is obscured by the patient's overlapping head. Small bilateral pleural effusions and bibasilar densities persist. Mild interstitial pulmonary edema has slightly improved. IMPRESSION: 1. A right PICC terminates at the distal SVC. 2. Nasogastric tube terminates below the diaphragm. The tip is not included on this study. 3. Bilateral pleural effusions and bibasilar densities persist. 4. Slight improvement in the pulmonary edema ACT 112: Negative or not required by law. Electronically signed by: Alejandro Jefferson M.D. 11/17/2022 7:02 PM Medications Administered Current Inpatient Medications Acetylcysteine (Acetylcysteine 20% Inhal Soln 4ml Dispensed By Resp.) 5 ml INH Q8 JARROD Stop: 12/18/22 13:59 Albuterol (Albuterol 0.083% Nebu Soln 3 Ml Vial) 2.5 mg NEB Q6R PRN; Protocol PRN Reason: wheeze, cough Stop: 12/15/22 05:01 Last Admin: 11/17/22 15:02 Dose: 2.5 mg Amiodarone HCl (Amiodarone 200 Mg Tab) 400 mg PO BIDM [facility] Stop: 12/18/22 16:59 Amlodipine Besylate (Amlodipine Besylate 5 Mg Tab) 5 mg PO DAILY JARROD Stop: 12/18/22 10:29 Last Admin: 11/18/22 11:25 Dose: 5 mg Aspirin (Aspirin 81 Mg Chew) 81 mg PO QAM [facility] Stop: 12/15/22 11:29 Last Admin: 11/18/22 08:47 Dose: 81 mg Clonidine HCl (Clonidine Hcl 0.1 Mg Tab) 0.1 mg PO BID [facility] Stop: 12/18/22 10:29 Last Admin: 11/18/22 11:32 Dose: 0.1 mg Dextrose (Dextrose 50% 50 Ml Syringe) 25 - 50 ml IV UD PRN; Protocol PRN Reason: Hypoglycemia Protocol Stop: 12/15/22 05:01 Enoxaparin Sodium (Enoxaparin Inj 40 Mg/0.4 Ml Syr) 40 mg SQ Q24H [facility] Stop: 12/18/22 17:59 Glucagon (Glucagon For Inj 1 Mg Vial) 1 mg SQ UD PRN; Protocol PRN Reason: Hypoglycemia Protocol Stop: 12/15/22 05:01 Glucose (Glucose 10 Tab/Tube) 4 - 8 tab PO UD PRN; Protocol PRN Reason: Hypoglycemia Treatment Stop: 12/15/22 05:01 Glucose (Glucose 40% Gel 15 Gm Tube) 15 - 30 gm PO UD PRN; Protocol PRN Reason: Hypoglycemia Protocol Stop: 12/15/22 05:01 Pantoprazole Sodium 40 mg/ (Syringe) 10 mls @ 5 mls/min IV DAILY@1100 [facility] Stop: 12/15/22 10:59 Last Admin: 11/18/22 10:19 Dose: 5 mls/min Dexmedetomidine/Sodium Chloride (Precedex) 200 mcg in 50 mls @ 0 mls/hr IV .Q0M JARROD; Protocol Stop: 11/21/22 13:14 Last Admin: 11/18/22 05:30 Dose: Not Given Furosemide 100 mg/ Dextrose 100 mls @ 5 mls/hr IV .Q20H [facility] Stop: 12/17/22 13:14 Last Admin: 11/18/22 06:17 Dose: 5 mg/hr, 5 mls/hr Cefepime HCl 1,000 mg/ Syringe 10 mls @ 5 mls/min IV Q12H [facility] Stop: 11/23/22 10:29 Insulin Aspart (Insulin Aspart Per Unit Charge) 0 units SC Q6 [facility] Stop: 12/15/22 11:59 Last Admin: 11/18/22 12:01 Dose: 1 units Metoclopramide HCl (Metoclopramide Hcl 5 Mg Tablet) 5 mg PO BID [facility] Stop: 12/17/22 10:29 Last Admin: 11/18/22 08:47 Dose: 5 mg Metronidazole (Metronidazole 500 Mg Tab) 500 mg PO Q8 [facility] Stop: 11/23/22 13:59 Last Admin: 11/18/22 05:35 Dose: 500 mg Miscellaneous (Carbohydrates For Hypoglycemia ) 15 - 30 gm PO UD PRN PRN Reason: Hypoglycemia Protocol Stop: 12/15/22 05:01 Miscellaneous (Icu Electrolyte Replacement Protocol) 1 each N/A BID@06,18 [facility]; Protocol Stop: 11/22/22 05:59 Last Admin: 11/18/22 05:55 Dose: 1 each Multivitamins/Minerals (Multi Vit W/Minerals Liquid 15 Ml Udp) 15 ml NG QAM [facility] Stop: 12/16/22 08:59 Last Admin: 11/18/22 08:48 Dose: 15 ml Nutritional Formula (Nutren Liqd 2.0 1,000 Ml Bag) 1,000 ml NG UD [facility]; Protocol Stop: 12/17/22 14:44 Last Admin: 11/17/22 15:36 Dose: 1,000 ml Potassium Chloride (Potassium Chloride 20 Meq/15 Ml Udc) 40 meq PO BID [facility] Stop: 12/18/22 08:59 Last Admin: 11/18/22 10:18 Dose: 40 meq Sterile Water (Tube Feeding Water Flush) 30 ml NG Q4H [facility] Stop: 12/15/22 13:29 Last Admin: 11/18/22 08:48 Dose: 30 ml Thiamine HCl (Thiamine Hcl 100 Mg Tab) 100 mg NG QAM [facility] Stop: 12/16/22 10:59 Last Admin: 11/18/22 08:48 Dose: 100 mg Coding Level of Care Code 24647 CRITICAL CARE 1ST 30-74M History Comprehensive Exam Comprehensive Medical Decision Making High Complexity Diagnoses Atrial fibrillation with RVR I48.91 Sinus pause I45.5 Acute respiratory failure J96.00 Bilateral pleural effusion J90 Compression deformity of vertebra M43.9 Thoracic kyphosis M40.204 Time Spent (min) 45
[2022-11-18] MEDS ORDERED: DIGOXIN 125 MCG in SYRINGE 9.5 ML IV ONE (14:30)
[2022-11-18] MEDS: ACETYLCYSTEINE 20% INHAL SOLN 4ML ***DISPENSED BY RESP. INH SCH ×2 (15:00→22:17)
[2022-11-18 15:46] LABS: Potassium 4.3 mmol/L (3.5-5.1)
[2022-11-18] MEDS: NUTREN LIQD 2.0 1,000 ML BAG NG SCH (15:49)
[2022-11-18] MEDS: AMIODARONE 200 MG TAB PO SCH (17:40)
[2022-11-18] MEDS: ENOXAPARIN INJ 40 MG/0.4 ML SYR SQ SCH (17:41)
[2022-11-18 17:56] LABS: Magnesium 2.2 mg/dl (1.7-2.4); Phosphorus 3.3 mg/dl (2.5-4.9)
[2022-11-18] MEDS ORDERED: DIGOXIN 250 MCG in SYRINGE 9 ML IV ONE (21:00)
[2022-11-18] MEDS: CEFEPIME 1,000 MG in SYRINGE 0 ML IV SCH (21:02)
[2022-11-18] MEDS: ALBUTEROL 0.083% NEBU SOLN 3 ML VIAL NEB PRN (22:18)
[2022-11-19] MEDS: dexMEDEtomidine 200 MCG/50 ML BAG IV SCH ×6 (00:18→21:01)
[2022-11-19] MEDS: FUROSEMIDE 100 MG in DEXTROSE 5% 90 ML IV SCH (02:12)
[2022-11-19 05:11] LABS: Hematocrit (blood only) 23.1 % (37.0-47.0); Hemoglobin 7.6 g/dl (12.0-16.0); Mean Corpuscular Hemoglobin 29.6 pg (25.0-34.0); Mean Corpuscular Hgb Conc 32.9 g/dL (32.0-36.0); Mean Corpuscular Volume 89.9 fL (80.0-100.0); Mean Platelet Volume 8.7 fL (9.4-12.4); Platelet Count 514 K/uL (130-400); RDW Coefficient of Variation 14.4 % (11.5-14.5); RDW Standard Deviation 46.3 fL (36.4-46.3); Red Blood Count 2.57 M/uL (4.20-5.40); White Blood Count 14.11 K/ul (4.8-10.8)
[2022-11-19 05:29] LABS: BUN Creatinine Ratio 28.2 (10-20); Calcium 8.7 mg/dl (8.6-10.3); Est GFR (African American) 45.9 ml/min; Est GFR (Non-African American) 39.6 ml/min; Magnesium 2.1 mg/dl (1.7-2.4); Phosphorus 3.6 mg/dl (2.5-4.9); Potassium 3.8 mmol/L (3.5-5.1)
[2022-11-19] MEDS: TUBE FEEDING WATER FLUSH NG SCH ×5 (06:18→21:01)
[2022-11-19] MEDS: INSULIN ASPART PER UNIT CHARGE SC SCH ×3 (06:20→17:55)
[2022-11-19] MEDS: ICU ELECTROLYTE REPLACEMENT PROTOCOL SCH ×2 (06:21→17:14)
[2022-11-19] MEDS: metroNIDAZOLE 500 MG TAB PO SCH (06:22)
[2022-11-19] MEDS: ALBUTEROL 0.083% NEBU SOLN 3 ML VIAL NEB PRN ×3 (06:57→22:37)
[2022-11-19] MEDS: ACETYLCYSTEINE 20% INHAL SOLN 4ML ***DISPENSED BY RESP. INH SCH ×3 (06:57→22:37)
--- NOTE | 2022-11-19 07:05 | Hospitalist Progress Note ---
Date of Service November 19, 2022 Assessment & Plan (1) Acute respiratory failure: (2) Pleural effusion: (3) Acute and chronic respiratory failure with hypoxia: (4) Pneumonia: (5) Back pain: (6) Tobacco dependence: (7) Atrial arrhythmia: Plan Emelia is an 86 year old female with history of COPD, chronic tobacco use (active 1 PPD), pHTN, MAT, and protein-calorie malnutrition who presented for increased respiratory distress. She was subsequently intubated and admitted to the ICU. Patient continues to be ill appearing despite appropriate intervention unclear on patient's reserve and prognosis - continue to follow along with ICU level care. Acute Hypoxic Respiratory Failure/Respiratory Arrest Multifactorial - 2/2 Acute diastolic CHF/Pleural Effusion/ aspiration/mucous p lugging/restrictive lung disease Pleural Effusion/Aspiration/Mucous Plugging Patient discharged 11/14 after being treated for pneumonia on Cefdinir/Azithromycin. New O2 need last admission. Did become acutely dyspneic and returned to the ED. Subsequently intubated and admitted to the ICU. Patient was able to be extubated 11/15. Now on HFNC 40 L/min 70% FiO2. - CTA showed large right pleural effusion and compression atelectasis on the RLL - interval worsening from 11/11 - swallow study indicated silent aspiration patient has declined repeat studies CHF BNP acutely elevated on admit to 1397 ECHO EF 70% with Grade I diastolic dysfunction. RVSP 40-50 Patient on Lasix drip at 5 mg/hr, will consider transitioning back to IV Lasix 80 mg QD follow lytes and Cr Pneumonia Patient treated for PNA on previous admit. Was discharged on cefdinir/azithromycin. On cefepime and metronidazole at present. Did receive vanc and methylpred empirically Plan: continue diuresis attempt speech eval continue abx bronch per pulm, consider thoracentesis FENGI: Fluid status: neg ~4L with diuresis, continue to monitor Sinus Pauses (5-6s) MAT/AFib On Amiodarone and metoprolol at home. Eliquis held on admit - would restart upon discharge. Went in A fib with RVR 11/15. Started having conversion pauses 11/16. Patient continues to be in a fib. Cards on board - rec holding metop and continuing amiodarone, now on 400 mg BID via NGT consider 2.5mg lopressor to keep HR <120 Lumbar Back Pain Osteoporosis - Hx of multiple (L1,3,5) compression fractures (Evidenced on CT in 2020). Lum bar XR on 11/08: New L4 compression fracture Plan: will schedule Tylenol, hopefully improved pain control will help with respiratory clearing Hx of Transient Ischemic Attacks Would continue aspirin, antihypertensives, and resume high dose statin when stable (atorvastatin 80 mg) Plan: Encourage smoking cessation Medical management HTN - Metoprolol/Losartan/Amlodipine initially held on admission d/t hypotension. Patient with intermittent soft pressures. Judicious management of hypertensive state. * On 10 mg amlodipine via NGT * Clonidine 0.1 mg added 11/18 to aid in anxiolysis and hypertension Severe malnutrition ?Food Security - Albumin 3.3 - Possibly side effect from amiodarone, will follow - NGT feedings ongoing 11/18 * Follow for respiratory distress in setting of presumed aspiration See attending attestation for further documentation DVT PPx: Lovenox 40 mg SQ qAM, Eliquis held, Aspirin resumed CODE: Full Code Diet: NPO, NG intact Consults: PT/OT, Speech, Cardiology Dispo: ICU Case Mgmt: Health Care Proxy established (Kathy Ramos), paperwork in chart. * Patient elected to allow phone contact with all daughters/granddaughters for updates. Admission and Anticipated Discharge Date Admission Date: November 15, 2022 Supervising Physician Co-Signing Physician Notes Attending Attestation & Progress Note: Pt seen/examined, chart reviewed, care plan d/w Dr Luci Escudero, PGY2. I agree w/ the couch components of her documentation. She had an eventful night with rapid a.fib as well as need for BIPAP then HFNC. By the time of my visit she was weaned to NC O2. She was resting comfortably. She knew she was in the hospital. She denied any pain. Denied dyspnea. Remains on precedex for mild sedation. Underwent uncomplicated bronchoscopy by pulmonary today with severely thick secretions suctioned. Vitals - afebrile, VSS otherwise gen - thin, cachectic, NAD mouth - MMM neck - no JVD heart - RRR, s1 s2, 2/6 MELVIN LUSB lungs - mild wheezes b/l, decreased BS bases abd - soft NT ND BS+ ext - no edema, pulses 2+ b/l labs reviewed -- Hb 7.6 Cr 1.4 (baseline - 0.7/0.8) A/P: 1. acute/chronic hypoxic/hypercarbic respiratory failure 2. acute/chronic diastolic CHF 3. b/l pneumonia - aspiration vs gram negative 4. rapid a.fib 5. acute/chronic anemia 6. COPD 7. mild MARY - likely due to diuresis cont IV cefepime - day #5; f/u on bronch cultures lasix drip stopped due to rise in creatinine cont mucolytics and pulmonary toilet cont amiodarone for rhythm control of a.fib serial CBC, Tx if Hb <7 consider Fe studies/B12/folate fecal occult in light of tenuous pulmonary status and severe malnutrition, etc consider palliative care consultation Sudheer Medina MD Subjective Patient seen at bedside. Ill appearing. Reports back pain. Discussed case with sleeve maker. Plan for bronch today. Considering thoracentesis - weighing risk benefit, defer to sleeve maker Review of Systems Review of Systems: see HPI Physical Exam Physical Exam: Gen: frail and ill appearing cachectic female on HFNC HEENT: NCAT, MMM, Neuro: arouses to voice, oriented to person - spells name Resp: Mildly labored, diminished breath sounds bilaterally, breathing relatively comfortably on HFNC CV:RRR, normal S1/S2, systolic ejection murmur Abd: Soft, non-distended, no TTP, NGT intact Extr: warm, dry, no lower extremity edema, well perfused Skin: No rashes lesions or erythema Psych: appropriate mood and affect Results & Data Results & Data Vital Signs (Past 12 Hours) Last Vitals: 0900 BP 106/65 HR 113 RR 15 Sp02 95% on 70% FiO2 HFNC at 40 L/min Temp 36.5C Laboratory Results 11/19/22 04:39 11/19/22 04:39 Resident Activity Tracking Resident Involvement: Resident Care Provided Care Provided: Adult Hospital Medicine (4) Pneumonia Laterality: right Lung location: lower lobe of lung Pneumonia type: due to unspecified organism Qualified Code(s): J18.1 - Lobar pneumonia, unspecified organism
--- NOTE | 2022-11-19 07:14 | XRay Report ---
SINGLE VIEW CHEST CLINICAL HISTORY: Hypoxia. FINDINGS: An AP, portable, upright chest radiograph is compared to study dated 11/17/2022. Correlation is made with chest CT dated 11/15/2022. A right PICC line and enteric tube are unchanged in position. The heart is enlarged noting atherosclerotic calcification of the thoracic aorta. Pulmonary vascular congestion appears modestly improved from yesterday. Emphysema and chronic interstitial thickening i s similar to previous. There are right larger than left pleural effusions with dependent consolidatio n. No pneumothorax is seen. The skeletal structures are osteopenic. The bony thorax is grossly intact . IMPRESSION: 1. Cardiomegaly and emphysema. Pulmonary vascular congestion appears modestly improved from yesterday . 2. Right larger than left pleural effusions with dependent consolidation. ACT 112: Negative or not required by law. Electronically signed by: Valente Lindsay M.D. 11/19/2022 7:13 AM
[2022-11-19] MEDS: AMIODARONE 200 MG TAB PO SCH ×2 (07:54→17:06)
[2022-11-19] MEDS: amLODIPine BESYLATE 5 MG TAB PO SCH (08:57)
[2022-11-19] MEDS: cloNIDine HCL 0.1 MG TAB PO SCH ×2 (08:57→08:59)
[2022-11-19] MEDS: ENOXAPARIN INJ 40 MG/0.4 ML SYR SQ SCH (08:58)
[2022-11-19] MEDS: ASPIRIN 81 MG CHEW PO SCH (09:09)
[2022-11-19] MEDS: MULTI VIT W/MINERALS LIQUID 15 ML UDP NG SCH (09:10)
[2022-11-19] MEDS: POTASSIUM CHLORIDE 20 MEQ/15 ML UDC PO SCH ×2 (09:10→21:03)
[2022-11-19] MEDS: METOCLOPRAMIDE HCL 5 MG TABLET PO SCH (09:10)
[2022-11-19] MEDS: THIAMINE HCL 100 MG TAB NG SCH (09:10)
[2022-11-19] MEDS: CEFEPIME 1,000 MG in SYRINGE 0 ML IV SCH ×2 (09:12→21:01)
[2022-11-19] MEDS ORDERED: MIDAZOLAM HCL 5 MG/ML 2ML VIAL ONE (11:14)
[2022-11-19] MEDS ORDERED: fentaNYL citrate PF 100 MCG/2 ML VIAL ONE (11:14)
[2022-11-19] MEDS ORDERED: fentaNYL citrate PF 100 MCG/2 ML VIAL IV STA (11:15)
[2022-11-19] MEDS ORDERED: MIDAZOLAM HCL 5 MG/ML 2ML VIAL IV STA (11:23)
[2022-11-19] MEDS: PANTOprazole 40 MG in SYRINGE 0 ML IV SCH (12:16)
[2022-11-19] MEDS: ACETAMINOPHEN 1,000 MG/100 ML VIAL IV SCH ×2 (12:17→19:25)
[2022-11-19] MEDS: VENLAFAXINE HCL 37.5 MG TAB PO SCH ×2 (12:29→21:04)
--- NOTE | 2022-11-19 12:46 | XRay Report ---
SINGLE VIEW CHEST CLINICAL HISTORY: Status post bronchoscopy. FINDINGS: 2 AP, portable, upright chest radiographs are compared to study dated 11/18/2022. Correlatio n is made with chest CT dated 11/15/2022. The examination is degraded by portable technique and patien t rotation. A right PICC line and an enteric tube are unchanged in position. The heart is enlarged no ting atherosclerotic calcification of the thoracic aorta. Mild pulmonary vascular congestion persists . Emphysema and chronic interstitial thickening is similar to previous. There are right larger than l eft pleural effusions with dependent consolidation. No pneumothorax is seen. The skeletal structures are osteopenic. The bony thorax is grossly intact. IMPRESSION: 1. No pneumothorax is identified post procedure. 2. Cardiomegaly and emphysema. Mild pulmonary vascular congestion persists. 3. Right larger than left pleural effusions with dependent consolidation. ACT 112: Negative or not required by law. Electronically signed by: Valente Lindsay M.D. 11/19/2022 12:45 PM
--- NOTE | 2022-11-19 13:08 | Critical Care Progress Note ---
Date of Service November 19, 2022 Assessment & Plan (1) Atrial fibrillation with RVR: Plan: The patient really had a challenging night last night. She was quite anxious and went back into A-fib with rapid ventricular response and became hypotensive. This morning her blood pressure was down to 70s and we were about to start some jake-. She did improve somewhat. But she continues to cough and have extremely thick secretions. It is becoming increasingly obvious that she just does not able to cough and clear her secretions on her own. We tried to nasotracheal suction and it just was not sufficient and did not consistently go into her trachea. I contacted her daughter and obtained consent in order to do a bronchoscopy. I am extremely pleased that we did because the secretions in her airway were extremely tenacious and had to repeatedly be pulled out all the way out of her nose. It was even difficult flushing the scope through with saline they were so thick. In no way she would have been able to cough and clear these on her own. After the bronchoscopy her oxygenation was 100%. A follow-up chest x-ray showed better aeration in both lungs though still a right pleural effusion. 1. Neuropsych: The patient is resting now where she received a total of 3 mg of IV Versed and 75 mcg of fentanyl during the procedure. She was on Precedex of 0.9 this morning because she was so agitated and even all the way up to 1.1. But after the procedure is doing extremely well and is calm so we will decrease her from now the point for down 2.2 of Precedex. We are starting some Effexor for her anxiety. Though some of her anxiety may be because she is unable to adequately cough and clear her secretions well and that is perpetuating her A- fib and further causing congestive heart failure and then ongoing shortness of breath so it really is a vicious cycle. Because of the initiation of the effects or Reglan will be discontinued. Effexor may not have a strong anxiolytic but we do not want to give this elderly woman benzodiazepines. 2. Cardiac: She is now up to 400 mg twice daily of enterally. Right now because of her hypotension she is off of metoprolol. She is also off of amlodipine and clonidine. We will have to see how her blood pressure remains during the day. Now when she is calm and not in any respiratory distress with the secretions evacuated her heart rate is in sinus rhythm now at 66 beats per minute. 3. Respiratory: Severe pneumonia with impacted secretions. We sent the culture for Gram stain and sensitivity and speciation. At least on 15 November her MRSA was negative so she has not been on vancomycin but continues on cefepime. She continues on Mucomyst nebulizer to help her evacuate her tenacious secretions. I will continue to keep her n.p.o. and feed her through the G-tube. Hopefully there is not aspiration and regurgitation causing her ongoing pneumonia. At least on CT scan there does not seem to be a large hiatal hernia. 4. GI: Once we decide whether or not to perform a thoracentesis we can resume enteral feeds. 5. Renal: The patient was on a Lasix drip. However this morning with her hypotension and an increase in her BUN and creatinine the Lasix drip is stopped now. There is still a right pleural effusion we will have to make a decision whether or not to tap it. Her electrolytes are adequate except potassium which will be repleted and mag and Phos are within normal limits. Her bicarb is elevated now to 33 consistent with contraction alkalosis. We could always give her a bolus of IV Lasix if needed. Diaz is still in place. 6: Infectious disease: We will check a sputum that was obtained from the bronchoscopy for culture and sensitivity. We will see if we need to add vancomycin as she already on cefepime. I do not think that we need Flagyl at this point so that is being discontinued. With her current antibiotics though despite the impacted secretions her white count is going down to 14.11. 7. Heme. Her hematocrit is slowly drifting down with phlebotomy. Initially, her iron stores were low and would like to give her IV iron for 5 days. If we do not perform thoracentesis then will give her a dose of Lovenox 40 mg a day for her recurrent A-fib and DVT prophylaxis. 8. Endocrine: Remain on sliding scale. In general, it is a bit curious as to her deterioration. Apparently she has not had this degree of congestive heart failure before. She came last admission with a compression fracture. Her daughter is insisting that she was discharged with an adequate pain medication but she has never complained of back pain while she is here during this admission. And now she has very impacted secretions and pneumonia with ongoing dysphagia. So she has clearly deteriorated. Her daughter said that she did not want her intubated in the first place and I started to open the conversation about DNR/DNI but she did not want to make that decision at this time. The patient seem to want to be a full code. (2) Sinus pause: (3) Acute respiratory failure: (4) Bilateral pleural effusion: (5) Compression deformity of vertebra: (6) Obstructive lung disease: Admission and Anticipated Discharge Date Admission Date: November 15, 2022 Subjective The patient was extremely anxious last night and was placed on some Precedex. She was quite dyspneic and hard for her to phonate. She was complaining of some shortness of breath and cough with phlegm production. No specific chest pain arm or jaw pain. No abdominal pain or back pain. Physical Exam Physical Exam: Severe kyphosis ongoing. She is awake though was a little less oriented with the Precedex on board. Lungs are quite diminished and rhonchorous bilaterally heart irregularly irregular with a 2 out of 6 systolic ejection murmur abdomen is protuberant but not distended and soft nontender extremities without clubbing cyanosis or edema. Results & Data Results & Data Vital Signs (Past 12 Hours) Vital Signs Temp Pulse Pulse Resp BP BP Pulse Ox 11/19/22 11:25 73 24 135/50 L 95 11/19/22 11:00 74 25 H 140/53 L 93 11/19/22 10:00 69 14 134/52 L 97 11/19/22 09:32 105 H 15 96/66 L 94 11/19/22 12:10 77 24 108/45 L 98 11/19/22 12:05 76 22 138/56 L 100 11/19/22 11:56 80 24 94/71 L 98 11/19/22 11:55 100 H 19 132/53 L 100 11/19/22 11:50 79 24 138/48 L 99 11/19/22 11:45 78 24 135/66 99 11/19/22 11:40 76 24 145/52 H 100 11/19/22 11:35 76 24 153/51 H 97 11/19/22 11:30 78 18 146/60 H 93 11/19/22 11:23 73 22 135/50 L 97 11/19/22 10:31 100 H 19 95 11/19/22 09:00 113 H 15 106/65 95 11/19/22 08:56 96 H 17 89/54 L 94 11/19/22 08:39 106 H 27 H 99/61 L 88 L 11/19/22 08:34 103 H 24 102/57 L 87 L 11/19/22 08:30 109 H 20 75/51 L 99 11/19/22 08:21 103 H 25 H 81/42 L 99 11/19/22 08:07 105 H 25 H 89/46 L 94 11/19/22 08:01 101 H 16 90/42 L 95 11/19/22 08:00 100 H 17 70/48 L 95 11/19/22 07:00 108 H 24 119/58 L 100 11/19/22 07:43 36.5 C 11/19/22 07:00 113 H 24 99 11/19/22 06:00 100 H 16 97 11/19/22 06:00 90/61 L 11/19/22 05:00 36.6 C 107 H 20 88 L 11/19/22 05:00 107/50 L 11/19/22 04:00 111 H 25 H 100 11/19/22 04:00 85/48 L 11/19/22 06:56 101 H 22 95 11/19/22 03:36 108 H 23 100 11/19/22 03:00 116 H 23 100 11/19/22 03:00 102/64 11/19/22 02:00 71 17 95 11/19/22 02:00 145/55 H 11/19/22 01:00 77 15 95 11/19/22 01:00 116/48 L O2 Del Method O2 Flow Rate FiO2 11/19/22 11:25 High Flow Nasal Cannula 40 70 11/19/22 11:00 High Flow Nasal Cannula 40 70 11/19/22 10:00 High Flow Nasal Cannula 40 70 11/19/22 09:32 High Flow Nasal Cannula 40 70 11/19/22 12:10 High Flow Nasal Cannula 40 70 11/19/22 12:05 High Flow Nasal Cannula 40 70 11/19/22 11:56 High Flow Nasal Cannula 40 100 11/19/22 11:55 High Flow Nasal Cannula 40 100 11/19/22 11:50 High Flow Nasal Cannula 40 100 11/19/22 11:45 High Flow Nasal Cannula 40 100 11/19/22 11:40 High Flow Nasal Cannula 40 100 11/19/22 11:35 High Flow Nasal Cannula 40 100 11/19/22 11:30 High Flow Nasal Cannula 40 100 11/19/22 11:23 High Flow Nasal Cannula 40 70 11/19/22 10:31 High Flow Nasal Cannula 40 70 11/19/22 09:00 High Flow Nasal Cannula 40 70 11/19/22 08:56 High Flow Nasal Cannula 40 70 11/19/22 08:39 High Flow Nasal Cannula 8 11/19/22 08:34 High Flow Nasal Cannula 8 11/19/22 08:30 High Flow Nasal Cannula 8 11/19/22 08:21 High Flow Nasal Cannula 8 11/19/22 08:07 High Flow Nasal Cannula 8 11/19/22 08:01 High Flow Nasal Cannula 8 11/19/22 08:00 High Flow Nasal Cannula 8 11/19/22 07:00 BiPAP 11/19/22 07:43 11/19/22 07:00 11/19/22 06:00 60 11/19/22 06:00 11/19/22 05:00 BiPAP 40 11/19/22 05:00 11/19/22 04:00 11/19/22 04:00 11/19/22 06:56 Nasal Cannula 5 11/19/22 03:36 50 11/19/22 03:00 BiPAP 50 11/19/22 03:00 11/19/22 02:00 BiPAP 50 11/19/22 02:00 11/19/22 01:00 BiPAP 50 11/19/22 01:00 Laboratory Results Laboratory Results WBC 14.11 K/ul (4.8-10.8) H 11/19/22 04:39 RBC 2.57 M/uL (4.20-5.40) L 11/19/22 04:39 Hgb 7.6 g/dl (12.0-16.0) L 11/19/22 04:39 POC Hgb 9.2 g/dl (12.0-16.0) L 11/15/22 04:53 Hct 23.1 % (37.0-47.0) L 11/19/22 04:39 POC Hct 27 % (37-47) L 11/15/22 04:53 MCV 89.9 fL (80.0-100.0) 11/19/22 04:39 MCH 29.6 pg (25.0-34.0) 11/19/22 04:39 MCHC 32.9 g/dL (32.0-36.0) 11/19/22 04:39 RDW Std Deviation 46.3 fL (36.4-46.3) 11/19/22 04:39 RDW Coeff of Blas 14.4 % (11.5-14.5) 11/19/22 04:39 Plt Count 514 K/uL (130-400) H 11/19/22 04:39 MPV 8.7 fL (9.4-12.4) L 11/19/22 04:39 Immature Gran % (Auto) 0.6 % 11/18/22 05:18 Neut % (Auto) 86.6 % 11/18/22 05:18 Lymph % (Auto) 6.9 % 11/18/22 05:18 [place] % (Auto) 5.3 % 11/18/22 05:18 Eos % (Auto) 0.2 % 11/18/22 05:18 Baso % (Auto) 0.4 % 11/18/22 05:18 Neut # (Auto) 14.64 K/uL (1.40-6.50) H 11/18/22 05:18 Lymph # (Auto) 1.16 K/uL (1.2-3.4) L 11/18/22 05:18 [place] # (Auto) 0.90 K/uL (0.11-0.59) H 11/18/22 05:18 Eos # (Auto) 0.03 K/uL (0-0.50) 11/18/22 05:18 Baso # (Auto) 0.07 K/uL (0-0.2) 11/18/22 05:18 Immature Gran # (Auto) 0.10 K/uL (0.01-0.20) 11/18/22 05:18 PT 10.2 Seconds (9.0-12.0) 11/15/22 01:25 INR 0.9 (0.9-1.1) 11/15/22 01:25 Sample Site L Brachial 11/15/22 04:53 POC pH 7.30 (7.35-7.45) L 11/15/22 04:53 POC pCO2 55 mmHg (35-46) H 11/15/22 04:53 POC pO2 109 mmHg (80-95) H 11/15/22 04:53 POC HCO3 27 nikolai/L (19-24) H 11/15/22 04:53 POC Total CO2 29 mmol/L (24-31) 11/15/22 04:53 POC Base Excess 0.0 nikolai/L (-9-1.8) 11/15/22 04:53 ABG pH (Temp Correct) 7.310 (7.35-7.45) L 11/15/22 04:53 ABG pCO2 (Temp Corrct 53 mmHg (35-46) H 11/15/22 04:53 POC ABG pO2 at Pt Temp 104 11/15/22 04:53 POC ABG O2 Sat 98.0 % (90-95) H 11/15/22 04:53 Josafat Test Pass 11/15/22 04:53 O2 Delivery Device Ventilator 11/15/22 04:53 POC O2 Rate 18 11/15/22 04:53 POC FiO2 60 % 11/15/22 04:53 Tidal Volume 255 11/15/22 04:53 PEEP 8 11/15/22 04:53 POC Sodium 130 mmol/L (135-144) L 11/15/22 04:53 Sodium 138 mmol/L (136-145) 11/19/22 04:39 POC Potassium 4.9 mmol/L (3.3-5.0) 11/15/22 04:53 Potassium 3.8 mmol/L (3.5-5.1) 11/19/22 04:39 POC Chloride 96 mmol/L (101-112) L 11/15/22 01:25 Chloride 97 mmol/L (98-107) L 11/19/22 04:39 Carbon Dioxide 33 mmol/L (21-32) H 11/19/22 04:39 POC Total CO2 26 mmol/L (24-31) 11/15/22 01:25 Anion Gap 8 (3-11) 11/19/22 04:39 POC Anion Gap 14.0 mmol/L (16-25) L 11/15/22 01:25 POC BUN 33 mg/dl (7-18) H 11/15/22 01:25 BUN 35 mg/dl (6-23) H 11/19/22 04:39 Creatinine 1.24 mg/dl (0.6-1.2) H 11/19/22 04:39 POC Creatinine 1.1 mg/dl (0.6-1.3) 11/15/22 01:25 Est Cr Clr Drug Dosing 19.0 ml/min 11/19/22 04:39 Est GFR ( Amer) 45.9 ml/min 11/19/22 04:39 Est GFR (Non-Af Amer) 39.6 ml/min 11/19/22 04:39 BUN/Creatinine Ratio 28.2 (10-20) H 11/19/22 04:39 Glucose 150 mg/dl (70-99(Fasting)) H 11/19/22 04:39 POC Glucose 152 mg/dl (70-99) H 11/19/22 12:19 POC Glucose (other) 270 mg/dl (70-99) H 11/15/22 01:25 Lactate 1.5 mmol/L (0.4-2.0) 11/15/22 02:10 Calcium 8.7 mg/dl (8.6-10.3) 11/19/22 04:39 POC Ioniz Calcium Sanjuana 1.19 mmol/l (1.12-1.32) 11/15/22 01:25 Phosphorus 3.6 mg/dl (2.5-4.9) 11/19/22 04:39 Magnesium 2.1 mg/dl (1.7-2.4) 11/19/22 04:39 Iron 56 mcg/dl (35-150) 11/16/22 11:33 Unsaturated IBC 352 mcg/dl (155-355) 11/16/22 04:01 Total Bilirubin 0.3 mg/dl (0.2-1.0) 11/18/22 05:18 AST 20 U/L (13-39) 11/18/22 05:18 ALT 21 U/L (7-52) 11/18/22 05:18 Alkaline Phosphatase 113 U/L (34-104) H 11/18/22 05:18 Troponin I High Sens 34.6 pg/ml (0-14) H 11/16/22 18:27 B-Natriuretic Peptide 1396 pg/ml (0-100) H 11/15/22 01:25 Total Protein 6.1 gm/dl (6.0-8.3) 11/18/22 05:18 Albumin 3.2 gm/dl (3.4-5.0) L 11/18/22 05:18 Globulin 2.9 gm/dl (2.5-4.0) 11/18/22 05:18 Albumin/Globulin Ratio 1.1 (0.9-2) 11/18/22 05:18 Procalcitonin 0.11 ng/ml (0-0.5) 11/15/22 15:22 TSH 0.663 uIu/ml (0.300-4.500) 11/16/22 11:33 Urine Color Yellow 11/15/22 01:34 Urine Appearance Clear (Clear) 11/15/22 01:34 Urine pH 6.0 (4.5-7.5) 11/15/22 01:34 Ur Specific Point Clear 1.016 (1.000-1.030) 11/15/22 01:34 Urine Protein 1+ (Negative) H 11/15/22 01:34 Urine Glucose (UA) Negative (Negative) 11/15/22 01:34 Urine Ketones Negative (Negative) 11/15/22 01:34 Urine Blood Negative (Negative) 11/15/22 01:34 Urine Nitrite Negative (Negative) 11/15/22 01:34 Urine Bilirubin Negative (Negative) 11/15/22 01:34 Urine Urobilinogen Negative (Negative) 11/15/22 01:34 Ur Leukocyte Esterase Negative (Negative) 11/15/22 01:34 Urine WBC (Auto) 0 /hpf (0-5) 11/15/22 01:34 Urine RBC (Auto) 0-4 /hpf (0-4) 11/15/22 01:34 U Hyaline Cast (Auto) 1-5 /lpf (0-5) 11/15/22 01:34 U Epithel Cells (Auto) 5-10 /lpf (0-5) H 11/15/22 01:34 Urine Bacteria (Auto) Negative (Negative) 11/15/22 01:34 Nasal Screen MRSA (PCR) Negative (Negative) 11/15/22 04:30 Adenovirus (PCR) Not Detected (NotDetected) 11/15/22 01:38 B. pertussis DNA (PCR) Not Detected (NotDetected) 11/15/22 01:38 B.parapertussis DNA PCR Not Detected (NotDetected) 11/15/22 01:38 C. pneumoniae DNA (PCR) Not Detected (NotDetected) 11/15/22 01:38 Coronavirus OC43 (PCR) Not Detected (NotDetected) 11/15/22 01:38 Coronavirus HKU1 (PCR) Not Detected (NotDetected) 11/15/22 01:38 Coronavirus 229E (PCR) Not Detected (NotDetected) 11/15/22 01:38 SARS-CoV-2 (PCR) Not Detected (NotDetected) 11/15/22 01:38 Coronavirus NL63 (PCR) Not Detected (NotDetected) 11/15/22 01:38 Human Metapneumovir PCR Not Detected (NotDetected) 11/15/22 01:38 Influenza Type A (PCR) Not Detected (NotDetected) 11/15/22 01:38 Influenza Type B (PCR) Not Detected (NotDetected) 11/15/22 01:38 M. pneumoniae (PCR) Not Detected (NotDetected) 11/15/22 01:38 Parainfluenza 1 (PCR) Not Detected (NotDetected) 11/15/22 01:38 Parainfluenza 2 (PCR) Not Detected (NotDetected) 11/15/22 01:38 Parainfluenza 3 (PCR) Not Detected (NotDetected) 11/15/22 01:38 Parainfluenza 4 (PCR) Not Detected (NotDetected) 11/15/22 01:38 RSV (PCR) Not Detected (NotDetected) 11/15/22 01:38 Entero/Rhino (PCR) Not Detected (NotDetected) 11/15/22 01:38 Impressions Chest CTA 11/15/22 02:02 Exam(s): CTA CHEST IV Amt: 116 ML OPTIRAY 350 EXAM: CT Angiography Chest With Intravenous Contrast CLINICAL HISTORY: Reason for exam: Respiratory arrest, hx of effusions, PNA. TECHNIQUE: Axial computed tomographic angiography images of the chest with intravenous contrast. CTDI is 23.63 mGy and DLP is 296.07 mGy-cm. Automated exposure control was utilized for the study. A dose lowering technique was utilized adhering to the principles of ALARA. 2D MIP reconstructed images were created and reviewed. COMPARISON: No relevant prior studies available. FINDINGS: Pulmonary arteries: Pulmonary artery hypertension. No pulmonary embolus. Aorta: No acute findings. No thoracic aortic aneurysm. Lungs: Left lower lobe infiltrate. Subtle filtrate within the right upper lobe. Diffuse changes COPD. Compressive atelectasis of right lower lobe. No mass. Pleural space: Large right pleural effusion. No pneumothorax. Heart: Cardiomegaly. No significant pericardial effusion. No evidence of RV dysfunction. Bones/joints: No acute fracture. No dislocation. Soft tissues: Unremarkable. Lymph nodes: Unremarkable. No enlarged lymph nodes. Tubes, lines and devices: Endotracheal tube with its tip above the vu. IMPRESSION: 1. No pulmonary embolus 2. Large right pleural effusion with compressive atelectasis right lower lobe. Electronically signed by: Tan Becerril MD 11/15/22 03:[address] 11/15/22 02:02 Exam(s): CT HEAD Without Contrast EXAM: CT Head Without Intravenous Contrast CLINICAL HISTORY: Reason for exam: AMS. TECHNIQUE: Axial computed tomography images of the head/brain without intravenous contrast. CTDI is 38.88 mGy and DLP is 624.41 mGy-cm. Automated exposure control was utilized for the study. A dose lowering technique was utilized adhering to the principles of ALARA. COMPARISON: 11/07/2022 FINDINGS: Brain: Unremarkable. No hemorrhage. No significant white matter disease. No edema. Ventricles: Unremarkable. No ventriculomegaly. Bones/joints: Postoperative changes of right frontal calvarium. No acute fracture. Soft tissues: Unremarkable. Vasculature: stable postoperative changes usually aneurysm clipping. Sinuses: Unremarkable as visualized. No acute sinusitis. Mastoid air cells: Unremarkable as visualized. No mastoid effusion. IMPRESSION: No acute intracranial pathology. No change from prior exam Electronically signed by: Tan Becerril MD 11/15/22 03:34 AM KUB X-Ray 11/15/22 10:58 KUB HISTORY: Switch OGT to NGT COMPARISON: None. FINDINGS: Nasogastric tube terminates in the mid stomach. Small bilateral pleural effusions and bibasilar densities are noted. The heart is mildly enlarged. Mild pulmonary vascular congestion persists. No dilated loops of bowel to suggest an obstruction. No renal calculi. No ureteral calculi. No pneumoperitoneum or pneumatosis. IMPRESSION: Nasogastric tube terminates in the mid stomach. ACT 112: Negative or not required by law. Electronically signed by: Alejandro Jefferson M.D. 11/15/2022 11:39 AM Chest X-Ray 11/19/22 12:09 SINGLE VIEW CHEST CLINICAL HISTORY: Status post bronchoscopy. FINDINGS: 2 AP, portable, upright chest radiographs are compared to study dated 11/18/2022. Correlation is made with chest CT dated 11/15/2022. The examination is degraded by portable technique and patient rotation. A right PICC line and an enteric tube are unchanged in position. The heart is enlarged noting atherosclerotic calcification of the thoracic aorta. Mild pulmonary vascular congestion persists. Emphysema and chronic interstitial thickening is similar to previous. There are right larger than left pleural effusions with dependent consolidation. No pneumothorax is seen. The skeletal structures are osteopenic. The bony thorax is grossly intact. IMPRESSION: 1. No pneumothorax is identified post procedure. 2. Cardiomegaly and emphysema. Mild pulmonary vascular congestion persists. 3. Right larger than left pleural effusions with dependent consolidation. ACT 112: Negative or not required by law. Electronically signed by: Valente Lindsay M.D. 11/19/2022 12:45 PM Medications Administered Current Inpatient Medications Acetylcysteine (Acetylcysteine 20% Inhal Soln 4ml Dispensed By Resp.) 5 ml INH Q8R [facility] Stop: 12/18/22 13:59 Last Admin: 11/19/22 06:57 Dose: 5 ml Albuterol (Albuterol 0.083% Nebu Soln 3 Ml Vial) 2.5 mg NEB Q6R PRN; Protocol PRN Reason: wheeze, cough Stop: 12/15/22 05:01 Last Admin: 11/19/22 06:57 Dose: 2.5 mg Amiodarone HCl (Amiodarone 200 Mg Tab) 400 mg PO BIDM [facility] Stop: 12/18/22 16:59 Last Admin: 11/19/22 07:54 Dose: 400 mg Amlodipine Besylate (Amlodipine Besylate 5 Mg Tab) 10 mg PO DAILY [facility] Stop: 12/19/22 08:59 Last Admin: 11/19/22 08:57 Dose: Not Given Aspirin (Aspirin 81 Mg Chew) 81 mg PO QAM [facility] Stop: 12/15/22 11:29 Last Admin: 11/19/22 09:09 Dose: 81 mg Clonidine HCl (Clonidine Hcl 0.1 Mg Tab) 0.1 mg PO BID [facility] Stop: 12/18/22 10:29 Last Admin: 11/19/22 08:59 Dose: Not Given Dextrose (Dextrose 50% 50 Ml Syringe) 25 - 50 ml IV UD PRN; Protocol PRN Reason: Hypoglycemia Protocol Stop: 12/15/22 05:01 Enoxaparin Sodium (Enoxaparin Inj 40 Mg/0.4 Ml Syr) 40 mg SQ Q24H [facility] Stop: 12/18/22 17:59 Last Admin: 11/19/22 08:58 Dose: Not Given Glucagon (Glucagon For Inj 1 Mg Vial) 1 mg SQ UD PRN; Protocol PRN Reason: Hypoglycemia Protocol Stop: 12/15/22 05:01 Glucose (Glucose 10 Tab/Tube) 4 - 8 tab PO UD PRN; Protocol PRN Reason: Hypoglycemia Treatment Stop: 12/15/22 05:01 Glucose (Glucose 40% Gel 15 Gm Tube) 15 - 30 gm PO UD PRN; Protocol PRN Reason: Hypoglycemia Protocol Stop: 12/15/22 05:01 Pantoprazole Sodium 40 mg/ (Syringe) 10 mls @ 5 mls/min IV DAILY@1100 [facility] Stop: 12/15/22 10:59 Last Admin: 11/19/22 12:16 Dose: 5 mls/min Dexmedetomidine/Sodium Chloride (Precedex) 200 mcg in 50 mls @ 4.56 mls/hr IV .[id number] [facility]; Protocol Stop: 11/21/22 13:14 Last Titration: 11/19/22 08:45 Dose: 0.4 mcg/kg/hr, 4.6 mls/hr Cefepime HCl 1,000 mg/ Syringe 10 mls @ 5 mls/min IV Q12H [facility] Stop: 11/23/22 10:29 Last Admin: 11/19/22 09:12 Dose: 5 mls/min Acetaminophen (Ofirmev) 1,000 mg in 100 mls @ 400 mls/hr IV Q8H [facility] Stop: 11/22/22 10:59 Last Infusion: 11/19/22 12:26 Dose: 0 mls/hr Insulin Aspart (Insulin Aspart Per Unit Charge) 0 units SC Q6 [facility] Stop: 12/15/22 11:59 Last Admin: 11/19/22 12:25 Dose: 1 units Miscellaneous (Carbohydrates For Hypoglycemia ) 15 - 30 gm PO UD PRN PRN Reason: Hypoglycemia Protocol Stop: 12/15/22 05:01 Miscellaneous (Icu Electrolyte Replacement Protocol) 1 each N/A BID@06,18 [facility]; Protocol Stop: 11/22/22 05:59 Last Admin: 11/19/22 06:21 Dose: Not Given Multivitamins/Minerals (Multi Vit W/Minerals Liquid 15 Ml Udp) 15 ml NG QAM [facility] Stop: 12/16/22 08:59 Last Admin: 11/19/22 09:10 Dose: 15 ml Nutritional Formula (Nutren Liqd 2.0 1,000 Ml Bag) 1,000 ml NG UD [facility]; Protocol Stop: 12/17/22 14:44 Last Admin: 11/18/22 15:49 Dose: 1,000 ml Potassium Chloride (Potassium Chloride 20 Meq/15 Ml Udc) 40 meq PO BID [facility] Stop: 12/18/22 08:59 Last Admin: 11/19/22 09:10 Dose: 40 meq Sterile Water (Tube Feeding Water Flush) 30 ml NG Q4H [facility] Stop: 12/15/22 13:29 Last Admin: 11/19/22 08:57 Dose: Not Given Thiamine HCl (Thiamine Hcl 100 Mg Tab) 100 mg NG QAM [facility] Stop: 12/16/22 10:59 Last Admin: 11/19/22 09:10 Dose: 100 mg Venlafaxine HCl (Venlafaxine Hcl 37.5 Mg Tab) 37.5 mg PO BID [facility] Stop: 12/19/22 10:29 Last Admin: 11/19/22 12:29 Dose: 37.5 mg Coding Level of Care Code 50457 CRITICAL CARE 1ST 30-74M History Comprehensive Exam Comprehensive Medical Decision Making High Complexity Diagnoses Atrial fibrillation with RVR I48.91 Sinus pause I45.5 Acute respiratory failure J96.00 Bilateral pleural effusion J90 Compression deformity of vertebra M43.9 Obstructive lung disease J44.9 Time Spent (min) 60
--- NOTE | 2022-11-19 13:23 | Procedure Note ---
Procedure Note Date of Service November 19, 2022 Note This is a bronchoscopy note. Indications: Bilateral atelectasis and pneumonia with inability to cough and clear secretions. Consent: Consent was obtained from her daughter Kathy and who after discussing the risks and benefits agreed to proceed. The patient normally is able to give consent but was on high doses of Precedex so was not thought that she was able to give consent. Timeout was performed. Anesthesia: 3 mg IV Versed and 75 mcg of IV Demerol in total. 4 mL of lidocaine nebulizer preprocedure. 9 mL of 2% lidocaine instilled at the vocal cords. ASA: 3. Mallampati: 1. Description of procedure: Initially, 1 mg of IV Versed and 25 mcg of IV fentanyl were used for the bronchoscopic procedure. Her right nares was cannulated then the vocal cords were visualized. Though there was some edema in her pharynx and some cobblesto joanne the vocal cords were normal and move normally and opposed well. However the secretions were too thick and tenacious and we were not able to evacuate them with the disposable bronchoscope. A second disposable bronchoscope was attempted but the same inability to remove the secretions occurred. The scope was removed and we used the regular bronchoscope with the bronchoscope cart. Then another 1 mg of IV Versed and 25 mcg of IV fentanyl were administered for sedation. The scope was placed in her right nares and the trachea was cannulated. The secretions were extremely thick bilaterally mostly in the left lung but also some in the right lower lung. At times the secretions were so tenacious that flush could not be used to clear the scope so the scope needed to be completely removed and pull the secretions out and flush the scope after it was removed. This was done on several intervals. Eventually after repeated suctioning and segmental flushing the very tenacious secretions were finally evacuated. In her left upper division and left lower lung there was very friable and inflamed mucosa. There was started to become some suction trauma with some hemorrhage that was self-limited when all the secretions were finally evacuated. On the right there was a lot of pitting in her right upper lobe consistent with prior smoking exposure. Very tenacious secretions in the right lower lung. After all the subsegments were cleared adequately the scope was removed. Specimens: Bronchial aspirate was sent for culture and sensitivity and Gram stain. Complications: None. The patient tolerated the procedure very well and there was no respiratory distress, hypoxemia or arrhythmia. The patient maintained sinus rhythm throughout the procedure. EBL: Minimal. After the procedure was completed the patient's daughter was made aware of the results and the findings. At which shows better aeration in both lung bases but still a persistent right greater than left pleural effusion that is layering. Coding CPT Codes Sedation/Anesthesia - Sedation/Anesthesia: 73759 Mod Sedation by the same physician; Ea [id number] Minutes ([id number]) Pulmonary/Thoracic - Pulmonary and Thoracic: 03779 Bronchoscopy, clear airways ([id number]) [facility] [place]Charges) Pulmonary/Thoracic Procedure 1: Pulmonary and Thoracic: 53577 Bronchoscopy, clear airways Sedation/Anesthesia Procedure 1: Sedation/Anesthesia: 40133 Mod Sedation by the same physician; Ea [id number] Minutes
[2022-11-19] MEDS ORDERED: IRON SUCROSE 200 MG in 0.9 % SODIUM CHLORIDE 100 ML IV ONE (13:30)
[2022-11-19] MEDS ORDERED: ENOXAPARIN INJ 40 MG/0.4 ML SYR SQ ONE (17:45)
[2022-11-19] MEDS: NUTREN LIQD 2.0 1,000 ML BAG NG SCH (17:53)
--- NOTE | 2022-11-19 19:21 | Billing Data ---
Date of Service November 19, 2022 Coding Level of Care Code 37456 SUB INP/OBS CARE
[2022-11-20] MEDS: INSULIN ASPART PER UNIT CHARGE SC SCH ×5 (00:43→23:33)
[2022-11-20] MEDS: TUBE FEEDING WATER FLUSH NG SCH ×7 (00:44→23:33)
[2022-11-20] MEDS: ACETAMINOPHEN 1,000 MG/100 ML VIAL IV SCH ×3 (02:48→18:27)
[2022-11-20] MEDS: dexMEDEtomidine 200 MCG/50 ML BAG IV SCH (03:21)
[2022-11-20 04:41] LABS: Hematocrit (blood only) 23.4 % (37.0-47.0); Hemoglobin 7.7 g/dl (12.0-16.0); Mean Corpuscular Hemoglobin 30.1 pg (25.0-34.0); Mean Corpuscular Hgb Conc 32.9 g/dL (32.0-36.0); Mean Corpuscular Volume 91.4 fL (80.0-100.0); Mean Platelet Volume 9.1 fL (9.4-12.4); Platelet Count 492 K/uL (130-400); RDW Coefficient of Variation 14.7 % (11.5-14.5); RDW Standard Deviation 48.8 fL (36.4-46.3); Red Blood Count 2.56 M/uL (4.20-5.40); White Blood Count 16.57 K/ul (4.8-10.8)
[2022-11-20 04:57] LABS: BUN Creatinine Ratio 28.8 (10-20); Calcium 8.9 mg/dl (8.6-10.3); Creatinine Clr Calc Pharmacy 15.4 ml/min; Est GFR (African American) 35.6 ml/min; Est GFR (Non-African American) 30.7 ml/min; Magnesium 2.4 mg/dl (1.7-2.4); Phosphorus 3.2 mg/dl (2.5-4.9); Potassium 5.3 mmol/L (3.5-5.1)
[2022-11-20] MEDS: ICU ELECTROLYTE REPLACEMENT PROTOCOL SCH ×2 (06:01→17:59)
[2022-11-20] MEDS: amLODIPine BESYLATE 5 MG TAB PO SCH (06:43)
[2022-11-20] MEDS: ALBUTEROL 0.083% NEBU SOLN 3 ML VIAL NEB PRN ×3 (06:48→22:40)
[2022-11-20] MEDS: ACETYLCYSTEINE 20% INHAL SOLN 4ML ***DISPENSED BY RESP. INH SCH ×3 (06:48→22:39)
--- NOTE | 2022-11-20 06:55 | Hospitalist Progress Note ---
Date of Service November 20, 2022 Assessment & Plan (1) Acute respiratory failure: (2) Pleural effusion: (3) Acute and chronic respiratory failure with hypoxia: (4) Pneumonia: (5) Back pain: (6) Tobacco dependence: (7) Atrial arrhythmia: Plan Emelia is an 86 year old female with history of COPD, chronic tobacco use (active 1 PPD), pHTN, MAT, and protein-calorie malnutrition who presented for increased respiratory distress. She was subsequently intubated and admitted to the ICU. Patient has since been extubated. Underwent broch 11/19 which resulted in significant improvement. Hospitalist service will continue to follow along with ICU level care Acute Hypoxic Respiratory Failure/Respiratory Arrest Multifactorial - 2/2 Acute diastolic CHF/Pleural Effusion/ aspiration/mucous plugging/restrictive lung disease Pleural Effusion/Aspiration/Mucous Plugging Patient discharged 11/14 after being treated for pneumonia on Cefdinir/Azithromycin. New O2 need last admission. Did become acutely dyspneic and returned to the ED. Subsequently intubated and admitted to the ICU. Patient was able to be extubated 11/15. Has been successfully weaned from down to 6L NC Imaging: CTA with large right pleural effusion and compression atelectasis RLL with interval worsening in comparison to 11/11. Swallow study with signs of silent aspiration - patient has refused further studies at this time AM CXR Procedures: Intubated 11/14 for acute respiratory failure. Extubated 11/15. Bronch 11/19. Extensively therapeutic with removal of thick mucous. Patient improving. Continue to monitor. CHF BNP acutely elevated on admit to 1397 ECHO EF 70% with Grade I diastolic dysfunction. RVSP 40-50 Patient was on Lasix drip at 5 mg/hr. Cr rising. Holding diuresis for now. Resume if worsening respiratory status or signs of fluid overload Pneumonia Patient treated for PNA on previous admit. Was discharged on cefdinir/azithromycin. On cefepime and metronidazole at present. Did receive vanc and methylpred empirically. Continue abx Plan: hold diuresis in setting of rising Cr attempt speech eval continue abx bronch was therapeutic, could consider thoracentesis AM CXR PT/OT FENGI: Fluid status: overall down over 4 L, continue to monitor Sinus Pauses (5-6s) MAT/AFib On Amiodarone and metoprolol at home. Eliquis held on admit - would restart upon discharge. Went in A fib with RVR 11/15. Started having conversion pauses 11/16. Patient most recently in NSR. Cards on board - rec holding metop and continuing amiodarone, now on 400 mg BID via NGT consider 2.5mg lopressor if needed to keep HR <120 Lumbar Back Pain Osteoporosis - Hx of multiple (L1,3,5) compression fractures (Evidenced on CT in 2020). Lumbar XR on 11/08: New L4 compression fracture Plan: will schedule Tylenol, hopefully improved pain control will help with secretion clearing Hx of Transient Ischemic Attacks Would continue aspirin, antihypertensives, and resume high dose statin when stable (atorvastatin 80 mg) Plan: Encourage smoking cessation Medical management HTN Metoprolol/Losartan/Amlodipine initially held on admission d/t hypotension. Patient moreso on the hypertensive things at this point in her course. Is on amlodipine QD and clonidine 0.1 mg BID was added for anxiolysis and HTN. Likely a combination of hospitalization and agitation. Judicious management of hypertensive state. Severe malnutrition ?Food Security Hypoalbuminemia. Possible side effect from amiodarone or acute decondition on top of severe malnutrition. Patient with NGT in place for feeds May also be a component of food insecurity. Would screen for this once no longer critically ill. Will trial swallow study and remove NGT if indicated. See attending attestation for further documentation DVT PPx: Lovenox 40 mg SQ qAM, Eliquis held, Aspirin resumed CODE: Full Code Diet: NPO, NG intact Consults: PT/OT, Speech, Cardiology Dispo: ICU Case Mgmt: Health Care Proxy established (Kathy Ramos), paperwork in chart. Family: Patient elected to allow phone contact with all daughters/granddaughters for updates. Admission and Anticipated Discharge Date Admission Date: November 15, 2022 Supervising Physician Co-Signing Physician Notes Attending Attestation & Progress Note: Pt seen/examined, chart reviewed, care plan d/w Dr Luci Escudero, PGY2. I agree w/ the couch components of her documentation except --> pt no longer on flagyl. Per nursing staff has had multiple foul-smelling loose bowel movements today. Appetite is poor. Patient endorses feeling very tired. Denies dyspnea. 1 brief episode of PAF today with spontaneous conversion back to NSR. Vitals - afebrile, BPs elevated today gen - thin, cachectic, NAD mouth - MMM neck - no JVD heart - RRR, s1 s2, 2/6 MELVIN LUSB lungs - decreased BS bases much worse on right; no wheezes or rales abd - soft NT ND BS+ ext - no edema, pulses 2+ b/l labs reviewed -- Hb 7.7 Cr 1.5 (baseline - 0.7/0.8) K 5.3 A/P: 1. acute/chronic hypoxic/hypercarbic respiratory failure 2. acute/chronic diastolic CHF 3. b/l pneumonia - aspiration vs gram negative 4. recurrent episodes of rapid a.fib 5. acute/chronic anemia 6. COPD 7. mild MARY - likely due to diuresis 8. c diff diarrhea (gene+, toxin neg, but having foul-smelling diarrhea and has had copious abx last 2 admissions) 9. HTN cont IV cefepime - day #6; f/u on bronch cultures - thus far growing corynebacterium lasix drip stopped due to rise in creatinine/MARY; now on gentle IV fluids cont mucolytics and pulmonary toilet cont amiodarone for rhythm control of a.fib add vanco 125mg qid for #8; add lactinex; contact precautions serial CBC, Tx if Hb <7 consider Fe studies/B12/folate consider fecal occult HTN - defer management to ICU physician in light of tenuous pulmonary status and severe malnutrition, etc strongly consider palliative care consultation Sudheer Medina MD Subjective Patient feeling much improved after bronch. Breathing much more easily. Interested in eating. No f/c/CP. Continue back pain baseline level pain. Review of Systems Review of Systems: see HPI Physical Exam Physical Exam: Gen: frail and cachectic appearing female resting comfortably on NC HEENT: NCAT, MMM, Neuro: arouses to voice, oriented to person, place, and time Resp: non-labored breathing, breathing comfortably on NC, significantly diminished RLL, more clear on the left CV:RRR, normal S1/S2, systolic ejection murmur Abd: Soft, non-distended, no TTP, NGT intact Extr: warm, dry, no lower extremity edema, well perfused Skin: No rashes lesions or erythema Psych: appropriate mood and affect Results & Data Results & Data Vital Signs (Past 12 Hours) Vital Signs Temp Pulse Pulse Resp BP Pulse Ox O2 Del Method 11/20/22 06:48 68 17 97 Nasal Cannula 11/20/22 06:00 71 21 99 11/20/22 06:00 189/64 H 11/20/22 05:00 71 22 95 11/20/22 05:00 173/60 H 11/20/22 04:00 37.1 C 68 21 98 11/20/22 04:00 171/55 H 11/20/22 03:00 68 25 H 98 11/20/22 03:00 165/54 H 11/20/22 02:00 67 25 H 99 High Flow Nasal Cannula 11/20/22 02:00 161/56 H 11/20/22 01:00 70 24 98 11/20/22 01:00 173/58 H 11/20/22 00:00 66 22 98 11/20/22 00:00 36.6 C 169/56 H 11/19/22 23:00 65 26 H 97 High Flow Nasal Cannula 11/19/22 23:00 166/54 H 11/19/22 23:21 66 11/19/22 22:39 63 20 97 Nasal Cannula 11/19/22 22:00 65 21 97 11/19/22 22:00 179/58 H 11/19/22 21:00 37.0 C 67 27 H 99 High Flow Nasal Cannula 11/19/22 21:00 147/47 H 11/19/22 20:00 68 27 H 99 11/19/22 20:00 152/50 H 11/19/22 19:00 71 22 98 11/19/22 19:00 158/57 H 11/19/22 22:36 High Flow Nasal Cannula O2 Flow Rate 11/20/22 06:48 6 11/20/22 06:00 11/20/22 06:00 11/20/22 05:00 11/20/22 05:00 11/20/22 04:00 11/20/22 04:00 11/20/22 03:00 11/20/22 03:00 11/20/22 02:00 6 11/20/22 02:00 11/20/22 01:00 11/20/22 01:00 11/20/22 00:00 11/20/22 00:00 11/19/22 23:00 6 11/19/22 23:00 11/19/22 23:21 11/19/22 22:39 6 11/19/22 22:00 11/19/22 22:00 11/19/22 21:00 6 11/19/22 21:00 11/19/22 20:00 11/19/22 20:00 11/19/22 19:00 11/19/22 19:00 11/19/22 22:36 6 Laboratory Results 11/20/22 04:16 11/20/22 04:16 Resident Activity Tracking Resident Involvement: Resident Care Provided Care Provided: Adult Hospital Medicine (4) Pneumonia Laterality: right Lung location: lower lobe of lung Pneumonia type: due to unspecified organism Qualified Code(s): J18.1 - Lobar pneumonia, unspecified organism
--- NOTE | 2022-11-20 08:03 | XRay Report ---
XR chest 1V portable HISTORY: Shortness of breath. assess right pleural effusion and bilateral pneumonia COMPARISON: Chest 11/19/2022. FINDINGS: No pneumothorax. Small to moderate bilateral pleural effusions are again noted. There are l ow lung volumes. The heart remains mildly enlarged. Bibasilar densities persist. There is right great er than left interstitial/vascular thickening. This suggests asymmetric pulmonary edema. A right PICC terminates at the superior cavoatrial junction/distal SVC. This remains unchanged. Nasogastric tube terminates below the diaphragm. The tip is not included on this study. IMPRESSION: 1. Mild asymmetric pulmonary edema with small to moderate bilateral pleural effusions and bibasilar d ensities. This has slightly progressed. 2. Lines and tubes remain unchanged in position. 3. No pneumothorax. ACT 112: Negative or not required by law. Electronically signed by: Alejandro Jefferson M.D. 11/20/2022 8:01 AM
[2022-11-20] MEDS: SODIUM CHLORIDE 0.9% 1000ML 1,000 ML IV SCH ×2 (08:05→20:47)
[2022-11-20] MEDS: ASPIRIN 81 MG CHEW PO SCH (08:07)
[2022-11-20] MEDS: AMIODARONE 200 MG TAB PO SCH ×2 (08:07→16:35)
[2022-11-20] MEDS: cloNIDine HCL 0.1 MG TAB PO SCH (08:08)
[2022-11-20] MEDS: MULTI VIT W/MINERALS LIQUID 15 ML UDP NG SCH (08:08)
[2022-11-20] MEDS: POTASSIUM CHLORIDE 20 MEQ/15 ML UDC PO SCH (08:08)
[2022-11-20] MEDS: THIAMINE HCL 100 MG TAB NG SCH (08:09)
[2022-11-20] MEDS: VENLAFAXINE HCL 37.5 MG TAB PO SCH ×2 (08:09→20:52)
[2022-11-20] MEDS: hydrALAZINE TAB 50 MG TAB PO SCH ×3 (09:39→20:50)
[2022-11-20] MEDS: CEFEPIME 1,000 MG in SYRINGE 0 ML IV SCH ×2 (09:40→20:53)
[2022-11-20] MEDS: PANTOprazole 40 MG in SYRINGE 0 ML IV SCH (11:15)
--- NOTE | 2022-11-20 12:46 | Critical Care Progress Note ---
Date of Service November 20, 2022 Assessment & Plan (1) Atrial fibrillation with RVR: Plan: The patient is a little disoriented. I am sure it is a combination of all the medications that she has been getting in addition to the Precedex though that is off. She is also been bed ridden for many days now and in the intensive care unit. But despite all of that she is remarkably interactive and right now not agitated. I am so glad that we performed a bronchoscopy yesterday as the secretions were extremely tenacious and very difficult to extract even with the bronchoscopy. There was no way that she was going to cough and clear them on her own. We should continue with the Mucomyst and try to protect her lungs is much as possible. However with that being said speech did clear her for a minced diet. She was not yet cleared for medications. We will try to keep the NG tube in place and have her swallow around it is we do not know how well she will do. We do not know if she will swallow safely and if she will take insufficient calories. We will stop the nasogastric tube feeds so that she is starting to get hungry to be able to eat. 1. Neuropsych: For her anxiety we started some Effexor and hopefully that will help her manage her anxiety. It is a Catch-22 and is hard to know what is coming first but her anxiety certainly does perpetuate her tachypnea and also her atrial fibrillation which then begets congestive heart failure and then more shortness of breath and more anxiety. 2. Cardiac. Right now she is in normal sinus rhythm. Having her maintain her atrial kick is really important for her congestive heart failure. Right now she is on amiodarone 400 mg twice daily and at some point it would be reasonable to downgrade to the 200 twice daily. Her blood pressure is also starting to go back up so we will resume the beta-ana cristina metoprolol so that we can start to decrease the amiodarone time. For her hypertension we are also trying some hydralazine and amlodipine but stopping the clonidine. 3. Respiratory: Much improved pulmonary status. Much less cough with secretions. I was wondering whether a repeat bronchoscopy was going to be necessary today but it appears not. I performed a lung ultrasound yesterday and though there is some pleural fluid on the right there is a lung that is very close to the pleural surface and I am reluctant to cause any complications of a pneumothorax for her. Right now she is having some increased BUN and creatinine and we probably over diuresed her. We have stopped the Lasix drip and will try not to over hydrate her. But she is going to get back some IV fluids. 4. GI: Speech did clear her for a soft diet but as above we will keep the NG tube in in case she does not meet all of her nutritional requirements and also for medication administration. Again we will stop the tube feeds and hopefully allow for her to build up her appetite. It is possible to use the G-tube to give a bolus feeds if she does not eat much during lunch or dinner. 5. Renal: Some increased BUN and creatinine now significantly up to 44 and 1.53 some volume depleted. She also has an elevated potassium of 5.3 with that but will not correct that at this time. We will be giving her normal saline at 80 an hour for 1 L and then we will recheck. She still has a Diaz in place and at some point that should be discontinued. 6. ID: So far the cultures from the bronchoscopy are no growth which is surprising. She continues with the cefepime and the Flagyl was discontinued yesterday. Her white count is up to 16.5 so follow that carefully and may have been from the irritation from the bronchoscopy. 7. Heme: Decrease in her hematocrit. Initially, her iron stores were low so we will give 5 days of IV iron and try to avoid a transfusion. Since her creatinine is bumped up we are not able to give her Lovenox for DVT prophylaxis or even A-fib stroke prevention so we will be giving her heparin subcu 5000 twice daily at least for DVT prophylaxis. 8. Endocrine: Increase in her sugars especially with the tube feeds and she is on a glycemic management per pharmacy. We kept her in the intensive care unit because she was so marginal yesterday. But we will see whether or not we could downgrade her tomorrow. There was apparently discussions that was starting to be held with nursing and her daughter about bringing her home with hospice. We could engage her in those conversations but the patient herself was actually agreeable to a PEG if she was not able to swallow on her own. She is interested in going home but I think she also wants to live and get better so that may be premature at this point. Ongoing discussions with all parties in the room is the best path forward. (2) Sinus pause: (3) Acute respiratory failure: (4) Bilateral pleural effusion: (5) Thoracic kyphosis: (6) Acute respiratory failure with hypoxia: (7) Pleural effusion: Admission and Anticipated Discharge Date Admission Date: November 15, 2022 Subjective The patient is getting a little confused today. But in general is still able to converse. Her cough is much better. She is less dyspneic. She is not as anxious. No chest pain arm or jaw pain. No hemoptysis or hematemesis. Much less phlegm production. No nausea vomiting or diarrhea. No reported back pain. No neurological complaints. Physical Exam Physical Exam: The patient is awake alert and interactive. Much less secretion all with regards to her cough. She seems calmer and much less in distress. Still with significant kyphosis. Respiratory is still diminished breath sounds and some rhonchi right greater than left heart is regular rate and rhythm with a 2 out of 6 systolic ejection murmur. Abdomen is protuberant but not tense with some ventral hernia. Extremities are without clubbing cyanosis or edema. Results & Data Results & Data Vital Signs (Past 12 Hours) Vital Signs Temp Pulse Pulse Resp BP Pulse Ox O2 Del Method 11/20/22 12:00 82 24 162/61 H 95 High Flow Nasal Cannula 11/20/22 11:39 80 22 173/56 H 95 High Flow Nasal Cannula 11/20/22 11:00 80 26 H 181/68 H 93 High Flow Nasal Cannula 11/20/22 10:00 78 24 174/60 H 94 High Flow Nasal Cannula 11/20/22 09:00 77 21 188/63 H 97 High Flow Nasal Cannula 11/20/22 08:00 78 22 190/61 H 100 High Flow Nasal Cannula 11/20/22 07:00 74 24 152/70 H 99 High Flow Nasal Cannula 11/20/22 08:00 36.8 C 11/20/22 06:48 68 17 97 Nasal Cannula 11/20/22 06:00 71 21 99 11/20/22 06:00 189/64 H 11/20/22 05:00 71 22 95 11/20/22 05:00 173/60 H 11/20/22 04:00 37.1 C 68 21 98 11/20/22 04:00 171/55 H 11/20/22 03:00 68 25 H 98 11/20/22 03:00 165/54 H 11/20/22 02:00 67 25 H 99 High Flow Nasal Cannula 11/20/22 02:00 161/56 H 11/20/22 01:00 70 24 98 11/20/22 01:00 173/58 H O2 Flow Rate 11/20/22 12:00 5 11/20/22 11:39 5 11/20/22 11:00 5 11/20/22 10:00 5 11/20/22 09:00 6 11/20/22 08:00 6 11/20/22 07:00 6 11/20/22 08:00 11/20/22 06:48 6 11/20/22 06:00 11/20/22 06:00 11/20/22 05:00 11/20/22 05:00 11/20/22 04:00 11/20/22 04:00 11/20/22 03:00 11/20/22 03:00 11/20/22 02:00 6 11/20/22 02:00 11/20/22 01:00 11/20/22 01:00 Laboratory Results Laboratory Results WBC 16.57 K/ul (4.8-10.8) H 11/20/22 04:16 RBC 2.56 M/uL (4.20-5.40) L 11/20/22 04:16 Hgb 7.7 g/dl (12.0-16.0) L 11/20/22 04:16 POC Hgb 9.2 g/dl (12.0-16.0) L 11/15/22 04:53 Hct 23.4 % (37.0-47.0) L 11/20/22 04:16 POC Hct 27 % (37-47) L 11/15/22 04:53 MCV 91.4 fL (80.0-100.0) 11/20/22 04:16 MCH 30.1 pg (25.0-34.0) 11/20/22 04:16 MCHC 32.9 g/dL (32.0-36.0) 11/20/22 04:16 RDW Std Deviation 48.8 fL (36.4-46.3) H 11/20/22 04:16 RDW Coeff of Blas 14.7 % (11.5-14.5) H 11/20/22 04:16 Plt Count 492 K/uL (130-400) H 11/20/22 04:16 MPV 9.1 fL (9.4-12.4) L 11/20/22 04:16 Immature Gran % (Auto) 0.6 % 11/18/22 05:18 Neut % (Auto) 86.6 % 11/18/22 05:18 Lymph % (Auto) 6.9 % 11/18/22 05:18 Wirt % (Auto) 5.3 % 11/18/22 05:18 Eos % (Auto) 0.2 % 11/18/22 05:18 Baso % (Auto) 0.4 % 11/18/22 05:18 Neut # (Auto) 14.64 K/uL (1.40-6.50) H 11/18/22 05:18 Lymph # (Auto) 1.16 K/uL (1.2-3.4) L 11/18/22 05:18 Wirt # (Auto) 0.90 K/uL (0.11-0.59) H 11/18/22 05:18 Eos # (Auto) 0.03 K/uL (0-0.50) 11/18/22 05:18 Baso # (Auto) 0.07 K/uL (0-0.2) 11/18/22 05:18 Immature Gran # (Auto) 0.10 K/uL (0.01-0.20) 11/18/22 05:18 PT 10.2 Seconds (9.0-12.0) 11/15/22 01:25 INR 0.9 (0.9-1.1) 11/15/22 01:25 Sample Site L Brachial 11/15/22 04:53 POC pH 7.30 (7.35-7.45) L 11/15/22 04:53 POC pCO2 55 mmHg (35-46) H 11/15/22 04:53 POC pO2 109 mmHg (80-95) H 11/15/22 04:53 POC HCO3 27 nikolai/L (19-24) H 11/15/22 04:53 POC Total CO2 29 mmol/L (24-31) 11/15/22 04:53 POC Base Excess 0.0 nikolai/L (-9-1.8) 11/15/22 04:53 ABG pH (Temp Correct) 7.310 (7.35-7.45) L 11/15/22 04:53 ABG pCO2 (Temp Corrct 53 mmHg (35-46) H 11/15/22 04:53 POC ABG pO2 at Pt Temp 104 11/15/22 04:53 POC ABG O2 Sat 98.0 % (90-95) H 11/15/22 04:53 Josafat Test Pass 11/15/22 04:53 O2 Delivery Device Ventilator 11/15/22 04:53 POC O2 Rate 18 11/15/22 04:53 POC FiO2 60 % 11/15/22 04:53 Tidal Volume 255 11/15/22 04:53 PEEP 8 11/15/22 04:53 POC Sodium 130 mmol/L (135-144) L 11/15/22 04:53 Sodium 138 mmol/L (136-145) 11/20/22 04:16 POC Potassium 4.9 mmol/L (3.3-5.0) 11/15/22 04:53 Potassium 5.3 mmol/L (3.5-5.1) H D 11/20/22 04:16 POC Chloride 96 mmol/L (101-112) L 11/15/22 01:25 Chloride 101 mmol/L (98-107) 11/20/22 04:16 Carbon Dioxide 30 mmol/L (21-32) 11/20/22 04:16 POC Total CO2 26 mmol/L (24-31) 11/15/22 01:25 Anion Gap 7 (3-11) 11/20/22 04:16 POC Anion Gap 14.0 mmol/L (16-25) L 11/15/22 01:25 POC BUN 33 mg/dl (7-18) H 11/15/22 01:25 BUN 44 mg/dl (6-23) H 11/20/22 04:16 Creatinine 1.53 mg/dl (0.6-1.2) H 11/20/22 04:16 POC Creatinine 1.1 mg/dl (0.6-1.3) 11/15/22 01:25 Est Cr Clr Drug Dosing 15.4 ml/min 11/20/22 04:16 Est GFR ( Amer) 35.6 ml/min 11/20/22 04:16 Est GFR (Non-Af Amer) 30.7 ml/min 11/20/22 04:16 BUN/Creatinine Ratio 28.8 (10-20) H 11/20/22 04:16 Glucose 153 mg/dl (70-99(Fasting)) H 11/20/22 04:16 POC Glucose 223 mg/dl (70-99) H 11/20/22 12:02 POC Glucose (other) 270 mg/dl (70-99) H 11/15/22 01:25 Lactate 1.5 mmol/L (0.4-2.0) 11/15/22 02:10 Calcium 8.9 mg/dl (8.6-10.3) 11/20/22 04:16 POC Ioniz Calcium Sanjuana 1.19 mmol/l (1.12-1.32) 11/15/22 01:25 Phosphorus 3.2 mg/dl (2.5-4.9) 11/20/22 04:16 Magnesium 2.4 mg/dl (1.7-2.4) 11/20/22 04:16 Iron 56 mcg/dl (35-150) 11/16/22 11:33 Unsaturated IBC 352 mcg/dl (155-355) 11/16/22 04:01 Total Bilirubin 0.3 mg/dl (0.2-1.0) 11/18/22 05:18 AST 20 U/L (13-39) 11/18/22 05:18 ALT 21 U/L (7-52) 11/18/22 05:18 Alkaline Phosphatase 113 U/L (34-104) H 11/18/22 05:18 Troponin I High Sens 34.6 pg/ml (0-14) H 11/16/22 18:27 B-Natriuretic Peptide 1396 pg/ml (0-100) H 11/15/22 01:25 Total Protein 6.1 gm/dl (6.0-8.3) 11/18/22 05:18 Albumin 3.2 gm/dl (3.4-5.0) L 11/18/22 05:18 Globulin 2.9 gm/dl (2.5-4.0) 11/18/22 05:18 Albumin/Globulin Ratio 1.1 (0.9-2) 11/18/22 05:18 Procalcitonin 0.11 ng/ml (0-0.5) 11/15/22 15:22 TSH 0.663 uIu/ml (0.300-4.500) 11/16/22 11:33 Urine Color Yellow 11/15/22 01:34 Urine Appearance Clear (Clear) 11/15/22 01:34 Urine pH 6.0 (4.5-7.5) 11/15/22 01:34 Ur Specific [place] 1.016 (1.000-1.030) 11/15/22 01:34 Urine Protein 1+ (Negative) H 11/15/22 01:34 Urine Glucose (UA) Negative (Negative) 11/15/22 01:34 Urine Ketones Negative (Negative) 11/15/22 01:34 Urine Blood Negative (Negative) 11/15/22 01:34 Urine Nitrite Negative (Negative) 11/15/22 01:34 Urine Bilirubin Negative (Negative) 11/15/22 01:34 Urine Urobilinogen Negative (Negative) 11/15/22 01:34 Ur Leukocyte Esterase Negative (Negative) 11/15/22 01:34 Urine WBC (Auto) 0 /hpf (0-5) 11/15/22 01:34 Urine RBC (Auto) 0-4 /hpf (0-4) 11/15/22 01:34 U Hyaline Cast (Auto) 1-5 /lpf (0-5) 11/15/22 01:34 U Epithel Cells (Auto) 5-10 /lpf (0-5) H 11/15/22 01:34 Urine Bacteria (Auto) Negative (Negative) 11/15/22 01:34 Nasal Screen MRSA (PCR) Negative (Negative) 11/15/22 04:30 Adenovirus (PCR) Not Detected (NotDetected) 11/15/22 01:38 B. pertussis DNA (PCR) Not Detected (NotDetected) 11/15/22 01:38 B.parapertussis DNA PCR Not Detected (NotDetected) 11/15/22 01:38 C. pneumoniae DNA (PCR) Not Detected (NotDetected) 11/15/22 01:38 Coronavirus OC43 (PCR) Not Detected (NotDetected) 11/15/22 01:38 Coronavirus HKU1 (PCR) Not Detected (NotDetected) 11/15/22 01:38 Coronavirus 229E (PCR) Not Detected (NotDetected) 11/15/22 01:38 SARS-CoV-2 (PCR) Not Detected (NotDetected) 11/15/22 01:38 Coronavirus NL63 (PCR) Not Detected (NotDetected) 11/15/22 01:38 Human Metapneumovir PCR Not Detected (NotDetected) 11/15/22 01:38 Influenza Type A (PCR) Not Detected (NotDetected) 11/15/22 01:38 Influenza Type B (PCR) Not Detected (NotDetected) 11/15/22 01:38 M. pneumoniae (PCR) Not Detected (NotDetected) 11/15/22 01:38 Parainfluenza 1 (PCR) Not Detected (NotDetected) 11/15/22 01:38 Parainfluenza 2 (PCR) Not Detected (NotDetected) 11/15/22 01:38 Parainfluenza 3 (PCR) Not Detected (NotDetected) 11/15/22 01:38 Parainfluenza 4 (PCR) Not Detected (NotDetected) 11/15/22 01:38 RSV (PCR) Not Detected (NotDetected) 11/15/22 01:38 Entero/Rhino (PCR) Not Detected (NotDetected) 11/15/22 01:38 Impressions Chest CTA 11/15/22 02:02 Exam(s): CTA CHEST IV Amt: 116 ML OPTIRAY 350 EXAM: CT Angiography Chest With Intravenous Contrast CLINICAL HISTORY: Reason for exam: Respiratory arrest, hx of effusions, PNA. TECHNIQUE: Axial computed tomographic angiography images of the chest with intravenous contrast. CTDI is 23.63 mGy and DLP is 296.07 mGy-cm. Automated exposure control was utilized for the study. A dose lowering technique was utilized adhering to the principles of ALARA. 2D MIP reconstructed images were created and reviewed. COMPARISON: No relevant prior studies available. FINDINGS: Pulmonary arteries: Pulmonary artery hypertension. No pulmonary embolus. Aorta: No acute findings. No thoracic aortic aneurysm. Lungs: Left lower lobe infiltrate. Subtle filtrate within the right upper lobe. Diffuse changes COPD. Compressive atelectasis of right lower lobe. No mass. Pleural space: Large right pleural effusion. No pneumothorax. Heart: Cardiomegaly. No significant pericardial effusion. No evidence of RV dysfunction. Bones/joints: No acute fracture. No dislocation. Soft tissues: Unremarkable. Lymph nodes: Unremarkable. No enlarged lymph nodes. Tubes, lines and devices: Endotracheal tube with its tip above the vu. IMPRESSION: 1. No pulmonary embolus 2. Large right pleural effusion with compressive atelectasis right lower lobe. Electronically signed by: Tan Becerril MD 11/15/22 03:[address] 11/15/22 02:02 Exam(s): CT HEAD Without Contrast EXAM: CT Head Without Intravenous Contrast CLINICAL HISTORY: Reason for exam: AMS. TECHNIQUE: Axial computed tomography images of the head/brain without intravenous contrast. CTDI is 38.88 mGy and DLP is 624.41 mGy-cm. Automated exposure control was utilized for the study. A dose lowering technique was utilized adhering to the principles of ALARA. COMPARISON: 11/07/2022 FINDINGS: Brain: Unremarkable. No hemorrhage. No significant white matter disease. No edema. Ventricles: Unremarkable. No ventriculomegaly. Bones/joints: Postoperative changes of right frontal calvarium. No acute fracture. Soft tissues: Unremarkable. Vasculature: stable postoperative changes usually aneurysm clipping. Sinuses: Unremarkable as visualized. No acute sinusitis. Mastoid air cells: Unremarkable as visualized. No mastoid effusion. IMPRESSION: No acute intracranial pathology. No change from prior exam Electronically signed by: Tan Becerril MD 11/15/22 03:34 AM KUB X-Ray 11/15/22 10:58 KUB HISTORY: Switch OGT to NGT COMPARISON: None. FINDINGS: Nasogastric tube terminates in the mid stomach. Small bilateral pleural effusions and bibasilar densities are noted. The heart is mildly enlarged. Mild pulmonary vascular congestion persists. No dilated loops of bowel to suggest an obstruction. No renal calculi. No ureteral calculi. No pneumoperitoneum or pneumatosis. IMPRESSION: Nasogastric tube terminates in the mid stomach. ACT 112: Negative or not required by law. Electronically signed by: Alejandro Jefferson M.D. 11/15/2022 11:39 AM Chest X-Ray 11/20/22 07:00 XR chest 1V portable HISTORY: Shortness of breath. assess right pleural effusion and bilateral pneumonia COMPARISON: Chest 11/19/2022. FINDINGS: No pneumothorax. Small to moderate bilateral pleural effusions are again noted. There are low lung volumes. The heart remains mildly enlarged. Bibasilar densities persist. There is right greater than left interstitial/vascular thickening. This suggests asymmetric pulmonary edema. A right PICC terminates at the superior cavoatrial junction/distal SVC. This remains unchanged. Nasogastric tube terminates below the diaphragm. The tip is not included on this study. IMPRESSION: 1. Mild asymmetric pulmonary edema with small to moderate bilateral pleural effusions and bibasilar densities. This has slightly progressed. 2. Lines and tubes remain unchanged in position. 3. No pneumothorax. ACT 112: Negative or not required by law. Electronically signed by: Alejandro Jefferson M.D. 11/20/2022 8:01 AM Medications Administered Current Inpatient Medications Acetylcysteine (Acetylcysteine 20% Inhal Soln 4ml Dispensed By Resp.) 5 ml INH Q8R JARROD Stop: 12/18/22 13:59 Last Admin: 11/20/22 06:48 Dose: 5 ml Albuterol (Albuterol 0.083% Nebu Soln 3 Ml Vial) 2.5 mg NEB Q6R PRN; Protocol PRN Reason: wheeze, cough Stop: 12/15/22 05:01 Last Admin: 11/20/22 06:48 Dose: 2.5 mg Amiodarone HCl (Amiodarone 200 Mg Tab) 400 mg PO BIDM JARROD Stop: 12/18/22 16:59 Last Admin: 11/20/22 08:07 Dose: 400 mg Amlodipine Besylate (Amlodipine Besylate 5 Mg Tab) 10 mg PO DAILY JARROD Stop: 12/19/22 08:59 Last Admin: 11/20/22 06:43 Dose: 10 mg Aspirin (Aspirin 81 Mg Chew) 81 mg PO QAM JARROD Stop: 12/15/22 11:29 Last Admin: 11/20/22 08:07 Dose: 81 mg Dextrose (Dextrose 50% 50 Ml Syringe) 25 - 50 ml IV UD PRN; Protocol PRN Reason: Hypoglycemia Protocol Stop: 12/15/22 05:01 Glucagon (Glucagon For Inj 1 Mg Vial) 1 mg SQ UD PRN; Protocol PRN Reason: Hypoglycemia Protocol Stop: 12/15/22 05:01 Glucose (Glucose 10 Tab/Tube) 4 - 8 tab PO UD PRN; Protocol PRN Reason: Hypoglycemia Treatment Stop: 12/15/22 05:01 Glucose (Glucose 40% Gel 15 Gm Tube) 15 - 30 gm PO UD PRN; Protocol PRN Reason: Hypoglycemia Protocol Stop: 12/15/22 05:01 Heparin Sodium (Beef Lung) (Heparin 10 Unit/Ml 5 Ml Flush) 5 ml FLUSH PRN PRN PRN Reason: Flush Stop: 12/19/22 21:41 Heparin Sodium (Porcine) (Heparin Sod 5,000 Unit/0.5 Ml Vial) 5,000 units SQ Q12 JARROD Stop: 12/20/22 20:59 Hydralazine HCl (Hydralazine Tab 50 Mg Tab) 50 mg PO TID JARROD Stop: 12/20/22 08:59 Last Admin: 11/20/22 09:39 Dose: 50 mg Pantoprazole Sodium 40 mg/ (Syringe) 10 mls @ 5 mls/min IV DAILY@1100 [facility] Stop: 12/15/22 10:59 Last Admin: 11/20/22 11:15 Dose: 5 mls/min Dexmedetomidine/Sodium Chloride (Precedex) 200 mcg in 50 mls @ 0 mls/hr IV .Q0M JARROD; Protocol Stop: 11/21/22 13:14 Last Titration: 11/20/22 06:15 Dose: 0 mcg/kg/hr, 0 mls/hr Cefepime HCl 1,000 mg/ Syringe 10 mls @ 5 mls/min IV Q12H [facility] Stop: 11/23/22 10:29 Last Admin: 11/20/22 09:40 Dose: 5 mls/min Acetaminophen (Ofirmev) 1,000 mg in 100 mls @ 400 mls/hr IV Q8H [facility] Stop: 11/22/22 10:59 Last Infusion: 11/20/22 11:33 Dose: Infused Sodium Chloride (Nss 1000ml) 1,000 mls @ 80 mls/hr IV .[id number] [facility] Stop: 12/20/22 19:00 Last Admin: 11/20/22 08:05 Dose: 80 mls/hr Iron Sucrose 200 mg/ Sodium (Chloride) 110 mls @ 220 mls/hr IV TODAY@1300 [facility] Stop: 11/23/22 13:29 Insulin Aspart (Insulin Aspart Per Unit Charge) 0 units SC Q6 [facility] Stop: 12/15/22 11:59 Last Admin: 11/20/22 12:21 Dose: 3 units Metoprolol Tartrate (Metoprolol Tartrate 50 Mg Tab) 50 mg PO TID [facility] Stop: 12/20/22 13:59 Miscellaneous (Carbohydrates For Hypoglycemia ) 15 - 30 gm PO UD PRN PRN Reason: Hypoglycemia Protocol Stop: 12/15/22 05:01 Miscellaneous (Icu Electrolyte Replacement Protocol) 1 each N/A BID@06,18 [facility]; Protocol Stop: 11/22/22 05:59 Last Admin: 11/20/22 06:01 Dose: Not Given Multivitamins/Minerals (Multi Vit W/Minerals Liquid 15 Ml Udp) 15 ml NG QAM [facility] Stop: 12/16/22 08:59 Last Admin: 11/20/22 08:08 Dose: 15 ml Nutritional Formula (Nutren Liqd 2.0 1,000 Ml Bag) 1,000 ml NG UD [facility]; Protocol Stop: 12/17/22 14:44 Last Admin: 11/19/22 17:53 Dose: 1,000 ml Sterile Water (Tube Feeding Water Flush) 30 ml NG Q4H [facility] Stop: 12/15/22 13:29 Last Admin: 11/20/22 09:18 Dose: 30 ml Thiamine HCl (Thiamine Hcl 100 Mg Tab) 100 mg NG QAM [facility] Stop: 12/16/22 10:59 Last Admin: 11/20/22 08:09 Dose: 100 mg Venlafaxine HCl (Venlafaxine Hcl 37.5 Mg Tab) 37.5 mg PO BID [facility] Stop: 12/19/22 10:29 Last Admin: 11/20/22 08:09 Dose: 37.5 mg Coding Level of Care Code 43338 SUB INP/OBS CARE 3/50MIN History Comprehensive Exam Comprehensive Medical Decision Making High Complexity Diagnoses Atrial fibrillation with RVR I48.91 Sinus pause I45.5 Acute respiratory failure J96.00 Bilateral pleural effusion J90 Thoracic kyphosis M40.204 Acute respiratory failure with hypoxia J96.01 Pleural effusion J90 Time Spent (min) 50
[2022-11-20] MEDS: IRON SUCROSE 200 MG in 0.9 % SODIUM CHLORIDE 100 ML IV SCH (12:47)
[2022-11-20] MEDS: METOPROLOL TARTRATE 50 MG TAB PO SCH ×2 (13:40→20:50)
[2022-11-20] MEDS ORDERED: LABETALOL HCL IV 5 MG/ML 20ML IV STA (16:13)
[2022-11-20 18:11] LABS: Cdiff Antigen Positive; Cdiff Toxin A+B Negative Cdiff Toxin (Negative); Cdiff Toxin B Gene (2yr or >) Positive Cdiff Gene (Neg)
[2022-11-20] MEDS: ADVANCED PROBIOTIC 1250 MG CAPSULE PO SCH (20:48)
[2022-11-20] MEDS: RASPBERRY SYRUP 5 ML UDP PO SCH ×2 (20:49→23:34)
[2022-11-20] MEDS: VANCOMYCIN HCL 125 MG/2.5ML SOLN PO SCH ×2 (20:49→23:34)
[2022-11-20] MEDS: HEPARIN SOD 5,000 UNIT/0.5 ML VIAL SQ SCH (20:49)
[2022-11-21 04:45] LABS: Hematocrit (blood only) 23.2 % (37.0-47.0); Hemoglobin 7.5 g/dl (12.0-16.0); Mean Corpuscular Hgb Conc 32.3 g/dL (32.0-36.0); Mean Corpuscular Volume 92.8 fL (80.0-100.0); Mean Platelet Volume 9.1 fL (9.4-12.4); Nucleated RBC # (auto) 0.02 K/uL (0-0.12); Nucleated RBC % (auto) 0.1 %; Platelet Count 489 K/uL (130-400); RDW Standard Deviation 50.2 fL (36.4-46.3)
[2022-11-21] MEDS: TUBE FEEDING WATER FLUSH NG SCH ×5 (04:47→21:31)
[2022-11-21] MEDS: ACETAMINOPHEN 1,000 MG/100 ML VIAL IV SCH ×3 (04:47→21:31)
[2022-11-21 05:10] LABS: BUN Creatinine Ratio 33.3 (10-20); Calcium 8.7 mg/dl (8.6-10.3); Est GFR (African American) 58.1 ml/min; Est GFR (Non-African American) 50.1 ml/min; Magnesium 2.2 mg/dl (1.7-2.4); Phosphorus 3.3 mg/dl (2.5-4.9); Potassium 4.1 mmol/L (3.5-5.1)
[2022-11-21] MEDS: INSULIN ASPART PER UNIT CHARGE SC SCH ×3 (05:39→18:15)
[2022-11-21] MEDS: VANCOMYCIN HCL 125 MG/2.5ML SOLN PO SCH (05:40)
[2022-11-21] MEDS: RASPBERRY SYRUP 5 ML UDP PO SCH (05:40)
[2022-11-21] MEDS: ICU ELECTROLYTE REPLACEMENT PROTOCOL SCH ×2 (06:40→18:11)
--- NOTE | 2022-11-21 06:46 | Hospitalist Progress Note ---
Date of Service November 21, 2022 Assessment & Plan (1) Acute respiratory failure: (2) Pleural effusion: (3) Acute and chronic respiratory failure with hypoxia: (4) Pneumonia: (5) Back pain: (6) Tobacco dependence: (7) Atrial arrhythmia: Plan Emelia is an 86 year old female with history of COPD, chronic tobacco use (active 1 PPD), pHTN, MAT, and protein-calorie malnutrition who presented for increased respiratory distress. She was subsequently intubated and admitted to the ICU. Patient has since been extubated. Underwent broch 11/19 which resulted in significant improvement. Hospitalist service will continue to follow along with ICU level care Care as per ICU. -Palliative consulted, please see note for additional details- family continues to desire some intervention (conditional code status) Acute Hypoxic Respiratory Failure/Respiratory Arrest Multifactorial - 2/2 Acute diastolic CHF/Pleural Effusion/ aspiration/mucous plugging/restrictive lung disease Pleural Effusion/Aspiration/Mucous Plugging Patient discharged 11/14 after being treated for pneumonia on Cefdinir/Azithromycin. New O2 need last admission. Did become acutely dyspneic and returned to the ED. Subsequently intubated and admitted to the ICU. Patient was able to be extubated 11/15. Has been successfully weaned from down to 5L NC Imaging: CTA with large right pleural effusion and compression atelectasis RLL with interval worsening in comparison to 11/11. Swallow study with signs of silent aspiration - patient has refused further studies at this time Procedures: Intubated 11/14 for acute respiratory failure. Extubated 11/15. Bronch 11/19. Extensively therapeutic with removal of thick mucous. CHF BNP acutely elevated on admit to 1397 ECHO EF 70% with Grade I diastolic dysfunction. RVSP 40-50 Patient was on Lasix drip at 5 mg/hr. Cr rising. Holding diuresis for now. Resume if worsening respiratory status or signs of fluid overload Pneumonia Patient treated for PNA on previous admit. Was discharged on cefdinir/azithromycin. On cefepime and metronidazole at present. Did receive vanc and methylpred empirically. Plan: hold diuresis in setting of rising Cr bronch was therapeutic, could consider thoracentesis after further discussion with patient's family AM CXR PT/OT FENGI: Fluid status: overall down over 4 L, continue to monitor Sinus Pauses (5-6s) MAT/AFib On Amiodarone and metoprolol at home. Eliquis held on admit - would restart upon discharge. Went in A fib with RVR 11/15. Started having conversion pauses 11/16. Patient most recently in NSR. Cards on board - rec holding metop and continuing amiodarone, now on 400 mg BID via NGT Lumbar Back Pain Osteoporosis - Hx of multiple (L1,3,5) compression fractures (Evidenced on CT in 2020). Lumbar XR on 11/08: New L4 compression fracture Plan: will schedule Tylenol, hopefully improved pain control will help with secretion clearing Hx of Transient Ischemic Attacks Would continue aspirin, antihypertensives, and resume high dose statin when stable (atorvastatin 80 mg) Plan: Encourage smoking cessation Medical management HTN Metoprolol/Losartan/Amlodipine initially held on admission d/t hypotension. Noemi soham shoemakerso on the hypertensive things at this point in her course. Is on amlodipine QD and clonidine 0.1 mg BID was added for anxiolysis and HTN. Likely a combination of hospitalization and agitation. Judicious management of hypertensive state. Severe malnutrition ?Food Security Hypoalbuminemia. Possible side effect from amiodarone or acute decondition on top of severe malnutrition. Patient with NGT in place for feeds May also be a component of food insecurity. Would screen for this once no longer critically ill. See attending attestation for further documentation DVT PPx: Lovenox 40 mg SQ qAM, Eliquis held, Aspirin resumed CODE: Full Code Diet: NPO, NG intact Consults: PT/OT, Speech, Cardiology Dispo: ICU Case Mgmt: Health Care Proxy established (Kathy Ramos), paperwork in chart. Family: Patient elected to allow phone contact with all daughters/granddaughters for updates. Admission and Anticipated Discharge Date Admission Date: November 15, 2022 Supervising Physician Co-Signing Physician Notes I personally examined the patient and verified all couch points of history and exam, discussed case, and agree with decision making with Dr Ruiz no meaningful HPI or ROS obtainable. aspirated again earlier vitals noted breathing mildly labored labs noted respiratory failure, acute on chronic - ongoing supportive care otherwise as above, per ICU, and per palliative Subjective Patient seen and examined at bedside. No acute events overnight, patient is sleeping and wakes intermittently. Denies any current pain or complaints during encounter. Review of Systems Review of Systems: As per above Physical Exam Constitutional: + frail appearing Eyes: anicteric sclerae ENMT: external ears and nose normal, moist mucous membranes Respiratory: +productive cough, increased respiratory efforts Cardiovascular: regular rate, rhythm. good perfusion of extremities Gastrointestinal (Abdomen): abdomen soft, nontender and nondistended Skin: no rashes, warm and dry Results & Data Results & Data Vital Signs (Past 12 Hours) Vital Signs Temp Pulse Pulse Resp BP Pulse Ox O2 Del Method 11/21/22 06:00 70 26 H 93 11/21/22 06:00 173/56 H 11/21/22 05:00 67 23 95 11/21/22 04:00 37.1 C 67 23 95 11/21/22 04:00 159/56 H 11/21/22 03:00 67 22 95 11/21/22 03:00 170/57 H 11/21/22 02:00 66 22 94 11/21/22 02:00 172/57 H 11/21/22 01:00 65 21 94 11/21/22 01:00 157/58 H 11/21/22 00:00 62 11/21/22 00:00 63 21 92 11/21/22 00:00 125/62 11/20/22 23:00 61 22 93 11/20/22 23:00 37.0 C 166/50 H 11/20/22 22:44 63 22 96 11/20/22 22:44 151/56 H 11/20/22 22:43 60 22 93 Nasal Cannula 11/20/22 22:00 62 22 151/56 H 94 11/20/22 21:00 67 19 94 11/20/22 20:00 65 18 95 11/20/22 19:00 37 C 67 21 95 High Flow Nasal Cannula 11/20/22 22:37 High Flow Nasal Cannula O2 Flow Rate 11/21/22 06:00 11/21/22 06:00 11/21/22 05:00 11/21/22 04:00 11/21/22 04:00 11/21/22 03:00 11/21/22 03:00 11/21/22 02:00 11/21/22 02:00 11/21/22 01:00 11/21/22 01:00 11/21/22 00:00 11/21/22 00:00 11/21/22 00:00 11/20/22 23:00 11/20/22 23:00 11/20/22 22:44 11/20/22 22:44 11/20/22 22:43 5 11/20/22 22:00 11/20/22 21:00 11/20/22 20:00 11/20/22 19:00 6 11/20/22 22:37 6 Resident Activity Tracking Resident Involvement: Resident Care Provided Care Provided: Adult Hospital Medicine (4) Pneumonia Laterality: right Lung location: lower lobe of lung Pneumonia type: due to unspecified organism Qualified Code(s): J18.1 - Lobar pneumonia, unspecified organism
--- NOTE | 2022-11-21 07:11 | Billing Data ---
Date of Service November 20, 2022 Coding Level of Care Code 95166 SUB INP/OBS CARE
[2022-11-21] MEDS: ACETYLCYSTEINE 20% INHAL SOLN 4ML ***DISPENSED BY RESP. INH SCH ×3 (07:13→23:05)
[2022-11-21] MEDS: ALBUTEROL 0.083% NEBU SOLN 3 ML VIAL NEB PRN ×3 (07:14→23:04)
[2022-11-21] MEDS: amLODIPine BESYLATE 5 MG TAB PO SCH (08:14)
[2022-11-21] MEDS: AMIODARONE 200 MG TAB PO SCH ×2 (08:14→18:10)
[2022-11-21] MEDS: ASPIRIN 81 MG CHEW PO SCH (08:15)
[2022-11-21] MEDS: ADVANCED PROBIOTIC 1250 MG CAPSULE PO SCH (08:16)
[2022-11-21] MEDS: hydrALAZINE TAB 50 MG TAB PO SCH ×3 (08:16→21:43)
[2022-11-21] MEDS: HEPARIN SOD 5,000 UNIT/0.5 ML VIAL SQ SCH ×2 (08:16→21:30)
[2022-11-21] MEDS: THIAMINE HCL 100 MG TAB NG SCH (08:17)
[2022-11-21] MEDS: MULTI VIT W/MINERALS LIQUID 15 ML UDP NG SCH (08:17)
[2022-11-21] MEDS: METOPROLOL TARTRATE 50 MG TAB PO SCH ×3 (08:17→21:43)
[2022-11-21] MEDS: VENLAFAXINE HCL 37.5 MG TAB PO SCH ×2 (08:18→21:43)
[2022-11-21] MEDS: SODIUM CHLORIDE 0.9% 1000ML 1,000 ML IV SCH (09:30)
[2022-11-21] MEDS: CEFEPIME 1,000 MG in SYRINGE 0 ML IV SCH ×2 (10:06→21:32)
[2022-11-21] MEDS ORDERED: VANCOMYCIN CONSULT ACTIVE PRN (10:14)
[2022-11-21] MEDS ORDERED: VANCOMYCIN HCL 1,000 MG in SODIUM CHLORIDE 0.9% 250 ML IV ONE (10:15)
--- NOTE | 2022-11-21 11:06 | Critical Care Progress Note ---
Date of Service November 21, 2022 Assessment & Plan (1) Atrial fibrillation with RVR: (2) Sinus pause: (3) Acute respiratory failure: (4) Bilateral pleural effusion: (5) Thoracic kyphosis: (6) Acute respiratory failure with hypoxia: (7) Pleural effusion: Plan The patient is a little disoriented. I am sure it is a combination of all the medications that she has been getting in addition to the Precedex though that is off. She is also been bed ridden for many days now and in the intensive care unit. But despite all of that she is remarkably interactive and right now not agitated. I am so glad that we performed a bronchoscopy yesterday as the secretions were extremely tenacious and very difficult to extract even with the bronchoscopy. There was no way that she was going to cough and clear them on her own. We should continue with the Mucomyst and try to protect her lungs is much as possible. However with that being said speech did clear her for a minced diet. She was not yet cleared for medications. We will try to keep the NG tube in place and have her swallow around it is we do not know how well she will do. We do not know if she will swallow safely and if she will take insufficient calories. We will stop the nasogastric tube feeds so that she is starting to get hungry to be able to eat. NEURO 1. Anxiety -- Continue effexor CV 1. pAfib 2. HTN -- Resumed her home rate control BB, will de-escalate to amiodarone 200 mg bid -- Continue amlodipine and hydralazine prn, can consider transitioning her to nifedipine if BP continues to be > 170 RESP 1. Thick secretions / mucus plug s/p bronchoscopy 11/19/2022 2. Right pleural effusion -- Continue mucomyst, scheduled bronchodilators -- Right effusions continues to be possible source of infection, I offered a thoracentesis after discussion with her daughter this am with the possible risks of complications. Her daughter and the rest of her family are considering home hospice. I told her that this procedure will not overall improve the quality of her life. We agreed to forgo any further procedures, we will meet in person later today and discuss transition to home hospice. GI 1. Cleared by speech for soft diet, NGT in place due to continued poor nutrition. RENAL 1. Increased BUN and creatinine improved after discontinuation of lasix -- Allow to continue to equlibrate ID: 1. Leucoytosis -- Corynbacterium from respiratory cultures which have been consistent -- follow bronch samples, vanco / cefepime for now HEME: 1. Anemia -- Given IV iron ENDO: -- Blood glucose goal 140-180 Admission and Anticipated Discharge Date Admission Date: November 15, 2022 Subjective Interval Events: 11/21/2022. Awake, somehwat confused this am. Able to cough up secretions. Increasing dyspnea this am. Worsening leukocytosis. Cr has been stable. Physical Exam Physical Exam: Gen: A/O x 2, elderly, frail, chronically ill appearing CV: RRR Resp: Rhonchi b/l Abd: Soft, NT, ND Ext: warm, dry Skin: no rashes Results & Data Results & Data Vital Signs (Past 12 Hours) Vital Signs Temp Pulse Pulse Resp BP Pulse Ox O2 Del Method 11/21/22 10:00 61 22 153/69 H 95 High Flow Nasal Cannula 11/21/22 09:00 63 22 162/58 H 95 High Flow Nasal Cannula 11/21/22 08:00 73 25 H 187/67 H 93 High Flow Nasal Cannula 11/21/22 08:00 74 11/21/22 07:00 High Flow Nasal Cannula 11/21/22 07:18 71 23 93 Nasal Cannula 11/21/22 07:00 72 24 144/100 H 93 High Flow Nasal Cannula 11/21/22 07:00 36.4 C L 11/21/22 06:00 70 26 H 93 11/21/22 06:00 173/56 H 11/21/22 05:00 67 23 95 11/21/22 04:00 37.1 C 67 23 95 11/21/22 04:00 159/56 H 11/21/22 03:00 67 22 95 11/21/22 03:00 170/57 H 11/21/22 02:00 66 22 94 11/21/22 02:00 172/57 H 11/21/22 01:00 65 21 94 11/21/22 01:00 157/58 H 11/21/22 00:00 62 11/21/22 00:00 63 21 92 11/21/22 00:00 125/62 O2 Flow Rate 11/21/22 10:00 5 11/21/22 09:00 5 11/21/22 08:00 5 11/21/22 08:00 11/21/22 07:00 5 11/21/22 07:18 5 11/21/22 07:00 5 11/21/22 07:00 11/21/22 06:00 11/21/22 06:00 11/21/22 05:00 11/21/22 04:00 11/21/22 04:00 11/21/22 03:00 11/21/22 03:00 11/21/22 02:00 11/21/22 02:00 11/21/22 01:00 11/21/22 01:00 11/21/22 00:00 11/21/22 00:00 11/21/22 00:00 Coding Level of Care Code 67403 CRITICAL CARE 1ST 30-74M Diagnoses Atrial fibrillation with RVR I48.91 Sinus pause I45.5 Acute respiratory failure J96.00 Bilateral pleural effusion J90 Thoracic kyphosis M40.204 Acute respiratory failure with hypoxia J96.01 Pleural effusion J90 Time Spent (min) 30
--- NOTE | 2022-11-21 12:05 | Pharmacy Report ---
Pharmacy PK ABX Note - Date of Service November 21, 2022 - Assessment and Plan Assessment 86 year old F receiving cefepime and vancomycin for treatment of pulmonary infection. 11/15 and 11/18 sputum cultures (+) Corynebacterium spp. 11/19 BAL culture (+) Corynebacterium spp - no speciation/sensitivities. Initially thought to be contaminant, however remains persistent in cultures. Requested lab run sensitivities today. WBC trending up. (+) thick secretions. Vancomycin to be added for coverage of Corynebacterium spp until susceptibilities available. Day #6 cefepime, day #1 vancomycin of antimicrobial therapy. Plan Vancomycin * Loading dose: 1000 mg IV x 1 * Maintenance dose: 750 mg IV every 24 hours * Regimen is predicted to achieve target AUC/SALAZAR of 400-600 mg/L.hr * Will obtain a level around steady state. F/u sensitivities on BAL culture. Pharmacy will continue to follow and will adjust dose/frequency as necessary. Thank you. Pharmacy has transitioned to AUC monitoring for vancomycin. AUC/SALAZAR is the preferred PK/PD target and is associated with decreased risk of nephrotoxicity compared to traditional trough targets.
[2022-11-21] MEDS: IRON SUCROSE 200 MG in 0.9 % SODIUM CHLORIDE 100 ML IV SCH (13:06)
--- NOTE | 2022-11-21 13:56 | Palliative Care Consultation ---
Date of Consultation November 21, 2022 Assessment & Plan (1) Back pain: Chronic with osteoporosis and compression fractures Continue IV acetaminophen She uses acetaminophen, ibuprofen and sometimes oxycodone at home (2) Palliative care encounter: I spoke with Mrs. Sood's daughter, Kathy, with whom she lives and who is POA. Kathy tells me that her mother is a strong, determined lady and that she is not ready for the end of her life. She still has things that she wants to do. She very much wants to go home and Kathy wants to care for her at home but is not interested in hospice or comfort only care at this time. Her hope is that her mother could heal at home and get back to doing things independently and enjoying her life. We reviewed advance directive on the chart which indicates that Mrs. Sood would not want life prolonging interventions if she were in a coma with no hope of recovery. While it is not clear that she would be able to return to her prior baseline, she would want to try to improve her functional status. We also reviewed her current code status as full code. This was specifically what Mrs. Sood said a few days ago and is confirmed by the RN who was caring for her at the time. She would be agreeable to reintubation. Kathy's preference would be for her not to have chest compressions, given her osteoporosis but to have defibrillation and other cardiac resuscitation. Her concern, understandably, is that Mrs. Sood would have rib fractures with CPR. We did discuss that chest compressions are an integral part of resuscitation and it would not be to her benefit to do full resuscitation without compressions. She confirms that she would want full code at this time. Discussed with case management to arrange support at home, including PT/OT and home nursing care if PT feels she is safe to discharge to home. Discussed with Dr. Diaz History of Present Illness Reason for Consultation: goals of care Requesting Physician: Dr. Diaz Attending Physician: Tan Erickson DO History of Present Illness 86 yo lady with history of COPD, pulmonary hypertension, MAT and osteoporosis. She was hospitalized earlier this month with bilateral pleural effusions and RUL pneumonia. She presented on 11/15 in respiratory arrest and was intubated during this admission. She also underwent bronchoscopy for removal of thick mucous plugging. She continues to have bilateral mild to moderate pleural effusions. Per her daughter, she had been cooking and working in her flower garden as recently as October 25. Mrs. Sood denies pain or dyspnea at this time, though she does have chronic pain with vertebral compression fractures which contributes to her restrictive respiratory pattern. Allergies Allergy/AdvReac Type Severity Reaction Status Date / Time guaifenesin [From Mucinex] Allergy Intermediate Hives Verified 11/07/22 19:34 lidocaine Allergy Mild Hives Verified 11/08/22 17:37 amoxicillin Allergy Unknown Unknown Verified 11/07/22 19:34 prednisone AdvReac Severe swelling Verified 11/07/22 19:34 legs clindamycin AdvReac Intermediate Diarrhea Verified 11/07/22 19:34 lisinopril AdvReac Intermediate Cough Verified 11/07/22 19:34 Home Medications Medication Instructions Recorded Confirmed Type alendronate 70 mg tablet 70 mg PO WK 02/18/18 11/15/22 History calcium carbonate 600 mg calcium 1,200 mg PO DAILY 02/18/18 11/15/22 History (1,500 mg) tablet (Calcium) cholecalciferol (vitamin D3) 50 2,000 unit PO DAILY 02/18/18 11/15/22 History mcg (2,000 unit) capsule (Vitamin D3) fexofenadine 180 mg tablet 180 mg PO DAILY PRN Allergy 02/18/18 11/15/22 History Symptoms triamcinolone acetonide 0.1 % 1 applic topical DAILY PRN Dry Skin 02/18/1810/23 History topical ointment albuterol sulfate 90 mcg/actuation 2 puff inhalation Q6H PRN 02/19/18 11/15/22 History aerosol inhaler (ProAir HFA) SOB/Wheezing triamcinolone acetonide 55 mcg 2 spray intranasal DAILY PRN 11/07/20 11/15/22 History nasal spray aerosol (Nasacort) Allergy Symptoms sodium chloride 0.65 % nasal spray 2 spray intranasal BID PRN DRYNESS 02/20/22 11/15/22 History aerosol (Saline Mist) amiodarone 200 mg tablet 200 mg PO DAILY #90 tabs 03/28/22 11/15/22 Rx apixaban 2.5 mg tablet (Eliquis) 2.5 mg PO BID #180 tabs 03/28/22 11/15/22 Rx acetaminophen 500 mg tablet 500 mg PO Q6H PRN PAIN OR FEVER 11/07/22 11/15/22 History ibuprofen 200 mg tablet (Advil) 200 mg PO Q6H PRN Pain (Scale 11/07/22 11/15/22 History Score 1-3) acetaminophen 325 mg tablet 650 mg PO QID #120 tabs 11/10/22 11/15/22 Rx aspirin 81 mg chewable tablet 81 mg PO QAM #30 tabs 11/10/22 11/15/22 Rx (Children's Aspirin) atorvastatin 40 mg tablet 80 mg PO DAILY #30 tabs 11/10/22 11/15/22 Rx metoprolol tartrate 50 mg tablet 50 mg PO BID #60 tabs 11/10/22 11/15/22 Rx amlodipine 5 mg tablet (Norvasc) 5 mg PO QAM 30 days #30 tabs 11/14/22 11/15/22 Rx cefdinir 300 mg capsule 300 mg PO BID 4 days #8 caps 11/14/22 11/15/22 Rx losartan 50 mg tablet 50 mg PO BID 30 days #60 tabs 11/14/22 11/15/22 Rx Patient History Medical History Compression deformity of vertebra Compression fracture of T12 vertebra COVID-09 february 2022 Hyperlipidemia Hypertension Spondylosis of thoracolumbar spine Thoracic kyphosis Family History Other COPD (chronic obstructive pulmonary disease) Heart disease Hypertension No significant family history Social History Smoking Status: Current every day smoker Tobacco Type: Cigarettes Cigarettes Per Day: 10; Second Hand Exposure: Yes; Do You Dip or Chew Tobacco: No; Hx Alcohol Use: No Hx Substance Use: No Preferred Language: Scottish Communication Ability: Unable Communication Ability Comment: patient intubated currently Operator/Assistant Foreman Required: No Beliefs That Will Affect Care: Spiritual marital status: Current Living Situation: Family Current Living Situation Comment: lives with daughter Other Information That Helps Us Care for You: No Feels Safe at Home: Yes Safety Concerns: Feels Safe At This Time Assistive Devices: Walker and Other Review of Systems Review of Systems: ESAS Pain 0/3 Dyspnea 0/3 Drowsiness 0/3 Physical Exam Constitutional: + thin and + frail appearing Respiratory: + uses accessory muscles Cardiovascular: Rate/Rhythm: regular rate and regular rhythm Musculoskeletal: Spine: + kyphosis Extremities: + muscle atrophy Results & Data Vital Signs (Past 12 Hours) Vital Signs Temp Pulse Pulse Resp BP Pulse Ox O2 Del Method 11/21/22 10:00 61 22 153/69 H 95 High Flow Nasal Cannula 11/21/22 09:00 63 22 162/58 H 95 High Flow Nasal Cannula 11/21/22 08:00 73 25 H 187/67 H 93 High Flow Nasal Cannula 11/21/22 08:00 74 11/21/22 07:00 High Flow Nasal Cannula 11/21/22 07:18 71 23 93 Nasal Cannula 11/21/22 07:00 72 24 144/100 H 93 High Flow Nasal Cannula 11/21/22 07:00 97.5 F L 11/21/22 06:00 70 26 H 93 11/21/22 06:00 173/56 H 11/21/22 05:00 67 23 95 11/21/22 04:00 98.8 F 67 23 95 11/21/22 04:00 159/56 H 11/21/22 03:00 67 22 95 11/21/22 03:00 170/57 H 11/21/22 02:00 66 22 94 11/21/22 02:00 172/57 H O2 Flow Rate 11/21/22 10:00 5 11/21/22 09:00 5 11/21/22 08:00 5 11/21/22 08:00 11/21/22 07:00 5 11/21/22 07:18 5 11/21/22 07:00 5 11/21/22 07:00 11/21/22 06:00 11/21/22 06:00 11/21/22 05:00 11/21/22 04:00 11/21/22 04:00 11/21/22 03:00 11/21/22 03:00 11/21/22 02:00 11/21/22 02:00 PG Care Time/CCT Total # of Minutes Spent Total Time Spent: 70 Total Time Spent with Patient: Total time spent is greater than 50% in coordination of care (as documented) at patient's floor/unit and/or counseling patient: [id number] goals of care, code status, family education and support, coordination of care Coding Level of Care Code 22098 INT INP/OBS CARE MIN Diagnoses Back pain M54.9 Palliative care encounter Z51.5
--- NOTE | 2022-11-21 19:39 | Billing Data ---
Date of Service November 21, 2022 Coding Level of Care Code 63445 SUB INP/OBS CARE
[2022-11-21] MEDS: VANCOMYCIN HCL 750 MG in SODIUM CHLORIDE 0.9% 250 ML IV SCH (21:30)
[2022-11-22] MEDS: INSULIN ASPART PER UNIT CHARGE SC SCH ×5 (00:27→23:25)
[2022-11-22] MEDS: TUBE FEEDING WATER FLUSH NG SCH ×7 (00:28→23:25)
[2022-11-22 04:42] LABS: Creatinine Clr Calc Pharmacy 27.1 ml/min; Est GFR (African American) 64.1 ml/min; Est GFR (Non-African American) 55.3 ml/min; Magnesium 2.1 mg/dl (1.7-2.4); Phosphorus 3.4 mg/dl (2.5-4.9); Potassium 3.6 mmol/L (3.5-5.1)
[2022-11-22] MEDS ORDERED: CHLOROPROCAINE HCL 3% 20 ML VIAL IP PRN (06:00)
[2022-11-22] MEDS: ACETAMINOPHEN 1,000 MG/100 ML VIAL IV SCH (06:15)
[2022-11-22] MEDS: ALBUTEROL 0.083% NEBU SOLN 3 ML VIAL NEB PRN ×3 (07:21→22:11)
[2022-11-22] MEDS: ACETYLCYSTEINE 20% INHAL SOLN 4ML ***DISPENSED BY RESP. INH SCH ×3 (07:21→22:11)
--- NOTE | 2022-11-22 07:23 | XRay Report ---
XR chest 1V portable CLINICAL HISTORY: Pleural effusion. COMPARISON STUDY: Chest radiograph November 20, 2022. Chest CT November 15, 2022. FINDINGS: Tip of nasogastric tube is below the lower aspect of this image but at least within the bod y of the stomach. There is no pneumothorax. Moderate right and small left pleural effusions persist. Pulmonary edema has slightly progressed. Bibasilar opacities are again noted. Cardiomediastinal silho uette is stable. IMPRESSION: 1. Slight progression of pulmonary edema. 2. No change in moderate right and small left pleural effusions with associated bibasilar opacities. ACT 112: Negative or not required by law. Electronically signed by: Peterson Davis M.D. 11/22/2022 7:21 AM
--- NOTE | 2022-11-22 08:17 | Hospitalist Progress Note ---
Date of Service November 22, 2022 Assessment & Plan (1) Acute respiratory failure: (2) Pleural effusion: (3) Acute and chronic respiratory failure with hypoxia: (4) Pneumonia: (5) Back pain: (6) Tobacco dependence: (7) Atrial arrhythmia: Plan Emelia Sood is an 86 year-old female with history of COPD, chronic tobacco use (active 1 PPD), pHTN, MAT, and protein-calorie malnutrition who presented for increased respiratory distress. She was subsequently intubated and admitted to the ICU. Patient has since been extubated. Underwent broch 11/19 which resulted in significant improvement. Hospitalist service will continue to follow along with ICU level care * Palliative consulted, please see note for additional details- family continues to desire some intervention (conditional code status) * ICU management continues Acute Hypoxic Respiratory Failure/Respiratory Arrest Multifactorial - 2/2 Acute diastolic CHF/Pleural Effusion/aspiration/mucous plugging/restrictive lung disease Patient discharged 11/14 after being treated for pneumonia on Cefdini r/Azithromycin. New O2 need last admission. Did become acutely dyspneic and returned to the ED. Subsequently intubated and admitted to the ICU. Patient was able to be extubated 11/15. -On 3L oxymask this morning Imaging: CTA with large right pleural effusion and compression atelectasis RLL with interval worsening in comparison to 11/11. Repeat speech eval yesterday, status worsened from prior study. Will continue NG tube feeds for now. Procedures: Intubated 11/14 for acute respiratory failure. Extubated 11/15. Bronch 11/19. Extensively therapeutic with removal of thick mucous. Thoracentesis completed this morning, fluid sent for cytology. CHF BNP acutely elevated on admit to 1397 ECHO EF 70% with Grade I diastolic dysfunction. RVSP 40-50 Patient was on Lasix drip at 5 mg/hr. Restarted Lasix BID. Pneumonia Patient treated for PNA on previous admit. Was discharged on cefdinir/azithromycin. On cefepime and metronidazole at present. Did receive vanc and methylpred empirically. -Continue Cefepime, Vanc for now while awaiting further cultures. Sinus Pauses (5-6s) MAT/AFib On Amiodarone and metoprolol at home. Eliquis held on admit - would restart upon discharge. Went in A fib with RVR 11/15. Started having conversion pauses 11/16. In a. fib this morning (11/22) Cards on board - rec holding metop and continuing amiodarone, now on 400 mg BID via NGT Lumbar Back Pain Osteoporosis -Hx of multiple (L1,3,5) compression fractures (Evidenced on CT in 2020). Lumbar XR on 11/08: New L4 compression fracture Hx of Transient Ischemic Attacks Would continue aspirin, antihypertensives, and resume high dose statin when stable (atorvastatin 80 mg) -Encourage smoking cessation. Medical management HTN Metoprolol/Losartan/Amlodipine initially held on admission d/t hypotension. Patient moreso on the hypertensive things at this point in her course. Is on amlodipine QD and clonidine 0.1 mg BID was added for anxiolysis and HTN. Likely a combination of hospitalization and agitation. Judicious management of hypertensive state. Severe malnutrition ?Food Security Hypoalbuminemia. Possible side effect from amiodarone or acute decondition on top of severe malnutrition. Patient with NGT in place for feeds May also be a component of food insecurity. Would screen for this once no longer critically ill. DVT PPx: Eliquis CODE: Conditional code Diet: NPO, NG intact Consults: PT/OT, Speech, Cardiology Case Mgmt: Health Care Proxy established (daughter, Kathy Ramos), paperwork in chart. Family: Patient elected to allow phone contact with all daughters/granddaughters for updates. Admission and Anticipated Discharge Date Admission Date: November 15, 2022 Supervising Physician Co-Signing Physician Notes I personally examined the patient and verified all couch points of history and exam, discussed case, and agree with decision making with Dr Ruiz no meaningful HPI or ROS obtainable. critical care input noted vitals noted breathing mildly labored diffuse rhonchi labs noted respiratory failure, acute on chronic - ongoing supportive care, thoracentesis done today otherwise as above, per ICU, and per palliative Subjective Patient seen and examined at bedside. Discussed with nurse, patient had aspiration event yesterday afternoon/evening when daughter attempted to feed patient. NG tube remains in place. Patient states she has pain "all over", was examined after thoracentesis was completed. Review of Systems Review of Systems: As per above Physical Exam Constitutional: + frail appearing Eyes: + anicteric sclerae ENMT: NG tube in place. External ears and nose normal. Respiratory: Increased work of breathing, cough intermittent. Cardiovascular: Rate/Rhythm: + irregularly irregular No significant lower extremity edema bilaterally. Gastrointestinal (Abdomen): Abdomen soft, nontender and nondistended. Skin: no rashes, warm and dry Bandaged pressure wound at spine. Genitourinary: External catheter in place Results & Data Results & Data Vital Signs (Past 12 Hours) Vital Signs Temp Pulse Pulse Resp BP Pulse Ox O2 Del Method 11/22/22 07:00 116 H 26 H 140/80 96 Oxymask 11/22/22 07:22 119 H 27 H 97 Oxymask 11/22/22 04:00 116 H 25 H 95 11/22/22 04:00 129/75 11/22/22 03:30 69 19 98 BiPAP 11/22/22 03:00 70 23 97 11/22/22 03:00 165/66 H 11/22/22 02:01 153/66 H 11/22/22 02:01 68 23 92 11/22/22 02:00 68 22 92 11/22/22 01:00 65 27 H 182/59 H 95 11/22/22 03:18 69 22 95 11/22/22 00:00 36.5 C 63 22 96 BiPAP 11/21/22 23:30 62 24 94 11/21/22 23:00 61 24 94 BiPAP 11/21/22 23:00 163/56 H 11/21/22 22:00 71 23 96 11/21/22 21:01 180/61 H 11/21/22 21:01 69 26 H 95 11/21/22 21:00 68 22 97 11/22/22 00:00 61 11/21/22 23:55 BiPAP 11/21/22 23:19 61 22 93 Oxymask O2 Flow Rate FiO2 11/22/22 07:00 8 11/22/22 07:22 4 11/22/22 04:00 11/22/22 04:00 11/22/22 03:30 50 11/22/22 03:00 11/22/22 03:00 11/22/22 02:01 11/22/22 02:01 11/22/22 02:00 11/22/22 01:00 11/22/22 03:18 50 11/22/22 00:00 50 11/21/22 23:30 50 11/21/22 23:00 50 11/21/22 23:00 11/21/22 22:00 11/21/22 21:01 11/21/22 21:01 11/21/22 21:00 11/22/22 00:00 11/21/22 23:55 50 11/21/22 23:19 8 Resident Activity Tracking Resident Involvement: Resident Care Provided Care Provided: Adult Hospital Medicine (4) Pneumonia Laterality: right Lung location: lower lobe of lung Pneumonia type: due to unspecified organism Qualified Code(s): J18.1 - Lobar pneumonia, unspecified organism
--- NOTE | 2022-11-22 08:30 | Procedure Note ---
Procedure Note Date of Service November 22, 2022 Note Informed consent obtained by POA. Right sideded bedside thoracentesis performed under ultrasound guidance while patient sitting up. 800 cc of straw-colored clear fluid obtained from right hemithorax. Post procedure US did not reveal penumothorax. Patient tolerated the procedure well. Coding
[2022-11-22] MEDS: AMIODARONE 200 MG TAB PO SCH ×2 (08:58→16:18)
[2022-11-22] MEDS: amLODIPine BESYLATE 5 MG TAB PO SCH (08:59)
--- NOTE | 2022-11-22 08:59 | XRay Report ---
SINGLE VIEW CHEST CLINICAL HISTORY: Status post thoracentesis. FINDINGS: An AP, portable, upright chest radiograph is compared to study performed earlier the same d ay 11/22/2022. Correlation is made with chest CT dated 11/15/2022. The examination is degraded by portab le technique and patient rotation. A right PICC line and an enteric tube are unchanged in position. T he heart is enlarged noting atherosclerotic calcification of the thoracic aorta. Mild pulmonary vascu lar congestion persists. Emphysema and chronic interstitial thickening is similar to previous. There are bilateral pleural effusions with dependent consolidation. No pneumothorax is seen. The skeletal s tructures are osteopenic. The bony thorax is grossly intact. IMPRESSION: 1. No pneumothorax is clearly identified post procedure. 2. Cardiomegaly and emphysema. Mild pulmonary vascular congestion persists. 3. Pleural effusions with dependent consolidation. ACT 112: Negative or not required by law. Electronically signed by: Valente Lindsay M.D. 11/22/2022 8:58 AM
[2022-11-22] MEDS: ASPIRIN 81 MG CHEW PO SCH (09:00)
[2022-11-22] MEDS: hydrALAZINE TAB 50 MG TAB PO SCH ×3 (09:00→20:23)
[2022-11-22] MEDS: ADVANCED PROBIOTIC 1250 MG CAPSULE PO SCH (09:00)
[2022-11-22] MEDS: THIAMINE HCL 100 MG TAB NG SCH (09:01)
[2022-11-22] MEDS: MULTI VIT W/MINERALS LIQUID 15 ML UDP NG SCH (09:01)
[2022-11-22] MEDS: METOPROLOL TARTRATE 50 MG TAB PO SCH ×3 (09:01→20:23)
[2022-11-22] MEDS: VENLAFAXINE HCL 37.5 MG TAB PO SCH ×2 (09:02→20:23)
[2022-11-22] MEDS: CEFEPIME 1,000 MG in SYRINGE 0 ML IV SCH (09:03)
[2022-11-22] MEDS ORDERED: METOPROLOL TARTRATE 1 MG/ML VIAL IV STA ×2 (09:56→16:08)
[2022-11-22] MEDS: HEPARIN SOD 5,000 UNIT/0.5 ML VIAL SQ SCH (10:13)
--- NOTE | 2022-11-22 10:19 | Critical Care Progress Note ---
Date of Service November 22, 2022 Assessment & Plan (1) Atrial fibrillation with RVR: (2) Sinus pause: (3) Acute respiratory failure: (4) Bilateral pleural effusion: (5) Thoracic kyphosis: (6) Acute respiratory failure with hypoxia: (7) Pleural effusion: Plan NEURO 1. Anxiety -- Continue effexor CV 1. pAfib 2. HTN -- Resumed her home rate control BB, continue 200 mg bid, as needed metoprolol for further rate control -- Continue amlodipine and hydralazine prn, can consider transitioning her to nifedipine if BP continues to be > 170 RESP 1. Thick secretions / mucus plug s/p bronchoscopy 11/19/2022 2. Right pleural effusion -- Continue mucomyst, scheduled bronchodilators -- 800 cc right thoracentesis this am. Tolerated well. Follow pleural fluid results, cytology GI 1. Cleared by speech for soft diet, NGT in place due to continued poor nutrition. RENAL 1. Increased BUN and creatinine improved after discontinuation of lasix -- Resume diuresis with oral lasix 20 bid for now, replace K ID: 1. Leucoytosis -- Corynbacterium from respiratory cultures which have been consistent -- follow bronch samples, vanco / cefepime for now HEME: 1. Anemia -- Given IV iron ENDO: -- Blood glucose goal 140-180 Admission and Anticipated Discharge Date Admission Date: November 15, 2022 Subjective 11/21/2022. Patient seen and examined at bedside. No acute events noted overnight. 11/22/2022. Bipap overnight. Continues on oxymask this am. S/p 800 cc right thoracentesis this am. Failed swallow evaluaiton this am. Back in afib, rates into 110s. Physical Exam Physical Exam: Gen: A/O x 2, awake, weak cough CV: Irregularly irregular Resp: B/l rhonchi Abd: Soft, NT, ND Ext: warm, dry Results & Data Results & Data Vital Signs (Past 12 Hours) Vital Signs Temp Pulse Pulse Resp BP Pulse Ox O2 Del Method 11/22/22 10:00 117 H 30 H 150/76 H 92 Oxymask 11/22/22 09:00 118 H 25 H 140/77 94 Oxymask 11/22/22 08:22 139 H 122/70 97 Oxymask 11/22/22 08:00 122 H 24 124/86 94 Oxymask 11/22/22 07:00 Oxymask 11/22/22 07:00 116 H 26 H 140/80 96 Oxymask 11/22/22 07:22 119 H 27 H 97 Oxymask 11/22/22 04:00 116 H 25 H 95 11/22/22 04:00 129/75 11/22/22 03:30 69 19 98 BiPAP 11/22/22 03:00 70 23 97 11/22/22 03:00 165/66 H 11/22/22 02:01 153/66 H 11/22/22 02:01 68 23 92 11/22/22 02:00 68 22 92 11/22/22 01:00 65 27 H 182/59 H 95 11/22/22 03:18 69 22 95 11/22/22 00:00 36.5 C 63 22 96 BiPAP 11/21/22 23:30 62 24 94 11/21/22 23:00 61 24 94 BiPAP 11/21/22 23:00 163/56 H 11/22/22 00:00 61 11/21/22 23:55 BiPAP 11/21/22 23:19 61 22 93 Oxymask O2 Flow Rate FiO2 11/22/22 10:00 3 11/22/22 09:00 3 11/22/22 08:22 3 11/22/22 08:00 3 11/22/22 07:00 7 11/22/22 07:00 8 11/22/22 07:22 4 11/22/22 04:00 11/22/22 04:00 11/22/22 03:30 50 11/22/22 03:00 11/22/22 03:00 11/22/22 02:01 11/22/22 02:01 11/22/22 02:00 11/22/22 01:00 11/22/22 03:18 50 11/22/22 00:00 50 11/21/22 23:30 50 11/21/22 23:00 50 11/21/22 23:00 11/22/22 00:00 11/21/22 23:55 50 11/21/22 23:19 8 Coding Level of Care Code 27017 CRITICAL CARE 1ST 30-74M Diagnoses Atrial fibrillation with RVR I48.91 Sinus pause I45.5 Acute respiratory failure J96.00 Bilateral pleural effusion J90 Thoracic kyphosis M40.204 Acute respiratory failure with hypoxia J96.01 Pleural effusion J90 Time Spent (min) 30
[2022-11-22 10:33] LABS: Basophils # (auto) 0.05 K/uL (0-0.2); Basophils % (auto) 0.3 %; Eosinophils # (auto) 0.01 K/uL (0-0.50); Eosinophils % (auto) 0.1 %; Hematocrit (blood only) 24.7 % (37.0-47.0); Hemoglobin 7.8 g/dl (12.0-16.0); Immature Granulocytes # (auto) 0.31 K/uL (0.01-0.20); Immature Granulocytes % (auto) 1.8 %; Lymphocytes # (auto) 0.84 K/uL (1.2-3.4); Lymphocytes % (auto) 4.9 %; Mean Corpuscular Hemoglobin 29.5 pg (25.0-34.0); Mean Corpuscular Hgb Conc 31.6 g/dL (32.0-36.0); Mean Corpuscular Volume 93.6 fL (80.0-100.0); Mean Platelet Volume 9.2 fL (9.4-12.4); Monocytes # (auto) 1.08 K/uL (0.11-0.59); Monocytes % (auto) 6.4 %; Neutrophils # (auto) 14.68 K/uL (1.40-6.50); Neutrophils % (auto) 86.5 %; Nucleated RBC # (auto) 0.06 K/uL (0-0.12); Nucleated RBC % (auto) 0.4 %; Platelet Count 513 K/uL (130-400); RDW Coefficient of Variation 15.1 % (11.5-14.5); RDW Standard Deviation 50.4 fL (36.4-46.3); Red Blood Count 2.64 M/uL (4.20-5.40); White Blood Count 16.97 K/ul (4.8-10.8)
[2022-11-22 10:36] LABS: Base Excess VBG -0.8 mEq/L; HCO3 VBG 25 mmol/L; Oxygen Saturation VBG < 60.0 %; PCO2 VBG 44 mmHg (38-50); PO2 VBG 35 mmHg; pH VBG 7.36 (7.36-7.41)
[2022-11-22] MEDS: POTASSIUM CHLORIDE 20 MEQ/15 ML UDC GT SCH ×2 (10:44→20:23)
[2022-11-22] MEDS: APIXABAN 2.5 MG TAB PO SCH ×2 (10:44→20:23)
[2022-11-22] MEDS: FUROSEMIDE 20 MG TAB PO SCH ×2 (10:44→16:18)
[2022-11-22 10:46] LABS: Amylase Pleural Fluid 15 U/L
[2022-11-22 10:48] LABS: Albumin Level 3.2 gm/dl (3.4-5.0); Total Protein 6.1 gm/dl (6.0-8.3)
[2022-11-22 10:51] LABS: Glucose Pleural Fluid 77 mg/dl; LDH Pleural Fluid 70 U/L; Total Protein Pleural Fluid < 3.0 gm/dl
[2022-11-22 10:55] LABS: Appearance Pleural Fluid Clear; Color Pleural Fluid Yellow; RBC Pleural Fluid Auto < 2000 /uL; Source Pleural Fluid Right Lung; WBC Pleural Fluid Auto 181 /uL
[2022-11-22 11:10] LABS: Basophils, Fluid 1 %; Lymphocytes, Fluid 49 %; Mono,Macrophage,Mesothelial 43 %; Neutrophils, Fluid 7 %
[2022-11-22] MEDS: NUTREN LIQD 2.0 1,000 ML BAG NG SCH (11:38)
[2022-11-22] MEDS: IRON SUCROSE 200 MG in 0.9 % SODIUM CHLORIDE 100 ML IV SCH (12:40)
[2022-11-22] MEDS ORDERED: FUROSEMIDE 20 MG TAB PO SCH (17:00)
--- NOTE | 2022-11-22 17:10 | Billing Data ---
Date of Service November 22, 2022 Coding Level of Care Code 32568 SUB INP/OBS CARE
[2022-11-22] MEDS ORDERED: AMIODARONE / D5W 150 MG/100 ML BAG IV STA (17:55)
[2022-11-22] MEDS ORDERED: 0.2 MICRON FILTER SET 1 EACH IV ONE (17:55)
[2022-11-22] MEDS ORDERED: PHARMACY GLYCEMIC MGMT CONSULT PRN (18:03)
[2022-11-22] MEDS: VANCOMYCIN HCL 750 MG in SODIUM CHLORIDE 0.9% 250 ML IV SCH (20:22)
[2022-11-23 05:14] LABS: Hematocrit (blood only) 26.2 % (37.0-47.0); Hemoglobin 8.3 g/dl (12.0-16.0); Mean Corpuscular Hemoglobin 29.9 pg (25.0-34.0); Mean Corpuscular Hgb Conc 31.7 g/dL (32.0-36.0); Mean Corpuscular Volume 94.2 fL (80.0-100.0); Mean Platelet Volume 9.2 fL (9.4-12.4); Nucleated RBC # (auto) 0.12 K/uL (0-0.12); Nucleated RBC % (auto) 0.7 %; Platelet Count 518 K/uL (130-400); RDW Coefficient of Variation 15.4 % (11.5-14.5); RDW Standard Deviation 50.7 fL (36.4-46.3); Red Blood Count 2.78 M/uL (4.20-5.40); White Blood Count 16.66 K/ul (4.8-10.8)
[2022-11-23 05:20] LABS: Albumin Globulin Ratio 1.1 (0.9-2); Albumin Level 3.1 gm/dl (3.4-5.0); BUN Creatinine Ratio 29.9 (10-20); Bilirubin,Total 0.3 mg/dl (0.2-1.0); Calcium 9.4 mg/dl (8.6-10.3); Creatinine Clr Calc Pharmacy 24.1 ml/min; Est GFR (African American) 54.8 ml/min; Est GFR (Non-African American) 47.3 ml/min; Globulin 2.9 gm/dl (2.5-4.0); Magnesium 1.9 mg/dl (1.7-2.4); Phosphorus 2.5 mg/dl (2.5-4.9)
[2022-11-23] MEDS ORDERED: POTASSIUM CHLORIDE 20 MEQ/15 ML UDC PO STA (06:15)
[2022-11-23] MEDS ORDERED: MAGNESIUM SULFATE / D5W 1 GM/100 ML BAG IV ONE (06:15)
[2022-11-23] MEDS: TUBE FEEDING WATER FLUSH NG SCH ×5 (06:47→20:14)
[2022-11-23] MEDS: INSULIN ASPART PER UNIT CHARGE SC SCH ×4 (06:52→23:48)
[2022-11-23] MEDS: POTASSIUM CHLORIDE / WTR 10 MEQ/100 ML PLCT IV SCH ×2 (06:52→08:48)
[2022-11-23] MEDS: ALBUTEROL 0.083% NEBU SOLN 3 ML VIAL NEB PRN ×3 (06:58→22:47)
[2022-11-23] MEDS: ACETYLCYSTEINE 20% INHAL SOLN 4ML ***DISPENSED BY RESP. INH SCH ×3 (06:58→22:45)
--- NOTE | 2022-11-23 06:59 | Hospitalist Progress Note ---
Date of Service November 23, 2022 Assessment & Plan (1) Acute respiratory failure: (2) Pleural effusion: (3) Acute and chronic respiratory failure with hypoxia: (4) Pneumonia: (5) Back pain: (6) Tobacco dependence: (7) Atrial arrhythmia: Plan Emelia Sood is an 86 year-old female with history of COPD, chronic tobacco use (active 1 PPD), pHTN, MAT, and protein-calorie malnutrition who presented for increased respiratory distress. She was subsequently intubated and admitted to the ICU. Patient has since been extubated. Underwent broch 11/19 which resulted in significant improvement. Hospitalist service will continue to follow along with ICU level care * Palliative consulted, patient now DNR/DNI * ICU management continues Acute Hypoxic Respiratory Failure/Respiratory Arrest Multifactorial - 2/2 Acute diastolic CHF/Pleural Effusion/aspiration/mucous plugging/restrictive lung disease Patient discharged 11/14 after being treated for pneumonia on Cefdinir/Azithromycin. New O2 need last admission. Did become acutely dyspneic and returned to the ED. Subsequently intubated and admitted to the ICU. Patient was able to be extubated 11/15. -On 4L Oxymask this morning Imaging: -CTA with large right pleural effusion and compression atelectasis RLL with interval worsening in comparison to 11/11. -Will continue NG tube feeds for now, FEES video study to be completed tomorrow Procedures: -Intubated 11/14 for acute respiratory failure. Extubated 11/15. -Bronch 11/19. Extensively therapeutic with removal of thick mucous. -Thoracentesis completed on 11/22, fluid sent for cytology. CHF -BNP acutely elevated on admit to 1397 -ECHO EF 70% with Grade I diastolic dysfunction. RVSP 40-50 -Patient was on Lasix drip at 5 mg/hr. -Continue Lasix BID, creatinine stable Pneumonia Patient treated for PNA on previous admit. Was discharged on cefdinir/azithromycin. On cefepime and metronidazole at present. Did receive vanc and methylpred empirically. -Continue Vanc for now, cefepime d/c. Sinus Pauses (5-6s) MAT/AFib On Amiodarone and metoprolol at home. Eliquis held on admit - would restart upon discharge. Went in A fib with RVR 11/15. Started having conversion pauses 11/16. In a. fib this morning (11/22) -Currently on Amiodarone 400mg BID, Metoprolol 75mg TID Lumbar Back Pain Osteoporosis -Hx of multiple (L1,3,5) compression fractures (Evidenced on CT in 2020). Lumbar XR on 11/08: New L4 compression fracture Hx of Transient Ischemic Attacks Would continue aspirin, antihypertensives, and resume high dose statin when stable (atorvastatin 80 mg) -Encourage smoking cessation. Medical management HTN Metoprolol/Losartan/Amlodipine initially held on admission d/t hypotension. Patient moreso on the hypertensive things at this point in her course. Is on amlodipine QD and clonidine 0.1 mg BID was added for anxiolysis and HTN. Likely a combination of hospitalization and agitation. Judicious management of hypertensive state. Severe malnutrition ?Food Security Hypoalbuminemia. Possible side effect from amiodarone or acute decondition on top of severe malnutrition. Patient with NGT in place for feeds May also be a component of food insecurity. Would screen for this once no longer critically ill. Admission and Anticipated Discharge Date Admission Date: November 15, 2022 Supervising Physician Co-Signing Physician Notes I personally examined the patient and verified all couch points of history and exam, discussed case, and agree with decision making with Dr Ruiz no meaningful HPI or ROS obtainable. critical care input noted and appreciated vitals noted breathing mildly labored diffuse rhonchi labs noted respiratory failure, acute on chronic - ongoing supportive care, ongoing outline of goals of care. ?does she have advanced directives that might help guide family? otherwise as above, per ICU, and per palliative Subjective Patient seen and examined at bedside. Earlier this morning patient pulled out NG tube. Patient is more alert today and oriented to self, place, year. Tires very easily, requiring oxygen via oxymask. Review of Systems Review of Systems: As per above Physical Exam Constitutional: + frail appearing Eyes: + anicteric sclerae ENMT: External ears and nose normal, moist mucous membranes. Respiratory: Increased respiratory effort. Oxymask in place. Cardiovascular: Rate/Rhythm: regular rhythm and + tachycardic Gastrointestinal (Abdomen): Abdomen soft, nondistended Skin: no rashes, warm and dry Psychiatric: Orientation: alert, oriented to person, oriented to place and oriented to time Genitourinary: Purewick in place Results & Data Results & Data Vital Signs (Past 12 Hours) Vital Signs Temp Pulse Pulse Resp BP Pulse Ox O2 Del Method 11/23/22 03:00 129 H 23 97 BiPAP 11/23/22 03:00 116/77 11/23/22 02:00 120 H 31 H 93 BiPAP 11/23/22 02:00 127/59 L 11/23/22 02:17 121 H 24 95 11/23/22 01:00 120 H 21 94 11/23/22 01:00 102/69 11/23/22 00:00 122 H 27 H 92 11/23/22 00:00 110/74 11/22/22 23:00 36.8 C 123 H 24 93 11/22/22 23:00 113/70 11/22/22 22:00 112 H 22 93 11/22/22 22:00 121/61 11/23/22 00:00 117 H 11/22/22 22:09 110 H 20 94 Oxymask 11/22/22 21:30 Oxymask 11/22/22 21:00 117 H 14 11/22/22 21:00 138/71 11/22/22 20:00 36.8 C 113 H 18 91 Oxymask 11/22/22 20:00 127/69 11/22/22 19:00 112 H 23 91 11/22/22 19:00 145/61 H O2 Flow Rate FiO2 11/23/22 03:00 50 11/23/22 03:00 11/23/22 02:00 50 11/23/22 02:00 11/23/22 02:17 50 11/23/22 01:00 11/23/22 01:00 11/23/22 00:00 11/23/22 00:00 11/22/22 23:00 11/22/22 23:00 11/22/22 22:00 11/22/22 22:00 11/23/22 00:00 11/22/22 22:09 5 11/22/22 21:30 4 11/22/22 21:00 11/22/22 21:00 11/22/22 20:00 4 11/22/22 20:00 11/22/22 19:00 11/22/22 19:00 Resident Activity Tracking Resident Involvement: Resident Care Provided Care Provided: Adult Hospital Medicine (4) Pneumonia Laterality: right Lung location: lower lobe of lung Pneumonia type: due to unspecified organism Qualified Code(s): J18.1 - Lobar pneumonia, unspecified organism
[2022-11-23] MEDS: AMIODARONE 200 MG TAB PO SCH ×2 (08:47→17:18)
[2022-11-23] MEDS: APIXABAN 2.5 MG TAB PO SCH ×2 (08:48→20:10)
[2022-11-23] MEDS: amLODIPine BESYLATE 5 MG TAB PO SCH (08:48)
[2022-11-23] MEDS: ASPIRIN 81 MG CHEW PO SCH (08:49)
[2022-11-23] MEDS: FUROSEMIDE 20 MG TAB PO SCH ×2 (08:49→17:18)
[2022-11-23] MEDS: ADVANCED PROBIOTIC 1250 MG CAPSULE PO SCH (08:50)
[2022-11-23] MEDS: hydrALAZINE TAB 50 MG TAB PO SCH ×3 (08:50→20:12)
[2022-11-23] MEDS: METOPROLOL TARTRATE 25 MG TAB PO SCH ×3 (08:54→20:10)
[2022-11-23] MEDS: THIAMINE HCL 100 MG TAB NG SCH (08:55)
[2022-11-23] MEDS: VENLAFAXINE HCL 37.5 MG TAB PO SCH ×2 (08:55→20:11)
[2022-11-23] MEDS: POTASSIUM CHLORIDE 20 MEQ/15 ML UDC GT SCH ×2 (08:55→20:11)
--- NOTE | 2022-11-23 10:14 | Critical Care Progress Note ---
Date of Service November 23, 2022 Assessment & Plan (1) Atrial fibrillation with RVR: (2) Sinus pause: (3) Acute respiratory failure: (4) Bilateral pleural effusion: (5) Thoracic kyphosis: (6) Acute respiratory failure with hypoxia: (7) Pleural effusion: Plan NEURO 1. Anxiety 2. Metabolic encephalopathy, improving -- Continue effexor CV 1. pAfib 2. HTN -- Metoprolo to 75 tid, oral amiodarone to 400 bid. currently in NSR -- Continue amlodipine and hydralazine prn -- continue eliquis 2.5 bid RESP 1. Thick secretions / mucus plug s/p bronchoscopy 11/19/2022 2. Right pleural effusion s/p 800 cc right thoracentesis on 11/22/2022 of transudative fluid -- Continue mucomyst, scheduled bronchodilators -- Follow pleural fluid cytology -- Continue oral lasix 20 bid GI 1. NPO currently, NGT in place -- Ongoing speech evaluation, may do better today due to improvement in mental status -- If ongoing dysphgia, may need to consider feeding tube after discussion with family. RENAL 1. Increased BUN and creatinine improved -- Continue oral lasix 20 bid for now, replace K ID: 1. Leucoytosis -- Corynbacterium from respiratory cultures which have been consistent -- follow bronch samples, arthur for now, plan for 7-10 day course HEME: 1. Anemia, stable / improving -- Given IV iron, infusions completed ENDO: -- Blood glucose goal 140-180 DVT ppx: on eliquis Admission and Anticipated Discharge Date Admission Date: November 15, 2022 Subjective 11/21/2022. Patient seen and examined at bedside. No acute events noted overnight. 11/22/2022. Bipap overnight. Continues on oxymask this am. S/p 800 cc right thoracentesis this am. Failed swallow evaluaiton this am. Back in afib, rates into 110s. 11/23/2022. Back in NSR this am. More awake. 400-500 cc urine overnight. Cr stable. NGT in place. Review of Systems Review of Systems: Unable to obtain 2/2 acuity of condition Physical Exam Physical Exam: Gen: A/O x 2, awake, weak cough CV: Irregularly irregular Resp: B/l rhonchi Abd: Soft, NT, ND Ext: warm, dry Results & Data Results & Data Vital Signs (Past 12 Hours) Vital Signs Temp Pulse Pulse Resp BP Pulse Ox O2 Del Method 11/23/22 07:00 130 H 20 96 11/23/22 07:00 108/80 11/23/22 06:00 126 H 20 97 11/23/22 06:00 128/72 11/23/22 05:00 127 H 29 H 97 11/23/22 05:00 37.6 C H 120/79 11/23/22 04:00 126 H 22 97 BiPAP 11/23/22 04:00 128/78 11/23/22 07:17 126 H 26 H 93 Oxymask 11/23/22 03:00 129 H 23 97 BiPAP 11/23/22 03:00 116/77 11/23/22 02:00 120 H 31 H 93 BiPAP 11/23/22 02:00 127/59 L 11/23/22 02:17 121 H 24 95 11/23/22 01:00 120 H 21 94 11/23/22 01:00 102/69 11/23/22 00:00 122 H 27 H 92 11/23/22 00:00 110/74 11/22/22 23:00 36.8 C 123 H 24 93 11/22/22 23:00 113/70 11/23/22 00:00 117 H 11/22/22 22:09 110 H 20 94 Oxymask O2 Flow Rate FiO2 11/23/22 07:00 11/23/22 07:00 11/23/22 06:00 11/23/22 06:00 11/23/22 05:00 11/23/22 05:00 11/23/22 04:00 50 11/23/22 04:00 11/23/22 07:17 4 11/23/22 03:00 50 11/23/22 03:00 11/23/22 02:00 50 11/23/22 02:00 11/23/22 02:17 50 11/23/22 01:00 11/23/22 01:00 11/23/22 00:00 11/23/22 00:00 11/22/22 23:00 11/22/22 23:00 11/23/22 00:00 11/22/22 22:09 5 Coding Level of Care Code 57340 CRITICAL CARE 1ST 30-74M Diagnoses Atrial fibrillation with RVR I48.91 Sinus pause I45.5 Acute respiratory failure J96.00 Bilateral pleural effusion J90 Thoracic kyphosis M40.204 Acute respiratory failure with hypoxia J96.01 Pleural effusion J90 Time Spent (min) 35
--- NOTE | 2022-11-23 10:23 | XRay Report ---
KUB HISTORY: Status post placement of an enteric tube f/u NG tube placement COMPARISON: KUB of same day at 10:03 AM FINDINGS: Cardiomegaly with layering pleural effusions and bibasilar consolidation. Atherosclerosis o f the aorta. The abdomen is predominantly excluded from the [id number]. Subacute chronic lateral l eft rib fractures. Feeding tube is folded upon itself projected over the upper chest at the midline at level of the aortic arch. A right-sided PICC is noted with distal tip projected over the right atr ium. IMPRESSION: Malpositioned enteric tube folded upon itself at the level of the upper chest. Repositioning with fol low-up imaging is needed. ACT 112: Negative or not required by law. The above report was generated using voice recognition software. It may contain grammatical, syntax o r spelling errors. Electronically signed by: Zbigniew Soto M.D. 11/23/2022 10:21 AM
--- NOTE | 2022-11-23 10:25 | XRay Report ---
KUB CLINICAL HISTORY: Enteric tube repositioning. FINDINGS: An AP, portable, upright view of the lower chest and upper abdomen is compared to study per formed earlier the same day 11/23/2022. The enteric tube has been advanced. The side holes project abov e the diaphragm and the distal tip is not visualized. This should likely be further advanced. A right PICC line is in place. The heart is enlarged noting atherosclerotic calcification of the thoracic ur eter. There are small pleural effusions with bibasilar consolidation IMPRESSION: 1. The enteric tube has been advanced as above. The sideholes project just above the diaphragm and th is should likely be further advanced. 2. Cardiomegaly and small pleural effusions. Electronically signed by: Valente Lindsay M.D. 11/23/2022 10:23 AM
--- NOTE | 2022-11-23 12:45 | Pharmacy Report ---
Pharmacy PK ABX Note - Date of Service November 23, 2022 - Assessment and Plan Assessment 86 year old F receiving vancomycin for treatment of pneumonia. 11/15 and 11/18 sputum cultures (+) Corynebacterium spp. 11/19 BAL culture (+) Corynebacterium spp - no speciation/sensitivities. Initially thought to be contaminant, however remains persistent in cultures. Pending sensitivities (lab sendout). Renal function stable. Day #3 vancomycin Plan Vancomycin * Non-steady state random level this afternoon (~15.75hr level), 14.6mcg/mL. Predicted to achieve a ssAUC of 497mg/L.hr which is therapeutic. * Continue maintenance dose: 750 mg IV every 24 hours * Regimen is predicted to achieve target AUC/SALAZAR of 400-600 mg/L.hr * Will repeat a level in ~48h or sooner if clinically indicated. Pharmacy will continue to follow and will adjust dose/frequency as necessary. Thank you. Pharmacy has transitioned to AUC monitoring for vancomycin. AUC/SALAZAR is the preferred PK/PD target and is associated with decreased risk of nephrotoxicity compared to traditional trough targets.
[2022-11-23] MEDS: MULTI VIT W/MINERALS LIQUID 15 ML UDP NG SCH (14:49)
--- NOTE | 2022-11-23 18:00 | Billing Data ---
Date of Service November 23, 2022 Coding Level of Care Code 66282 SUB INP/OBS CARE
[2022-11-23] MEDS: VANCOMYCIN HCL 750 MG in SODIUM CHLORIDE 0.9% 250 ML IV SCH (20:09)
[2022-11-24] MEDS: TUBE FEEDING WATER FLUSH NG SCH ×6 (02:42→20:58)
[2022-11-24 05:31] LABS: Hematocrit (blood only) 27.1 % (37.0-47.0); Hemoglobin 8.7 g/dl (12.0-16.0); Mean Corpuscular Hemoglobin 30.2 pg (25.0-34.0); Mean Corpuscular Hgb Conc 32.1 g/dL (32.0-36.0); Mean Corpuscular Volume 94.1 fL (80.0-100.0); Mean Platelet Volume 9.7 fL (9.4-12.4); Nucleated RBC # (auto) 0.07 K/uL (0-0.12); Nucleated RBC % (auto) 0.5 %; Platelet Count 503 K/uL (130-400); RDW Coefficient of Variation 17.3 % (11.5-14.5); RDW Standard Deviation 50.5 fL (36.4-46.3); Red Blood Count 2.88 M/uL (4.20-5.40); White Blood Count 13.98 K/ul (4.8-10.8)
[2022-11-24 05:43] LABS: Partial Thromboplastin Ratio 0.9; Partial Thromboplastin Time 25.2 Seconds (21.0-31.0)
[2022-11-24 05:48] LABS: Bilirubin,Total 0.4 mg/dl (0.2-1.0); Calcium 9.5 mg/dl (8.6-10.3); Creatinine Clr Calc Pharmacy 24.8 ml/min; Est GFR (African American) 57.4 ml/min; Est GFR (Non-African American) 49.5 ml/min; Globulin 2.9 gm/dl (2.5-4.0); Phosphorus 1.9 mg/dl (2.5-4.9); Potassium 3.8 mmol/L (3.5-5.1); Total Protein 5.9 gm/dl (6.0-8.3)
[2022-11-24] MEDS: INSULIN ASPART PER UNIT CHARGE SC SCH ×3 (06:28→18:15)
[2022-11-24] MEDS ORDERED: POTASSIUM PHOS 3 MMOL/1 ML INFUSION IV STA (06:28)
[2022-11-24] MEDS: ACETYLCYSTEINE 20% INHAL SOLN 4ML ***DISPENSED BY RESP. INH SCH ×3 (07:02→22:39)
[2022-11-24] MEDS: ALBUTEROL 0.083% NEBU SOLN 3 ML VIAL NEB PRN ×3 (07:03→22:38)
--- NOTE | 2022-11-24 07:25 | Hospitalist Progress Note ---
Date of Service November 24, 2022 Assessment & Plan (1) Acute respiratory failure: (2) Pleural effusion: (3) Acute and chronic respiratory failure with hypoxia: (4) Pneumonia: (5) Back pain: (6) Tobacco dependence: (7) Atrial arrhythmia: Plan Emelia Sood is an 86 year-old female with history of COPD, chronic tobacco use (active 1 PPD), pHTN, MAT, and protein-calorie malnutrition who presented for increased respiratory distress. She was subsequently intubated and admitted to the ICU. Patient has since been extubated, has declined clinically overtime. * Palliative consulted, patient now DNR/DNI and will go home with home hospice- hoping for discharge tomorrow * Downgraded from ICU to med-surg while awaiting home with hospice Acute Hypoxic Respiratory Failure/Respiratory Arrest Multifactorial - 2/2 Acute diastolic CHF/Pleural Effusion/aspiration/mucous plugging/restrictive lung disease Patient discharged 11/14 after being treated for pneumonia on Cefdinir/Azithromycin. New O2 need last admission. Did become acutely dyspneic and returned to the ED. Subsequently intubated and admitted to the ICU. Patient was able to be extubated 11/15. -On 3L Oxymask currently Imaging: -CTA with large right pleural effusion and compression atelectasis RLL with interval worsening in comparison to 11/11. -Video swallow study with signs of significant risk for aspiration Procedures: -Intubated 11/14 for acute respiratory failure. Extubated 11/15. -Bronch 11/19. Extensively therapeutic with removal of thick mucous. -Thoracentesis completed on 11/22 CHF -BNP acutely elevated on admit to 1397 -ECHO EF 70% with Grade I diastolic dysfunction. RVSP 40-50 -Patient was on Lasix drip at 5 mg/hr. -Continue Lasix BID, creatinine stable Pneumonia Patient treated for PNA on previous admit. Was discharged on cefdinir/azithromycin. On cefepime and metronidazole at present. Did receive vanc and methylpred empirically. -Continue Vanc, cefepime d/c. Sinus Pauses (5-6s) MAT/AFib On Amiodarone and metoprolol at home. Eliquis held on admit - would restart upon discharge. Went in A fib with RVR 11/15. Started having conversion pauses 11/16. In a. fib this morning (11/22) -Currently on Amiodarone 400mg BID, Metoprolol 75mg TID Lumbar Back Pain Osteoporosis -Hx of multiple (L1,3,5) compression fractures (Evidenced on CT in 2020). Lumbar XR on 11/08: New L4 compression fracture Hx of Transient Ischemic Attacks Would continue aspirin, antihypertensives, and resume high dose statin when stable (atorvastatin 80 mg) HTN Metoprolol/Losartan/Amlodipine initially held on admission d/t hypotension. Patient moreso on the hypertensive things at this point in her course. Is on amlodipine QD and clonidine 0.1 mg BID was added for anxiolysis and HTN. Likely a combination of hospitalization and agitation. Admission and Anticipated Discharge Date Admission Date: November 15, 2022 Supervising Physician Co-Signing Physician Notes I personally examined the patient and verified all couch points of history and exam, discussed case, and agree with decision making with Dr Ruiz more alert. When discussing that the plan is to get her home, she is happy about this. Palliative input greatly appreciated. vitals noted breathing Unlabored no accessory muscle use. respiratory failure, acute on chronic - Multifactorial, overall declinegoals of [facility] with hospice otherwise as above, per ICU, and per palliativetransfer to medical, home with hospice once everything is set up Subjective Patient seen and examined at bedside. Had video swallow study this morning which showed more aspiration. Patient is lethargic and sleeping while wearing oxymask. Review of Systems Review of Systems: As per above Physical Exam Constitutional: + frail appearing Eyes: + anicteric sclerae Respiratory: Increased respiratory efforts, oxymask in place Cardiovascular: Rate/Rhythm: + irregularly irregular Gastrointestinal (Abdomen): Abdomen soft, nondistended Psychiatric: Lethargic, oriented to self Genitourinary: Purewick in place Results & Data Results & Data Vital Signs (Past 12 Hours) Vital Signs Temp Pulse Pulse Resp BP Pulse Ox O2 Del Method 11/24/22 07:03 74 22 96 Oxymask, Aerosol Mask 11/24/22 06:00 71 21 160/56 H 96 Oxymask 11/24/22 05:00 71 22 150/69 H 96 Oxymask 11/24/22 04:00 36.6 C 69 24 141/53 H 94 Oxymask 11/24/22 03:00 68 22 157/53 H 93 Oxymask 11/24/22 02:00 65 24 137/50 L 97 Oxymask 11/24/22 01:00 66 23 133/45 L 100 BiPAP 11/24/22 00:00 37.2 C 68 22 135/52 L 100 BiPAP 11/23/22 23:00 65 22 137/52 L 97 BiPAP 11/23/22 23:06 62 22 94 Oxymask 11/23/22 23:04 62 25 H 94 11/23/22 22:00 61 21 156/55 H 95 Oxymask 11/23/22 21:00 68 24 148/52 H 100 Oxymask 11/23/22 20:00 37.1 C 67 25 H 146/50 H 97 Oxymask 11/23/22 20:00 Oxymask O2 Flow Rate FiO2 11/24/22 07:03 4 11/24/22 06:00 4 11/24/22 05:00 4 11/24/22 04:00 4 11/24/22 03:00 4 11/24/22 02:00 4 11/24/22 01:00 50 11/24/22 00:00 50 11/23/22 23:00 50 11/23/22 23:06 4 11/23/22 23:04 50 11/23/22 22:00 4 11/23/22 21:00 4 11/23/22 20:00 4 11/23/22 20:00 4 Diagnostic Findings KUB X-Ray 11/23/22 09:18 KUB HISTORY: Status post placement of an enteric tube f/u NG tube placement COMPARISON: KUB of same day at 10:03 AM FINDINGS: Cardiomegaly with layering pleural effusions and bibasilar consolidation. Atherosclerosis of the aorta. The abdomen is predominantly excluded from the [id number]. Subacute chronic lateral left rib fractures. Feeding tube is folded upon itself projected over the upper chest at the midline at level of the aortic arch. A right-sided PICC is noted with distal tip projected over the right atrium. IMPRESSION: Malpositioned enteric tube folded upon itself at the level of the upper chest. Repositioning with follow-up imaging is needed. ACT 112: Negative or not required by law. The above report was generated using voice recognition software. It may contain grammatical, syntax or spelling errors. Electronically signed by: Zbigniew Soto M.D. 11/23/2022 10:21 AM KUB X-Ray 11/23/22 10:09 KUB CLINICAL HISTORY: Enteric tube repositioning. FINDINGS: An AP, portable, upright view of the lower chest and upper abdomen is compared to study performed earlier the same day 11/23/2022. The enteric tube has been advanced. The side holes project above the diaphragm and the distal tip is not visualized. This should likely be further advanced. A right PICC line is in place. The heart is enlarged noting atherosclerotic calcification of the thoracic ureter. There are small pleural effusions with bibasilar consolidation IMPRESSION: 1. The enteric tube has been advanced as above. The sideholes project just above the diaphragm and this should likely be further advanced. 2. Cardiomegaly and small pleural effusions. Electronically signed by: Valente Lindsay M.D. 11/23/2022 10:23 AM Resident Activity Tracking Resident Involvement: Resident Care Provided Care Provided: Adult Hospital Medicine (4) Pneumonia Laterality: right Lung location: lower lobe of lung Pneumonia type: due to unspecified organism Qualified Code(s): J18.1 - Lobar pneumonia, unspecified organism
[2022-11-24] MEDS ORDERED: POTASSIUM PHOSPHATE 8 MMOL in SODIUM CHLORIDE 0.9% 250 ML IV ONE (07:30)
[2022-11-24] MEDS ORDERED: ALTEPLASE, RECOMBINANT 1 MG/ML 2ML VIAL INSTIL ONE ×2 (08:25→08:30)
[2022-11-24] MEDS: AMIODARONE 200 MG TAB PO SCH ×2 (09:06→18:22)
[2022-11-24] MEDS: THIAMINE HCL 100 MG TAB NG SCH (09:07)
[2022-11-24] MEDS: hydrALAZINE TAB 50 MG TAB PO SCH ×3 (09:07→20:57)
[2022-11-24] MEDS: METOPROLOL TARTRATE 25 MG TAB PO SCH ×3 (09:07→20:56)
[2022-11-24] MEDS: POTASSIUM CHLORIDE 20 MEQ/15 ML UDC GT SCH ×2 (09:08→20:56)
[2022-11-24] MEDS: FUROSEMIDE 20 MG TAB PO SCH ×2 (09:08→20:58)
[2022-11-24] MEDS: ADVANCED PROBIOTIC 1250 MG CAPSULE PO SCH (09:08)
[2022-11-24] MEDS: VENLAFAXINE HCL 37.5 MG TAB PO SCH ×2 (09:08→20:57)
[2022-11-24] MEDS: ASPIRIN 81 MG CHEW PO SCH (09:08)
[2022-11-24] MEDS: APIXABAN 2.5 MG TAB PO SCH ×2 (09:08→20:57)
[2022-11-24] MEDS: MULTI VIT W/MINERALS LIQUID 15 ML UDP NG SCH (09:09)
[2022-11-24] MEDS: amLODIPine BESYLATE 5 MG TAB PO SCH (09:28)
[2022-11-24] MEDS ORDERED: TUBE FEEDING WATER FLUSH NG SCH (09:30)
--- NOTE | 2022-11-24 10:33 | Critical Care Progress Note ---
Date of Service November 24, 2022 Assessment & Plan (1) Atrial fibrillation with RVR: (2) Sinus pause: (3) Acute respiratory failure: (4) Bilateral pleural effusion: (5) Thoracic kyphosis: (6) Acute respiratory failure with hypoxia: (7) Pleural effusion: Plan NEURO 1. Anxiety 2. Metabolic encephalopathy, improving -- Continue effexor CV 1. pAfib 2. HTN -- Metoprolo to 75 tid, oral amiodarone 400 bid, will reduce to 200 bid as patient has already been loaded 4 g. Maintains NSR. -- Continue amlodipine and hydralazine prn -- continue eliquis 2.5 bid RESP 1. Thick secretions / mucus plug s/p bronchoscopy 11/19/2022 2. Right pleural effusion s/p 800 cc right thoracentesis on 11/22/2022 of transudative fluid -- Continue mucomyst, scheduled bronchodilators -- Pleural fluid cytology negative for malignancy -- Continue oral lasix 20 bid GI 1. NPO currently, NGT in place -- Ongoing speech evaluation, may do better today due to improvement in mental status -- Ongoing dysphgia, may need to consider feeding tube after discussion with family vs. hospice evaluation. Planning for video swallow evaluation RENAL 1. Increased BUN and creatinine improved -- Continue oral lasix 20 bid for now, replace K ID: 1. Leucoytosis -- Corynbacterium from respiratory cultures which have been consistent -- follow bronch samples, vanco for now, plan for 7-10 day course HEME: 1. Anemia, stable / improving -- Given IV iron, infusions completed ENDO: -- Blood glucose goal 140-180 DVT ppx: on eliquis Admission and Anticipated Discharge Date Admission Date: November 15, 2022 Subjective 11/21/2022. Patient seen and examined at bedside. No acute events noted overnight. 11/22/2022. Bipap overnight. Continues on oxymask this am. S/p 800 cc right thoracentesis this am. Failed swallow evaluaiton this am. Back in afib, rates into 110s. 11/23/2022. Back in NSR this am. More awake. 400-500 cc urine overnight. Cr stable. NGT in place. 11/24/2022. No acute events overnight. Renal fxn stable. Respiratory status continues to be tenuous, leukocytosis improving. Physical Exam Physical Exam: GEN: Appears chronically ill, frail, debilitated CV: RRR Resp: rhonchi b/l Abd: Soft, NT, ND Ext: warm, dry Results & Data Results & Data Vital Signs (Past 12 Hours) Vital Signs Temp Pulse Pulse Resp BP Pulse Ox O2 Del Method 11/24/22 08:00 37.0 C 11/24/22 08:00 76 11/24/22 08:00 Oxymask 11/24/22 07:03 74 22 96 Oxymask, Aerosol Mask 11/24/22 06:00 71 21 160/56 H 96 Oxymask 11/24/22 05:00 71 22 150/69 H 96 Oxymask 11/24/22 04:00 36.6 C 69 24 141/53 H 94 Oxymask 11/24/22 03:00 68 22 157/53 H 93 Oxymask 11/24/22 02:00 65 24 137/50 L 97 Oxymask 11/24/22 01:00 66 23 133/45 L 100 BiPAP 11/24/22 00:00 37.2 C 68 22 135/52 L 100 BiPAP 11/23/22 23:00 65 22 137/52 L 97 BiPAP 11/23/22 23:06 62 22 94 Oxymask 11/23/22 23:04 62 25 H 94 O2 Flow Rate FiO2 11/24/22 08:00 11/24/22 08:00 11/24/22 08:00 4 11/24/22 07:03 4 11/24/22 06:00 4 11/24/22 05:00 4 11/24/22 04:00 4 11/24/22 03:00 4 11/24/22 02:00 4 11/24/22 01:00 50 11/24/22 00:00 50 11/23/22 23:00 50 11/23/22 23:06 4 11/23/22 23:04 50 Coding Level of Care Code 86464 CRITICAL CARE 1ST 30-74M Diagnoses Atrial fibrillation with RVR I48.91 Sinus pause I45.5 Acute respiratory failure J96.00 Bilateral pleural effusion J90 Thoracic kyphosis M40.204 Acute respiratory failure with hypoxia J96.01 Pleural effusion J90 Time Spent (min) 60
--- NOTE | 2022-11-24 13:22 | Fluoroscopy Report ---
MODIFIED BARIUM SWALLOW CLINICAL HISTORY: assess for aspiration COMPARISON STUDY: None. FLUOROSCOPY TIME: 57 seconds. Ka, r: 5.84 mGy. TECHNIQUE: A modified barium swallow was performed in conjunction with Speech Pathology. The patient ingested varying consistencies of barium containing material. Video fluoroscopy was performed. FINDINGS: Nasogastric tube is in place. There were several episodes of a small amount of tracheal asp iration with thin liquids by cup and straw. There was also a small amount of tracheal aspiration with nectar thick liquids. Large amount of tracheal aspiration was noted with pudding consistencies. Sign ificant residuals were noted with the eventual tracheal aspiration. IMPRESSION: 1. Tracheal aspiration identified with multiple consistencies, as described above. 2. Full recommendations by Speech pathology to follow. ACT 112: Negative or not required by law. Electronically signed by: Peterson Davis M.D. 11/24/2022 1:20 PM
--- NOTE | 2022-11-24 13:28 | Palliative Care Progress Note ---
Date of Service November 24, 2022 Assessment & Plan (1) Palliative care encounter: Plan I talked with Mrs. Sood about her understanding of her illness and her experiences since being admitted. She acknowledges that it has been a difficulty road but tells me that she wants to do what she can to get better. Iasked her what that meant to her and she said "not laying around all the time". Her goal would be to ambulate and have some independence with ADLs. We discussed concern that despite treatment, it appears that her body would not be able to return to her prior baseline. I asked her how she felt about that and whether that had any impact on her goals. She told me that if she couldn't get better than she is now, she would be ready to . We talked about modified goals like being able to get her home and maybe outside to sit in her flower garden. She would like that but expressed concern about that being too much for her family. We talked about hospice care to support her and her family at home. She is familiar with hospice from when her about a year ago. She feels that would be helpful for her at home. I also spoke with her daughter, Kathy, on the phone and reviewed our conversation. Kathy has been considering hospice care at home because it is very important to her to have her mother at home. She had hoped that Emelia could improve but understands that her prognosis at this point is poor. She is agreeable to hospice care at home for her mother. Discussed with case management, RN and Dr. Diaz. Admission and Anticipated Discharge Date Admission Date: November 15, 2022 Subjective Sleeping but easily arousable. She denies pain or shortness of breath at this time. Reportedly did not do well with video swallow this morning. She is aware of this. Review of Systems Review of Systems: Pain 0/3 Dyspnea 0/3 Nausea 0/3 Drowsiness 1/3 Anxiety 0/3 Physical Exam Constitutional: + frail appearing; no acute distress ENMT: NG feeding tube Respiratory: normal respiratory effort; no labored breathing Cardiovascular: Rate/Rhythm: regular rate and regular rhythm Musculoskeletal: Extremities: + muscle atrophy Skin: warm and dry Neurologic: Speech / Cognition: normal cognition Results & Data Vital Signs (Past 12 Hours) Vital Signs Temp Pulse Pulse Resp BP Pulse Ox O2 Del Method 11/24/22 11:08 66 25 H 157/52 H 94 Oxymask 11/24/22 10:00 81 36 H 169/53 H 91 11/24/22 09:00 79 22 171/60 H 91 11/24/22 08:00 77 24 155/54 H 90 Oxymask 11/24/22 07:00 73 22 175/59 H 96 Oxymask 11/24/22 08:00 98.6 F 11/24/22 08:00 76 11/24/22 08:00 Oxymask 11/24/22 07:03 74 22 96 Oxymask, Aerosol Mask 11/24/22 06:00 71 21 160/56 H 96 Oxymask 11/24/22 05:00 71 22 150/69 H 96 Oxymask 11/24/22 04:00 97.9 F 69 24 141/53 H 94 Oxymask 11/24/22 03:00 68 22 157/53 H 93 Oxymask 11/24/22 02:00 65 24 137/50 L 97 Oxymask O2 Flow Rate 11/24/22 11:08 2 11/24/22 10:00 11/24/22 09:00 11/24/22 08:00 2 11/24/22 07:00 4 11/24/22 08:00 11/24/22 08:00 11/24/22 08:00 4 11/24/22 07:03 4 11/24/22 06:00 4 11/24/22 05:00 4 11/24/22 04:00 4 11/24/22 03:00 4 11/24/22 02:00 4 PG Care Time/CCT Total # of Minutes Spent Total Time Spent: 63 Total Time Spent with Patient: Total time spent is greater than 50% in coordination of care (as documented) at patient's floor/unit and/or counseling patient: [id number] goals of care, prognosis, hospice, patient and family education and support, coordination of care Coding Level of Care Code 69003 SUB INP/OBS CARE 3/50MIN Diagnoses Palliative care encounter Z51.5
--- NOTE | 2022-11-24 18:07 | Billing Data ---
Date of Service November 24, 2022 Coding Level of Care Code 28193 SUB INP/OBS CARE
[2022-11-24] MEDS: VANCOMYCIN HCL 750 MG in SODIUM CHLORIDE 0.9% 250 ML IV SCH (20:56)
[2022-11-25] MEDS: INSULIN ASPART PER UNIT CHARGE SC SCH ×3 (00:28→12:33)
[2022-11-25] MEDS: TUBE FEEDING WATER FLUSH NG SCH ×4 (01:43→13:10)
[2022-11-25] MEDS: ALBUTEROL 0.083% NEBU SOLN 3 ML VIAL NEB PRN (07:09)
[2022-11-25] MEDS: ACETYLCYSTEINE 20% INHAL SOLN 4ML ***DISPENSED BY RESP. INH SCH (07:09)
[2022-11-25 08:56] LABS: Albumin Level 3.1 gm/dl (3.4-5.0); BUN Creatinine Ratio 32.4 (10-20); Bilirubin,Total 0.4 mg/dl (0.2-1.0); Calcium 9.3 mg/dl (8.6-10.3); Creatinine Clr Calc Pharmacy 25.3 ml/min; Est GFR (African American) 56.1 ml/min; Est GFR (Non-African American) 48.4 ml/min; Magnesium 2.1 mg/dl (1.7-2.4); Phosphorus 3.3 mg/dl (2.5-4.9); Potassium 3.7 mmol/L (3.5-5.1); Total Protein 6.1 gm/dl (6.0-8.3)
[2022-11-25 09:00] LABS: Hematocrit (blood only) 28.6 % (37.0-47.0); Hemoglobin 8.8 g/dl (12.0-16.0); Mean Corpuscular Hemoglobin 30.4 pg (25.0-34.0); Mean Corpuscular Hgb Conc 30.8 g/dL (32.0-36.0); Mean Platelet Volume 9.7 fL (9.4-12.4); Nucleated RBC # (auto) 0.04 K/uL (0-0.12); Nucleated RBC % (auto) 0.3 %; Platelet Count 489 K/uL (130-400); RDW Coefficient of Variation 18.7 % (11.5-14.5); RDW Standard Deviation 53.6 fL (36.4-46.3); Red Blood Count 2.89 M/uL (4.20-5.40); White Blood Count 14.75 K/ul (4.8-10.8)
[2022-11-25 09:03] LABS: Partial Thromboplastin Ratio 0.8; Partial Thromboplastin Time 23.4 Seconds (21.0-31.0)
[2022-11-25] MEDS: APIXABAN 2.5 MG TAB PO SCH (12:11)
[2022-11-25] MEDS: AMIODARONE 200 MG TAB PO SCH (12:11)
[2022-11-25] MEDS: amLODIPine BESYLATE 5 MG TAB PO SCH (12:11)
[2022-11-25] MEDS: FUROSEMIDE 20 MG TAB PO SCH (12:12)
[2022-11-25] MEDS: ASPIRIN 81 MG CHEW PO SCH (12:12)
[2022-11-25] MEDS: hydrALAZINE TAB 50 MG TAB PO SCH ×2 (12:13→13:09)
[2022-11-25] MEDS: METOPROLOL TARTRATE 25 MG TAB PO SCH ×2 (12:13→13:09)
[2022-11-25] MEDS: VENLAFAXINE HCL 37.5 MG TAB PO SCH (12:13)
[2022-11-25] MEDS: ADVANCED PROBIOTIC 1250 MG CAPSULE PO SCH (12:13)
[2022-11-25] MEDS: MULTI VIT W/MINERALS LIQUID 15 ML UDP NG SCH (12:13)
[2022-11-25] MEDS: POTASSIUM CHLORIDE 20 MEQ/15 ML UDC GT SCH (12:13)
[2022-11-25] MEDS: THIAMINE HCL 100 MG TAB NG SCH (12:13)
--- NOTE | 2022-11-25 14:22 | Discharge Summary ---
Date of Service November 25, 2022 Admission HPI Per Admitting Provider Emelia is an 86-year-old female with a past medical history of COPD with ongoing tobacco use, hyperlipidemia, hypertension, pulmonary hypertension, TIA who presented to the ER as a respiratory arrest. Reportedly was originally versus from the field but hypoxic and then became unresponsive with respiratory arrest. She was discharged after a hospital admission 11/08 - 11/14 for acute hypoxic respiratory failure due to right upper lobe pneumonia on a background of COPD/restrictive lung disease. History limited by ETT. Collateral collected from family. Patient returned home after discharge yesterday in a good state of health, was actually. Around 10:30 in the evening used her albuterol inhaler twice, and then 1 additional time shortly thereafter. Did have a feeling of dread and unwellness time. Shortly thereafter began around 11:30 PM difficulty breathing and was hypoxic, EMS was called. Patient was answering questions but with labored respiration and difficulty breathing, subsequently had respiratory arrest per family patient has pression fractures in her back with pain was afraid to cough and suppressing her cough. Did have thick mucus which she was having difficulty clearing without cough. Medical History: Reviewed in EMR Medications: Reviewed in EMR Surgical History: Reviewed in EMR Family history: Reviewed in EMR Allergies: Reviewed in EMR Social History: Reviewed in EMR CODE STATUS: DNR, okay with temporary intubation and is if mucous plugging may have reversible cause but should she undergo a cardiac arrest does not want CPR. This was discussd with family who note she has an advance directive/living will. Admission Exam Per Admitting Provider General:ETT in place. HEENT: Atraumatic, normocephalic. Pulm: Grossly clear bilaterally. ETT suction with thick white/martin mucous. On mechanical vent Cardiac: RRR, -mrg. Radial pulses intact and symmetrical. Abdominal: Nontender, nondistended, soft. BS present. Ext: cool, dry. Strength/sensation exam limited by sedation. Principal Diagnosis Respiratory Failure Discharge Exam Constitutional + frail appearing Eyes + anicteric sclerae ENMT External ears and nose normal. Oxymask in place. Respiratory Decreased lung sounds, scattered rhonchi. Cardiovascular Rate/Rhythm: + irregularly irregular No lower extremity edema. Gastrointestinal (Abdomen) Abdomen soft, nondistended. Musculoskeletal Thoracic kyphosis Skin no rashes, warm and dry Psychiatric Orientation: alert, oriented to person, oriented to place and oriented to time Genitourinary Purewick in place. Discharge Data Allergies Allergy/AdvReac Type Severity Reaction Status Date / Time guaifenesin [From Mucinex] Allergy Intermediate Hives Verified 11/07/22 19:34 lidocaine Allergy Mild Hives Verified 11/08/22 17:37 amoxicillin Allergy Unknown Unknown Verified 11/07/22 19:34 prednisone AdvReac Severe swelling Verified 11/07/22 19:34 legs clindamycin AdvReac Intermediate Diarrhea Verified 11/07/22 19:34 lisinopril AdvReac Intermediate Cough Verified 11/07/22 19:34 Consultations 11/15/22 02:41 ED Decision to Admit Stat 11/15/22 05:02 Consult Poultry Vaccinator Routine 11/16/22 09:24 Consult Cardiology Stat 11/21/22 11:27 Consult Palliative Care Routine Ordered Studies 11/15/22 02:02 CT for pulmonary embolism PE [CT angio chest PE protocol] Stat CT head/brain wo con Stat 11/24/22 10:30 FL video swallow Routine Chest X-Ray 11/15/22 01:30 XR chest 1V portable HISTORY: Dyspnea COMPARISON: Chest 11/11/2022. FINDINGS: Endotracheal tube terminates 11 mm from the vu. Slightly rotated study. No pneumothorax. The heart remains enlarged. Bilateral pleural effusions and bibasilar densities persist. There is mild interstitial pulmonary edema. No acute fractures identified. IMPRESSION: 1. Endotracheal tube terminates 11 mm in the vu. 2. Pulmonary edema and bilateral pleural effusions/densities persist. ACT 112: Negative or not required by law. Electronically signed by: Alejandro Jefferson M.D. 11/15/2022 8:04 AM Chest X-Ray 11/15/22 01:59 XR chest 1V portable CLINICAL HISTORY: ETT adjustment, ventilator management COMPARISON STUDY: Chest CT November 11, 2022. Chest radiograph November 15, 2022 at 1:38 AM. FINDINGS: Tip of endotracheal tube is 2.2 cm above the vu. Tip of nasogastric tube is at least within the body of the stomach. There is no pneu mothorax. Cardiomediastinal silhouette is stable. Interstitial thickening persists. Small to moderate right and trace left pleural effusions are noted. IMPRESSION: 1. Satisfactory positioning of the endotracheal tube. 2. Pulmonary edema with small to moderate right and trace left pleural effusions and associated bibasilar opacities. ACT 112: Negative or not required by law. Electronically signed by: Peterson Davis M.D. 11/15/2022 7:08 AM Chest CTA 11/15/22 02:02 Exam(s): CTA CHEST IV Amt: 116 ML OPTIRAY 350 EXAM: CT Angiography Chest With Intravenous Contrast CLINICAL HISTORY: Reason for exam: Respiratory arrest, hx of effusions, PNA. TECHNIQUE: Axial computed tomographic angiography images of the chest with intravenous contrast. CTDI is 23.63 mGy and DLP is 296.07 mGy-cm. Automated exposure control was utilized for the study. A dose lowering technique was utilized adhering to the principles of ALARA. 2D MIP reconstructed images were created and reviewed. COMPARISON: No relevant prior studies available. FINDINGS: Pulmonary arteries: Pulmonary artery hypertension. No pulmonary embolus. Aorta: No acute findings. No thoracic aortic aneurysm. Lungs: Left lower lobe infiltrate. Subtle filtrate within the right upper lobe. Diffuse changes COPD. Compressive atelectasis of right lower lobe. No mass. Pleural space: Large right pleural effusion. No pneumothorax. Heart: Cardiomegaly. No significant pericardial effusion. No evidence of RV dysfunction. Bones/joints: No acute fracture. No dislocation. Soft tissues: Unremarkable. Lymph nodes: Unremarkable. No enlarged lymph nodes. Tubes, lines and devices: Endotracheal tube with its tip above the vu. IMPRESSION: 1. No pulmonary embolus 2. Large right pleural effusion with compressive atelectasis right lower lobe. Electronically signed by: Tan Becerril MD 11/15/22 03:[address] 11/15/22 02:02 Exam(s): CT HEAD Without Contrast EXAM: CT Head Without Intravenous Contrast CLINICAL HISTORY: Reason for exam: AMS. TECHNIQUE: Axial computed tomography images of the head/brain without intravenous contrast. CTDI is 38.88 mGy and DLP is 624.41 mGy-cm. Automated exposure control was utilized for the study. A dose lowering technique was utilized adhering to the principles of ALARA. COMPARISON: 11/07/2022 FINDINGS: Brain: Unremarkable. No hemorrhage. No significant white matter disease. No edema. Ventricles: Unremarkable. No ventriculomegaly. Bones/joints: Postoperative changes of right frontal calvarium. No acute fracture. Soft tissues: Unremarkable. Vasculature: stable postoperative changes usually aneurysm clipping. Sinuses: Unremarkable as visualized. No acute sinusitis. Mastoid air cells: Unremarkable as visualized. No mastoid effusion. IMPRESSION: No acute intracranial pathology. No change from prior exam Electronically signed by: Tan Becerril MD 11/15/22 03:34 AM KUB X-Ray 11/15/22 10:58 KUB HISTORY: Switch OGT to NGT COMPARISON: None. FINDINGS: Nasogastric tube terminates in the mid stomach. Small bilateral pleural effusions and bibasilar densities are noted. The heart is mildly enlarged. Mild pulmonary vascular congestion persists. No dilated loops of bowel to suggest an obstruction. No renal calculi. No ureteral calculi. No pneumoperitoneum or pneumatosis. IMPRESSION: Nasogastric tube terminates in the mid stomach. ACT 112: Negative or not required by law. Electronically signed by: Alejandro Jefferson M.D. 11/15/2022 11:39 AM Chest X-Ray 11/16/22 07:38 XR chest 1V portable HISTORY: 86 years-old Female follow respiratory distress and r pl effusion acute shortness of breath COMPARISON: 11/15/2022 TECHNIQUE: AP view of the chest FINDINGS: Cardiac silhouette is enlarged. Status post extubation. Distal tip of enteric tube projects over the stomach. Emphysema. No pneumothorax. Right vertebral left pleural effusions with bibasilar consolidation. Pulmonary vascular congestion with right lung predominant interstitial coarsening again noted. Degenerative changes of the shoulders and spine. IMPRESSION: 1. Status post extubation. 2. Cardiomegaly with pulmonary edema. 3. Layering pleural effusions with persistent bibasilar consolidation. 4. Emphysema. ACT 112: Negative or not required by law. The above report was generated using voice recognition software. It may contain grammatical, syntax or spelling errors. Electronically signed by: Zbigniew Soto M.D. 11/16/2022 8:10 AM Chest X-Ray 11/16/22 18:05 XR chest 1V portable CLINICAL HISTORY: Acute respiratory distress. COMPARISON STUDY: Chest CT November 15, 2022. Chest radiograph performed earlier today. FINDINGS: Tip of nasogastric tube is below the lower aspect of this image but at least within the mid body of the stomach. Moderate right and small left pleural effusions persist. Pulmonary edema is again noted. Cardiomediastinal silhouette is stable. There is no pneumothorax. IMPRESSION: No significant change in pulmonary edema and moderate right and small left pleural effusions. ACT 112: Negative or not required by law. Electronically signed by: Peterson Davis M.D. 11/16/2022 6:21 PM Chest X-Ray 11/17/22 05:00 XR chest 1V portable HISTORY: 86 years-old Female evaluate pulmonary edema/effusion COMPARISON: 11/16/2002 TECHNIQUE: AP view of the chest FINDINGS: Distal tip of enteric tube projects over the gastric body. Moderate cardiomegaly. Atherosclerosis of the aorta. Pulmonary edema. Moderate right and small left pleural effusions with bibasilar consolidation, right greater than left. No pneumothorax. Degenerative changes of the shoulders and spine. IMPRESSION: 1. Cardiomegaly with unchanged pulmonary edema. 2. Stable moderate right and small left pleural effusions with bibasilar consolidation. ACT 112: Negative or not required by law. The above report was generated using voice recognition software. It may contain grammatical, syntax or spelling errors. Electronically signed by: Zbigniew Soto M.D. 11/17/2022 7:07 AM Chest X-Ray 11/17/22 17:26 XR chest 1V portable HISTORY: Shortness of breath. follow up r pleural effusion, chf and right PICC COMPARISON: Chest 11/17/2022. FINDINGS: Interval placement of a right PICC which terminates at the expected location of the distal SVC. Nasogastric tube terminates below the diaphragm. The tip is not included on this study. Rotated study. The heart remains enlarged. No definite pneumothorax. The left lung apex is obscured by the patient's overlapping head. Small bilateral pleural effusions and bibasilar densities persist. Mild interstitial pulmonary edema has slightly improved. IMPRESSION: 1. A right PICC terminates at the distal SVC. 2. Nasogastric tube terminates below the diaphragm. The tip is not included on this study. 3. Bilateral pleural effusions and bibasilar densities persist. 4. Slight improvement in the pulmonary edema ACT 112: Negative or not required by law. Electronically signed by: Alejandro Jefferson M.D. 11/17/2022 7:02 PM Chest X-Ray 11/18/22 23:39 SINGLE VIEW CHEST CLINICAL HISTORY: Hypoxia. FINDINGS: An AP, portable, upright chest radiograph is compared to study dated 11/17/2022. Correlation is made with chest CT dated 11/15/2022. A right PICC line and enteric tube are unchanged in position. The heart is enlarged noting atherosclerotic calcification of the thoracic aorta. Pulmonary vascular congestion appears modestly improved from yesterday. Emphysema and chronic interstitial thickening is similar to previous. There are right larger than left pleural effusions with dependent consolidation. No pneumothorax is seen. The skeletal structures are osteopenic. The bony thorax is grossly intact. IMPRESSION: 1. Cardiomegaly and emphysema. Pulmonary vascular congestion appears modestly improved from yesterday. 2. Right larger than left pleural effusions with dependent consolidation. ACT 112: Negative or not required by law. Electronically signed by: Valente Lindsay M.D. 11/19/2022 7:13 AM Chest X-Ray 11/19/22 12:09 SINGLE VIEW CHEST CLINICAL HISTORY: Status post bronchoscopy. FINDINGS: 2 AP, portable, upright chest radiographs are compared to study dated 11/18/2022. Correlation is made with chest CT dated 11/15/2022. The examination is degraded by portable technique and patient rotation. A right PICC line and an enteric tube are unchanged in position. The heart is enlarged noting atherosclerotic calcification of the thoracic aorta. Mild pulmonary vascular congestion persists. Emphysema and chronic interstitial thickening is similar to previous. There are right larger than left pleural effusions with dependent consolidation. No pneumothorax is seen. The skeletal structures are osteopenic. The bony thorax is grossly intact. IMPRESSION: 1. No pneumothorax is identified post procedure. 2. Cardiomegaly and emphysema. Mild pulmonary vascular congestion persists. 3. Right larger than left pleural effusions with dependent consolidation. ACT 112: Negative or not required by law. Electronically signed by: Valente Lindsay M.D. 11/19/2022 12:45 PM Chest X-Ray 11/20/22 07:00 XR chest 1V portable HISTORY: Shortness of breath. assess right pleural effusion and bilateral pneumonia COMPARISON: Chest 11/19/2022. FINDINGS: No pneumothorax. Small to moderate bilateral pleural effusions are again noted. There are low lung volumes. The heart remains mildly enlarged. Bibasilar densities persist. There is right greater than left interstitial/vascular thickening. This suggests asymmetric pulmonary edema. A right PICC terminates at the superior cavoatrial junction/distal SVC. This remains unchanged. Nasogastric tube terminates below the diaphragm. The tip is not included on this study. IMPRESSION: 1. Mild asymmetric pulmonary edema with small to moderate bilateral pleural effusions and bibasilar densities. This has slightly progressed. 2. Lines and tubes remain unchanged in position. 3. No pneumothorax. ACT 112: Negative or not required by law. Electronically signed by: Alejandro Jefferson M.D. 11/20/2022 8:01 AM Chest X-Ray 11/22/22 06:00 XR chest 1V portable CLINICAL HISTORY: Pleural effusion. COMPARISON STUDY: Chest radiograph November 20, 2022. Chest CT November 15, 2022. FINDINGS: Tip of nasogastric tube is below the lower aspect of this image but at least within the body of the stomach. There is no pneumothorax. Moderate right and small left pleural effusions persist. Pulmonary edema has slightly progressed. Bibasilar opacities are again noted. Cardiomediastinal silhouette is stable. IMPRESSION: 1. Slight progression of pulmonary edema. 2. No change in moderate right and small left pleural effusions with associated bibasilar opacities. ACT 112: Negative or not required by law. Electronically signed by: Peterson Davis M.D. 11/22/2022 7:21 AM Chest X-Ray 11/22/22 08:20 SINGLE VIEW CHEST CLINICAL HISTORY: Status post thoracentesis. FINDINGS: An AP, portable, upright chest radiograph is compared to study performed earlier the same day 11/22/2022. Correlation is made with chest CT dated 11/15/2022. The examination is degraded by portable technique and patient rotation. A right PICC line and an enteric tube are unchanged in position. The heart is enlarged noting atherosclerotic calcification of the thoracic aorta. Mild pulmonary vascular congestion persists. Emphysema and chronic interstitial thickening is similar to previous. There are bilateral pleural effusions with dependent consolidation. No pneumothorax is seen. The skeletal structures are osteopenic. The bony thorax is grossly intact. IMPRESSION: 1. No pneumothorax is clearly identified post procedure. 2. Cardiomegaly and emphysema. Mild pulmonary vascular congestion persists. 3. Pleural effusions with dependent consolidation. ACT 112: Negative or not required by law. Electronically signed by: Valente Lindsay M.D. 11/22/2022 8:58 AM KUB X-Ray 11/23/22 09:18 KUB HISTORY: Status post placement of an enteric tube f/u NG tube placement COMPARISON: KUB of same day at 10:03 AM FINDINGS: Cardiomegaly with layering pleural effusions and bibasilar consolidation. Atherosclerosis of the aorta. The abdomen is predominantly exclu ded from the [id number]. Subacute chronic lateral left rib fractures. Feeding tube is folded upon itself projected over the upper chest at the midline at level of the aortic arch. A right-sided PICC is noted with distal tip projected over the right atrium. IMPRESSION: Malpositioned enteric tube folded upon itself at the level of the upper chest. Repositioning with follow-up imaging is needed. ACT 112: Negative or not required by law. The above report was generated using voice recognition software. It may contain grammatical, syntax or spelling errors. Electronically signed by: Zbigniew Soto M.D. 11/23/2022 10:21 AM KUB X-Ray 11/23/22 10:09 KUB CLINICAL HISTORY: Enteric tube repositioning. FINDINGS: An AP, portable, upright view of the lower chest and upper abdomen is compared to study performed earlier the same day 11/23/2022. The enteric tube has been advanced. The side holes project above the diaphragm and the distal tip is not visualized. This should likely be further advanced. A right PICC line is in place. The heart is enlarged noting atherosclerotic calcification of the thoracic ureter. There are small pleural effusions with bibasilar consolidation IMPRESSION: 1. The enteric tube has been advanced as above. The sideholes project just above the diaphragm and this should likely be further advanced. 2. Cardiomegaly and small pleural effusions. Electronically signed by: Valente Lindsay M.D. 11/23/2022 10:23 AM Videofluoroscopic Swallow 11/24/22 10:30 MODIFIED BARIUM SWALLOW CLINICAL HISTORY: assess for aspiration COMPARISON STUDY: None. FLUOROSCOPY TIME: 57 seconds. Ka, r: 5.84 mGy. TECHNIQUE: A modified barium swallow was performed in conjunction with Speech Pathology. The patient ingested varying consistencies of barium containing material. Video fluoroscopy was performed. FINDINGS: Nasogastric tube is in place. There were several episodes of a small amount of tracheal aspiration with thin liquids by cup and straw. There was also a small amount of tracheal aspiration with nectar thick liquids. Large amount of tracheal aspiration was noted with pudding consistencies. Significant residuals were noted with the eventual tracheal aspiration. IMPRESSION: 1. Tracheal aspiration identified with multiple consistencies, as described above. 2. Full recommendations by Speech pathology to follow. ACT 112: Negative or not required by law. Electronically signed by: Peterson Davis M.D. 11/24/2022 1:20 PM Hospital Course (1) Acute respiratory failure: (2) Pleural effusion: (3) Acute and chronic respiratory failure with hypoxia: (4) Pneumonia: (5) Back pain: (6) Tobacco dependence: (7) Atrial arrhythmia: Plan Emelia Sood is an 86 year-old female with history of COPD, chronic tobacco use (active 1 PPD), pHTN, MAT, and protein-calorie malnutrition who presented for increased respiratory distress. Goals of Care Patient and her POA participated in goals of care/palliative care discussions at various points of admission. Patient and POA ultimately decided to be DNR/DNI and to go home with hospice. I personally discussed with the patient who was alert and oriented and chose to proceed without further interventions including NG tube or PEG tube. Please read all palliative documentation as well as electrical transmission engineer documentation during admission for further details on these discussions. Patient reiterated desire to go home with hospice on day of discharge. Acute Hypoxic Respiratory Failure/Respiratory Arrest Multifactorial - 2/2 Acute diastolic CHF/Pleural Effusion/aspiration/mucous plugging/restrictive lung disease Patient discharged 11/14 after being treated for pneumonia on Cefdinir/Azithromycin. New O2 need from last admission. Patient had become acutely dyspneic and returned to the ED where she was subsequently intubated and admitted to the ICU. Patient was able to be extubated 11/15. Bronchoscopy and thoracentesis completed as below, pleural fluid cytology was negative for m alignancy. Patient continued to received mucomyst and scheduled bronchodilators. Continued to require 2-4L oxygen. Imaging: -CTA with large right pleural effusion and compression atelectasis RLL with interval worsening in comparison to 11/11. -Video swallow study with signs of significant risk for aspiration Procedures: -Intubated 11/14 for acute respiratory failure. Extubated 11/15. -Bronch 11/19. Removal of thick mucous and bronchial culture completed which grew corynebacterium. -Thoracentesis completed on 11/22 with removal of 800mL of transudative fluid Dysphagia Multiple swallow evaluations completed by speech pathology including video swallow study all of which patient showed significant risk for aspiration. NG tube was placed and patient received PO medications and tube feeds, however patient removed the NG on 11/25 and refused to have the tube replaced. During palliative discussion with patient, she and her POA declined proceeding with PEG tube. Patient and POA aware that medication and feeds could not be continued if NG tube not replaced prior to discharge. CHF BNP acutely elevated on admit to 1397. -ECHO EF 70% with Grade I diastolic dysfunction. RVSP 40-50. Patient was on Lasix drip at 5 mg/hr, later was continued on Lasix BID. Pneumonia Patient treated for pneumonia on previous admit. Was discharged on cefdinir/azithromycin, later on admission was switched to cefepime and metronidazole. Again later switched to cefepime and vancomycin due to corynebacterium from bronchial culture. Continued to have leukocytosis although decreased. Sinus Pauses (5-6s) MAT/AFib On Amiodarone and metoprolol at home. Eliquis held on admit - would restart upon discharge. Went in A fib with RVR 11/15. Started having conversion pauses 11/16. Would intermittently flip between sinus rhythm and atrial fibrillation, was continued on Amiodarone and Metoprolol. Lumbar Back Pain Osteoporosis Hx of multiple (L1,3,5) compression fractures (Evidenced on CT in 2020). Lumbar XR on 11/08: New L4 compression fracture Hx of Transient Ischemic Attacks Would continue aspirin, antihypertensives, and resume high dose statin when stable (atorvastatin 80 mg) HTN Metoprolol/Losartan/Amlodipine initially held on admission d/t hypotension. Amlodipine QD and clonidine 0.1 mg BID was added for anxiolysis and HTN. Total Time Total Time Spent Total Time Spent (In Minutes): . >30 Discharge Plan Discharge Items Patient Disposition: Hospice - Home Reason For Visit: AHRF/RESPIRATORY ARREST Discharge Diagnosis: Respiratory Failure Activity: Per Instructions section Non-emergency contact: Specialist Call non-emergency contact if: your symptoms worsen Follow-up/Referrals: Rosalio York MD [Primary Care Provider] - Diet: Nothing by Mouth Addtl Attending Provider Instructions: Emelia, you were admitted to the hospital for respiratory failure and admitted to the ICU. After failing to improve with your breathing status and failure of swallow studies, you had extended conversations with the palliative care team as well as your daughter- the decision was made for you to go home with home hospice. As we discussed, you did not want an NG tube re-inserted and your swallow study was very impaired- this means that if you have any liquids, medications, or foods by mouth you are at a high risk of aspirating and/or blocking airways. You will start hospice care in your home and they will provide medications as needed to focus on your comfort. Pending Studies at Discharge: No Stand-Alone Forms: [facility] Medications and DC Order Prescriptions: Continued triamcinolone acetonide 0.1 % Ointment 1 applic TOPICAL DAILY PRN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
--- NOTE | 2022-11-25 17:43 | Billing Data ---
Date of Service November 25, 2022 Coding Level of Care Code 67352 INP/OBS DISCH >30 MIN
== END 2022-11-25 14:15 | disposition hospice, home (50) | DRG 208 ==
LOC: ED 01:16 → 1E 02:56 → SUATTDRO 02:56 → 1E 04:27 → 3N 11-24 16:58